=== PATIENT | female | born 1945 | race Caucasian/White ===

== ENCOUNTER → 2018-04-28 12:07 | Outpatient (CLI) | payer MEDICARE, SELFPAY ==
--- NOTE | 2018-04-28 12:17 | BI_ITS ---
MAMMOGRAPHY - BILATERAL SCREENING REASON FOR EXAM: Female, 72 years old. Routine annual screening examination. PERTINENT HISTORY: Non-contributory. TECHNIQUE: Digital bilateral breast herberth (3D mammographic acquisition) in the CC and MLO projections. 2-D mediolateral oblique (MLO) and craniocaudad (CC) views of both breasts were obtained. CAD: Full Field Digital Mammography with Computer Added Detection was performed. COMPARISON: Comparison is made with prior study dated March 26, 2014 and January 08, 2013. FINDINGS: Breast Composition: There are scattered areas of fibroglandular density. There are no dominant masses or suspicious calcifications. Stable appearance of the small bilateral axillary lymph nodes. No other significant abnormalities are identified. There has been no significant change since the prior study. BI/SCREENING MAMM (CAD), BILAT IMPRESSION: Stable bilateral screening mammogram. Yearly follow-up mammogram recommended. (A) ASSESSMENT CATEGORY: BIRADS Category 2: Benign. A letter regarding these results will be sent to the patient by the facility within 30 days. Approximately 10% of breast cancers are not detected by mammography. A normal mammogram should not delay biopsy of a clinically suspicious abnormality. [id number] Electronically Signed: Melchor Forde MD at 14:58 EST Tel [phone], Service support ,
--- OUTSIDE RECORDS SUMMARY | 2018-06-21 18:20 | XMS RPT_ITS | Continuity of Care Document ---
:1945 Author Organization [facility] Address [address] [facility] [place] [address] Phone Care Team Providers Name Role Phone Korin Glass DO Unavailable Dr. Mike Cole Unavailable Dr. Ousmane Morgan Unavailable Jeffrey Trini DASH Unavailable Gravius, Larisa Unavailable Unavailable PANDA Matias Unavailable Unavailable Ciesa SUPERVISOR AUDIT CLERKS, Chiquita Unavailable Unavailable Unavailable Problems Name Dates Details B12 deficiency (E53.8, 266.2) Status: Active BMI 40.0-44.9, adult (Z68.41, V85.41) Status: Active BMI 40.0-44.9, adult (Z68.41, V85.41) Status: Active Carpal tunnel syndrome of left wrist (G56.02, 354.0) Status: Active Colon cancer screening (Z12.11, V76.51) Status: Active Common cold virus (J00, 460) Status: Active Deliveries (Parity) Comments: 3. Status: Active Diabetes mellitus type II, controlled, with no complications (E11.9, 250.00) Comments: diet diet diet and exercise Status: Active Dyshydrosis (L30.1, 705.81) Status: Active Elevated blood-pressure reading without diagnosis of hypertension (R03.0, 796.2) Status: Active Encounter for screening mammogram for breast cancer (Renamed from Encounter for screening mammogram for malignant neoplasm of breast) (Z12.31, V76.12) Status: Active Epidermoid cyst of face (L72.0, 706.2) Status: Active Hair loss (L65.9, 704.00) Comments: for several years Status: Active Hypercholesteremia (Renamed from Hypercholesterolemia) (E78.00, 272.0) Comments: no medicatins requested will do lifestyle chg Status: Active Hyperkalemia (E87.5, 276.7) Comments: resolved off of MORAIMA-I started Status: Active Hyperlipidemia (E78.5, 272.4) Status: Active Hypertension, benign (I10, 401.1) Status: Active Impaired Fasting Glucose (R73.01, 790.21) Status: Active Itch of skin (L29.9, 698.9) Status: Active Need for prophylactic vaccination and inoculation against influenza (Renamed from Need for immunization against influenza) (Z23, V04.81) Status: Active Need for prophylactic vaccination and inoculation against influenza (Renamed from Need for immunization against influenza) (Z23, V04.81) Status: Active Need for vaccination against Streptococcus pneumoniae (Z23, V03.82) Status: Active NO LIVING WILL OR POA OF 12.29.2012 Status: Active Non-smoker (Z78.9, V49.89) Status: Active Non-smoker (Z78.9, V49.89) Status: Active Nutritional counseling (Z71.3, V65.3) Status: Active Obstructive sleep apnea, adult (G47.33, 327.23) Status: Active Other dysphagia (R13.19, 787.29) Status: Active Pain in unspecified joint (M25.50, 719.40) Status: Active Paresthesia (R20.2, 782.0) Comments: think carpal tunnel - cock up splints Status: Active Positive ROSHNI (antinuclear antibody) (R76.8, 795.79) Status: Active Pregnancies () Comments: 3. Status: Active Rash of face (R21, 782.1) Status: Active screening Status: Active screening Status: Active Sinusitis, acute (J01.90, 461.9) Status: Active Skin lesion of face (L98.9, 709.9) Comments: set up shave biopsy Status: Active Skin lesion of face (L98.9, 709.9) Status: Active Snoring (R06.83, 786.09) Comments: with apnea fatigue elevated blood pressure Status: Active Sore throat (J02.9, 462) Status: Active Unspecified Diagnosis Status: Active Upper Respiratory Infection (Renamed from Infection of the upper respiratory tract) (J06.9, 465.9) Comments: cold eazz nasal spray, rest and fluid Status: Active Vitamin D deficiency (E55.9, 268.9) Comments: will resume her oral supplemnet Status: Active Medications Name Dates Details AmLODIPine Besylate 5 MG Oral Tablet 1 (one) Tablet Tablet daily as directed for 0 days Quantity: 90 {Tablet} Refills: 3 Ordered:26-Nov-2017 Selena Randolph Start : 26-Nov-2017 Active Halobetasol Propionate 0.05 % External Cream 1 (one) Cream Cream bid for 0 days Quantity: 1 {Tube} Refills: 1 Ordered:04-Nov-2017 Rocio Matias LPN Start : 04-Nov-2017 Active Mupirocin Calcium 2 % External Cream 1 qd (2 %) Active PredniSONE 10 MG Oral Tablet 3 (three) Tablet daily for 7 days Quantity: 21 {Tablet} Refills: 0 Ordered:02-May-2018 Glenys Luke CNP Start : 02-May-2018 Active Comments:with food Augmentin 875-125 MG Oral Tablet 1 (one) Tablet bid for 14 days Quantity: 28 {Tablet} Refills: 0 Ordered:05-Jun-2017 Glenys Luke CNP Start : 05-Jun-2017 End : 19-Jun-2017 Inactive CEFDINIR, 300MG (Oral Capsule) 1 (one) Capsule bid for 10 days Quantity: 20 {Capsule} Refills: 0 Ordered:18-Aug-2013 Glenys Luke CNP Start : 18-Aug-2013 End : 28-Aug-2013 Inactive Cheratussin AC 100-10 MG/5ML Oral Solution 5 Milliliter qhs prn for 0 days Quantity: 120 {Milliliter} Refills: 0 Ordered:08-Jul-2017 Rocio Matias LPN Start : 05-Jun-2017 End : 08-Jul-2017 Inactive Lisinopril 20 MG Oral Tablet 1 (one) Tablet bid for 0 days Quantity: 60 {Tablet} Refills: 2 Ordered:26-Nov-2017 Geraldine Subramanian LPN Start : 04-Nov-2017 End : 26-Nov-2017 Inactive Mucinex 600 MG Oral Tablet Extended Release 12 Hour 1 (one) Tablet ER 12HR Tablet ER 12HR bid for 0 days Quantity: 60 {Tablet} Refills: 0 Ordered:06-Mar-2016 Rocio Matias LPN Start : 07-Nov-2015 End : 06-Mar-2016 Inactive No Known Historical Medications PredniSONE 10 MG Oral Tablet 3 (three) Tablet PO Daily for 7 days Quantity: 21 {Tablet} Refills: 0 Ordered:24-Mar-2018 Rocio Buck Start : 24-Mar-2018 End : 31-Mar-2018 Inactive Comments:With food ProAir HFA 108 (90 Base) MCG/ACT Inhalation Aerosol Solution 2 (two) Aerosol Soln Aerosol Soln puffs qid prn for 0 days Quantity: 1 {Inhaler} Refills: 0 Ordered:06-Mar-2016 Rocio Matias LPN Start : 03-Jun-2015 End : 06-Mar-2016 Inactive ProAir HFA 108 (90 Base) MCG/ACT Inhalation Aerosol Solution 2 (two) Aerosol Soln Aerosol Soln puffs qid prn for 0 days Quantity: 1 {Inhaler} Refills: 0 Ordered:06-Mar-2016 Rocio Matias LPN Start : 03-Jun-2015 End : 06-Mar-2016 Inactive Ultravate 0.05 % External Cream apply to hands Cream bid sparingly for 0 days Quantity: 15 {Gram} Refills: 1 Ordered:26-Nov-2017 Geraldine Subramanian LPN Start : 19-Feb-2017 End : 26-Nov-2017 Inactive Valtrex 1 GM Oral Tablet 1 (one) Tablet bid for 0 days Quantity: 20 {Tablet} Refills: 0 Ordered:17-Sep-2016 Rocio Matias LPN Start : 28-Mar-2016 End : 17-Sep-2016 Inactive VITAMIN D3, 1000UNIT (Oral Tablet) 2 (two) Tablet daily for 30 days Quantity: 60 {Tablet} Refills: 0 Ordered:17-Feb-2016 Glenys Luke CNP Start : 08-Nov-2015 End : 08-Dec-2015 Inactive ZITHROMAX Z-VICKIE, 250MG (Oral Tablet) 2 (two) Tablet today for 0 days Quantity: 6 {Tablet} Refills: 0 Ordered:24-Mar-2015 Florencio Rocio MOSQUEDA Start : 24-Nov-2014 End : 24-Mar-2015 Inactive LEVAQUIN, 500MG (Oral Tablet) 1 (one) Tablet qd for 0 days Quantity: 14 {Tablet} Refills: 0 Ordered:02-Aug-2014 Roby Radha Start : 12-Jul-2014 End : 02-Aug-2014 Discontinued No current meds at this time End : 28-Jul-2014 Discontinued Allergies and Adverse Reactions Name Dates Details No Known Allergies (Allergy) Onset: 07-Nov-2015 Status: Active No Known Drug Allergies (Allergy) Onset: 29-Dec-2012 Status: Active Past Medical History Name Dates Details Abnormal blood chemistry (R79.9, 790.6) Status: Inactive as of 18-Jun-2016 BMI 40.0-44.9, adult (Z68.41, V85.41) Status: Inactive as of 26-Nov-2017 BMI 45.0-49.9, adult (Z68.42, V85.42) Status: Inactive as of 26-Nov-2017 Bronchitis (J40, 490) Status: Inactive as of 06-Mar-2016 Cellulitis and abscess (L03.90, 682.9) Status: Resolved as of 12-Oct-2013 Cough (R05, 786.2) Status: Inactive as of 06-Mar-2016 Cough (R05, 786.2) Status: Inactive as of 08-Jul-2017 Diarrhea (Renamed from D (diarrhea)) (R19.7, 787.91) Comments: fluids think part of illness Status: Resolved as of 28-Jul-2014 High blood pressure Status: Inactive as of 08-Jul-2017 Myalgia (M79.10, 729.1) Status: Resolved as of 28-Jul-2014 PNEUMONIA DUE TO OTHER SPECIFIED BACTERIA (J15.8, 482.89) Status: Resolved as of 24-Nov-2014 Rash of hands (R21, 782.1) Status: Inactive as of 06-Mar-2016 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, 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) Status: Inactive as of 08-Jul-2017 SHORTNESS OF BREATH (R06.02, 786.05) Status: Resolved as of 12-Oct-2013 Unspecified bacterial pneumonia (J15.9, 482.9) Status: Resolved as of 28-Jul-2014 Vaccine for ksqflafnfh-uwvecbt-ayfqqibxv with poliomyelitis (Z23, V06.3) Status: Inactive as of 17-Mar-2013 Wheeze (R06.2, 786.07) Status: Inactive as of 06-Mar-2016 Procedures Procedure Dates Details Annual Eye Exam Completed Comments: February 2012 Bone Density Study Completed Comments: 5 years ago Colonoscopy, Screening Completed Comments: has not had Mammogram, Screening Completed Comments: 3 years = dexa 5 years ago as of 12.29.2012 Pap Smear Completed Comments: unkown R Knee - orthoscopic Completed Date Value Details 28-Apr-2018 SCREENING MAMM (CAD), BILAT Result: Comments: See Note; NOTES: [facility] Imaging Services [address] [place] [address] SCREENING MAMM (CAD), BILAT MR#: [id number] Acct: [id number] Name: HAYDEE BOSS Rep #: [id number] : 1945 F 72 From: Melchor Forde MD PCP: Korin Glass DO Status: REG CLI Study: SCREENING MAMM (CAD), BILAT Date of Exam: 04/28/18 Exam# [id number] Ordering Dr: Korin Glass DO MAMMOGRAPHY - BILATERAL SCREENING REASON FOR EXAM: Female, 72 years old. Routine annual screening examination. PERTINENT HISTORY: Non-contributory. TECHNIQUE: Digital bilateral breast herberth (3D m ammographic acquisition) in the CC and MLO projections. 2-D mediolateral oblique (MLO) and craniocaudad (CC) views of both breasts were obtained. CAD: Full Field Digital Mammography with Computer Added Detection was performed. COMPARISON: Comparison is made with prior study dated March 26, 2014 and January 08, 2013. FINDINGS: Breast Composition: There are scatter ed areas of fibroglandular density. There are no dominant masses or suspicious calcifications. Stable appearance of the small bilateral axillary lymph nodes. No other significant abnormalities are mariano ntified. There has been no significant change since the prior study. BI/SCREENING MAMM (CAD), BILAT IMPRESSION: Stable bilateral screening mammog mamie. Yearly follow-up mammogram recommended. (A) ASSESSMENT CATEGORY: BIRADS Category 2: Benign. A letter regarding these results will be sent to the patient by the facility within 30 days. Approximately 10% of breast cancers are not detected by mammography. A normal mammogram should not delay biopsy of a clinically suspicious abnormality. [id number] Electronically Signed: Melchor Forde MD at 14:58 EST Tel [phone], Service support , CC: Korin Glass DO Survey Crew Chief: Signed 03-Jun-2015 Spirometry ([id number]) Comments: OBSTRUCTION PRESNET Result: 24-Nov-2014 Spirometry (69382) Comments: good effor tand curve normal Result: 20-Sep-2014 Chest PA and Lateral Result: Comments: See Note; NOTES: [facility] Imaging Services [address] [place] [address] Radiology Report MR#: [id number] Acct: [id number] Name: HAYDEE BOSS Rep #: [id number] : 1945 F 69 From: Jorge Mckeon DO PCP: Trini Murphy DO Status: REG CLI Study: Chest PA and Lateral Date of Exam: 09/20/14 Exam# [id number] Ordering Dr: Trini Murphy DO STUDY: X-RAY CHES T REASON FOR EXAM: Female, 69 years old. Followup pneumonia. TECHNIQUE: PA and lateral views of the chest. COMPARISON: August 09, 2014. FINDINGS: The lungs are well expanded. There is minimal linear atelectasis versus scarring at the lung bases. Stable granuloma along the right diaphragm. There is no demonstrated pleural abnormality. Normal size heart. Normal mediastinum and kole. Normal visualized pulmonary arteries. Normal visualized aortic arch and descending thoracic aorta. There are diffuse degenerative changes of the visualized thoracic spi ne. Normal visualized ribs, clavicles, and shoulders. There is no demonstrated abnormality of the visualized soft tissue structures of the upper abdomen. IMPRE SSION: No acute cardiopulmonary disease. Electronically Signed: Jorge Mckeon DO at 20:56 EDT Tel [phone], Service support [phone], RAD/Ch est PA and Lateral IMPRESSION: No acute cardiopulmonary disease. Electronically Signed: Jorge Mckeon DO at 20:56 EDT Tel [phone], Service support [phone], CC: Trini Murphy DO Survey Crew Chief: Signed 09-Aug-2014 Chest PA and Lateral Result: Comments: See Note; NOTES: [facility] Imaging Services [address] [place] [address] Radiology Report MR#: [id number] Acct: [id number] Name: HAYDEE BOSS Rep #: [id number] : 1945 F 68 From: Zander Cornelius MD PCP: Trini Murphy DO Status: REG CLI Study: Chest PA and Lateral Date of Exam: 08/09/14 Exam# [id number] Ordering Dr: Trini Murphy DO STUDY: X-RAY CHES T REASON FOR EXAM: Female, 68 years old. Fever and cough TECHNIQUE: PA and lateral views of the chest. COMPARISON: 07/12/14 FINDINGS: Lungs are expanded. Sig nificant overall improvement noted since the previous study with near complete resolution of the right middle and right lower lobe infiltrates. Followup recommended to assure resolution. No pleural e ffusion, stable granulomatous calcifications. Normal size heart. Normal mediastinum and kole. Normal visualized pulmonary arteries. Normal visualized aortic arch and descending thoracic aorta. The re are diffuse degenerative changes of the visualized thoracic spine. Normal visualized ribs, clavicles, and shoulders. There is no demonstrated abnormality of the visualized soft tissue structures of the upper abdomen. IMPRESSION: Near complete resolution of previously described right middle and right lower lobe infiltrate. Followup recommended to assure c omplete resolution. Electronically Signed: Juan Cornelius MD at 12:56 EDT Tel , Service support [phone], RAD/Chest PA and Lat eral IMPRESSION: Near complete resolution of previously described right middle and right lower lobe infiltrate. Followup recommended to assure complete resolution. Electronically Signed: Juan Cornelius MD at 12:56 EDT Tel , Service support [phone], CC: Trini Murphy DO Survey Crew Chief: Signed 12-Jul-2014 Chest PA and Lateral Result: Comments: See Note; NOTES: [facility] Imaging Services [address] [place] [address] Radiology Report MR#: [id number] Acct: [id number] Name: HAYDEE BOSS Rep #: [id number] : 1945 F 68 From: Oracio Mccollum MD PCP: Trini Murphy DO Status: REG CLI Study: Chest PA and Lateral Date of Exam: 07/12/14 Exam# [id number] Ordering Dr: Trini Murphy DO STUDY: X-RAY CH EST REASON FOR EXAM: Female, 68 years old. TECHNIQUE: 63 COMPARISON: None. FINDINGS: Ill-defined airspace opacities seen in the right lower lobe and the ri ght middle lobe suggesting pneumonia. There is no demonstrated pleural abnormality. Normal size heart. Normal mediastinum and kole. Normal visualized pulmonary arteries. Normal visualized aortic ar ch and descending thoracic aorta. There is demineralization of the osseous structures.There are diffuse degenerative changes of the visualized thoracic spine. Normal visualized ribs, clavicles, and shoulders. There is no demonstrated abnormality of the visualized soft tissue structures of the upper abdomen. IMPRESSION: Right middle lobe and right lower l obe pneumonia Electronically Signed: Jada Mccollum MD at 15:46 EST Tel , Service support [phone], CC: Trini Murphy DO Survey Crew Chief: Signed 26-Mar-2014 [facility] [employer] Digital & CAD Result: Comments: See Note; NOTES: [facility] Imaging Services [address] [place] [address] Breast Imaging Report MR#: [id number] Acct: [id number] Name: HAYDEE BOSS Rep #: [id number] : 1945 F 68 From: Melchor Forde MD PCP: Trini Murphy DO Status: REG CLI Exam# [id number] Ordering Dr: Trini Murphy DO MAMMOGRAPHY - BILATERAL SCREENING REASON FOR EXAM: Femal e, 68 years old. Routine annual screening examination. PERTINENT HISTORY: Non- contributory. TECHNIQUE: Digital examination. Mediolateral oblique (MLO) and craniocaudad (CC) views of both breasts w ere obtained. CAD: CAD was performed on this study. COMPARISON: Comparison is made with prior study dated January 09, 2013. FINDINGS: Breast Composition: There are scattered areas of fibroglandular density. There are no dominant masses or suspicious calcifications. Stable bilateral small axillary lymph nodes. No other significant abnormalities are identif ied. There has been no significant change since the prior study. IMPRESSION: Stable bilateral screening mammogram. Yearly follow-up recommended. (A) ASSESSMENT CATEGORY: BIRADS Category 2: Benign finding(s). A letter regarding these results will be sent to the patient by the facility within 30 days. Approximately 10% o f breast cancers are not detected by mammography. A normal mammogram should not delay biopsy of a clinically suspicious abnormality. Electronically Signed: Melchor Forde MD at 12: 54 EDT Tel [phone], Service support [phone], CC: Trini Murphy DO Survey Crew Chief: Signed Family History Unknown Family Member Name Dates Details Brother 1 Comments: 56- open heart - 5 vessels blocked and oa with hip replacement Status: Active Father Comments: non malignant brain tumor causing pressure- - 1996- myocardial infarction- age 75 Status: Active Mother Comments: alzheimers, osteoporosis - 2010- lived until 1985- heart rhythm issue Status: Active Social History Name Dates Details Caffeine Use Comments: occassional soda Status: Active Living Situation Comments: since 1965 Status: Active Most Recent Primary Occupation Comments: works at [employer]- at [employer] [place]- with 3 children - has 11 grandchildren Status: Active No Drug Use Status: Active Non Drinker/No Alcohol Use Status: Active Non Smoker/No Tobacco Use Status: Active Vital Signs Date Test Result Details :12 Temperature 97.7 f Comments: Method: Temporal Pulse 71 /min Comments: Pattern: Regular Respiration Rate 16 /min Comments: Pattern: Unlabored O2 SAT 97 % Comments: Room air BP Systolic 118 mm[Hg] Comments: Patient Position: Sitting; Cuff Location: Left Arm; Cuff Size: Standard BP Diastolic 68 mm[Hg] Comments: Patient Position: Sitting; Cuff Location: Left Arm; Cuff Size: Standard Weight 237 lb Height 63.25 in Body Mass Index Calculated 41.65 kg/m2 Body Surface Area Calculated 2.08 m2 :09 Temperature 97.5 f Comments: Method: Temporal Pulse 80 /min Comments: Pattern: Regular Respiration Rate 18 /min Comments: Pattern: Unlabored O2 SAT 95 % Comments: Room air BP Systolic 130 mm[Hg] Comments: Patient Position: Sitting; Cuff Location: Left Arm; Cuff Size: Standard BP Diastolic 78 mm[Hg] Comments: Patient Position: Sitting; Cuff Location: Left Arm; Cuff Size: Standard Weight 240 lb Height 63.25 in Body Mass Index Calculated 42.18 kg/m2 Body Surface Area Calculated 2.1 m2 :02 Temperature 97.9 f Comments: Method: Temporal Pulse 64 /min Comments: Pattern: Regular Respiration Rate 17 /min Comments: Pattern: Unlabored O2 SAT 94 % Comments: Room air BP Systolic 140 mm[Hg] Comments: Patient Position: Sitting; Cuff Location: Left Arm; Cuff Size: Large BP Diastolic 78 mm[Hg] Comments: Patient Position: Sitting; Cuff Location: Left Arm; Cuff Size: Large Weight 240 lb Height 63.25 in Body Mass Index Calculated 42.18 kg/m2 Body Surface Area Calculated 2.1 m2 :31 Temperature 97.2 f Pulse 77 /min Comments: Pattern: Regular Respiration Rate 17 /min Comments: Pattern: Unlabored O2 SAT 95 % Comments: Room air BP Systolic 148 mm[Hg] Comments: Patient Position: Sitting; Cuff Location: Left Arm; Cuff Size: Standard BP Diastolic 84 mm[Hg] Comments: Patient Position: Sitting; Cuff Location: Left Arm; Cuff Size: Standard Weight 242.125 lb Height 63.25 in Body Mass Index Calculated 42.55 kg/m2 Body Surface Area Calculated 2.1 m2 :48 Pulse 61 /min Comments: Pattern: Regular Respiration Rate 18 /min Comments: Pattern: Unlabored O2 SAT 95 % Comments: Room air BP Systolic 124 mm[Hg] Comments: Patient Position: Sitting; Cuff Location: Left Arm; Cuff Size: Large BP Diastolic 70 mm[Hg] Comments: Patient Position: Sitting; Cuff Location: Left Arm; Cuff Size: Large Weight 242.125 lb Height 63.25 in Body Mass Index Calculated 42.55 kg/m2 Body Surface Area Calculated 2.1 m2 :04 Pulse 69 /min Comments: Pattern: Regular Respiration Rate 18 /min Comments: Pattern: Unlabored O2 SAT 97 % Comments: Room air BP Systolic 134 mm[Hg] Comments: Patient Position: Sitting; Cuff Location: Left Arm; Cuff Size: Large BP Diastolic 76 mm[Hg] Comments: Patient Position: Sitting; Cuff Location: Left Arm; Cuff Size: Large Weight 242.125 lb Height 63.25 in Body Mass Index Calculated 42.55 kg/m2 Body Surface Area Calculated 2.1 m2 :06 Pulse 71 /min Comments: Pattern: Regular Respiration Rate 18 /min Comments: Pattern: Unlabored O2 SAT 94 % Comments: Room air BP Systolic 148 mm[Hg] Comments: Patient Position: Sitting; Cuff Location: Left Arm; Cuff Size: Large BP Diastolic 86 mm[Hg] Comments: Patient Position: Sitting; Cuff Location: Left Arm; Cuff Size: Large Weight 241.25 lb Height 63.25 in Body Mass Index Calculated 42.4 kg/m2 Body Surface Area Calculated 2.1 m2 :15 Pulse 86 /min Comments: Pattern: Regular Respiration Rate 18 /min Comments: Pattern: Unlabored O2 SAT 95 % Comments: Room air BP Systolic 186 mm[Hg] Comments: Patient Position: Sitting; Cuff Location: Left Arm; Cuff Size: Standard BP Diastolic 97 mm[Hg] Comments: Patient Position: Sitting; Cuff Location: Left Arm; Cuff Size: Standard Weight 246.375 lb Height 63.25 in Body Mass Index Calculated 43.3 kg/m2 Body Surface Area Calculated 2.12 m2 :46 Weight 246.375 lb Height 63.25 in Body Mass Index Calculated 43.3 kg/m2 Body Surface Area Calculated 2.12 m2 :08 Pulse 68 /min Comments: Pattern: Regular Respiration Rate 18 /min Comments: Pattern: Unlabored O2 SAT 98 % Comments: Room air BP Systolic 148 mm[Hg] Comments: Patient Position: Sitting; Cuff Location: Left Arm; Cuff Size: Large BP Diastolic 78 mm[Hg] Comments: Patient Position: Sitting; Cuff Location: Left Arm; Cuff Size: Large Weight 246.375 lb Height 61 in Body Mass Index Calculated 46.55 kg/m2 Body Surface Area Calculated 2.06 m2 :29 Pulse 62 /min Comments: Pattern: Regular Respiration Rate 18 /min Comments: Pattern: Unlabored O2 SAT 96 % Comments: Room air BP Systolic 138 mm[Hg] Comments: Patient Position: Sitting; Cuff Location: Left Arm; Cuff Size: Large BP Diastolic 82 mm[Hg] Comments: Patient Position: Sitting; Cuff Location: Left Arm; Cuff Size: Large Weight 246.125 lb Height 61 in Body Mass Index Calculated 46.5 kg/m2 Body Surface Area Calculated 2.06 m2 [id number] Pulse 75 /min Comments: Pattern: Regular Respiration Rate 18 /min Comments: Pattern: Unlabored O2 SAT 92 % Comments: Room air BP Systolic 140 mm[Hg] Comments: Patient Position: Sitting; Cuff Location: Left Arm; Cuff Size: Large BP Diastolic 90 mm[Hg] Comments: Patient Position: Sitting; Cuff Location: Left Arm; Cuff Size: Large Weight 248.375 lb Height 61 in Body Mass Index Calculated 46.93 kg/m2 Body Surface Area Calculated 2.07 m2 [id number] Pulse 72 /min Comments: Pattern: Regular Respiration Rate 18 /min Comments: Pattern: Unlabored O2 SAT 92 % Comments: Room air BP Systolic 148 mm[Hg] Comments: Patient Position: Sitting; Cuff Location: Left Arm; Cuff Size: Large BP Diastolic 82 mm[Hg] Comments: Patient Position: Sitting; Cuff Location: Left Arm; Cuff Size: Large Weight 244.5 lb Height 61 in Body Mass Index Calculated 46.2 kg/m2 Body Surface Area Calculated 2.06 m2 [id number] Pulse 72 /min Comments: Pattern: Regular Respiration Rate 18 /min Comments: Pattern: Unlabored O2 SAT 91 % Comments: Room air BP Systolic 148 mm[Hg] Comments: Patient Position: Sitting; Cuff Location: Left Arm; Cuff Size: Large BP Diastolic 90 mm[Hg] Comments: Patient Position: Sitting; Cuff Location: Left Arm; Cuff Size: Large Weight 248.125 lb Height 61 in Body Mass Index Calculated 46.88 kg/m2 Body Surface Area Calculated 2.07 m2 [id number] Pulse 63 /min Comments: Pattern: Regular Respiration Rate 18 /min Comments: Pattern: Unlabored O2 SAT 93 % Comments: Room air BP Systolic 150 mm[Hg] Comments: Patient Position: Sitting; Cuff Location: Left Arm; Cuff Size: Large BP Diastolic 82 mm[Hg] Comments: Patient Position: Sitting; Cuff Location: Left Arm; Cuff Size: Large Weight 245.5 lb Height 61 in Body Mass Index Calculated 46.39 kg/m2 Body Surface Area Calculated 2.06 m2 :15 Temperature 97.4 f Comments: Method: Temporal Pulse 68 /min Comments: Pattern: Regular Respiration Rate 15 /min Comments: Pattern: Unlabored O2 SAT 94 % Comments: Room air BP Systolic 142 mm[Hg] Comments: Patient Position: Sitting; Cuff Location: Left Arm; Cuff Size: Large BP Diastolic 86 mm[Hg] Comments: Patient Position: Sitting; Cuff Location: Left Arm; Cuff Size: Large Weight 247 lb Height 61 in Body Mass Index Calculated 46.67 kg/m2 Body Surface Area Calculated 2.07 m2 :10 Temperature 98.1 f Comments: Method: Temporal Pulse 73 /min Comments: Pattern: Regular Respiration Rate 16 /min Comments: Pattern: Unlabored O2 SAT 97 % Comments: Room air BP Systolic 122 mm[Hg] Comments: Patient Position: Sitting; Cuff Location: Left Arm; Cuff Size: Standard BP Diastolic 62 mm[Hg] Comments: Patient Position: Sitting; Cuff Location: Left Arm; Cuff Size: Standard Weight 247 lb Height 61 in Body Mass Index Calculated 46.67 kg/m2 Body Surface Area Calculated 2.07 m2 :40 Temperature 97.9 f Comments: Method: Temporal Pulse 68 /min Comments: Pattern: Regular Respiration Rate 20 /min Comments: Pattern: Unlabored O2 SAT 95 % Comments: Room air BP Systolic 140 mm[Hg] Comments: Patient Position: Sitting; Cuff Location: Left Arm; Cuff Size: Large BP Diastolic 78 mm[Hg] Comments: Patient Position: Sitting; Cuff Location: Left Arm; Cuff Size: Large Weight 247 lb Height 61 in Body Mass Index Calculated 46.67 kg/m2 Body Surface Area Calculated 2.07 m2 :18 Comments: otc cold meds Temperature 96.7 f Comments: Method: Tympanic Pulse 64 /min Comments: Pattern: Regular Respiration Rate 18 /min Comments: Pattern: Unlabored O2 SAT 98 % Comments: Room air BP Systolic 158 mm[Hg] Comments: Patient Position: Sitting; Cuff Location: Left Arm; Cuff Size: Standard BP Diastolic 82 mm[Hg] Comments: Patient Position: Sitting; Cuff Location: Left Arm; Cuff Size: Standard Weight 247 lb Height 61 in Body Mass Index Calculated 46.67 kg/m2 Body Surface Area Calculated 2.07 m2 :22 Pulse 69 /min Comments: Pattern: Regular Respiration Rate 20 /min Comments: Pattern: Unlabored O2 SAT 96 % Comments: Room air BP Systolic 118 mm[Hg] Comments: Patient Position: Sitting; Cuff Location: Left Arm; Cuff Size: Large BP Diastolic 80 mm[Hg] Comments: Patient Position: Sitting; Cuff Location: Left Arm; Cuff Size: Large Weight 247 lb Height 61 in Body Mass Index Calculated 46.67 kg/m2 Body Surface Area Calculated 2.07 m2 :53 Temperature 97.2 f Comments: Method: Oral Pulse 72 /min Comments: Pattern: Regular Respiration Rate 16 /min Comments: Pattern: Unlabored BP Systolic 118 mm[Hg] Comments: Patient Position: Sitting; Cuff Location: Left Arm; Cuff Size: Large BP Diastolic 76 mm[Hg] Comments: Patient Position: Sitting; Cuff Location: Left Arm; Cuff Size: Large Weight 247 lb Height 61 in Body Mass Index Calculated 46.67 kg/m2 Body Surface Area Calculated 2.07 m2 :19 Temperature 98.2 f Pulse 70 /min Comments: Pattern: Regular Respiration Rate 16 /min Comments: Pattern: Unlabored O2 SAT 96 % Comments: Room air BP Systolic 134 mm[Hg] Comments: Patient Position: Sitting; Cuff Location: Left Arm; Cuff Size: Large BP Diastolic 74 mm[Hg] Comments: Patient Position: Sitting; Cuff Location: Left Arm; Cuff Size: Large Weight 250 lb Height 61 in Body Mass Index Calculated 47.24 kg/m2 Body Surface Area Calculated 2.08 m2 :45 Comments: after aerosol treatment O2 SAT 96 % Comments: Room air :09 Temperature 98.8 f Pulse 74 /min Comments: Pattern: Regular Respiration Rate 18 /min Comments: Pattern: Unlabored O2 SAT 93 % Comments: Room air BP Systolic 110 mm[Hg] Comments: Patient Position: Sitting; Cuff Location: Left Arm; Cuff Size: Large BP Diastolic 72 mm[Hg] Comments: Patient Position: Sitting; Cuff Location: Left Arm; Cuff Size: Large Weight 245 lb Height 61 in Body Mass Index Calculated 46.29 kg/m2 Body Surface Area Calculated 2.06 m2 :35 Temperature 97.5 f Pulse 65 /min Comments: Pattern: Regular Respiration Rate 18 /min Comments: Pattern: Unlabored BP Systolic 132 mm[Hg] Comments: Patient Position: Sitting; Cuff Location: Left Arm; Cuff Size: Large BP Diastolic 64 mm[Hg] Comments: Patient Position: Sitting; Cuff Location: Left Arm; Cuff Size: Large Weight 243 lb Height 61 in Body Mass Index Calculated 45.91 kg/m2 Body Surface Area Calculated 2.05 m2 :22 Temperature 97.9 f Pulse 78 /min Comments: Pattern: Regular Respiration Rate 16 /min Comments: Pattern: Unlabored BP Systolic 148 mm[Hg] Comments: Patient Position: Sitting; Cuff Location: Left Arm; Cuff Size: Large BP Diastolic 70 mm[Hg] Comments: Patient Position: Sitting; Cuff Location: Left Arm; Cuff Size: Large Weight 243 lb Height 61 in Body Mass Index Calculated 45.91 kg/m2 Body Surface Area Calculated 2.05 m2 :13 Temperature 98.3 f Comments: Method: Oral Pulse 90 /min Comments: Pattern: Regular Respiration Rate 20 /min O2 SAT 99 % Comments: Room air Weight 242 lb Height 61 in Body Mass Index Calculated 45.73 kg/m2 Body Surface Area Calculated 2.05 m2 :25 Temperature 98.6 f Pulse 82 /min Comments: Pattern: Regular Respiration Rate 18 /min Comments: Pattern: Unlabored BP Systolic 136 mm[Hg] Comments: Patient Position: Sitting; Cuff Location: Left Arm; Cuff Size: Large BP Diastolic 74 mm[Hg] Comments: Patient Position: Sitting; Cuff Location: Left Arm; Cuff Size: Large Weight 242 lb Height 61 in Body Mass Index Calculated 45.73 kg/m2 Body Surface Area Calculated 2.05 m2 :16 Temperature 98.2 f Pulse 72 /min Comments: Pattern: Regular Respiration Rate 16 /min Comments: Pattern: Unlabored BP Systolic 136 mm[Hg] Comments: Patient Position: Sitting; Cuff Location: Left Arm; Cuff Size: Large BP Diastolic 80 mm[Hg] Comments: Patient Position: Sitting; Cuff Location: Left Arm; Cuff Size: Large Weight 246 lb Height 61 in Body Mass Index Calculated 46.48 kg/m2 Body Surface Area Calculated 2.06 m2 :54 Temperature 97.2 f Pulse 84 /min Comments: Pattern: Regular Respiration Rate 16 /min Comments: Pattern: Unlabored BP Systolic 136 mm[Hg] Comments: Patient Position: Sitting; Cuff Location: Left Arm; Cuff Size: Large BP Diastolic 82 mm[Hg] Comments: Patient Position: Sitting; Cuff Location: Left Arm; Cuff Size: Large Weight 244 lb Height 61 in Body Mass Index Calculated 46.1 kg/m2 Body Surface Area Calculated 2.06 m2 Results Date Description Value Details :40 Systemic Lupus Profile Comments: PATIENT NOT FASTINGPERFORMED BY: [place] [id number] [facility] [id number] ([id number]) Anti-DNA (DS) Ab Qn 1 {IU/mL} (Normal) Range: 0-9 Comments: Negative <5 Equivocal 5 - 9 Positive >9 Sjogren's Anti-SS-B <0.2 {AI} (Normal) Range: 0.0-0.9 Sjogren's Anti-SS-A <0.2 {AI} (Normal) Range: 0.0-0.9 Antichromatin Antibodies <0.2 {AI} (Normal) Range: 0.0-0.9 RA Latex Turbid. <10.0 {IU/mL} (Normal) Range: 0.0-13.9 Almendarez Antibodies <0.2 {AI} (Normal) Range: 0.0-0.9 SEARCH DEVELOPER Antibodies 0.9 {AI} (Normal) Range: 0.0-0.9 :53 ROSHNI (ANTINUCLEAR ANTIBODY) Comments: PATIENT NOT FASTINGPERFORMED BY: [place] [id number] [facility] [id number] ([id number]) ROSHNI Direct Positive (Abnormal) :53 C-Reactive Protein (31345) Comments: PATIENT NOT FASTINGPERFORMED BY: [facility]6370 [facility] [id number] C-Reactive Protein, Quant 27.3 mg/L (Abnormal) Range: 0.0-4.9 :53 SED RATE ERYTHROCYTE (45945) Comments: PATIENT NOT FASTINGPERFORMED BY: [address] [id number] Sedimentation Rate-Westergren 34 mm/h (Normal) Range: 0-40 :48 HgA1C , Office (19053) HgA1C , Office 5.7 % (Normal) Range: 4.6 - 7.1 :48 Blood Glucose , Office (39939) Blood Glucose , Office 78 (Normal) :42 POTASSIUM SERUM (87904) Comments: PATIENT NOT FASTINGPERFORMED BY: NIK [facility] Dwmzmu5538 [facility] [id number] Potassium 4.7 mmol/L (Normal) Range: 3.5-5.2 79-Vao-53682:16 Pathology Report Comments: PERFORMED BY: DONAVONIN [facility] [place] Zdsc9531 [facility] [id number] BY: [facility] Dermatopathology [address]of[address] [place] [id number] Information: [id number] See MATER Comments: Material submitted: .LEFT SIDE OF FACEClinical history: .SKIN LESION FACE Note (Normal) Diagnosis:ATYPICAL SQUAMOPROLIFERATIVE LESION WITH ULCERATION AND MIXEDINFLAMMATORY INFILTRATE; PLEASE SEE COMMENT...COMMENT:BONAFIDE SQUAMOUS DYSPLASIA IS FAVORED TO BE PRESENT AT A LEVELOF ADVANCED ACTINIC KERATOSIS. THIS MAY BE OCCURRING IN ABACKGROUND OF BENIGN KERATOSIS SUCH BUT NOT LIMITED TO ASEBORRHEIC KERATOSIS. ADDITIONALLY, THERE ARE FOCI OF BRISKINFLAMMATION INCLUDI NG NEUTROPHILS AND THE LESION MAY BEIMPETIGINIZED/CRUSTED, THOUGH AN INTERCURRENT COMPONENT OF ARUPTURED FOLLICULAR PATHOLOGY IS PLAUSIBLE. IF THE CLINICALSUSPICION FOR AN INFECTIOUS ETIOLOGY IS HIGH, T HEN TISSUE CULTUREMAY LEND HELPFUL INFORMATION IN THAT REGARD, BECAUSE YOU KNOW,EPITHELIOMATOUS HYPERPLASIA CAN BE SEEN IN THE SETTING OF FUNGALAND OTHER INFECTIOUS ETIOLOGIES. CORRELATION WITH CLINI BAO FINDINGSWILL BE OF IMPORT. (MULTIPLE DEEPER SECTIONS WERE EXAMINED.)11/21/2017Electronically signed: .Ealn Lowry MD, DermatopathologistGross description: .RECEIVED IN FORMALIN LABELED HAYDEE BOSS AND LEFT SIDE OF FACE IS A 0.6 X0.5 X <0.1 CM S HAVE BIOPSY OF LAKE SKIN. BISECTED AND ENTIRELY SUBMITTEDIN ONE CASSETTE.BCO/SMIMicroscopic: .SECTIONS DEMONSTRATE HYPERPARAKERATOSIS WITH A FOCUS OF E PIDERMALULCERATION THAT CONTAINS NEUTROPHILIC INFLAMMATION. BASAL LAYERKERATINOCYTE ATYPIA IS NOTED IN SOME FOCI. A SMALL AMOUNT OFDERMIS IS AVAILABLE FOR EVALUATION AND DEMONSTRATES MIXEDINFLAMMATION O F LYMPHOCYTES, HISTIOCYTES, AND OCCASIONALNEUTROPHILS. PAS STAIN (APPROPRIATE CONTROL) IS NEGATIVE FORUNEQUIVOCAL FUNGAL HYPHAE.Pathologist provided ICD- 10:D48.5, L98.499, L08.9CPT .936858, 600983 70-Mkz-303853:59 POTASSIUM SERUM (12669) Comments: PATIENT NOT FASTINGPERFORMED BY: [facility]ifyAt[facility] [id number] Potassium 5.3 mmol/L (Abnormal) Range: 3.5-5.2 01-Xus-901679:04 POTASSIUM SERUM (94802) Comments: PATIENT NOT FASTINGPERFORMED BY: [employer] EdwardsPromoJamAtrium Health Stanly [id number] Potassium 5.4 mmol/L (Abnormal) Range: 3.5-5.2 89-Cas-627988:01 HgA1C , Office (24209) HgA1C , Office 6.1 % (Normal) Range: 4.6 - 7.1 47-Csu-449914:01 Blood Glucose , Office (30910) Blood Glucose , Office 89 (Normal) 6-Pzi-944496:51 Microscopic Examination Comments: PATIENT WAS FASTINGPERFORMED BY: Summify[address] [id number] BY: Summify unamia Edwards H[facility]imenroppiLev[facility] [id number] Bacteria Few (Normal) Mucus Threads Present (Normal) Epithelial Cells (non renal) 0-10 {/hpf} (Normal) Range: 0 - 10 RBC 0-2 {/hpf} (Normal) Range: 0 - 2 WBC 11-30 {/hpf} (Abnormal) Range: 0 - 5 Comments: Clumps of leukocytes present. 4-Moc-764250:51 CALCIFEDIOL (00807) Comments: PATIENT WAS FASTINGPERFORMED BY: LabMingyianrp Jftkdvgbxv6220 [facility] [id number] BY: [facility] Kcxqxa5429 Edwards RoadDublin [place] [id number] Vitamin D, 25-Hydroxy 31.8 ng/mL (Normal) Range: 30.0-100.0 Comments: Vitamin D deficiency has been defined by the [place] of[place]icine and an Endocrine Society practice guideline as alevel of serum 25-OH vitamin D less than 20 ng/mL (1,2).The Endocrine Society went on to further define vitamin Dinsufficiency as a level between 21 and 29 ng/mL (2).1. IOM ([place] of Medicine). 2010. Dietary reference intakes for calcium and D. [place]: The National Academies Press.2. Gael MF, Tiffany HEART, Sandee MADRID, et al. Evaluation, treatment, and prevention of vitamin D deficiency: an Endocrine Society clinical practice guideline. JCEM. 2010; 96(7):1911-30. 8-Sne-569708:51 VITAMIN B-12 (CYANOCOBALAMIN) Comments: PATIENT WAS FASTINGPERFORMED BY: [facility] [address]rz[address] [id number] BY: [facility] Iqmdbj9623 [address] [facility] HospitalDublin [place] [id number] (32801) Vitamin B12 566 pg/mL (Normal) Range: 232-1245 6-Mdz-792711:51 TSH (99843) Comments: PATIENT WAS FASTINGPERFORMED BY: [facility] [address] [id number] BY: [facility] Njdisd7134 Edwards RoadDublin [place] [id number] TSH 1.520 {uIU/mL} (Normal) Range: 0.450-4.500 6-Znu-107452:51 URINALYSIS, W/ MICRO Comments: PATIENT WAS FASTINGPERFORMED BY: LabMingyian[address] [id number] BY: LabAmanda [place] [id number] [facility] [id number] (27520) Microscopic Examination See below: (Normal) Comments: Microscopic was indicated and was performed. Nitrite, Urine Negative (Normal) Urobilinogen,Semi-Qn 0.2 mg/dL (Normal) Range: 0.2-1.0 Bilirubin Negative (Normal) Occult Blood Negative (Normal) Ketones Negative (Normal) Glucose Negative (Normal) Protein Negative (Normal) WBC Esterase 3+ (Abnormal) Appearance Clear (Normal) Urine-Color Yellow (Normal) pH 7.5 (Normal) Range: 5.0-7.5 Specific [place] 1.015 (Normal) Range: 1.005-1.030 3-Hnl-744820:51 MICROALBUMIN: CREATININE Comments: PATIENT WAS FASTINGPERFORMED BY: Summify[address] [id number] BY: [place] [id number] [facility] [id number] RATIO (56611) AND (47465) Alb/Creat Ratio 7.7 {mg/g_creat} (Normal) Range: 0.0-30.0 Albumin, Urine 6.0 ug/mL (Normal) Creatinine, Urine 77.6 mg/dL (Normal) 1-Loh-361728:51 METABOLIC PANEL, Comments: PATIENT WAS FASTINGPERFORMED BY: Summify[address] [id number] BY: [place] [id number] [facility] [id number] COMPREHENSIVE (46886) ALT (SGPT) 9 [iU]/L (Normal) Range: 0-32 AST (SGOT) 15 [iU]/L (Normal) Range: 0-40 Alkaline Phosphatase 79 [iU]/L (Normal) Range: 39-117 Bilirubin, Total 0.5 mg/dL (Normal) Range: 0.0-1.2 A/G Ratio 1.4 (Normal) Range: 1.2-2.2 Globulin, Total 2.9 g/dL (Normal) Range: 1.5-4.5 Albumin 4.2 g/dL (Normal) Range: 3.5-4.8 Protein, Total 7.1 g/dL (Normal) Range: 6.0-8.5 Calcium 9.8 mg/dL (Normal) Range: 8.7-10.3 Carbon Dioxide, Total 26 mmol/L (Normal) Range: 18-29 Comments: Effective November 04, 2017 Carbon Dioxide, Total reference interval will be changing to: Age Male Female 0 days - 30 days 16 - 29 16 - 29 31 days - 1 year 15 - 25 15 - 25 2 years - 5 years 17 - 26 17 - 26 6 y ears - 12 years 19 - 27 19 - 27 >12 years 20 - 29 20 - 29 Chloride 101 mmol/L (Normal) Range: 96-106 Potassium 5.4 mmol/L (Abnormal) Range: 3.5-5.2 Sodium 142 mmol/L (Normal) Range: 134-144 BUN/Creatinine Ratio 15 (Normal) Range: 12-28 eGFR If Africn Am 78 mL/min/1.73 (Normal) eGFR If NonAfricn Am 68 mL/min/1.73 (Normal) Creatinine 0.86 mg/dL (Normal) Range: 0.57-1.00 BUN 13 mg/dL (Normal) Range: 8-27 Glucose 102 mg/dL (Abnormal) Range: 65-99 8-Sia-897906:51 LIPOPROTEIN, BLD, BY NMR Comments: PATIENT WAS FASTINGPERFORMED BY: BN [facility] [address] [id number] BY: CB [facility] Pikqvk4769 [facility] [id number] (31402) LP-IR Score 79 (Abnormal) Comments: INSULIN RESISTANCE MARKER <--Insulin Sensitive Insulin Resistant--> Percentile in Reference PopulationInsulin Resistance ScoreLP-IR Score Low 25th 50th 75th High <27 27 45 63 >63LP-IR Score is inaccurate if patient is non-fasting. .The LP-IR score is a laboratory developed i [facility] that has beenassociated with insulin resistance and diabetes risk and should beused as one component of a physician's clinical assessment. TheLP-IR score listed above has not been cleared by the [place] Food andDrug Administration. LDL Size 20.1 nm (Normal) Comments: INTERPRETATIVE INFORMATION PARTICLE CONCENTRATION AND SIZE <--Lower CVD Risk Highe r CVD Risk--> LDL AND HDL PARTICLES Percentile in Reference Population HDL-P (total) High 75th 50th 25th Low >34.9 34.9 30.5 26.7 <26.7 . Small LDL-P Low 25th 50th 75th High <117 117 527 839 >839 . LDL Size <-Large (Pattern A)-> <-Small (Pattern B)-> 23.0 20.6 20.5 19.0 Small LDL-P and LDL Size are associated with CVD risk, but not afterLDL-P is taken into account. .These assays were developed and their performance characteristicsdetermined by [employer]. These assays have not been cleared by [place] Food and Drug Administration. The clinical utility of theselaboratory values have not been fully established. Small LDL-P 1092 nmol/L (Abnormal) HDL-P (Total) 28.2 umol/L (Abnormal) Cholesterol, Total 204 mg/dL (Abnormal) Range: 100-199 Triglycerides 184 mg/dL (Abnormal) Range: 0-149 HDL-C 36 mg/dL (Abnormal) LDL-C 131 mg/dL (Abnormal) Range: 0-99 Comments: . Optimal < 100 Above optimal 100 - 129 Borderline 1 30 - 159 High 160 - 189 Very high > 189 .LDL-C is inaccurate if patient is non-fasting. LDL-P 1806 nmol/L (Abnormal) Comments: Low < 1000 Moderate 1000 - 1299 Borderline-High 1300 - 1599 High 1600 - 2000 Very High > 2000 6-Okr-436719:51 CBC W/AUTO DIFF WBC Comments: PATIENT WAS FASTINGPERFORMED BY: BN [facility] Ctovkpugiw2016 [facility] [id number] BY: CB [facility] Ahxoey8619 [facility] [id number] (03711) Immature Grans (Abs) 0.0 {x10E3/uL} (Normal) Range: 0.0-0.1 Immature Granulocytes 0 % (Normal) Baso (Absolute) 0.0 {x10E3/uL} (Normal) Range: 0.0-0.2 Eos (Absolute) 0.3 {x10E3/uL} (Normal) Range: 0.0-0.4 Monocytes(Absolute) 0.5 {x10E3/uL} (Normal) Range: 0.1-0.9 Lymphs (Absolute) 2.5 {x10E3/uL} (Normal) Range: 0.7-3.1 Neutrophils (Absolute) 3.9 {x10E3/uL} (Normal) Range: 1.4-7.0 Basos 0 % (Normal) Eos 5 % (Normal) Monocytes 7 % (Normal) Lymphs 34 % (Normal) Neutrophils 54 % (Normal) Platelets 326 {x10E3/uL} (Normal) Range: 150-379 RDW 14.0 % (Normal) Range: 12.3-15.4 MCHC 33.1 g/dL (Normal) Range: 31.5-35.7 MCH 31.9 pg (Normal) Range: 26.6-33.0 MCV 96 fL (Normal) Range: 79-97 Hematocrit 39.9 % (Normal) Range: 34.0-46.6 Hemoglobin 13.2 g/dL (Normal) Range: 11.1-15.9 RBC 4.14 {x10E6/uL} (Normal) Range: 3.77-5.28 WBC 7.2 {x10E3/uL} (Normal) Range: 3.4-10.8 :02 HgA1C , Office (72920) HgA1C , Office 6.0 % (Normal) Range: 4.6 - 7.1 :02 Blood Glucose , Office (81370) Blood Glucose , Office 141 (Normal) :48 HgA1C , Office (13336) HgA1C , Office 6.0 % (Normal) Range: 4.6 - 7.1 :48 Blood Glucose , Office (81248) Blood Glucose , Office 94 (Normal) :26 TSH (22857) Comments: PATIENT WAS FASTINGPERFORMED BY: [employer] Rtovpa7151 [facility] [id number] TSH 2.090 {uIU/mL} (Normal) Range: 0.450-4.500 63-Ulx-804813:26 METABOLIC PANEL, COMPREHENSIVE Comments: PATIENT WAS FASTINGPERFORMED BY: [employer] Flbzcq4532 [facility] [id number] (85444) ALT (SGPT) 11 [iU]/L (Normal) Range: 0-32 AST (SGOT) 17 [iU]/L (Normal) Range: 0-40 Alkaline Phosphatase, S 83 [iU]/L (Normal) Range: 39-117 Bilirubin, Total 0.6 mg/dL (Normal) Range: 0.0-1.2 A/G Ratio 1.4 (Normal) Range: 1.2-2.2 Globulin, Total 3.0 g/dL (Normal) Range: 1.5-4.5 Albumin, Serum 4.3 g/dL (Normal) Range: 3.5-4.8 Protein, Total, Serum 7.3 g/dL (Normal) Range: 6.0-8.5 Calcium, Serum 9.6 mg/dL (Normal) Range: 8.7-10.3 Carbon Dioxide, Total 25 mmol/L (Normal) Range: 18-29 Chloride, Serum 99 mmol/L (Normal) Range: 96-106 Potassium, Serum 5.0 mmol/L (Normal) Range: 3.5-5.2 Sodium, Serum 144 mmol/L (Normal) Range: 134-144 BUN/Creatinine Ratio 11 (Abnormal) Range: 12-28 eGFR If Africn Am 78 mL/min/1.73 (Normal) eGFR If NonAfricn Am 67 mL/min/1.73 (Normal) Creatinine, Serum 0.87 mg/dL (Normal) Range: 0.57-1.00 BUN 10 mg/dL (Normal) Range: 8-27 Glucose, Serum 100 mg/dL (Abnormal) Range: 65-99 96-Eqd-937579:26 CBC W/AUTO DIFF WBC (67187) Comments: PATIENT WAS FASTINGPERFORMED BY: [employer]70 [facility] [id number] Immature Grans (Abs) 0.0 {x10E3/uL} (Normal) Range: 0.0-0.1 Immature Granulocytes 0 % (Normal) Baso (Absolute) 0.0 {x10E3/uL} (Normal) Range: 0.0-0.2 Eos (Absolute) 0.3 {x10E3/uL} (Normal) Range: 0.0-0.4 Monocytes(Absolute) 0.5 {x10E3/uL} (Normal) Range: 0.1-0.9 Lymphs (Absolute) 2.6 {x10E3/uL} (Normal) Range: 0.7-3.1 Neutrophils (Absolute) 3.8 {x10E3/uL} (Normal) Range: 1.4-7.0 Basos 0 % (Normal) Eos 4 % (Normal) Monocytes 7 % (Normal) Lymphs 36 % (Normal) Neutrophils 53 % (Normal) Platelets 369 {x10E3/uL} (Normal) Range: 150-379 RDW 14.3 % (Normal) Range: 12.3-15.4 MCHC 33.0 g/dL (Normal) Range: 31.5-35.7 MCH 30.9 pg (Normal) Range: 26.6-33.0 MCV 94 fL (Normal) Range: 79-97 Hematocrit 41.8 % (Normal) Range: 34.0-46.6 Hemoglobin 13.8 g/dL (Normal) Range: 11.1-15.9 RBC 4.47 {x10E6/uL} (Normal) Range: 3.77-5.28 WBC 7.3 {x10E3/uL} (Normal) Range: 3.4-10.8 14-Fot-884130:26 VITAMIN B-12 (CYANOCOBALAMIN) Comments: PATIENT WAS FASTINGPERFORMED BY: [employer] Dvtuam9196 [place] [id number] (12568) Vitamin B12 519 pg/mL (Normal) Range: 211-946 39-Ivu-075272:26 CALCIFEDIOL (64224) Comments: PATIENT WAS FASTINGPERFORMED BY: [facility] Iiyaeu5[address] [place] [id number] Vitamin D, 25-Hydroxy 37.1 ng/mL (Normal) Range: 30.0-100.0 Comments: Vitamin D deficiency has been defined by the [place] of[place]icine and an Endocrine Society practice guideline as alevel of serum 25-OH vitamin D less than 20 ng/mL (1,2).The Endocrine Society went on to further define vitamin Dinsufficiency as a level between 21 and 29 ng/mL (2).1. IOM ([place] of Medicine). 2010. Dietary reference intakes for calcium and D. [place]: The National Academies Press.2. Gael MF, Tiffany HEART, Sandee MADRID, et al. Evaluation, treatment, and prevention of vitamin D deficiency: an Endocrine Society clinical practice guideline. JCEM. 2010; 96(7):1911-30. :26 LIPID PANEL (23705) Comments: PATIENT WAS FASTINGPERFORMED BY: [facility] Ubwfqk7481 [facility] [id number] LDL/HDL Ratio 3.0 {ratio_units} (Normal) Range: 0.0-3.2 Comments: LDL/HDL Ratio Men Women 1/2 Avg.Risk 1.0 1.5 Av g.Risk 3.6 3.2 2X Avg.Risk 6.2 5.0 3X Avg.Risk 8.0 6.1 LDL Cholesterol Calc 139 mg/dL (Abnormal) Range: 0-99 VLDL Cholesterol Bao 29 mg/dL (Normal) Range: 5-40 HDL Cholesterol 46 mg/dL (Normal) Triglycerides 145 mg/dL (Normal) Range: 0-149 Cholesterol, Total 214 mg/dL (Abnormal) Range: 100-199 :18 HgA1C , Office (96169) HgA1C , Office 6.0 % (Normal) Range: 4.6 - 7.1 :18 Blood Glucose , Office (90606) Blood Glucose , Office 120 (Normal) :50 HgA1C , Office (54891) HgA1C , Office 6.2 % (Normal) Range: 4.6 - 7.1 :50 Blood Glucose , Office (95984) Blood Glucose , Office 104 (Normal) :10 CBC W/Diff, Automated Comments: [facility] [address] [place], [place], [id number] Absolute Lymph 2.49 {X10_3/ul} (Normal) Range: 0.83-4.51 Absolute Neut 4.0 {X10_3/uL} (Normal) Range: 2.0-7.7 IM GRAN % 0.100 % (Normal) Range: 0.0-0.9 Comments: IG% - Immature Granulocytes (promyelocytes, myelocytes andmetamyelocytes) > 1% indicates that a LEFT SHIFT is Present. BASO% 0.3 % (Normal) Range: 0-1 EO% 4.1 % (Normal) Range: 0-5 MONO% 6.4 % (Normal) Range: 0-10 LY% 34.4 % (Normal) Range: 19-41 NEUT% 54.7 % (Normal) Range: 47-70 MPV 10.0 fL (Normal) Range: 6.2-12.0 PLT 344 K/mm3 (Normal) Range: 150-450 RDW SD 50.0 fL (Abnormal) Range: 35.1-43.9 RDW CV 14.0 % (Normal) Range: 11.6-14.6 MCHC 31.8 {g/gl} (Abnormal) Range: 32-36 MCH 31.0 pg (Normal) Range: 27.0-32.0 MCV 97.5 fL (Normal) Range: 81-99 HCT 42.4 % (Normal) Range: 37-47 HGB 13.5 g/dL (Normal) Range: 12.0-15.0 RBC 4.35 {M/mm3} (Normal) Range: 4.2-5.4 WBC 7.2 K/mm3 (Normal) Range: 4.4-11.0 41-Cwr-114051:10 Comprehensive Metabolic Profil Comments: [facility] [address] [place], [id number] GAP 6 (Normal) Range: 5-15 CO2 29.0 mmol/L (Normal) Range: 21.0-32.0 CL 107 mmol/L (Normal) Range: 98-107 K 4.5 mmol/L (Normal) Range: 3.5-5.1 NA 142 mmol/L (Normal) Range: 136-145 T BILI 0.50 mg/dL (Normal) Range: 0.20-1.00 ALT 17 U/L (Normal) Range: 12-78 ALK P 80 U/L (Normal) Range: 45-117 AST 14 U/L (Abnormal) Range: 15-37 CA 9.0 mg/dL (Normal) Range: 8.5-10.1 A/G 0.8 {RATIO} (Abnormal) Range: 0.9-2.4 GLOB 4.3 g/dL (Abnormal) Range: 2.3-3.5 ALB 3.6 g/dL (Normal) Range: 3.4-5.0 T PROT 7.9 g/dL (Normal) Range: 6.4-8.2 BUN/CRE 12.1 {RATIO} (Normal) Range: 10-20 EST GFR - AA 88 mL/min (Normal) Comments: GFR Calc EST GFR 72 mL/min (Normal) Comments: Non- GFR Calc CREAT,SERUM 0.83 mg/dL (Normal) Range: 0.55-1.02 Comments: The validity of the calculated GFR AND GFRAA in patients over70 years has not been determined. Clinical correlation isessential. BUN 10 mg/dL (Normal) Range: 7-18 GLU 96 mg/dL (Normal) Range: 70-110 20-Wfp-005752:10 Lipid Profile Comments: [facility] [address] [place], [address] VLDL 31 mg/dL (Normal) Range: 5-40 LDL 105 mg/dL (Normal) Range: 0-130 HDL 53 mg/dL (Normal) Comments: The drugs N-Acetylcysteine and Metamizole may falsely deressthis assay. Reference Range HDL <40 mg/dL Low HDL Cholesterol HDL >or= 60 mg/dL High HDL Cholesterol TRIG 155 mg/dL (Normal) Comments: The drugs N-Acetylcysteine and Metamizole may falsely deressthis assay.Serum Triglycerides Reference Interval Normal <150 mg/dL Borderline high 150 - 199 mg/dL High 200 - 499 mg/dL Very High > or = 500 mg/dL CHOL 189 mg/dL (Normal) Comments: <200 mg/dL Desirable 200-240 mg/dL Borderline >240 mg/dL High Risk 41-Nzo-787304:10 Microalb:Creat Ratio,Random UR Comments: [facility] [address] [place], [address] MALB:CREAT 12.5 {mg/g_CRE} (Normal) MICROALBUMIN,UR 15.4 mg/L (Normal) UR CREAT 123.00 mg/dL (Normal) 45-Fet-974598:10 Thyroid Stim Hormone (TSH) Comments: [facility] [address] [place], [address] TSH 2.34 {uIU/mL} (Normal) Range: 0.358-3.74 33-Nzn-828410:10 Urinalysis, Complete Comments: How was Urine Obtained? [facility] [address] [place], [address] MUCUS, URINE 1+ {/hpf} (Normal) BACTERIA 1+ {/hpf} (Normal) SQUAM EPI 5-10 SEEN {/hpf} (Normal) Range: 5-10 RBC-UA 0-5 SEEN {/hpf} (Normal) Range: 0-5 WBC 10-25 SEEN {/hpf} Range: 0-5 (Normal) LEUK ESTERASE 100 /ul (Abnormal) OCCULT BLOOD-UR 10 /ul (Abnormal) NITRITE UR Negative (Normal) UROBILI Normal mg/dL (Normal) PROT DIPSTX Negative mg/dL (Normal) pH UR 6.0 (Normal) Range: 5.0 - 8.0 SP.GR. DIPSTX 1.015 (Normal) Range: 1.002-1.030 KETONE UR Negative mg/dL (Normal) BILIRUBIN URINE Negative mg/dL (Normal) GLUCOSE, UR Normal mg/dL (Normal) CLARITY Sl. Cloudy (Normal) COLOR Yellow (Normal) 69-Sjk-188792:10 Vitamin B12 563 pg/mL (Normal) Comments: [facility] [address] [place], [address] Range: 211-911 59-Gqu-464364:10 Vitamin D,25 Hydroxy Comments: [facility] [address] [place], [address] Vitamin D 25-OH 31.1 ng/mL (Normal) Comments: Vitamin D 25(OH) Status Range Deficiency <20 ng/mL (50nmol/L) Insuffciency 20 - 30 ng/mL (50 - 75 nmol/L) Sufficiency 30 - 100 ng/mL (75 - 250 nmol/L) Toxicity >100 ng/mL (>250 nmol/L) 31-Yah-581218:21 HgA1C , Office (80467) HgA1C , Office 6.1 % (Normal) Range: 4.6 - 7.1 01-Ykq-322017:21 Blood Glucose , Office (00014) Blood Glucose , Office 100 (Normal) 57-Wlm-924659:56 Microscopic Examination Comments: PATIENT WAS FASTINGPERFORMED BY: [employer] [facility] [id number] Bacteria Few (Normal) Mucus Threads Present (Normal) Epithelial Cells (non renal) 0-10 {/hpf} (Normal) Range: 0 - 10 RBC 0-2 {/hpf} (Normal) Range: 0 - 2 WBC 11-30 {/hpf} (Abnormal) Range: 0 - 5 26-Jdv-792938:56 LIPID PANEL (15467) Comments: PATIENT WAS FASTINGPERFORMED BY: [facility] [id number] LDL/HDL Ratio 2.6 {ratio_units} (Normal) Range: 0.0-3.2 Comments: LDL/HDL Ratio Men Women 1/2 Avg.Risk 1.0 1.5 Av g.Risk 3.6 3.2 2X Avg.Risk 6.2 5.0 3X Avg.Risk 8.0 6.1 LDL Cholesterol Calc 126 mg/dL (Abnormal) Range: 0-99 VLDL Cholesterol Bao 26 mg/dL (Normal) Range: 5-40 HDL Cholesterol 49 mg/dL (Normal) Comments: According to ATP-III Guidelines, HDL-C >59 mg/dL is considered anegative risk factor for CHD. Triglycerides 129 mg/dL (Normal) Range: 0-149 Cholesterol, Total 201 mg/dL (Abnormal) Range: 100-199 60-Ila-877827:56 URINALYSIS, W/ MICRO (16612) Comments: PATIENT WAS FASTINGPERFORMED BY: [employer] [facility] [id number] Microscopic Examination See below: (Normal) Comments: Microscopic was indicated and was performed. Nitrite, Urine Positive (Abnormal) Urobilinogen,Semi-Qn 0.2 mg/dL (Normal) Range: 0.2-1.0 Bilirubin Negative (Normal) Occult Blood Negative (Normal) Ketones Negative (Normal) Glucose Negative (Normal) Protein Negative (Normal) WBC Esterase 2+ (Abnormal) Appearance Clear (Normal) Urine-Color Yellow (Normal) pH 6.0 (Normal) Range: 5.0-7.5 Specific [place] 1.020 (Normal) Range: 1.005-1.030 :56 MICROALBUMIN: CREATININE RATIO Comments: PATIENT WAS FASTINGPERFORMED BY: [employer] Jniuyq8348 [facility] [id number] (13134) AND (62006) Microalb/Creat Ratio 5.1 {mg/g_creat} (Normal) Range: 0.0-30.0 Microalbumin, Urine 4.2 ug/mL (Normal) Creatinine, Urine 82.7 mg/dL (Normal) 91-Mxl-650958:56 METABOLIC PANEL, COMPREHENSIVE Comments: PATIENT WAS FASTINGPERFORMED BY: [employer] Byklkg0630 [facility] [id number] (18089) ALT (SGPT) 11 [iU]/L (Normal) Range: 0-32 AST (SGOT) 16 [iU]/L (Normal) Range: 0-40 Alkaline Phosphatase, S 80 [iU]/L (Normal) Range: 39-117 Bilirubin, Total 0.4 mg/dL (Normal) Range: 0.0-1.2 A/G Ratio 1.3 (Normal) Range: 1.1-2.5 Globulin, Total 3.2 g/dL (Normal) Range: 1.5-4.5 Albumin, Serum 4.1 g/dL (Normal) Range: 3.5-4.8 Protein, Total, Serum 7.3 g/dL (Normal) Range: 6.0-8.5 Calcium, Serum 9.7 mg/dL (Normal) Range: 8.7-10.3 Carbon Dioxide, Total 27 mmol/L (Normal) Range: 18-29 Chloride, Serum 100 mmol/L (Normal) Range: 97-108 Comments: Effective March 12, 2016 the reference interval for Chloride, Serum will be changing to: 97 - 106 Potassium, Serum 4.9 mmol/L (Normal) Range: 3.5-5.2 Comments: Effective March 12, 2016 the reference interval for Potassium, Serum will be changing to: 0 - 7 days 3.7 - 5.2 8 - 30 days 3.7 - 6.4 1 - 6 months 3.8 - 6.0 7 months - 1 year 3.8 - 5.3 >1 year 3.5 - 5.2 Sodium, Serum 141 mmol/L (Normal) Range: 134-144 Comments: Effective March 12, 2016 the reference interval for Sodium, Serum will be changing to: 136 - 144 BUN/Creatinine Ratio 18 (Normal) Range: 11-26 eGFR If Africn Am 92 mL/min/1.73 (Normal) eGFR If NonAfricn Am 80 mL/min/1.73 (Normal) Creatinine, Serum 0.76 mg/dL (Normal) Range: 0.57-1.00 BUN 14 mg/dL (Normal) Range: 8-27 Glucose, Serum 111 mg/dL (Abnormal) Range: 65-99 28-Xis-991783:56 CBC W/AUTO DIFF WBC (01583) Comments: PATIENT WAS FASTINGPERFORMED BY: [facility]Nduidj8471 [facility] [id number] Immature Grans (Abs) 0.0 {x10E3/uL} (Normal) Range: 0.0-0.1 Immature Granulocytes 0 % (Normal) Baso (Absolute) 0.0 {x10E3/uL} (Normal) Range: 0.0-0.2 Eos (Absolute) 0.3 {x10E3/uL} (Normal) Range: 0.0-0.4 Monocytes(Absolute) 0.6 {x10E3/uL} (Normal) Range: 0.1-0.9 Lymphs (Absolute) 2.2 {x10E3/uL} (Normal) Range: 0.7-3.1 Neutrophils (Absolute) 3.9 {x10E3/uL} (Normal) Range: 1.4-7.0 Basos 0 % (Normal) Eos 4 % (Normal) Monocytes 8 % (Normal) Lymphs 31 % (Normal) Neutrophils 57 % (Normal) Platelets 355 {x10E3/uL} (Normal) Range: 150-379 RDW 15.0 % (Normal) Range: 12.3-15.4 MCHC 33.3 g/dL (Normal) Range: 31.5-35.7 MCH 31.0 pg (Normal) Range: 26.6-33.0 MCV 93 fL (Normal) Range: 79-97 Hematocrit 40.6 % (Normal) Range: 34.0-46.6 Hemoglobin 13.5 g/dL (Normal) Range: 11.1-15.9 RBC 4.35 {x10E6/uL} (Normal) Range: 3.77-5.28 WBC 7.0 {x10E3/uL} (Normal) Range: 3.4-10.8 90-Ibl-513222:56 VITAMIN B-12 (CYANOCOBALAMIN) Comments: PATIENT WAS FASTINGPERFORMED BY: [facility] [place] [id number] [facility] [id number] (91137) Vitamin B12 533 pg/mL (Normal) Range: 211-946 90-Dyl-754819:33 HgA1C , Office (47786) HgA1C , Office 5.9 % (Normal) Range: 4.6 - 7.1 75-Awn-355275:33 Blood Glucose , Office (20210) Blood Glucose , Office 118 (Normal) 42-Wjh-761875:17 Hemoglobin A1c Comments: [facility] [address] [place], [address] HGB A1C 6.1 % (Normal) Range: 4.2-6.3 14-Tjo-465063:17 Thyroid Stim Hormone (TSH) Comments: [facility] [address] [place], [address] TSH 2.57 {uIU/mL} (Normal) Range: 0.358-3.74 67-Crl-154351:17 Vitamin D,25 Hydroxy Comments: [facility] [address] [place], [address] Vitamin D 25-OH 28.0 ng/mL (Normal) Comments: Vitamin D 25(OH) Status Range Deficiency <20 ng/mL (50nmol/L) Insuffciency 20 - 30 ng/mL (50 - 75 nmol/L) Sufficiency 30 - 100 ng/mL (75 - 250 nmol/L) Toxicity >100 ng/mL (>250 nmol/L) 13-Tnh-809511:16 Comprehensive Metabolic Profil Comments: Test performed at:[facility] [address] [place] [address] GAP 10 (Normal) Range: 5-15 CO2 28.0 mmol/L (Normal) Range: 21.0-32.0 CL 103 mmol/L (Normal) Range: 98-107 K 4.3 mmol/L (Normal) Range: 3.5-5.1 NA 141 mmol/L (Normal) Range: 136-145 T BILI 0.60 mg/dL (Normal) Range: 0.20-1.00 ALT 19 U/L (Normal) Range: 12-78 ALK P 80 U/L (Normal) Range: 50-136 AST 16 U/L (Normal) Range: 15-37 CA 9.2 mg/dL (Normal) Range: 8.5-10.1 A/G 0.8 {RATIO} (Abnormal) Range: 0.9-2.4 GLOB 4.4 g/dL (Abnormal) Range: 2.7-4.2 ALB 3.5 g/dL (Normal) Range: 3.4-5.0 T PROT 7.9 g/dL (Normal) Range: 6.4-8.2 BUN/CRE 12.2 {RATIO} (Normal) Range: 10-20 EST GFR - AA 80 mL/min (Normal) EST GFR 66 mL/min (Normal) CREAT,SERUM 0.9 mg/dL (Normal) Range: 0.6-1.0 BUN 11 mg/dL (Normal) Range: 7-18 GLU 101 mg/dL (Normal) Range: 70-110 19-Duo-605474:16 Hemoglobin A1c Comments: Test performed at:[facility] [address] [place] [address] HGB A1C 6.1 % (Normal) Range: 4.2-6.3 17-Qbs-372901:16 Lipid Profile Comments: Test performed at:[facility] [address] [place] [address] ; non-emergent till apt VLDL 27 mg/dL (Normal) Range: 5-40 LDL 120 mg/dL (Normal) Range: 0-130 HDL 36 mg/dL (Abnormal) Comments: Reference Range HDL <40 mg/dL Low HDL Cholesterol HDL >or= 60 mg/dL High HDL Cholesterol TRIG 136 mg/dL (Normal) Range: 0-199 Comments: Serum Triglycerides Reference Interval Normal <150 mg/dL Borderline high 150 - 199 mg/dL High 200 - 499 mg/dL Very High > or = 500 mg/dL CHOL 183 mg/dL (Normal) Comments: <200 mg/dL Desirable 200-240 mg/dL Borderline >240 mg/dL High Risk 16-Orz-509655:16 Microalb:Creat Ratio,Random UR Comments: Test performed at:[facility] [address] [place] [address] MALB:CREAT 5.2 {mg/g_CRE} (Normal) MICROALBUMIN,UR 10.0 mg/L (Normal) UR CREAT 189.2 mg/dL (Normal) 59-Bkn-561679:16 Vitamin B12 438 pg/mL (Normal) Comments: Test performed at:[facility] [address] [place] [address] Range: 211-911 2-Bdq-209820:11 HgA1C , Office (43144) HgA1C , Office 6.5 % (Normal) Range: 4.6 - 7.1 4-Jtl-368802:07 CBC W/Diff, Automated Comments: Test performed at:[facility] [address] [address] Absolute Lymph 2.36 {X10_3/ul} (Normal) Range: 0.83-4.51 Absolute Neut 4.1 {X10_3/uL} (Normal) Range: 2.0-7.7 IM GRAN % 0.400 % (Normal) Range: 0.0-0.9 Comments: IG% - Immature Granulocytes (promyelocytes, myelocytes andmetamyelocytes) > 1% indicates that a LEFT SHIFT is Present. BASO% 0.5 % (Normal) Range: 0-1 EO% 3.7 % (Normal) Range: 0-5 MONO% 9.2 % (Normal) Range: 0-10 LY% 31.5 % (Normal) Range: 19-41 NEUT% 54.7 % (Normal) Range: 47-70 MPV 10.0 fL (Normal) Range: 6.2-12.0 PLT 374 K/mm3 (Normal) Range: 150-450 RDW SD 47.9 fL (Abnormal) Range: 35.1-43.9 RDW CV 14.4 % (Normal) Range: 11.6-14.6 MCHC 32.2 {g/gl} (Normal) Range: 32-36 MCH 30.6 pg (Normal) Range: 27.0-32.0 MCV 95.0 fL (Normal) Range: 81-99 HCT 41.6 % (Normal) Range: 37-47 HGB 13.4 g/dL (Normal) Range: 12.0-15.0 RBC 4.38 {M/mm3} (Normal) Range: 4.2-5.4 WBC 7.5 K/mm3 (Normal) Range: 4.4-11.0 1-Zqs-550526:07 Comprehensive Metabolic Profil Comments: Test performed at:[facility] [address] [place] [address] GAP 5 (Normal) Range: 5-15 CO2 28.0 mmol/L (Normal) Range: 21.0-32.0 CL 103 mmol/L (Normal) Range: 98-107 K 4.3 mmol/L (Normal) Range: 3.5-5.1 NA 136 mmol/L (Normal) Range: 136-145 T BILI 0.50 mg/dL (Normal) Range: 0.00-4.00 ALT 20 U/L (Normal) Range: 12-78 ALK P 81 U/L (Normal) Range: 50-136 AST 18 U/L (Normal) Range: 15-37 CA 9.1 mg/dL (Normal) Range: 8.5-10.1 A/G 0.8 {RATIO} (Abnormal) Range: 0.9-2.4 GLOB 4.3 g/dL (Abnormal) Range: 2.7-4.2 ALB 3.4 g/dL (Normal) Range: 3.4-5.0 T PROT 7.7 g/dL (Normal) Range: 6.4-8.2 BUN/CRE 8.8 {RATIO} (Abnormal) Range: 10-20 EST GFR - AA 92 mL/min (Normal) EST GFR 76 mL/min (Normal) CREAT,SERUM 0.8 mg/dL (Normal) Range: 0.6-1.0 BUN 7 mg/dL (Normal) Range: 7-18 GLU 100 mg/dL (Normal) Range: 70-110 2-Vam-963597:07 Lipid Profile Comments: Test performed at:[facility] [address] [place], [place] [id number]) 194 VLDL 52 mg/dL (Abnormal) Range: 5-40 LDL 110 mg/dL (Normal) Range: 0-130 HDL 38 mg/dL (Abnormal) Comments: Reference Range HDL <40 mg/dL Low HDL Cholesterol HDL >or= 60 mg/dL High HDL Cholesterol TRIG 259 mg/dL (Abnormal) Range: 0-199 Comments: Serum Triglycerides Reference Interval Normal <150 mg/dL Borderline high 150 - 199 mg/dL High 200 - 499 mg/dL Very High > or = 500 mg/dL CHOL 200 mg/dL (Normal) Comments: <200 mg/dL Desirable 200-240 mg/dL Borderline >240 mg/dL High Risk :07 Vitamin B12 740 pg/mL (Normal) Comments: Test performed at:[facility] [address] [place], [place] [id number] Range: 211-911 87-Scd-065363:26 Rapid Flu (90224 x 2) Influenza A Ag negative (Normal) 73-Boh-942805:31 HgA1C , Office (17202) HgA1C , Office 6.2 % (Normal) Range: 4.6 - 7.1 :48 B12 467 pg/mL (Normal) Range: 211-911 58-Mgh-106075:48 CBCD ALC 2.11 {X10_3/ul} (Normal) Range: 0.83-4.51 ANC 3.4 {X10_3/uL} (Normal) Range: 2.0-7.7 IG% 0.300 % (Normal) Range: 0.0-0.9 Comments: IG% - Immature Granulocytes (promyelocytes, myelocytes andmetamyelocytes) > 1% indicates that a LEFT SHIFT is Present. B% 0.3 % (Normal) Range: 0-1 E% 4.6 % (Normal) Range: 0-5 M% 10.2 % (Abnormal) Range: 0-10 L% 32.7 % (Normal) Range: 19-41 N% 51.9 % (Normal) Range: 47-70 MPV 10.1 fL (Normal) Range: 6.2-12.0 PLT 318 K/mm3 (Normal) Range: 150-450 RDWSD 51.0 fL (Abnormal) Range: 35.1-43.9 RDWCV 14.6 % (Normal) Range: 11.6-14.6 MCHC 32.5 {g/gl} (Normal) Range: 32-36 MCH 31.1 pg (Normal) Range: 27.0-32.0 MCV 95.5 fL (Normal) Range: 81-99 HCT 40.6 % (Normal) Range: 37-47 HGB 13.2 g/dL (Normal) Range: 12.0-15.0 RBC 4.25 {M/mm3} (Normal) Range: 4.2-5.4 WBC 6.5 K/mm3 (Normal) Range: 4.4-11.0 89-Vkk-730040:48 CMP GAP 5 (Normal) Range: 5-15 CO2 28.0 mmol/L (Normal) Range: 21.0-32.0 CL 105 mmol/L (Normal) Range: 98-107 K 4.5 mmol/L (Normal) Range: 3.5-5.1 NA 138 mmol/L (Normal) Range: 136-145 BIT 0.60 mg/dL (Normal) Range: 0.00-1.00 ALT 21 U/L (Normal) Range: 12-78 ALK 81 U/L (Normal) Range: 45-117 AST 15 U/L (Normal) Range: 15-37 CA 9.8 mg/dL (Normal) Range: 8.5-10.1 AG 0.9 {RATIO} (Normal) Range: 0.9-2.4 GLOB 4.0 g/dL (Normal) Range: 2.7-4.2 ALB 3.5 g/dL (Normal) Range: 3.4-5.0 TPROT 7.5 g/dL (Normal) Range: 6.4-8.2 BC 12.0 {RATIO} (Normal) Range: 10-20 GFRAA 72 mL/min (Normal) GFR 59 mL/min (Abnormal) CREAT 1.0 mg/dL (Normal) Range: 0.6-1.0 BUN 12 mg/dL (Normal) Range: 7-18 GLU 103 mg/dL (Normal) Range: 70-110 92-Isg-900249:48 LIPID VLDL 29 mg/dL (Normal) Range: 5-40 LDL 127 mg/dL (Normal) Range: 0-130 HDL 48 mg/dL (Normal) Comments: Reference RangeHDL <40 mg/dL Low HDL CholesterolHDL >or= 60 mg/dL High HDL Cholesterol TRIG 143 mg/dL (Normal) Range: 0-199 Comments: Serum Triglycerides Reference IntervalNormal <150 mg/dLBorderline high 150 - 199 mg/dLHigh 200 - 499 mg/ dLVery High > or = 500 mg/dL CHOL 204 mg/dL (Abnormal) Comments: <200 mg/dL Kpuzyocof063-085 mg/dL Borderline>240 mg/dL High Risk :43 CMP GAP 2 (Abnormal) Range: 5-15 CO2 30.0 mmol/L (Normal) Range: 21.0-32.0 CL 105 mmol/L (Normal) Range: 98-107 K 4.3 mmol/L (Normal) Range: 3.5-5.1 NA 137 mmol/L (Normal) Range: 136-145 BIT 0.60 mg/dL (Normal) Range: 0.00-1.00 ALT 19 U/L (Normal) Range: 12-78 ALK 77 U/L (Normal) Range: 45-117 AST 14 U/L (Abnormal) Range: 15-37 CA 9.4 mg/dL (Normal) Range: 8.5-10.1 AG 0.9 {RATIO} (Normal) Range: 0.9-2.4 ALB 3.7 g/dL (Normal) Range: 3.4-5.0 GLOB 4.0 g/dL (Normal) Range: 2.7-4.2 TPROT 7.7 g/dL (Normal) Range: 6.4-8.2 BC 13.8 {RATIO} (Normal) Range: 10-20 GFRAA 92 mL/min (Normal) GFR 76 mL/min (Normal) CREAT 0.8 mg/dL (Normal) Range: 0.6-1.0 BUN 11 mg/dL (Normal) Range: 7-18 GLU 108 mg/dL (Normal) Range: 70-110 :43 LIPID VLDL 19 mg/dL (Normal) Range: 5-40 CHOL 174 mg/dL (Normal) Comments: <200 mg/dL Uwhwznfip010-215 mg/dL Borderline>240 mg/dL High Risk HDL 50 mg/dL (Normal) Comments: Reference RangeHDL <40 mg/dL Low HDL CholesterolHDL >or= 60 mg/dL High HDL Cholesterol LDL 105 mg/dL (Normal) Range: 0-130 TRIG 96 mg/dL (Normal) Range: 0-199 Comments: Serum Triglycerides Reference IntervalNormal <150 mg/dLBorderline high 150 - 199 mg/dLHigh 200 - 499 mg/ dLVery High > or = 500 mg/dL :54 B12 419 pg/mL (Normal) Range: 211-911 :54 CRP 14.50 mg/L (Abnormal) Range: 0.0-3.0 Comments: C-Reactive Protein (CRP) provides useful information for thediagnosis, therapy and monitoring of inflammatory processesand associated diseases. For the evaluation of Relative Riskfor Cardiovascular Dise ase, a High Sensitivity CRP (HSCRP)should be ordered. :54 PROEL tPROELN Comment (Normal) Comments: The SPE pattern appears essentially unremarkable. Evidenceof monoclonal protein is not apparent. tPROELIN Comment (Normal) Comments: Protein electrophoresis scan will follow via computer,mail, or keyseater operator delivery. tPROELAG 1.2 (Normal) Range: 0.7-2.0 tPROELGL 3.2 g/dL (Normal) Range: 2.0-4.5 tPROELMS (Normal) Comments: Not Observed tPROELGA 0.8 g/dL (Normal) Range: 0.5-1.6 tPROELBE 1.1 g/dL (Normal) Range: 0.6-1.3 tPROELAL2 1.0 g/dL (Normal) Range: 0.4-1.2 tPROELAL1 0.2 g/dL (Normal) Range: 0.1-0.4 tPROELALB 3.8 g/dL (Normal) Range: 3.2-5.6 $tPROELTP 7.0 g/dL (Normal) Range: 6.0-8.5 51-Twk-626152:54 PROELU [id number] Comment (Normal) Comments: Protein electrophoresis scan will follow via computer,mail, or keyseater operator delivery.Performed at: [address] [id number] Director: Marvin Cárdenas MD, Phone: [phone] tPROELUMS (Normal) Comments: Not Observed tPROELUGA 21.8 % (Normal) tPROELUBE 23.8 % (Normal) tPROELUAL2 15.7 % (Normal) tPROELUAL1 3.9 % (Normal) tPROELUALB 34.7 % (Normal) tPROELUTP 13.1 mg/dL (Normal) Range: 0.0-15.0 :54 SED tSEDRATE 36 mm/h (Abnormal) Range: 0-30 30-Nvd-257856:33 Rapid Strep Test, Office (14985) Rapid Strep Test, Office Negative (Normal) 30-Iab-38791:43 DEE DEE CULTURE-OTHER (75562) Comments: PATIENT NOT FASTINGPERFORMED BY: [address] [id number] Information: SRC:THRT [id number] Result 1 RRF (Normal) Comments: Routine respiratory [place] Upper Respiratory Culture Final report (Normal) 53-Kgj-486405:25 HgA1C , Office (71475) HgA1C , Office 6.0 % (Normal) Range: 4.6 - 7.1 :45 B12 442 pg/mL (Normal) Range: 211-911 :45 CBCD ANC 3.1 {X10_3/uL} (Normal) Range: 2.0-7.7 B% 0.3 % (Normal) Range: 0-1 IG% 0.200 % (Normal) Range: 0.0-0.9 Comments: IG% - Immature Granulocytes (promyelocytes, myelocytes andmetamyelocytes) > 1% indicates that a LEFT SHIFT is Present. E% 4.2 % (Normal) Range: 0-5 L% 32.7 % (Normal) Range: 19-41 M% 11.4 % (Abnormal) Range: 0-10 MPV 10.4 fL (Normal) Range: 6.2-12.0 N% 51.2 % (Normal) Range: 47-70 PLT 339 K/mm3 (Normal) Range: 150-450 RDWSD 46.1 fL (Abnormal) Range: 35.1-43.9 RDWCV 13.8 % (Normal) Range: 11.6-14.6 MCH 31.1 pg (Normal) Range: 27.0-32.0 MCHC 33.0 {g/gl} (Normal) Range: 32-36 MCV 94.1 fL (Normal) Range: 81-99 HCT 43.0 % (Normal) Range: 37-47 HGB 14.2 g/dL (Normal) Range: 12.0-15.0 RBC 4.57 {M/mm3} (Normal) Range: 4.2-5.4 WBC 6.0 K/mm3 (Normal) Range: 4.4-11.0 :45 CMP GAP 5 (Normal) Range: 5-15 CL 107 mmol/L (Normal) Range: 98-107 CO2 28.0 mmol/L (Normal) Range: 21.0-32.0 BIT 0.70 mg/dL (Normal) Range: 0.00-1.00 K 4.5 mmol/L (Normal) Range: 3.5-5.1 NA 140 mmol/L (Normal) Range: 136-145 ALT 24 U/L (Normal) Range: 12-78 ALK 101 U/L (Normal) Range: 50-136 AST 17 U/L (Normal) Range: 15-37 CA 9.1 mg/dL (Normal) Range: 8.5-10.1 AG 0.8 {RATIO} (Abnormal) Range: 0.9-2.4 GLOB 4.4 g/dL (Abnormal) Range: 2.7-4.2 ALB 3.7 g/dL (Normal) Range: 3.4-5.0 TPROT 8.1 g/dL (Normal) Range: 6.4-8.2 BC 11.3 {RATIO} (Normal) Range: 10-20 GFRAA 92 mL/min (Normal) GFR 76 mL/min (Normal) BUN 9 mg/dL (Normal) Range: 7-18 CREAT 0.8 mg/dL (Normal) Range: 0.6-1.0 GLU 100 mg/dL (Normal) Range: 70-110 :45 CRP 13.60 mg/L (Abnormal) Range: 0.0-3.0 Comments: C-Reactive Protein (CRP) provides useful information for thediagnosis, therapy and monitoring of inflammatory processesand associated diseases. For the evaluation of Relative Riskfor Cardiovascular Dise ase, a High Sensitivity CRP (HSCRP)should be ordered. :45 LIPID LDL 148 mg/dL (Abnormal) Range: 0-130 VLDL 25 mg/dL (Normal) Range: 5-40 HDL 46 mg/dL (Normal) Comments: Reference RangeHDL <40 mg/dL Low HDL CholesterolHDL >or= 60 mg/dL High HDL Cholesterol TRIG 127 mg/dL (Normal) Range: 0-199 Comments: Serum Triglycerides Reference IntervalNormal <150 mg/dLBorderline high 150 - 199 mg/dLHigh 200 - 499 mg/ dLVery High > or = 500 mg/dL CHOL 219 mg/dL (Abnormal) Comments: <200 mg/dL [id number] mg/dL Borderline>240 mg/dL High Risk :45 MISC (Normal) Comments: Test(s) Ordered: INTRINSIC FACTOR BLOCKING AB [id number] SERUM REFR Comments: TEST RESULT LIMITSIntrinsic Factor Abs, Serum Negative Negative TESTING PERFORMED AT [facility]. ORIGINAL REP ORT ONFILE IN LAB CONTAINS ADDITIONAL TEST SITE INFORMATION. :45 SED tSEDRATE 37 mm/h (Abnormal) Range: 0-30 [id number] Nuclear Stress Test Radiology Report See Note (Normal) Comments: EXERCISE TOLERANCE TEST: The patient underwent pharmacologic (regadenoson) evaluation with a peakheart rate of 88 beats per minute (57% predicted maximum heart rate) cassandra peak blood pressure of 126/60 m mHg. The baseline ECG demonstrated normal sinus rhythm. The peakpharmacologic ECG had no obvious ECG changes. There were no obvious cardiac dysrhythmias pretest, during pharmacologicinfusion or recover y. The patient had no complaint of chest discomfort during pharmacologicinfusion or recovery. The examination was discontinued secondary to completion of protocol. IMPRESSION:1. Pharmacologic (regadeno son) evaluation.2. Peak pharmacologic ECG with no obvious ECG changes.3. Nuclear images pending. MYOCARDIAL PERFUSION IMAGING STUDY: TECHNIQUE:The patient was injected with 14.8 mCi of Tc99m Cardiolit e andsubsequently rest SPECT Cardiolite nuclear imaging was obtained in thehorizontal long, vertical long and short axes views. The patientunderwent pharmacologic (Regadenoson) evaluation with a peak h eart rateof 88 beats per minute (57% predicted maximum heart rate) with a peakblood pressure of 126/60 mmHg. The patient was injected with 44.5 mCi [id number] Cardiolite and subsequently stress SPECT Card iolite nuclear imagingwas obtained in the horizontal long, vertical long and short axes views.A gated Cardiolite study at peak stress was obtained. INTERPRETATION:Rest and stress SPECT Cardiolite nuclea r imaging demonstratesextracardiac/hepatic and gastrointestinal tracer uptake near the inferiorsegments. Otherwise there appears to be relative uniform tracer uptake.There is end systolic thickening an d brightening. The gated Cardiolitestudy demonstrates myocardial thickening and inward wall motion. Thereported LVEF is 71%. There are no myocardial perfusion changesconsidered diagnostic for stress induced myocardial ischemia or previousmyocardial injury/infarction. IMPRESSION:1. Rest and stress SPECT Cardiolite nuclear imaging demonstratemyocardial perfusion changes demonstrating relative unifor m tracer uptakewith no myocardial perfusion changes considered diagnostic for stressinduced myocardial ischemia or previous myocardial injury/infarction.2. The gated Cardiolite study reports an LVEF of 61%. Dictated on 01/08/13 0957 by Kel WOODS,JacquesTranscribed on 01/08/13 1236 by Fiorella MILLARD by Kel WOODS,Jacques on 01/08/13 1327 Sign by: Jacques Begum MD 00-Cas-49301:06 BILAT SCRN DIGITAL & CAD Radiology Report See Note (Normal) Comments: MAMMOGRAPHY - BILATERAL SCREENING REASON FOR EXAM: Female, 67 years old. Routine annual screeningexamination. PERTINENT HISTORY: Non-contributory. TECHNIQUE: Digital examination. Med iolateral ob lique (MLO) andcraniocaudad (CC) views of both breasts were obtained. CAD: CAD wasperformed on this study. COMPARISON: Comparison is made with prior study dated December 18, 2011 andDecember 07, 2010. FINDINGS:The breast composition is composed of scattered fibroglandular tissuesranging from 25% to 50% of the breast. There are no dominant masses or suspicious calcification s. Once again,there is evidence of bilateral saline breast implants. These areunchanged. No other significant abnormalities are identified. There has been nosignificant change since the prior study._ IMPRESSION:Stable bilateral screening mammogram. Yearly follow-up recommended. (A) ASSESSMENT CATEGORY:BIRADS Category 2: Benign finding(s). A letter regarding these resultswill be sent to the patient by the facility within 30 days. Approximately 10% of breast cancers are not detected by mammography. Anormal mammogram should n ot delay biopsy of a clinically suspiciousabnormality. Signed:Melchor Forde M.D.January 13, 2013 at 12:46:14 PM [id number] Signed GP/GP If you are the referring physician and wou ld like to consult with theradiologist who provided this interpretation, please contact Brittanie Khalil at [phone]. If this radiologist is unavailable, youwill be directed to another radiol ogist to assist. If you are a patient with a question regarding this report, pleasecontactyour referring physician directly. Professional Interpretation Provided By: Cubicle, Phone ,Fa x [phone] These documents contain legally protected and confidential healthinformation intended only for the use of the individual or entity namedabove. If you are not the intended recipient, you a re hereby notifiedthatany disclosure, copying, distribution, or other use of these documents isstrictly prohibited. If you have received this information in error,pleasenotify the sender immediately and arrange for the return or destructionofthese documents. Dictated on 01/13/131245 by Chago Forde MDranscribed on 01/13/131247 by ITS IMPORTSign by Melchor Forde MD on 01/13/13 124 Sign by: Mlechor Forde MD 93-Kol-39295:19 ROSHNI taANA COMMENT (Normal) Comments: TESTING INTERPRETATIONSPOSITIVE: > 120EQUIVOCAL: 100 - 120NEGATIVE: < 100 taANA 16 AU/mL (Normal) :1 B12 261 pg/mL (Normal) Range: 211-911 9 :19 CBCMD ANC 2.9 3/uL (Normal) Range: 2.0-7.7 IG% 0.20 % (Normal) Range: 0.0-0.9 Comments: IG% - Immature Granulocytes (promyelocytes, myelocytes,metamyelocytes) >1.0% indicates that a LEFT SHIFT ispresent. B% 0.5 % (Normal) Range: 0-1 E% 8.8 % (Abnormal) Range: 0-5 L% 31.2 % (Normal) Range: 19-41 M% 8.3 % (Normal) Range: 0-10 N% 51.0 % (Normal) Range: 47-70 MPV 10.1 fL (Normal) Range: 6.2-12.0 PLT 309 K/mm3 (Normal) Range: 150-450 RDWSD 48.0 fL (Abnormal) Range: 35.1-43.9 RDWCV 14.2 % (Normal) Range: 11.6-14.6 MCH 30.6 pg (Normal) Range: 27.0-32.0 MCHC 32.6 g/dL (Normal) Range: 32-36 MCV 93.9 fL (Normal) Range: 81-99 HCT 41.4 % (Normal) Range: 37-47 HGB 13.5 g/dL (Normal) Range: 12.0-15.0 RBC 4.41 {M/mm3} (Normal) Range: 4.2-5.4 WBC 5.7 {k/mm3} (Normal) Range: 4.4-11.0 11-Ywg-27880:19 CMP GAP 10 (Normal) Range: 5-15 CO2 26.0 mmol/L (Normal) Range: 21.0-32.0 CL 106 mmol/L (Normal) Range: 98-107 K 4.2 mmol/L (Normal) Range: 3.5-5.1 BIT 0.60 mg/dL (Normal) Range: 0.00-1.00 NA 142 mmol/L (Normal) Range: 136-145 ALT 29 U/L (Normal) Range: 12-78 ALK 102 U/L (Normal) Range: 50-136 AST 21 U/L (Normal) Range: 15-37 CA 9.1 mg/dL (Normal) Range: 8.5-10.1 AG 0.9 {RATIO} (Normal) Range: 0.9-2.4 ALB 3.6 g/dL (Normal) Range: 3.4-5.0 GLOB 3.9 g/dL (Normal) Range: 2.7-4.2 TPROT 7.5 g/dL (Normal) Range: 6.4-8.2 BC 16.3 {RATIO} (Normal) Range: 10-20 GFRAA 92 mL/min (Normal) GFR 76 mL/min (Normal) CREAT 0.8 mg/dL (Normal) Range: 0.6-1.0 BUN 13 mg/dL (Normal) Range: 7-18 GLU 113 mg/dL (Abnormal) Range: 70-110 Comments: Fasting Glucose result from 110 to <126 mg/dLsuggests IMPAIRED HOMEOSTASIS per A.D.A. criteria. :19 CRP 20.00 mg/L (Abnormal) Range: 0.0-3.0 Comments: C-Reactive Protein (CRP) provides useful information for thediagnosis, therapy and monitoring of inflammatory processesand associated diseases. For the evaluation of Relative Riskfor Cardiovascular Dise ase, a High Sensitivity CRP (HSCRP)should be ordered. :19 LIPID LDL 119 mg/dL (Normal) Range: 0-130 VLDL 22 mg/dL (Normal) Range: 5-40 CHOL 181 mg/dL (Normal) Comments: <200 mg/dL Aswacmhde681-676 mg/dL Borderline>240 mg/dL High Risk HDL 40 mg/dL (Normal) Comments: Reference RangeHDL <40 mg/dL Low HDL CholesterolHDL >or= 60 mg/dL High HDL Cholesterol TRIG 112 mg/dL (Normal) Comments: Serum Triglycerides Reference IntervalNormal <150 mg/dLBorderline high 150 - 199 mg/dLHigh 200 - 499 mg/ dLVery High > or = 500 mg/dL :19 RF < 10.0 {IU/mL} (Normal) :19 SED tSEDRATE 43 mm/h (Abnormal) Range: 0-30 :19 TSH 3.71 {uIU/mL} (Normal) Range: 0.358-3.74 Plan of Care Name Dates Details Instructions Non-smoker : Eprescribed prescriptions (G8553) Indication: Non-smoker Itch of skin : Follow up if no improvement or if symptoms worsen Indication: Itch of skin BMI 40.0-44.9, adult : Eprescribed prescriptions (G8553) Indication: BMI 40.0-44.9, adult Hypertension, benign : Continue Current Prescription(s) Indication: Hypertension, benign Hypertension, benign : HTN/CAD Red Flags Indication: Hypertension, benign Hypercholesteremia (Renamed from Hypercholesterolemia) : Cholesterol mgmt Indication: Hypercholesteremia (Renamed from Hypercholesterolemia) Hypercholesteremia (Renamed from Hypercholesterolemia) : *Cholesterol - Nonprescription Treatment Indication: Hypercholesteremia (Renamed from Hypercholesterolemia) Diabetes mellitus type II, controlled, with no complications : Follow up in 3 months Indication: Diabetes mellitus type II, controlled, with no complications BMI 40.0-44.9, adult : Follow up if no improvement or if symptoms worsen Indication: BMI 40.0-44.9, adult Hypertension, benign : Eprescribed prescriptions (G8553) Indication: Hypertension, benign Skin lesion of face : Shave Biopsy with Epi Indication: Skin lesion of face Hypercholesteremia (Renamed from Hypercholesterolemia) : Cholesterol mgmt Indication: Hypercholesteremia (Renamed from Hypercholesterolemia) Diabetes mellitus type II, controlled, with no complications : Follow up in 3 months Indication: Diabetes mellitus type II, controlled, with no complications Diabetes mellitus type II, controlled, with no complications : Reviewed Lab Indication: Diabetes mellitus type II, controlled, with no complications Hypertension, benign : BP MONITORING - SELF Indication: Hypertension, benign Diabetes mellitus type II, controlled, with no complications : Follow up in 3 months Indication: Diabetes mellitus type II, controlled, with no complications Hyperlipidemia : Cholesterol mgmt Indication: Hyperlipidemia Hypertension, benign : Diet, Exercise, and Wt loss Indication: Hypertension, benign Hypertension, benign : HTN/CAD Red Flags Indication: Hypertension, benign BMI 45.0-49.9, adult : Follow up if no improvement or if symptoms worsen Indication: BMI 45.0-49.9, adult Cough : Eprescribed prescriptions (G8553) Indication: Cough Hypertension, benign : Reviewed Lab Indication: Hypertension, benign Hypertension, benign : Follow up in 3 weeks Indication: Hypertension, benign Diabetes mellitus type II, controlled, with no complications : Follow up in 3 months Indication: Diabetes mellitus type II, controlled, with no complications Hyperlipidemia : Cholesterol mgmt Indication: Hyperlipidemia Hypertension, benign : Diet, Exercise, and Wt loss Indication: Hypertension, benign Hypertension, benign : HTN/CAD Red Flags Indication: Hypertension, benign Hypercholesteremia (Renamed from Hypercholesterolemia) : Cholesterol mgmt Indication: Hypercholesteremia (Renamed from Hypercholesterolemia) Hypercholesteremia (Renamed from Hypercholesterolemia) : Cholesterol mgmt Indication: Hypercholesteremia (Renamed from Hypercholesterolemia) Diabetes mellitus type II, controlled, with no complications : Follow up in 3 months Indication: Diabetes mellitus type II, controlled, with no complications Diabetes mellitus type II, controlled, with no complications : Eprescribed prescriptions (G8553) Indication: Diabetes mellitus type II, controlled, with no complications Diabetes mellitus type II, controlled, with no complications : Follow up in 3 months Indication: Diabetes mellitus type II, controlled, with no complications Hypercholesteremia (Renamed from Hypercholesterolemia) : Cholesterol mgmt Indication: Hypercholesteremia (Renamed from Hypercholesterolemia) Diabetes mellitus type II, controlled, with no complications : Diabetes and Exercise: Preventing Low Blood Sugar: blood sugar Indication: Diabetes mellitus type II, controlled, with no complications Hypercholesteremia (Renamed from Hypercholesterolemia) : Cholesterol mgmt Indication: Hypercholesteremia (Renamed from Hypercholesterolemia) Diabetes mellitus type II, controlled, with no complications : *Diabetes Education Indication: Diabetes mellitus type II, controlled, with no complications Diabetes mellitus type II, controlled, with no complications : Eprescribed prescriptions (G8553) Indication: Diabetes mellitus type II, controlled, with no complications Diabetes mellitus type II, controlled, with no complications : Diabetes and Exercise: Preventing Low Blood Sugar: blood sugar Indication: Diabetes mellitus type II, controlled, with no complications Elevated blood-pressure reading without diagnosis of hypertension : Follow up in 2 months- fu lifestyle chg - and wt and bp Indication: Elevated blood-pressure reading without diagnosis of hypertension Elevated blood-pressure reading without diagnosis of hypertension : HTN/CAD Red Flags Indication: Elevated blood-pressure reading without diagnosis of hypertension Elevated blood-pressure reading without diagnosis of hypertension : BP MONITORING - SELF Indication: Elevated blood-pressure reading without diagnosis of hypertension Elevated blood-pressure reading without diagnosis of hypertension : BP MONITORING - SELF Indication: Elevated blood-pressure reading without diagnosis of hypertension Elevated blood-pressure reading without diagnosis of hypertension : Follow up in 3 weeks- delon bp Indication: Elevated blood-pressure reading without diagnosis of hypertension Diabetes mellitus type II, controlled, with no complications : Follow up in 3 months Indication: Diabetes mellitus type II, controlled, with no complications Elevated blood-pressure reading without diagnosis of hypertension : HTN/CAD Red Flags Indication: Elevated blood-pressure reading without diagnosis of hypertension Hyperlipidemia : Cholesterol mgmt Indication: Hyperlipidemia Diabetes mellitus type II, controlled, with no complications : Eprescribed prescriptions (G8553) Indication: Diabetes mellitus type II, controlled, with no complications Diabetes mellitus type II, controlled, with no complications : Diabetes and Exercise: Preventing Low Blood Sugar: blood sugar Indication: Diabetes mellitus type II, controlled, with no complications Need for prophylactic vaccination and inoculation against influenza (Renamed from Need for immunization against influenza) : Eprescribed prescriptions (G8553) Indication: Need for prophylactic vaccination and inoculation against influenza (Renamed from Need for immunization against influenza) Hair loss : Follow up if no improvement or if symptoms worsen Indication: Hair loss Common cold virus : Common Cold *: cold Indication: Common cold virus Common cold virus : Eprescribed prescriptions (G8553) Indication: Common cold virus Cough : Eprescribed prescriptions (G8553) Indication: Cough Hyperlipidemia : Diet, Exercise, and Wt loss Indication: Hyperlipidemia Diabetes mellitus type II, controlled, with no complications : Diet, Exercise, and Wt loss Indication: Diabetes mellitus type II, controlled, with no complications Diabetes mellitus type II, controlled, with no complications : Eprescribed prescriptions (G8553) Indication: Diabetes mellitus type II, controlled, with no complications Wheeze : *Antibiotic Usage Education - Female Indication: Wheeze Wheeze : Eprescribed prescriptions (G8553) Indication: Wheeze Impaired Fasting Glucose : Eprescribed prescriptions (G8553) Indication: Impaired Fasting Glucose Elevated blood-pressure reading without diagnosis of hypertension : Diet, Exercise, and Wt loss Indication: Elevated blood-pressure reading without diagnosis of hypertension Hyperlipidemia : Diet, Exercise, and Wt loss Indication: Hyperlipidemia Impaired Fasting Glucose : Diet, Exercise, and Wt loss Indication: Impaired Fasting Glucose Impaired Fasting Glucose : Diet, Exercise, and Wt loss Indication: Impaired Fasting Glucose Impaired Fasting Glucose : Diabetes and Illness: diabetes Indication: Impaired Fasting Glucose Planned Observations RHEUMATOID FACTOR-QUANT (37664) test code [id number]: Positive ROSHNI (antinuclear antibody) On: Request EXTRCTBL NUCLR ANTGEN EA (21804) test code 905481Jiwqcnfono: Positive ROSHNI (antinuclear antibody) On: : Request ANTI-Sm (ANTI ALMENDAREZ ANTIBODY) (59324) test code 764611Qrpxodqupj: Positive ROSHNI (antinuclear antibody) On: : Request ANTI-SEARCH DEVELOPER (ANTI RIBONUCLEAR PROTEIN ANTIBODY) (47483) test code 288960Kqkqflynsy: Positive ROSHNI (antinuclear antibody) On: : Request DNA ANTIBODY-NATV/DBL ST (40631) test code 096210Uabgoaccfh: Positive ROSHNI (antinuclear antibody) On: 46-Xcx-642078:31 Request CALCIFIDIOL (68503) VIT D 25Indication: Vitamin D deficiency On: :40 Request TSH (18429)Indication: Diabetes mellitus type II, controlled, with no complications On: :40 Request URINALYSIS, W/ MICRO (32523)Indication: Diabetes mellitus type II, controlled, with no complications On: :40 Request MICROALBUMIN: CREATININE RATIO (73342) AND (24299)Indication: Diabetes mellitus type II, controlled, with no complications On: :40 Request METABOLIC PANEL, COMPREHENSIVE (73105)Indication: Diabetes mellitus type II, controlled, with no complications On: :40 Request LIPOPROTEIN, BLD, BY NMR (53304)Indication: Hypercholesteremia (Renamed from Hypercholesterolemia) On: :40 Request CBC W/AUTO DIFF WBC (38877)Indication: Diabetes mellitus type II, controlled, with no complications On: :40 Request LIPID PANEL (85641)Indication: Diabetes mellitus type II, controlled, with no complications On: 30-Qrv-028909:25 Request URINALYSIS, W/ MICRO (51262)Indication: Diabetes mellitus type II, controlled, with no complications On: 03-Cmh-619731:56 Request URINALYSIS, W/ MICRO (19071)Indication: Diabetes mellitus type II, controlled, with no complications On: 64-Wpp-871006:56 Request MICROALBUMIN: CREATININE RATIO (54563) AND (27949)Indication: Diabetes mellitus type II, controlled, with no complications On: 12-Xtm-250410:56 Request VITAMIN B-12 (CYANOCOBALAMIN) (18008)Indication: B12 deficiency On: 33-Iwx-851570:49 Request TSH (57069)Indication: Diabetes mellitus type II, controlled, with no complications On: 11-Coo-724309:47 Request URINALYSIS, W/ MICRO (57861)Indication: Diabetes mellitus type II, controlled, with no complications On: 50-Lug-299942:47 Request MICROALBUMIN: CREATININE RATIO (72511) AND (07307)Indication: Diabetes mellitus type II, controlled, with no complications On: 84-Gbw-796317:47 Request METABOLIC PANEL, COMPREHENSIVE (66067)Indication: Diabetes mellitus type II, controlled, with no complications On: 20-Uxf-632636:47 Request CBC W/AUTO DIFF WBC (96163)Indication: Diabetes mellitus type II, controlled, with no complications On: 19-Brk-597090:47 Request CALCIFIDIOL (48973) VIT D 25Indication: Vitamin D deficiency On: :47 Request LIPID PANEL (94345)Indication: Hypercholesteremia (Renamed from Hypercholesterolemia) On: :47 Request HGB A1C (80264)Indication: Common cold virus On: 70-Hps-143153:46 Request CALCIFEDIOL (14720)Indication: Hair loss On: 43-Vhu-765929:39 Request TSH (THYROID STIMULATING HORMONE) (77767)Indication: Hair loss On: 45-Vkc-584247:35 Request VITAMIN B-12 (CYANOCOBALAMIN) (92246)Indication: B12 deficiency On: 0-Sql-113458:02 Request LIPID PANEL (42325)Indication: Hyperlipidemia On: 0-Hcn-699615:01 Request MICROALBUMIN: CREATININE RATIO (54271) AND (48258)Indication: Diabetes mellitus type II, controlled, with no complications On: 8-Acx-818822:56 Request METABOLIC PANEL, COMPREHENSIVE (14928)Indication: Diabetes mellitus type II, controlled, with no complications On: 4-Cay-233781:56 Request Hemoglobin Glyclated (HGB A1C) (87013)Indication: Diabetes mellitus type II, controlled, with no complications On: 9-Udp-901591:56 Request VITAMIN B-12 (CYANOCOBALAMIN) (82662)Indication: B12 deficiency On: 72-Ezu-000633:07 Request CBC W/AUTO DIFF WBC (69861)Indication: B12 deficiency On: 07-Pta-411303:06 Request METABOLIC PANEL, COMPREHENSIVE (09314)Indication: Elevated blood-pressure reading without diagnosis of hypertension On: 63-Sis-348094:06 Request LIPID PANEL (63006)Indication: Hyperlipidemia On: 41-Pnc-784422:06 Request CBC WITH MANUAL DIFF (62312)Indication: Impaired Fasting Glucose On: 89-Ago-390040:40 Request METABOLIC PANEL, COMPREHENSIVE (31100)Indication: Impaired Fasting Glucose On: 80-Npz-960575:40 Request LIPID PANEL (57524)Indication: Hyperlipidemia On: 32-Orb-094001:40 Request VITAMIN B-12 (CYANOCOBALAMIN) (09008)Indication: B12 deficiency On: 94-Njf-486717:39 Request HgA1C , Office (66838)Indication: Impaired Fasting Glucose On: 11-Oqg-155165:13 Request METABOLIC PANEL, COMPREHENSIVE (92859)Indication: Impaired Fasting Glucose On: 2-Bft-380518:40 Request LIPID PANEL (30118)Indication: Hyperlipidemia On: 9-Khk-084701:40 Request SED RATE ERYTHROCYTE (60666)Indication: Abnormal blood chemistry On: 24-Vge-641045:37 Request C-REACTIVE PROTEIN (13730)Indication: Abnormal blood chemistry On: 25-Axs-678584:37 Request VITAMIN B-12 (CYANOCOBALAMIN) (11157)Indication: B12 deficiency On: 55-Rsw-324940:37 Request UPEP (89080)Indication: Abnormal blood chemistry On: 18-Sxl-275968:37 Request Protein Electrophoresis, Serum (SPEP) (31011)Indication: Abnormal blood chemistry On: 60-Rsc-365765:37 Request LIPID PANEL (10702)Indication: Hyperlipidemia On: 0-Vbz-819591:04 Request CBC WITH MANUAL DIFF (86754)Indication: Impaired Fasting Glucose On: 6-Gfr-933162:04 Request METABOLIC PANEL, COMPREHENSIVE (78583)Indication: Impaired Fasting Glucose On: 8-Zms-362919:04 Request SED RATE ERYTHROCYTE (95973)Indication: Pain in unspecified joint On: 02-Ved-509673:57 Request C-REACTIVE PROTEIN (04119)Indication: Pain in unspecified joint On: 48-Nrv-696899:57 Request INTRINSIC FACTOR ANTBDY (47478)Indication: B12 deficiency On: 08-Otn-090593:36 Request VITAMIN B-12 (CYANOCOBALAMIN) (86878)Indication: B12 deficiency On: 47-Dpf-142747:35 Request HgA1C , Office (87945)Indication: Impaired Fasting Glucose On: 69-Ype-985779:15 Request VITAMIN B-12 (CYANOCOBALAMIN) (83606)Indication: Paresthesia On: 7-Fap-082557:17 Request SED RATE ERYTHROCYTE (67535)Indication: Pain in unspecified joint On: :16 Request C-REACTIVE PROTEIN (79296)Indication: Pain in unspecified joint On: :16 Request TSH (03406)Indication: Pain in unspecified joint On: :16 Request RHEUMATOID FACTOR-QUANT (70624)Indication: Pain in unspecified joint On: :16 Request ROSHNI (ANTINUCLEAR ANTIBODY) (46607)Indication: Pain in unspecified joint On: :16 Request CBC WITH MANUAL DIFF (27477)Indication: Pain in unspecified joint On: :16 Request METABOLIC PANEL, COMPREHENSIVE (94059)Indication: Pain in unspecified joint On: :16 Request LIPID PANEL (70380)Indication: SHORTNESS OF BREATH On: :16 Request CBC WITH MANUAL DIFF (20553)Indication: SHORTNESS OF BREATH On: :16 Request METABOLIC PANEL, COMPREHENSIVE (11136)Indication: SHORTNESS OF BREATH On: :16 Request Planned Encounters Medical; 3 Month FU - On: 16-Jun-2018 13:15 [facility] Korin Glass DO, DO, Kathleen Planned Procedures SCREENING DIGITAL TOMOSYNTHESIS OF On: 10-Mar-2018 Intent BREAST (66274)By: Korin Glass DO, DO, Kathleen Flu Vaccine (Quadrivalent) 53088Wv: On: 10-Mar-2018 Intent Korin Glass DO, DO, Comments: Lot #[id number] Exp-11/23/18Site-L dltd, IMDose prefilled syringegiven by: Lyudmila JCVIS reviewed and ABN signed Korin B 12 Injection, 1000 mcg (J3420)By: On: 10-Mar-2018 Intent Korin Glass DO, DO, Comments: 1 ml given rt dltd [id number] 07/2018 Korin B 12 Injection, 1000 mcg (J3420)By: On: 04-Nov-2017 Intent Korin Glass DO, DO, Korin B 12 Injection, 1000 mcg (J3420)By: On: 08-Jul-2017 Intent Maria Luisa DO, Korin Maria Luisa DO, Comments: lot: [id number]: 8/18site/route: L del/IMamt: 1mLVIS signed when applicableChelsAMBER long Korin ELECTROCARDIOGRAM, COMPLETE (ECG) On: 08-Jul-2017 Intent (14449)By: Maria Luisa DORachanaKorin Comments: nsr no acute chg Maria Luisa DO, Korin Aerosol Treatment (78403)By: Ti On: 05-Jun-2017 Intent Glenys BARBOSA ELECTROCARDIOGRAM, COMPLETE (ECG) On: 06-May-2017 Intent (65822)By: Maria Luisa DOKorin Comments: nsr mary cute chg Maria Luisa DO, Korin B 12 Injection, 1000 mcg (J3420)By: On: 06-May-2017 Intent Maria Luisa DO, Korin Maria Luisa DO, Comments: lot: [id number]: 07/15site/route: L del/IMamt: 1mLVIS signed when applicableChels, [facility] Korin Flu Vaccine (Quadrivalent) 75603Dj: On: 06-May-2017 Intent Maria Luisa DO, Korin Maria Luisa DO, Comments: lot: [id number]: 11/11/18site/route: R linda, IMamt: 0.5mlVIS and ABN signed when 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, FORESTRY ADVISER Korin B 12 Injection, 1000 mcg (J3420)By: On: 24-Dec-2016 Intent Maria Luisa DO, Korin Marial Uisa DO, Comments: lot: [id number]: 8/18site/route: L del/IMamt: 1mLVIS signed when 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, FORESTRY ADVISER Korin B 12 Injection, 1000 mcg (J3420)By: On: 17-Sep-2016 Intent Maria Luisa DO, Korin Maria Luisa DO, Comments: Lot:[id number]:10/11Dose:1mlRoute:IMSite:l armGiven By:JKMVIS signed Korin EsophagramBy: Maria Luisa DO, Korin On: 17-Sep-2016 Intent Maria Luisa DO, Korin Comments: with 13mm tablet B 12 Injection, 1000 mcg (J3420)By: On: 18-Jun-2016 Intent Maria Luisa DO, Korin Maria Luisa DO, Comments: lot: [id number]: 4/18site/route: L del/IMamt: 1mLVIS signed when applicableAMBER Canela EMGBy: Korin Glass DO On: 18-Jun-2016 Intent Korin Nerve ConductionBy: Maria Luisa DASH, On: 18-Jun-2016 Intent Korin Casillas DO ELECTROCARDIOGRAM, COMPLETE (ECG) On: 06-Mar-2016 Intent (10757)By: Korin Glass DO Comments: nsr no acute cgh Korin Glass DO Flu Vaccine (Quadrivalent) 16405Fj: On: 17-Feb-2016 Intent Trini Murphy DO ADMINISTRATION OF INFLUENZA VIRUS On: 17-Feb-2016 Intent VACCINE ([id number])By: Trini Murphy DO Comments: Lot #:[id number] date:7-98-68Ddgzzu given:0.5mlRoute: IMSite given:L DltdGiven by: Greta and ALEXSANDER signed [employer] Aerosol Treatment (51132)By: Maria Luisa On: 03-Jun-2015 Intent , Korin Glass DO Korin Comments: STILL NOISEY BUT MUCH BETTER Inhaler Demo (57282)By: Maria Luisa DASH, On: 03-Jun-2015 Intent Korin Maria Luisa DASHKorin Radiology - Chest- PA and LatBy: On: 03-Jun-2015 Intent Maria Luisa DASH, Korin Glass DO, Korin Flu Vaccine (Quadrivalent) 33685Ey: On: 12-Apr-2015 Intent Glenys Luke CNP Comments: lot: [id number]*2016site:Lt deltoidroute:IMdose:.5mlDEMICK, SMA Radiology - ChestBy: Trini Murphy DO On: 09-Aug-2014 Intent A Comments: PA & LAT- Do in 1 month Spirometry (66677)By: Jeffrey DASH, On: 02-Aug-2014 Intent Trini Benavidez Comments: good effort small but good curve- mod restrciton Radiology - Chest- PA and LatBy: On: 02-Aug-2014 Intent Trini Murphy DO Pulse Oximetry (63512)By: Jeffrey DASH, On: 02-Aug-2014 Intent Trini A Comments: 96% Radiology - ChestBy: Trini Murphy DO On: 12-Jul-2014 Intent A Comments: PA and LAT Radiology - Chest- PA and LatBy: On: 12-Jul-2014 Intent Trini Murphy DO Comments: stat Aerosol Treatment ([id number])By: Jeffrey On: 12-Jul-2014 Intent Trini DASH A Pulse Oximetry (25803)By: Jeffrey DASH, On: 12-Jul-2014 Intent Trini A Comments: 93% Prevnar 13 ([id number])By: Morsi MOSQUEDA, On: 26-Mar-2014 Intent Geraldine Comments: [id number] arm, IMAS Flu Vaccine (Quadrivalent) [id number]: On: 26-Mar-2014 Intent Geraldine Subramanian LPN ADMINISTRATION OF INFLUENZA VIRUS On: 26-Mar-2014 Intent VACCINE (G0008)By: Geraldine Subramanian LPN Comments: [id number] syringeL Dltd, IMAS, LPNABN and VIS signed MAMMOGRAM, SCREENING, BOTH BREAST On: 15-Feb-2014 Intent ([id number])By: Trini Murphy DO A B 12 Injection, 1000 mcg (J3420)By: On: 29-Dec-2013 Intent Trini Murphy DO Comments: lot: [id number]: 02/07site/route: L del/IMamt: 1mLVIS signed when 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, FORESTRY ADVISER B 12 Injection, 1000 mcg (J3420)By: On: 20-Nov-2013 Intent Trini Murphy DO A Comments: Lot:[id number]:Dose:1mlRoute:IMSite:rafita armGiven By:ERICA signed B 12 Injection, 1000 mcg (J3420)By: On: 16-Nov-2013 Intent Trini Murphy DO A Comments: Lot:[id number]:07/2015Dose:1mlRoute:IMSite:rafita armGiven By:ERICA signed B 12 Injection, 1000 mcg (J3420)By: On: 12-Oct-2013 Intent Jeffrey DASH Trini A Comments: Lot:[id number]:07/12Dose:1mlRoute:IMSite:rafita Hart By:ERICA signed Eprescribed prescriptions ([id number])By: On: 12-Oct-2013 Intent Fast DO, Trini A B 12 Injection, 1000 mcg ([id number])By: On: 08-Apr-2013 Intent Antonia Villeda Comments: Lot:[id number]:01/08Dose:1mlRoute:IMSite:l armGiven By:ERICA signed B 12 Injection, 1000 mcg ([id number])By: On: 01-Apr-2013 Intent Fast DO, Trini A Comments: Lot:[id number]:01/08Dose:1mlRoute:IMSite:r farazGiven By:Lawrence signed B 12 Injection, 1000 mcg ([id number])By: On: 25-Mar-2013 Intent Fast DO, Trini A Comments: lot: [id number]: 01/08site/route: L deltoid/IMamt: 1mLVIS signed when 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, FORESTRY ADVISER B 12 Injection, 1000 mcg ([id number])By: On: 17-Mar-2013 Intent Fast DO, Trini A Comments: Lot:[id number]:08/2014Dose:1mlRoute:IMSite:l Carmenzalux By:ERICA signed Nuclear Stress Test/Stress On: 29-Dec-2012 Intent SPECT/TreadmillBy: Jeffrey DO, Trini A EKG ([id number])By: Rahda Ca On: 29-Dec-2012 Intent Comments: ekg showed normal sinus rhythym, normal axis, no acute st/t wave changes Spirometry ([id number])By: Roby, On: 29-Dec-2012 Intent Radha Comments: good effort and curve no obst MAMMOGRAM, SCREENING, BOTH BREASTS On: 29-Dec-2012 Intent ([id number])By: Jeffrey DASH Trini A TDAP VACCINE >7 IM ([id number])By: On: 29-Dec-2012 Intent Radha Ca Planned Medications Vitamin B-12 1000 MCG/ML Injection Solution Ordered: 17-Mar-2013 Pending Fast DO, Trini A Vitamin B-12 1000 MCG/ML Injection Solution Ordered: 25-Mar-2013 Pending Fast DO, Trini A Vitamin B-12 1000 MCG/ML Injection Solution Ordered: 01-Apr-2013 Pending Fast DO, Trini A Vitamin B-12 1000 MCG/ML Injection Solution Ordered: 08-Apr-2013 Pending Antonia Villeda Vitamin B-12 1000 MCG/ML Injection Solution Ordered: 12-Oct-2013 Pending Fast DO, Trini A Vitamin B-12 1000 MCG/ML Injection Solution Ordered: 16-Nov-2013 Pending Fast DO, Trini A Vitamin B-12 1000 MCG/ML Injection Solution Ordered: 20-Nov-2013 Pending Fast DO, Trini A Vitamin B-12 1000 MCG/ML Injection Solution Ordered: 29-Dec-2013 Pending Fast DO, Trini A Vitamin B-12 1000 MCG/ML Injection Solution Ordered: 18-Jun-2016 Pending Maria Luisa DO, Korin Maria Luisa DO, Korin Vitamin B-12 1000 MCG/ML Injection Solution Ordered: 17-Sep-2016 Pending Maria Luisa DO, Korin Maria Luisa DO, Korin Vitamin B-12 1000 MCG/ML Injection Solution Ordered: 24-Dec-2016 Pending Maria Luisa DO, Korin Maria Luisa DO, Korin Vitamin B-12 1000 MCG/ML Injection Solution Ordered: 06-May-2017 Pending Maria Luisa DO, Korin Maria Luisa DO, Korin Vitamin B-12 1000 MCG/ML Injection Solution Ordered: 08-Jul-2017 Pending Maria Luisa DO, Korin Maria Luisa DO, Kroin Vitamin B-12 1000 MCG/ML Injection Solution Ordered: 04-Nov-2017 Pending Maria Luisa DO, Korin Maria Luisa DO, Korin Vitamin B-12 1000 MCG/ML Injection Solution Ordered: 10-Mar-2018 Pending Maria Luisa DO, Korin Maria Luisa DO, Korin Instructions Name Dates Details Non-smoker : How to access health information online Indication: Non-smoker Non-smoker : How to access health information online - Detail Indication: Non-smoker Non-smoker : Patient Instructions Indication: Non-smoker BMI 40.0-44.9, adult : How to access health information online Indication: BMI 40.0-44.9, adult BMI 40.0-44.9, adult : How to access health information online - Detail Indication: BMI 40.0-44.9, adult Itch of skin : Patient Instructions Indication: Itch of skin Diabetes mellitus type II, controlled, with no complications : How to access health information online Indication: Diabetes mellitus type II, controlled, with no complications Diabetes mellitus type II, controlled, with no complications : How to access health information online - Detail Indication: Diabetes mellitus type II, controlled, with no complications Diabetes mellitus type II, controlled, with no complications : Patient Instructions Indication: Diabetes mellitus type II, controlled, with no complications Hypertension, benign : How to access health information online Indication: Hypertension, benign Hypertension, benign : How to access health information online - Detail Indication: Hypertension, benign Hypertension, benign : Patient Instructions Indication: Hypertension, benign Non-smoker : How to access health information online Indication: Non-smoker Non-smoker : How to access health information online - Detail Indication: Non-smoker Non-smoker : Patient Instructions Indication: Non-smoker Diabetes mellitus type II, controlled, with no complications : How to access health information online Indication: Diabetes mellitus type II, controlled, with no complications Diabetes mellitus type II, controlled, with no complications : How to access health information online - Detail Indication: Diabetes mellitus type II, controlled, with no complications Diabetes mellitus type II, controlled, with no complications : Patient Instructions Indication: Diabetes mellitus type II, controlled, with no complications Diabetes mellitus type II, controlled, with no complications : How to access health information online Indication: Diabetes mellitus type II, controlled, with no complications Diabetes mellitus type II, controlled, with no complications : How to access health information online - Detail Indication: Diabetes mellitus type II, controlled, with no complications Diabetes mellitus type II, controlled, with no complications : Patient Instructions Indication: Diabetes mellitus type II, controlled, with no complications Cough : How to access health information online Indication: Cough Cough : How to access health information online - Detail Indication: Cough Cough : Patient Instructions Indication: Cough Diabetes mellitus type II, controlled, with no complications : How to access health information online Indication: Diabetes mellitus type II, controlled, with no complications Diabetes mellitus type II, controlled, with no complications : How to access health information online - Detail Indication: Diabetes mellitus type II, controlled, with no complications Diabetes mellitus type II, controlled, with no complications : Patient Instructions Indication: Diabetes mellitus type II, controlled, with no complications Diabetes mellitus type II, controlled, with no complications : How to access health information online Indication: Diabetes mellitus type II, controlled, with no complications Diabetes mellitus type II, controlled, with no complications : How to access health information online - Detail Indication: Diabetes mellitus type II, controlled, with no complications Diabetes mellitus type II, controlled, with no complications : Patient Instructions Indication: Diabetes mellitus type II, controlled, with no complications Diabetes mellitus type II, controlled, with no complications : How to access health information online Indication: Diabetes mellitus type II, controlled, with no complications Diabetes mellitus type II, controlled, with no complications : How to access health information online - Detail Indication: Diabetes mellitus type II, controlled, with no complications Diabetes mellitus type II, controlled, with no complications : Patient Instructions Indication: Diabetes mellitus type II, controlled, with no complications Diabetes mellitus type II, controlled, with no complications : How to access health information online Indication: Diabetes mellitus type II, controlled, with no complications Diabetes mellitus type II, controlled, with no complications : How to access health information online - Detail Indication: Diabetes mellitus type II, controlled, with no complications Diabetes mellitus type II, controlled, with no complications : Patient Instructions Indication: Diabetes mellitus type II, controlled, with no complications Hypercholesteremia (Renamed from Hypercholesterolemia) : How to access health information online Indication: Hypercholesteremia (Renamed from Hypercholesterolemia) Hypercholesteremia (Renamed from Hypercholesterolemia) : How to access health information online - Detail Indication: Hypercholesteremia (Renamed from Hypercholesterolemia) Hypercholesteremia (Renamed from Hypercholesterolemia) : Patient Instructions Indication: Hypercholesteremia (Renamed from Hypercholesterolemia) Diabetes mellitus type II, controlled, with no complications : How to access health information online Indication: Diabetes mellitus type II, controlled, with no complications Diabetes mellitus type II, controlled, with no complications : How to access health information online - Detail Indication: Diabetes mellitus type II, controlled, with no complications Diabetes mellitus type II, controlled, with no complications : Patient Instructions Indication: Diabetes mellitus type II, controlled, with no complications Need for prophylactic vaccination and inoculation against influenza (Renamed from Need for immunization against influenza) : How to access health information online Indication: Need for prophylactic vaccination and inoculation against influenza (Renamed from Need for immunization against influenza) Need for prophylactic vaccination and inoculation against influenza (Renamed from Need for immunization against influenza) : How to access health information online - Detail Indication: Need for prophylactic vaccination and inoculation against influenza (Renamed from Need for immunization against influenza) Need for prophylactic vaccination and inoculation against influenza (Renamed from Need for immunization against influenza) : Patient Instructions Indication: Need for prophylactic vaccination and inoculation against influenza (Renamed from Need for immunization against influenza) Common cold virus : How to access health information online Indication: Common cold virus Common cold virus : How to access health information online - Detail Indication: Common cold virus Common cold virus : Patient Instructions Indication: Common cold virus Bronchitis : Patient Instructions Indication: Bronchitis Cough : How to access health information online Indication: Cough Cough : How to access health information online - Detail Indication: Cough Cough : Patient Instructions Indication: Cough Diabetes mellitus type II, controlled, with no complications : Patient Instructions Indication: Diabetes mellitus type II, controlled, with no complications Wheeze : Patient Instructions Indication: Wheeze Hyperlipidemia : How to access health information online Indication: Hyperlipidemia Hyperlipidemia : How to access health information online - Detail Indication: Hyperlipidemia Impaired Fasting Glucose : Patient Instructions Indication: Impaired Fasting Glucose Impaired Fasting Glucose : Patient Instructions Indication: Impaired Fasting Glucose Impaired Fasting Glucose : Patient Instructions Indication: Impaired Fasting Glucose Impaired Fasting Glucose : Patient Instructions Indication: Impaired Fasting Glucose SHORTNESS OF BREATH : Patient Instructions Indication: SHORTNESS OF BREATH Encounters Annotation/Addendum On: 02-May-2018 12:48 Encounter Diagnosis: Unspecified Diagnosis End: 02-May-2018 12:50 [facility] Annotation/Addendum On: 11-Apr-2018 14:25 Encounter Diagnosis: Positive ROSHNI (antinuclear antibody) End: 11-Apr-2018 14:34 [facility] Office Visit On: 09-Apr-2018 14:02 Encounter Reason: Rash - The last clinic visit was 2 week(s) ago. Symptoms include skin bumps. The skin rash is located on the left side of the face and right side of the face. Onset was sudden (went away with prednisone End: 09-Apr-2018 14:43 then after being off for a few days it came back) 2 week(s) ago. Note for Rash: Itchy rash across bridge of noseand face,was on prednisone x 7 days since 10-31 off of it x 7 days and now rash returns.Denies joint painEncounter Diagnosis: BMI 40.0-44.9, adult, Non-smoker, Rash of face [facility] Office Visit On: 24-Mar-2018 11:08 Encounter Reason: Rash - Symptoms include skin bumps, pruritus and skin swelling. The skin rash is located on the left side of the face and right side of the face. Onset was 6 day(s) ago. Note for Rash: Symptoms starte End: 24-Mar-2018 13:22 d about 1 week ago with rash on face-rash is on nose and cheeks. Itches, and feels like swollen. No drainage, painful, tingling. ??No changes in face products, soaps, makeup, laundry soap, eye neon glass bender.Encounter Diagnosis: Non-smoker, BMI 40.0-44.9, adult, Itch of skin, Rash of face [facility] Office Visit On: 10-Mar-2018 15:48 Encounter Diagnosis: Colon cancer screening End: 10-Mar-2018 15:50 [facility] Office Visit On: 10-Mar-2018 14:47 Encounter Reason: Follow up for chronic medical issues - The patient feels well with minor complaints, has good energy level and is sleeping well. Patient has been compliant with instructions. Current medication use: no End: 10-Mar-2018 15:43 side effects and compliant with dosing regimen. Patient sleeps 8 hours per night. Nutrition: balanced diet and supplemental vitamins. The medical issues the patient is following up for include All ident ified problems below, blood sugar issues, high blood pressure and high cholesterol. blood pressure range : and weight :.Encounter Diagnosis: Diabetes mellitus type II, controlled, with no complications, B12 deficiency, Need for prophylactic vaccination and inoculation against influenza (Renamed from Need for immunization against influenza), BMI 40.0-44.9, adult, Encounter for screening mammogram for breast cancer (Renamed from Encounter for screening mammogram f or malignant neoplasm of breast), Hypertension, benign, Vitamin D deficiency, Hypercholesteremia (Renamed from Hypercholesterolemia), Nutritional counseling [facility] Office Visit On: 26-Nov-2017 14:16 Encounter Reason: Hypertension - Note for Hypertension: Was on lisniopril 8-9 monthsee with K of 5.4, repeat 5.3,told to hold lisinopril and did so, held x 1 month now K 4.7, asking about eating bananas, End: 26-Nov-2017 15:04 [ADDITIONAL REASON] Follow up tests - Diagnostic tests include other (labs). Encounter Diagnosis: Hypertension, benign, Non-smoker, BMI 40.0-44.9, adult, Hyperkalemia [facility] Phone Encounter On: 18-Nov-2017 13:30 Encounter Diagnosis: Hyperkalemia End: 18-Nov-2017 13:31 [facility] Office Visit On: 15-Nov-2017 10:45 Encounter Reason: Skin Lesion, FacialEncounter Diagnosis: BMI 40.0-44.9, adult, Non-smoker, Skin lesion of face End: 15-Nov-2017 11:28 [facility] Phone Encounter On: 05-Nov-2017 13:17 Encounter Diagnosis: Hyperkalemia End: 05-Nov-2017 13:18 [facility] Office Visit On: 04-Nov-2017 12:58 Encounter Reason: Follow up tests - Date: (10/30/17)., [ADDITIONAL REASON] Follow up for chronic medical issues - The patient feels well with minor complai End: 04-Nov-2017 13:44 nts, has good energy level and is sleeping well. Patient has been compliant with instructions. Current medication use: no side effects and compliant with dosing regimen. Patient sleeps 8 hours per night . Nutrition: balanced diet and supplemental vitamins. The medical issues the patient is following up for include All identified problems below, blood sugar issues, high blood pressure and high cholesterol. weight :. Encounter Diagnosis: Diabetes mellitus type II, controlled, with no complications, BMI 40.0-44.9, adult, B12 deficiency, Vitamin D deficiency, Hypertension, benign, Hypercholesteremia (Renamed from Hypercholesterolemia), Hyperkalemia, Nutritional counseling, Skin lesion of face [facility] Office Visit On: 08-Jul-2017 13:01 Encounter Reason: Follow up for chronic medical issues - The patient feels well with minor complaints, has good energy level and is sleeping well. Patient has been compliant with instructions. Current medication use: no End: 08-Jul-2017 17:09 side effects and compliant with dosing regimen. Patient sleeps 7 hours per night. Nutrition: balanced diet and supplemental vitamins. The medical issues the patient is following up for include All ident ified problems below, blood sugar issues, high blood pressure and high cholesterol. weight :.Encounter Diagnosis: Diabetes mellitus type II, controlled, with no complications, Non-smoker, BMI 40.0-44.9, adult, Obstructive sleep apnea, adult, Hypertension, benign, Hyperlipidemia, B12 deficiency, Vitamin D deficiency [facility] Office Visit On: 05-Jun-2017 15:11 Encounter Reason: Cold Symptoms - Symptoms include nasal congestion, runny nose, postnasal drainage, sore throat, productive cough, facial pressure and headache. Onset was sudden 3 day(s) ago. There is no known event cynthia End: 05-Jun-2017 15:34 t preceded symptom onset. Note for Cold symptoms: Not asthmatic just worsening cough over 2 days, cough hurts ribs and sinus painEncounter Diagnosis: Non- smoker, BMI 45.0-49.9, adult, Cough, Sinusitis, acute [facility] Office Visit On: 06-May-2017 14:48 Encounter Reason: Follow up for chronic medical issues - The patient feels well with minor complaints, has good energy level and is sleeping well. Patient has been compliant with instructions. Current medication use: no End: 07-May-2017 13:22 side effects and compliant with dosing regimen. Patient sleeps 7 hours per night. Nutrition: balanced diet and supplemental vitamins. The medical issues the patient is following up for include All ident ified problems below, blood sugar issues, high blood pressure and high cholesterol.Encounter Diagnosis: Diabetes mellitus type II, controlled, with no complications, Non- smoker, BMI 45.0-49.9, adult, Need for prophylactic vaccination and inoculation against influenza (Renamed from Need for immunization against influenza), B12 deficiency, Hypercholesteremia (Renamed from Hypercholesterolemia), Vitamin D deficiency, Hypertension, benign, Hyperlipidemia [facility] Annotation/Addendum On: 24-Dec-2016 13:14 Encounter Diagnosis: B12 deficiency End: 24-Dec-2016 13:16 [facility] Office Visit On: 24-Dec-2016 10:18 Encounter Reason: Follow up for chronic medical issues - The patient feels well with minor complaints, has good energy level and is sleeping well. Patient has been compliant with instructions. Current medication use: no End: 24-Dec-2016 11:02 side effects and compliant with dosing regimen. Patient sleeps 7 hours per night. Nutrition: balanced diet and supplemental vitamins. The medical issues the patient is following up for include All ident ified problems below, blood sugar issues, high blood pressure and high cholesterol.Encounter Diagnosis: Diabetes mellitus type II, controlled, with no complications, BMI 45.0-49.9, adult, Non-smoker, Hypercholesteremia (Renamed from Hypercholesterolemia), Vitamin D deficiency, B12 deficiency [facility] Office Visit On: 17-Sep-2016 9:49 Encounter Reason: Follow up tests - Date: (09/12/16 labs)., [ADDITIONAL REASON] Follow up for chronic medical issues - The patient feels well with minor complai End: 17-Sep-2016 12:15 nts, has good energy level and is sleeping well. Patient has been compliant with instructions. Current medication use: no side effects and compliant with dosing regimen. Patient sleeps 8 hours per night . Nutrition: balanced diet and supplemental vitamins. The medical issues the patient is following up for include All identified problems below, blood sugar issues, high blood pressure and high cholesterol. Encounter Diagnosis: Diabetes mellitus type II, controlled, with no complications, Non-smoker, BMI 45.0- 49.9, adult, Other dysphagia, Obstructive sleep apnea, adult, B12 deficiency, Vitamin D deficiency, Hypercholesteremia (Renamed from Hypercholesterolemia) [facility] Office Visit On: 18-Jun-2016 10:19 Encounter Reason: Follow up for chronic medical issues - The patient feels well with minor complaints, has good energy level and is sleeping well. Patient has been compliant with instructions. Current medication use: no End: 18-Jun-2016 13:03 side effects and compliant with dosing regimen. Patient sleeps 6 hours per night. Nutrition: balanced diet and supplemental vitamins. The medical issues the patient is following up for include All ident ified problems below and blood sugar issues. weight :.Encounter Diagnosis: Diabetes mellitus type II, controlled, with no complications, BMI 45.0-49.9, adult, Non- smoker, Carpal tunnel syndrome of left wrist, Hypercholesteremia (Renamed from Hypercholesterolemia), Vitamin D deficiency, B12 deficiency, Elevated blood-pressure reading without diagnosis of hypertension, Obstructive sleep apnea, adult, Skin lesion of face, Epidermoid cyst of face [facility] Office Visit On: 28-Mar-2016 10:32 Encounter Reason: Follow up Hypertension - The symptoms have been associated with family history of hypertension and obesity., [ADDITIONAL REASON] Follow up tests - Date: (03/06/16). Encounter Diagnosis: Recurrent cold sores, End: 28-Mar-2016 14:38 Elevated blood-pressure reading without diagnosis of hypertension, Hypercholesteremia (Renamed from Hypercholesterolemia) [facility] Office Visit On: 06-Mar-2016 10:31 Encounter Reason: Follow up for chronic medical issues - The patient feels well with minor complaints, has good energy level and is sleeping well. Patient has been compliant with instructions. Current medication use: no End: 06-Mar-2016 13:56 side effects and compliant with dosing regimen. Patient sleeps 7 hours per night. Nutrition: balanced diet and supplemental vitamins. The medical issues the patient is following up for include All ident ified problems below, blood sugar issues, high blood pressure and high cholesterol.Encounter Diagnosis: Diabetes mellitus type II, controlled, with no complications, Vitamin D deficiency, B12 deficiency, Hyperlipidemia, Elevated blood-pressure reading without diagnosis of hypertension [facility] Office Visit On: 17-Feb-2016 14:10 Encounter Reason: Mouth ulcers - The onset of the mouth ulcers has been gradual and has been occurring in a persistent pattern for weeks. The course has been worsening. The mouth ulcers are observed in the lips. The mout End: 19-Feb-2016 21:31 h ulcers are described as painful. There has been no associated bleeding, fever, headache or sore throat. Note for Mouth ulcers: using lysine creme - was on vacation- - usually go away faster and not going away- still painfulEncounter Diagnosis: Need for prophylactic vaccination and inoculation against influenza (Renamed from Need for immunization against influenza), Recurrent cold sores [facility] Phone Encounter On: 08-Nov-2015 14:17 Encounter Diagnosis: Vitamin D deficiency End: 08-Nov-2015 14:19 [facility] Office Visit On: 07-Nov-2015 15:03 Encounter Reason: Cold Symptoms - Symptoms include nasal congestion, runny nose, postnasal drainage, sore throat, productive cough (white mucus) and facial pressure (tired eyes). Onset was 3 day(s) ago. The symptoms occu End: 07-Nov-2015 15:58 r constantly. Associated symptoms include fatigue, while associated symptoms do not include ear pain or nausea. The patient is not currently being treated for this problem.Encounter Diagnosis: Common cold virus, Cough, Rash of hands, Hair loss [facility] Office Visit On: 03-Jun-2015 15:40 Encounter Reason: Cough - Symptoms include cough, while symptoms do not include fever, runny nose, stuffy nose or sore throat. The cough is described as hacking and productive. Cough onset was sudden 2 week(s) ago. Onset End: 03-Jun-2015 16:26 of cough followed cold symptoms. Symptoms are described as severe.Encounter Diagnosis: Cough, Wheeze, Bronchitis [facility] Office Visit On: 12-Apr-2015 13:09 Encounter Reason: Sinusitis - Symptoms include cheek pressure, forehead pain, ear pressure and headache. Onset was gradual 3 day(s) ago. The patient describes this as unchanged. Symptoms are relieved by oral decongestant.Encounter Diagnosis: End: 12-Apr-2015 15:47 Upper Respiratory Infection (Renamed from Infection of the upper respiratory tract), Need for prophylactic vaccination and inoculation against influenza (Renamed from Need for immunization against influenza) [facility] Office Visit On: 24-Mar-2015 14:20 Encounter Reason: Itching - The last clinic visit was 2 week(s) ago. No changes in management were made at the last visit. Symptoms include dry skin. Symptom locations include the forearms and on the hands. Onset was 2 w End: 24-Mar-2015 14:52 [place](s) ago. There is no known event that preceded symptom onset. The symptoms occur constantly. The patient describes this as severe.Encounter Diagnosis: Dyshydrosis [facility] Office Visit On: 24-Nov-2014 8:49 Encounter Reason: Cough - The onset of the cough has been 1 weeks. The cough is characterized as productive of mucoid sputum. The amount of sputum produced is scanty. The cough occurs all the time. The symptoms are not End: 29-Nov-2014 14:32 aggravated by supine posture. The symptoms have been associated with hoarseness, while the symptoms have not been associated with dyspnea, fever, headache, runny nose, sore throat or wheezing. the color of the sputum is clear (white). Note for Cough : no sob- no fever chills -- had pnaumonia in jun clear == fatigue= no chest pain no leg swelling Encounter Diagnosis: Cough, PNEUMONIA DUE TO OTHER SPECIFIED BACTERIA, Upper Respiratory Infection (Renamed from Infection of the upper respiratory tract) [facility] Phone Encounter On: 09-Aug-2014 16:54 Encounter Diagnosis: PNEUMONIA DUE TO OTHER SPECIFIED BACTERIA End: 09-Aug-2014 16:56 [facility] Office Visit On: 02-Aug-2014 11:08 Encounter Reason: Follow up for chronic medical issues - The patient feels well with minor complaints (feeling a lot better since took atb but an occasional cough so wants dr to listen to her lungs. 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 Patient has been compliant with instructions. Current medication use: no side effects and compliant with dosing r egimen. Patient sleeps 7 hours per night. Nutrition: inappropriate diet, no supplemental vitamins & iron and low salt diet. The medical issues the patient is following up for include All identified problems below, blood sugar issues, high blood pressure, high cholesterol and other (b-12 deficiency,arthralgia, snoring). Note for Follow up for chronic medical issues: diarrhea gone- once in awhile cough / thought was wheezing for some time not now - feeling better, [ADDITIONAL REASON] Follow up tests - Diagnostic tests include other (labwork). Date: (07/30/14). Encounter Diagnosis: PNEUMONIA DUE TO OTHER SPECIFIED BACTERIA, Diabetes type II,controlled no comp (250.00), Hyperlipidemia (272.4), B12 deficiency (266.2), Cough [facility] Phone Encounter On: 28-Jul-2014 17:31 Encounter Diagnosis: Wheeze End: 28-Jul-2014 17:35 [facility] Office Visit On: 12-Jul-2014 14:05 Encounter Reason: Cough - The onset of the cough has been 3 days ago. The cough is characterized as productive of mucoid sputum. The amount of sputum produced is scanty. The cough occurs all the time. The symptoms have End: 12-Jul-2014 21:00 been associated with fever, headache, hoarseness, runny nose and wheezing, while the symptoms have not been associated with dyspnea or sore throat. the color of the sputum is clear (to white). Note for Cough : all came together - cough and gi sx- thinks had fever last 2 days didnt check it -- feels heavy and tight in chest not coughing up color- body aches sore throat madrid off and on , [ADDITIONAL REASON] Bowel problems - The onset of the bowel problems has been sudden and they have been occurring in an intermittent pattern for days. The course has been decreasing. There has been ass ociated abdominal pain (when coughs has to hold an area of her abdomen) and diarrhea, while there has been no associated bloody stools, nausea or rectal pain. Note for Bowel problems: More of black s joey stools instead of tarry- never had pain in belly unless coughs and it is in right upper quadrant- had diarrhea yesterday not today- just dark watery pieces not sticky tarry- some nausea- not great appetitie Encounter Diagnosis: Wheeze, Diarrhea (Renamed from D (diarrhea)), Myalgia, BACTERIAL PNEUMONIA, UNSPECIFIED (482.9) [facility] Visit On: 26-Mar-2014 14:59 Encounter Reason: Injections - The medication the patient is here to receive is other (Flu and Prevnar).Encounter Diagnosis: Need for prophylactic vaccination and inoculation against influenza (Renamed from Need for immunization against influenza), End: 26-Mar-2014 15:07 Need for vaccination against Streptococcus pneumoniae [facility] Office Visit On: 15-Feb-2014 11:27 Encounter Reason: Follow up for chronic medical issues - The patient feels well with no complaints, has good energy level and is sleeping well. Patient has been compliant with instructions. Current medication use: no yoel End: 15-Feb-2014 21:45 e effects and compliant with dosing regimen. Patient sleeps 7 hours per night. Nutrition: inappropriate diet, no supplemental vitamins & iron and low salt diet. The medical issues the patient is fol lowing up for include All identified problems below, blood sugar issues, high blood pressure, high cholesterol and other (b-12 deficiency,arthralgia, snoring). Note for Follow up for chronic medical is sues: Pt needs a mammogram order.- is going to start adding more fiber to diet and do skinny fiber tolose weight - bp is good, [ADDITIONAL REASON] Follow up tests - Diagnostic tests include other (labwork). Date: (02/10/14). Encounter Diagnosis: Impaired Fasting Glucose (790.21), B12 deficiency (266.2), Elevated Blood Pressure without diagnosis of Hypertension (796.2), Hyperlipidemia (272.4), Obstructive Sleep Apnea (327.23), screening [facility] Office Visit On: 29-Dec-2013 14:00 Encounter Reason: Injections - The medication the patient is here to receive is vitamin B12 IM.Encounter Diagnosis: B12 deficiency (266.2) End: 29-Dec-2013 14:26 [facility] Visit On: 20-Nov-2013 10:59 Encounter Reason: Injections - The medication the patient is here to receive is vitamin B12 IM.Encounter Diagnosis: B12 deficiency (266.2) End: 22-Nov-2013 21:51 [facility] Visit On: 16-Nov-2013 11:35 Encounter Reason: Nurse procedure visitEncounter Diagnosis: B12 deficiency (266.2) End: 16-Nov-2013 12:15 [facility] Visit On: 12-Oct-2013 16:10 Encounter Reason: Follow up for chronic medical issues - The patient feels well with no complaints, has good energy level and is sleeping well. Patient has been compliant with instructions. Current medication use: no yoel End: 13-Oct-2013 8:24 e effects and compliant with dosing regimen. Patient sleeps 7 hours per night. Nutrition: inappropriate diet, no supplemental vitamins & iron and low salt diet. The medical issues the patient is fol lowing up for include All identified problems below, blood sugar issues, high blood pressure, high cholesterol and other (b-12 deficiency,arthralgia, snoring). Note for Follow up for chronic medical is sues: going to [place] in 2 weeks- she retired today - she started exercising today -her spider beat in july and - and bp up thinks sitting a while but feels well- she is trying to give up pop , [ADDITIONAL REASON] Follow up tests - Diagnostic tests include other (labwork). Date: (10/05/13). Encounter Diagnosis: Impaired Fasting Glucose (790.21), B12 deficiency (266.2), Hyperlipidemia (272.4), SHORTNESS OF BREATH (786.05), Obstructive Sleep Apnea (327.23), Cellulitis and abscess, Elevated Blood Pressure without diagnosis of Hypertension (796.2) [facility] Visit On: 18-Aug-2013 14:10 Encounter Reason: Skin Problems - The onset of the skin problems has been sudden and they have been occurring in a persistent pattern for days. The course has been increasing. The problem is characterized as infection. T End: 18-Aug-2013 14:32 here has been associated pain, while there has been no itching.Encounter Diagnosis: Cellulitis and abscess [facility] Visit On: 15-Jun-2013 16:16 Encounter Reason: Follow up for chronic medical issues - The patient feels well with minor complaints (sore throat), has good energy level and is sleeping well. Patient has been compliant with instructions. Current medic End: 15-Jun-2013 22:45 ation use: no side effects and compliant with dosing regimen. Patient sleeps 7 hours per night. Nutrition: inappropriate diet, no supplemental vitamins & iron and low salt diet. The medical issues t he patient is following up for include All identified problems below, blood sugar issues, high blood pressure, high cholesterol and other (b-12 deficiency,arthralgia, snoring). Note for Follow up for c hronic medical issues: lost 4 pounds over the holiday- is going to start silver sneakers pretty soon- no real joint pain now- - rarely paresthesia - no infection sx except todays scrastchy throat, [ADDITIONAL REASON] Follow up tests - Diagnostic tests include other (labwork). Date: (06/06/12). , [ADDITIONAL REASON] Sore Throat - Symptoms include sore throat, nasal congestion and swollen glands, while symptoms do not include postnasal drainage, fever or chills. The symptoms are symmetrical. The pain radiates to the left neck. The patient describes the pain as burning (irritating). Onset was lai dden 1 day(s) ago. Associated symptoms include cough (tickle cough), while associated symptoms do not include headache, hoarseness, ear pain, facial pain, nausea or vomiting. Encounter Diagnosis: Impaired Fasting Glucose (790.21), Abnormal blood chemistry (790.6), Obstructive Sleep Apnea (327.23), Hyperlipidemia (272.4), B12 deficiency (266.2), Sore throat [facility] Visit On: 08-Apr-2013 15:25 Encounter Diagnosis: B12 deficiency (266.2) End: 08-Apr-2013 16:49 [facility] Visit On: 01-Apr-2013 15:26 Encounter Reason: Injections - The medication the patient is here to receive is vitamin B12 IM.Encounter Diagnosis: B12 deficiency (266.2) End: 01-Apr-2013 15:34 [facility] Visit On: 25-Mar-2013 15:50 Encounter Reason: Injections - The medication the patient is here to receive is vitamin B12 IM.Encounter Diagnosis: B12 deficiency (266.2) End: 25-Mar-2013 16:09 [facility] Visit On: 17-Mar-2013 15:13 Encounter Reason: Follow up tests - Diagnostic tests include other (labs) and treadmill exercise stress test. Date: (01/08/13). Follow up visit with no current symptoms.Encounter Diagnosis: Impaired Fasting Glucose (790.21), B12 deficiency (266.2), End: 18-Mar-2013 10:43 ARTHRALGIAS 719.40, Parasthesia (782.0), Hyperlipidemia (272.4), SHORTNESS OF BREATH (786.05) [facility] Office Visit On: 29-Dec-2012 16:08 Encounter Reason: Transition into care, [ADDITIONAL REASON] new patient female physical - Last seen between 3-6 months ago. General health: feels well with minor complaints (daughter says she holds her breathe when she sleeps and then will g End: 29-Dec-2012 22:53 asp- Daughter wants or would like her to have a sleep study done. Needs routine orders for things like labs, colonoscopy(has never had one) ??and mammogram.), has good energy level and is sleeping well. The patient's appetite is normal. Nutrition: inappropriate diet. Exercises 0 days per week. Sleeps on average 6 hours per night. Normal bowel and bladder habits. Safety measures include appropriate use of safety belts and home smoke detectors. There are no current emotional problems. screening, colonoscopy (has never had one yet), screening, mammography (2009), screening, Pap smear (2009) and screeni ng, visual acuity (02/2012). Note for Physical exam: Manjeet was previous doctor- j , [ADDITIONAL REASON] Snoring - Symptoms include snoring, nocturnal gasping and witnessed nocturnal ap ina (daughter), while symptoms do not include restless sleep, nocturnal choking, morning headache, excessive daytime sleepiness, cognitive impairment, work impairment or driving impairment. The snoring is described as loud and disruptive to the bed partner. Onset was gradual. The symptoms occur intermittently. This is described as mild. Associated symptoms do not include nasal congestion, nasal obstru ction, nocturnal sweating, nocturnal chest pain or nocturnal palpitations. The patient is not currently being treated for this problem. Note for Snoring: does nap after work- sleeps 6-7 hours of sleep- trouble staying awake while driving Encounter Diagnosis: PREVENTION OF TETANUS (V03.7), SHORTNESS OF BREATH (786.05), screening, Snoring (786.09), ARTHRALGIAS 719.40, Parasthesia (782.0) [facility] Payers [employer]; silvia guarantor
--- OUTSIDE RECORDS SUMMARY | 2018-06-21 18:21 | XMS RPT_ITS | Continuity of Care Document ---
:1945 Author Organization [facility] Address [facility] [address] [place] [address] Phone Care Team Providers Name Role Phone Korin Glass DO Unavailable Dr. Ousmane Morgan Unavailable Jeffrey Trini Unavailable Selena Randolph Unavailable Unavailable Rocio Buck Unavailable Unavailable PANDA Matias Unavailable Unavailable Unavailable Unavailable Problems Name Dates Details [...] tunnel - cock up splints Status: Active Pregnancies () Comments: 3. Status: [...] Active Sore throat (J02.9, 462) Status: Active Upper Respiratory Infection (Renamed from [...] 0 Ordered:24-Mar-2018 Rocio Buck Start : 24-Mar-2018 Active Comments:With food Augmentin 875-125 MG Oral Tablet 1 (one) Tablet bid for 14 days Quantity: 28 {Tablet} Refills: 0 Ordered:05-Jun-2017 Ti BARBOSA Chiquita Start : 05-Jun-2017 End : 19-Jun-2017 Inactive CEFDINIR, 300MG (Oral Capsule) 1 (one) Capsule bid for 10 days Quantity: 20 {Capsule} Refills: 0 Ordered:18-Aug-2013 Ti BARBOSA Chiquita Start : 18-Aug-2013 End : 28-Aug-2013 Inactive [...] : 06-Mar-2016 Inactive No Known Historical Medications ProAir HFA 108 (90 Base) MCG/ACT Inhalation [...] days Quantity: 60 {Tablet} Refills: 0 Ordered:17-Feb-2016 Shanaearpan FAMILIAGlenys Start : 08-Nov-2015 End : 08-Dec-2015 Inactive ZITHROMAX Z-VICKIE, 250MG (Oral Tablet) 2 (two) Tablet today for 0 days Quantity: 6 {Tablet} Refills: 0 Ordered:24-Mar-2015 Rocio Matias LPN Start : 24-Nov-2014 End : 24-Mar-2015 Inactive LEVAQUIN, 500MG (Oral Tablet) 1 (one) Tablet qd for 0 days Quantity: 14 {Tablet} Refills: 0 Ordered:02-Aug-2014 Radha Ca Start : 12-Jul-2014 End : 02-Aug-2014 Discontinued [...] Status: Resolved as of 28-Jul-2014 Vaccine for qfzqfmgtcv-rblgzzf-muykylaty with poliomyelitis (Z23, V06.3) Status: Inactive as [...] Knee - orthoscopic Completed Date Value Details 03-Jun-2015 Spirometry (09030) Comments: OBSTRUCTION PRESNET Result: 24-Nov-2014 Spirometry (10776) Comments: good effor tand curve normal Result: 20-Sep-2014 Chest PA and Lateral Result: Comments: See Note; NOTES: [facility] Imaging Services [address] [place] [address] Radiology Report MR#: [id number] Acct: [id number] Name: HAYDEE BOSS Rep #: [id number] : 1945 F 69 From: Jorge Mckeon DO PCP: Trini Murphy DO Status: REG CLI Study: Chest PA and Lateral Date of Exam: 09/20/14 Exam# [id number] Ordering Dr: Trini Murphy DO STUDY: X-RAY [...] Jorge Mckeon DO at 20:56 EDT Tel [phone], Service support [phone], RAD/Ch est PA and Lateral IMPRESSION: No acute cardiopulmonary disease. Electronically Signed: Jorge Mckeon DO at 20:56 EDT Tel [phone], Service support [phone], CC: Trini Murphy DO Job Press Feeder: Signed 09-Aug-2014 Chest PA and Lateral Result: Comments: See Note; NOTES: [facility] Imaging Services [address] [place] [address] Radiology Report MR#: [id number] Acct: [id number] Name: HAYDEE BOSS Rep #: [id number] : 1945 F 68 From: Zander Cronelius MD PCP: Trini Murphy DO Status: REG CLI Study: Chest PA and Lateral Date of Exam: 08/09/14 Exam# [id number] Ordering Dr: Trini Murphy DO STUDY: X-RAY [...] at 12:56 EDT Tel , Service support [phone], RAD/Chest PA and Lat eral IMPRESSION: Near complete resolution of previously described right middle and right lower lobe infiltrate. Followup recommended to assure complete resolution. Electronically Signed: Juan Cornelius MD at 12:56 EDT Tel , Service support [phone], CC: Trini Murphy DO Job Press Feeder: Signed 12-Jul-2014 Chest PA and Lateral Result: Comments: See Note; NOTES: [facility] Imaging Services [address] [place] [address] Radiology Report MR#: [id number] Acct: [id number] Name: HAYDEE BOSS Rep #: [id number] : 1945 F 68 From: Oracio Mccollum MD PCP: Trini Murphy DO Status: REG CLI Study: Chest PA and Lateral Date of Exam: 07/12/14 Exam# [id number] Ordering Dr: Trini Murphy DO STUDY: X-RAY [...] at 15:46 EST Tel , Service support [phone], CC: Trini Murphy DO Job Press Feeder: Signed 26-Mar-2014 Bilat Scrn Digital & CAD Result: Comments: See Note; NOTES: [facility] Imaging Services [address] [place] [address] Breast Imaging Report MR#: [id number] Acct: [id number] Name: HAYDEE BOSS Rep #: [id number] : 1945 F 68 From: Melchor Forde MD PCP: Trini Murphy DO Status: REG CLI Exam# [id number] Ordering Dr: Trini Murphy DO MAMMOGRAPHY - [...] Forde MD at 12: 54 EDT Tel [phone], Service support [phone], CC: Trini Murphy DO Job Press Feeder: Signed Family History Unknown Family Member Name [...] Most Recent Primary Occupation Comments: works at [employer]- at [employer]- with 3 children - has 11 grandchildren Status: Active No Drug Use Status: Active Non Drinker/No Alcohol Use Status: Active Non Smoker/No Tobacco Use Status: Active Vital Signs Date Test Result Details :09 Temperature 97.5 f Comments: Method: Temporal [...] kg/m2 Body Surface Area Calculated 2.06 m2 48-Jhg-442665:29 Pulse 62 /min Comments: Pattern: Regular Respiration [...] kg/m2 Body Surface Area Calculated 2.06 m2 46-Xph-137799:00 Pulse 75 /min Comments: Pattern: Regular Respiration [...] kg/m2 Body Surface Area Calculated 2.07 m2 85-Hzd-993558:29 Pulse 72 /min Comments: Pattern: Regular Respiration [...] Body Surface Area Calculated 2.06 m2 :35 Pulse 72 /min Comments: Pattern: Regular Respiration [...] kg/m2 Body Surface Area Calculated 2.07 m2 89-Dph-082548:36 Pulse 63 /min Comments: Pattern: Regular Respiration [...] 2.06 m2 Results Date Description Value Details :48 HgA1C , Office (52387) HgA1C , Office 5.7 % (Normal) Range: 4.6 - 7.1 :48 Blood Glucose , Office (25521) Blood Glucose , Office 78 (Normal) :42 POTASSIUM SERUM (76664) Comments: PATIENT NOT FASTINGPERFORMED BY: [facility] Edxpdq7323 [facility] [id number] Potassium 4.7 mmol/L (Normal) Range: 3.5-5.2 :16 Pathology Report Comments: PERFORMED BY: KALEE [facility] Hobg2188 [facility] [id number] BY: [facility] Dermatopathology [address] [place] [address] [id number] 670Clinical Information: [id number] See MATER Comments: Material submitted: .LEFT SIDE [...] IMPORT. (MULTIPLE DEEPER SECTIONS WERE EXAMINED.)11/21/2017Electronically signed: .Elan Lowry MD, DermatopathologistGross description: .RECEIVED IN FORMALIN [...] FUNGAL HYPHAE.Pathologist provided ICD- 10:D48.5, L98.499, L08.9CPT .911120, 053564 27-Cxu-210558:59 POTASSIUM SERUM (00830) Comments: PATIENT NOT FASTINGPERFORMED BY: LabCoVirtua MarltonArbkyu3139 [facility] [id number] Potassium 5.3 mmol/L (Abnormal) Range: 3.5-5.2 23-Wvc-998090:04 POTASSIUM SERUM (22660) Comments: PATIENT NOT FASTINGPERFORMED BY: [facility] Iauymo2376 [facility] [id number] Potassium 5.4 mmol/L (Abnormal) Range: 3.5-5.2 : HgA1C , Office (00161) HgA1C , Office 6.1 % (Normal) Range: 4.6 - 7.1 :01 Blood Glucose , Office (25656) Blood Glucose , Office 89 (Normal) 7-Wlk-611674:51 Microscopic Examination Comments: PATIENT WAS FASTINGPERFORMED BY: [employer] Gsdgsgujaj[address] [id number] BY: [place]Ten[place] 7499770 [facility] [id number] Bacteria Few (Normal) Mucus Threads Present (Normal) Epithelial Cells (non renal) 0-10 {/hpf} (Normal) Range: 0 - 10 RBC 0-2 {/hpf} (Normal) Range: 0 - 2 WBC 11-30 {/hpf} (Abnormal) Range: 0 - 5 Comments: Clumps of leukocytes present. :51 CALCIFEDIOL (50248) Comments: PATIENT WAS FASTINGPERFORMED BY: [address] [id number] BY: DNA DynamicsVirtua MarltonToylgx7542 [facility] [id number] Vitamin D, 25-Hydroxy 31.8 ng/mL (Normal) Range: 30.0-100.0 Comments: Vitamin D deficiency has been defined by the [place] ofMedicine and an Endocrine Society practice guideline as alevel of serum 25-OH vitamin D less than 20 ng/mL (1,2).The Endocrine Society went on to further define vitamin Dinsufficiency as a level between 21 and 29 ng/mL (2).1. IOM ([place] of Medicine). 2010. Dietary reference intakes for calcium and D. [place]: The National Academies Press.2. Gael MF, Tiffany HEART, Sandee MADRID, et al. Evaluation, treatment, and prevention of vitamin D deficiency: an Endocrine Society clinical practice guideline. JCEM. 2010; 96(7):1911-30. :51 VITAMIN B-12 (CYANOCOBALAMIN) Comments: PATIENT WAS FASTINGPERFORMED BY: Lab[address] [id number] BY: TwoTenGallup Indian Medical CenterVrndib9911 [facility] [id number] (49935) Vitamin B12 566 pg/mL (Normal) Range: 232-1245 1-Vxn-649902:51 TSH (51199) Comments: PATIENT WAS FASTINGPERFORMED BY: [address] [id number] BY: TwoTenGallup Indian Medical CenterEnygny4715 [facility] [id number] TSH 1.520 {uIU/mL} (Normal) Range: 0.450-4.500 7-Hmx-255714:51 URINALYSIS, W/ MICRO Comments: PATIENT WAS FASTINGPERFORMED BY: [employer] [id number] BY: [employer] Mqxwjr6747 [facility] [id number] (49842) Microscopic Examination See below: (Normal) Comments: Microscopic was indicated and was performed. Nitrite, Urine Negative (Normal) Urobilinogen,Semi-Qn 0.2 mg/dL (Normal) Range: 0.2-1.0 Bilirubin Negative (Normal) Occult Blood Negative (Normal) Ketones Negative (Normal) Glucose Negative (Normal) Protein Negative (Normal) WBC Esterase 3+ (Abnormal) Appearance Clear (Normal) Urine-Color Yellow (Normal) pH 7.5 (Normal) Range: 5.0-7.5 Specific Harrington 1.015 (Normal) Range: 1.005-1.030 :51 MICROALBUMIN: CREATININE Comments: PATIENT WAS FASTINGPERFORMED BY: [employer] [id number] BY: TwoTenVirtua MarltonCyokcj6460 [facility] [id number] RATIO (95401) AND (40711) Alb/Creat Ratio 7.7 {mg/g_creat} (Normal) Range: 0.0-30.0 Albumin, Urine 6.0 ug/mL (Normal) Creatinine, Urine 77.6 mg/dL (Normal) 5-Dkt-297172:51 METABOLIC PANEL, Comments: PATIENT WAS FASTINGPERFORMED BY: BN [facility] Owcqjmetbi0851 [facility] [id number] BY: [facility] Pjtyso1485 [facility] [id number] [facility] (77839) ALT (SGPT) 9 [iU]/L (Normal) Range: 0-32 [...] 8-27 Glucose 102 mg/dL (Abnormal) Range: 65-99 5-Vbi-822189:51 LIPOPROTEIN, BLD, BY NMR Comments: PATIENT WAS FASTINGPERFORMED BY: QuNanorp Glweldmxej5770 [facility] [id number] BY: CB [facility] Zklwqu2504 [facility] [id number] (03245) LP-IR Score 79 (Abnormal) Comments: INSULIN RESISTANCE MARKER <--Insulin Sensitive Insulin Resistant--> Percentile in Reference PopulationInsulin Resistance ScoreLP-IR Score Low 25th 50th 75th High <27 27 45 63 >63LP-IR Score is inaccurate if patient is non-fasting. .The LP-IR score is a laboratory developed [facility] that has beenassociated with insulin resistance and [...] were developed and their performance characteristicsdetermined by [employer]. These assays have not been cleared by [...] 1600 - 2000 Very High > 2000 7-Uuf-999377:51 CBC W/AUTO DIFF WBC Comments: PATIENT WAS FASTINGPERFORMED BY: BN [facility] [address] [id number] BY: CB [facility] Avyzei1251 [facility] [id number] (45792) Immature Grans (Abs) 0.0 {x10E3/uL} (Normal) Range: [...] (Normal) Range: 3.4-10.8 :02 HgA1C , Office (24899) HgA1C , Office 6.0 % (Normal) Range: 4.6 - 7.1 :02 Blood Glucose , Office (45711) Blood Glucose , Office 141 (Normal) :48 HgA1C , Office (21617) HgA1C , Office 6.0 % (Normal) Range: 4.6 - 7.1 :48 Blood Glucose , Office (03312) Blood Glucose , Office 94 (Normal) :26 TSH (93641) Comments: PATIENT WAS FASTINGPERFORMED BY: LabCoVirtua MarltonVzfsyp4482 [facility] [id number] TSH 2.090 {uIU/mL} (Normal) Range: 0.450-4.500 :26 METABOLIC PANEL, COMPREHENSIVE Comments: PATIENT WAS FASTINGPERFORMED BY: LabCoVirtua MarltonEfofpy2269 [facility] [id number] (75836) ALT (SGPT) 11 [iU]/L (Normal) Range: 0-32 [...] Glucose, Serum 100 mg/dL (Abnormal) Range: 65-99 17-Btn-780941:26 CBC W/AUTO DIFF WBC (81120) Comments: PATIENT WAS FASTINGPERFORMED BY: LabCoVirtua MarltonAfafel7556 [facility] [id number] Immature Grans (Abs) 0.0 {x10E3/uL} (Normal) Range: [...] 3.77-5.28 WBC 7.3 {x10E3/uL} (Normal) Range: 3.4-10.8 :26 VITAMIN B-12 (CYANOCOBALAMIN) Comments: PATIENT WAS FASTINGPERFORMED BY: [employer] Goncdc2767 [facility] [id number] (38789) Vitamin B12 519 pg/mL (Normal) Range: 211-946 :26 CALCIFEDIOL (52204) Comments: PATIENT WAS FASTINGPERFORMED BY: [employer] Rreveb2514 [facility] [id number] Vitamin D, 25-Hydroxy 37.1 ng/mL (Normal) Range: 30.0-100.0 Comments: Vitamin D deficiency has been defined by the [place] ofVan [facility] Hospitalcine and an Endocrine Society practice guideline as alevel of serum 25-OH vitamin D less than 20 ng/mL (1,2).The Endocrine Society went on to further define vitamin Dinsufficiency as a level between 21 and 29 ng/mL (2).1. IOM ([place] of Medicine). 2010. Dietary reference intakes for calcium and D. [place]: The National Academies Press.2. Gael MF, Tiffany [place], Sandee MADRID, et al. Evaluation, treatment, and prevention of vitamin D deficiency: an Endocrine Society clinical practice guideline. JCEM. 2010; 96(7):1911-30. 41-Phd-423219:26 LIPID PANEL (02174) Comments: PATIENT WAS FASTINGPERFORMED BY: X[facility] PharmaceuticalMymichigan Medical Center Sault6370 [facility] [id number] LDL/HDL Ratio 3.0 {ratio_units} (Normal) Range: 0.0-3.2 [...] (Abnormal) Range: 100-199 :18 HgA1C , Office (93860) HgA1C , Office 6.0 % (Normal) Range: 4.6 - 7.1 :18 Blood Glucose , Office (93668) Blood Glucose , Office 120 (Normal) :50 HgA1C , Office (67001) HgA1C , Office 6.2 % (Normal) Range: 4.6 - 7.1 :50 Blood Glucose , Office (11915) Blood Glucose , Office 104 (Normal) :10 CBC W/Diff, Automated Comments: [facility] [address] [place], [place], [id number] Absolute Lymph 2.49 {X10_3/ul} (Normal) Range: 0.83-4.51 [...] 4.2-5.4 WBC 7.2 K/mm3 (Normal) Range: 4.4-11.0 :10 Comprehensive Metabolic Profil Comments: [facility] [address] [place], [address] GAP 6 (Normal) Range: 5-15 CO2 29.0 [...] 7-18 GLU 96 mg/dL (Normal) Range: 70-110 51-Qam-576673:10 Lipid Profile Comments: [facility] [address] [place], [place], [id number] VLDL 31 mg/dL (Normal) Range: 5-40 LDL [...] 200-240 mg/dL Borderline >240 mg/dL High Risk 61-Abb-357146:10 Microalb:Creat Ratio,Random UR Comments: [facility] [address] [place], [place], [address] MALB:CREAT 12.5 {mg/g_CRE} (Normal) MICROALBUMIN,UR 15.4 mg/L (Normal) UR CREAT 123.00 mg/dL (Normal) 84-Boa-001616:10 Thyroid Stim Hormone (TSH) Comments: [facility] [address] [place], [place], [address] TSH 2.34 {uIU/mL} (Normal) Range: 0.358-3.74 16-Cox-465946:10 Urinalysis, Complete Comments: How was Urine Obtained? [facility] [address] [place], [place], [address] MUCUS, URINE 1+ {/hpf} (Normal) BACTERIA 1+ [...] CLARITY Sl. Cloudy (Normal) COLOR Yellow (Normal) 52-Qol-689909:10 Vitamin B12 563 pg/mL (Normal) Comments: [facility] [address] [place], [place], [address] Range: 211-911 33-Umd-986936:10 Vitamin D,25 Hydroxy Comments: [facility] [address] [place], [place], [address] Vitamin D 25-OH 31.1 ng/mL (Normal) Comments: Vitamin D 25(OH) Status Range Deficiency <20 ng/mL (50nmol/L) Insuffciency 20 - 30 ng/mL (50 - 75 nmol/L) Sufficiency 30 - 100 ng/mL (75 - 250 nmol/L) Toxicity >100 ng/mL (>250 nmol/L) 73-Jtg-890301:21 HgA1C , Office (72146) HgA1C , Office 6.1 % (Normal) Range: 4.6 - 7.1 81-Owi-873540:21 Blood Glucose , Office (97059) Blood Glucose , Office 100 (Normal) 54-Mgw-991027:56 Microscopic Examination Comments: PATIENT WAS FASTINGPERFORMED BY: [employer] [place] [id number] Bacteria Few (Normal) Mucus Threads Present (Normal) Epithelial Cells (non renal) 0-10 {/hpf} (Normal) Range: 0 - 10 RBC 0-2 {/hpf} (Normal) Range: 0 - 2 WBC 11-30 {/hpf} (Abnormal) Range: 0 - 5 97-Clr-731066:56 LIPID PANEL (32285) Comments: PATIENT WAS FASTINGPERFORMED BY: [employer] [place] [id number] LDL/HDL Ratio 2.6 {ratio_units} (Normal) Range: 0.0-3.2 [...] Cholesterol, Total 201 mg/dL (Abnormal) Range: 100-199 39-Rgn-167926:56 URINALYSIS, W/ MICRO (41617) Comments: PATIENT WAS FASTINGPERFORMED BY: Walk-in Appointment Scheduler [facility] [id number] Microscopic Examination See below: (Normal) Comments: Microscopic was indicated and was performed. Nitrite, Urine Positive (Abnormal) Urobilinogen,Semi-Qn 0.2 mg/dL (Normal) Range: 0.2-1.0 Bilirubin Negative (Normal) Occult Blood Negative (Normal) Ketones Negative (Normal) Glucose Negative (Normal) Protein Negative (Normal) WBC Esterase 2+ (Abnormal) Appearance Clear (Normal) Urine-Color Yellow (Normal) pH 6.0 (Normal) Range: 5.0-7.5 Specific Harrington 1.020 (Normal) Range: 1.005-1.030 99-Pyi-888371:56 MICROALBUMIN: CREATININE RATIO Comments: PATIENT WAS FASTINGPERFORMED BY: [employer] Oswyjn6610 [facility] [id number] (63574) AND (86428) Microalb/Creat Ratio 5.1 {mg/g_creat} (Normal) Range: 0.0-30.0 Microalbumin, Urine 4.2 ug/mL (Normal) Creatinine, Urine 82.7 mg/dL (Normal) 56-Jpd-643790:56 METABOLIC PANEL, COMPREHENSIVE Comments: PATIENT WAS FASTINGPERFORMED BY: [facility]6370 [facility] [id number] (52335) ALT (SGPT) 11 [iU]/L (Normal) Range: 0-32 [...] Glucose, Serum 111 mg/dL (Abnormal) Range: 65-99 26-Xmt-619112:56 CBC W/AUTO DIFF WBC (92439) Comments: PATIENT WAS FASTINGPERFORMED BY: LabCoVirtua MarltonNknjwi9071 [facility] [id number] Immature Grans (Abs) 0.0 {x10E3/uL} (Normal) Range: [...] 3.77-5.28 WBC 7.0 {x10E3/uL} (Normal) Range: 3.4-10.8 :56 VITAMIN B-12 (CYANOCOBALAMIN) Comments: PATIENT WAS FASTINGPERFORMED BY: LabCoVirtua MarltonIhvija5941 [facility] [id number] (41335) Vitamin B12 533 pg/mL (Normal) Range: 211-946 39-Xod-423660:33 HgA1C , Office (22819) HgA1C , Office 5.9 % (Normal) Range: 4.6 - 7.1 34-Oux-953063:33 Blood Glucose , Office (63218) Blood Glucose , Office 118 (Normal) :17 Hemoglobin A1c Comments: [facility] [address] [place], [address] HGB A1C 6.1 % (Normal) Range: 4.2-6.3 :17 Thyroid Stim Hormone (TSH) Comments: [facility] [address] [place], [address] TSH 2.57 {uIU/mL} (Normal) Range: 0.358-3.74 :17 Vitamin D,25 Hydroxy Comments: [facility] [address] [place], [address] Vitamin D 25-OH 28.0 ng/mL (Normal) Comments: Vitamin D 25(OH) Status Range Deficiency <20 ng/mL (50nmol/L) Insuffciency 20 - 30 ng/mL (50 - 75 nmol/L) Sufficiency 30 - 100 ng/mL (75 - 250 nmol/L) Toxicity >100 ng/mL (>250 nmol/L) 86-Qrr-367536:16 Comprehensive Metabolic Profil Comments: Test performed at:[facility] [address] [place] [address] GAP 10 (Normal) Range: 5-15 CO2 [...] 7-18 GLU 101 mg/dL (Normal) Range: 70-110 40-Bcq-857680:16 Hemoglobin A1c Comments: Test performed at:[facility] [address] [place] [address] HGB A1C 6.1 % (Normal) Range: 4.2-6.3 68-Cfz-889550:16 Lipid Profile Comments: Test performed at:[facility] [address] [place] [address] ; non-emergent till apt VLDL 27 mg/dL [...] 200-240 mg/dL Borderline >240 mg/dL High Risk 97-Voa-786796:16 Microalb:Creat Ratio,Random UR Comments: Test performed at:[facility] [address] [place] [address] MALB:CREAT 5.2 {mg/g_CRE} (Normal) MICROALBUMIN,UR 10.0 mg/L (Normal) UR CREAT 189.2 mg/dL (Normal) 63-Jhr-809759:16 Vitamin B12 438 pg/mL (Normal) Comments: Test performed at:[facility] [address] [place] [address] Range: 211-911 3-Ciw-393679:11 HgA1C , Office (85408) HgA1C , Office 6.5 % (Normal) Range: 4.6 - 7.1 :07 CBC W/Diff, Automated Comments: Test performed at:[facility] [address] [place] [address] Absolute Lymph 2.36 {X10_3/ul} (Normal) Range: 0.83-4.51 [...] 4.2-5.4 WBC 7.5 K/mm3 (Normal) Range: 4.4-11.0 3-Muh-727248:07 Comprehensive Metabolic Profil Comments: Test performed at:[facility] [address] [place] [address] GAP 5 (Normal) Range: 5-15 CO2 28.0 [...] 7-18 GLU 100 mg/dL (Normal) Range: 70-110 :07 Lipid Profile Comments: Test performed at:[facility] [address] [place], [place] [address] VLDL 52 mg/dL (Abnormal) Range: 5-40 LDL [...] 200-240 mg/dL Borderline >240 mg/dL High Risk 7-Anr-008911:07 Vitamin B12 740 pg/mL (Normal) Comments: Test performed at:[facility] [address] [place] [address] Range: 211-911 :26 Rapid Flu (95974 x 2) Influenza A Ag negative (Normal) :31 HgA1C , Office (48252) HgA1C , Office 6.2 % (Normal) Range: 4.6 - 7.1 :48 B12 467 pg/mL (Normal) Range: 211-911 :48 CBCD ALC 2.11 {X10_3/ul} (Normal) Range: 0.83-4.51 [...] 4.2-5.4 WBC 6.5 K/mm3 (Normal) Range: 4.4-11.0 :48 CMP GAP 5 (Normal) Range: 5-15 CO2 [...] 7-18 GLU 103 mg/dL (Normal) Range: 70-110 :48 LIPID VLDL 29 mg/dL (Normal) Range: 5-40 [...] CHOL 204 mg/dL (Abnormal) Comments: <200 mg/dL Wiqjlxgix644-174 mg/dL Borderline>240 mg/dL High Risk :43 CMP [...] CHOL 174 mg/dL (Normal) Comments: <200 mg/dL Bcldbdetj616-462 mg/dL Borderline>240 mg/dL High Risk HDL 50 mg/dL (Normal) Comments: Reference RangeHDL <40 mg/dL Low HDL CholesterolHDL >or= 60 mg/dL High HDL Cholesterol LDL 105 mg/dL (Normal) Range: 0-130 TRIG 96 mg/dL (Normal) Range: 0-199 Comments: Serum Triglycerides Reference IntervalNormal <150 mg/dLBorderline high 150 - 199 mg/dLHigh 200 - 499 mg/ dLVery High > or = 500 mg/dL 96-Cxh-186527:54 B12 419 pg/mL (Normal) Range: 211-911 :54 [...] electrophoresis scan will follow via computer,mail, or hospice volunteer delivery. tPROELAG 1.2 (Normal) Range: 0.7-2.0 tPROELGL 3.2 g/dL (Normal) Range: 2.0-4.5 tPROELMS (Normal) Comments: Not Observed tPROELGA 0.8 g/dL (Normal) Range: 0.5-1.6 tPROELBE 1.1 g/dL (Normal) Range: 0.6-1.3 tPROELAL2 1.0 g/dL (Normal) Range: 0.4-1.2 tPROELAL1 0.2 g/dL (Normal) Range: 0.1-0.4 tPROELALB 3.8 g/dL (Normal) Range: 3.2-5.6 $tPROELTP 7.0 g/dL (Normal) Range: 6.0-8.5 :54 PROELU [id number] Comment (Normal) Comments: Protein electrophoresis scan will follow via computer,mail, or hospice volunteer delivery.Performed at: [address] [id number] Director: Marvin Cárdenas MD, Phone: [phone] tPROELUMS (Normal) Comments: Not Observed tPROELUGA 21.8 % (Normal) tPROELUBE 23.8 % (Normal) tPROELUAL2 15.7 % (Normal) tPROELUAL1 3.9 % (Normal) tPROELUALB 34.7 % (Normal) tPROELUTP 13.1 mg/dL (Normal) Range: 0.0-15.0 02-Tkt-697033:54 SED tSEDRATE 36 mm/h (Abnormal) Range: 0-30 62-Gkp-142128:33 Rapid Strep Test, Office (97345) Rapid Strep Test, Office Negative (Normal) 21-Qgh-44558:43 DEE DEE CULTURE-OTHER (67163) Comments: PATIENT NOT FASTINGPERFORMED BY: NIK [facility] Dgsree[address] [place] [id number] Information: SRC:THRT [id number] Result 1 RRF (Normal) Comments: Routine respiratory [place]ton Upper Respiratory Culture Final report (Normal) 44-Gah-464489:25 HgA1C , Office (28934) HgA1C , Office 6.0 % (Normal) Range: [...] CHOL 219 mg/dL (Abnormal) Comments: <200 mg/dL Vlkzmodyu282-970 mg/dL Borderline>240 mg/dL High Risk :45 MISC (Normal) Comments: Test(s) Ordered: INTRINSIC FACTOR BLOCKING AB [id number] SERUM REFR Comments: TEST RESULT LIMITSIntrinsic Factor Abs, Serum Negative Negative TESTING PERFORMED AT [facility]. ORIGINAL REP ORT ONFILE IN LAB CONTAINS ADDITIONAL TEST SITE INFORMATION. 43-Wjk-04793:45 SED tSEDRATE 37 mm/h (Abnormal) Range: 0-30 43-Kno-526790:36 Nuclear Stress Test Radiology Report See Note [...] The patient was injected with 44.5 mCi awAq51d Cardiolite and subsequently stress SPECT Card iolite [...] 01/08/13 1327 Sign by: Jacques Begum MD 66-Lbm-78639:06 BILAT SCRN DIGITAL & CAD Radiology Report See Note (Normal) Comments: MAMMOGRAPHY - BILATERAL SCREENING REASON FOR EXAM: Female, 67 years old. Routine annual screeningexamination. PERTINENT HISTORY: Non-contributory. TECHNIQUE: Digital examination. Med iolateral ob lique (MLO) andcraniocaudad (CC) views of both breasts were obtained. CAD: CAD wasperformed on this study. COMPARISON: Comparison is made with prior study dated December 18, 2011 andJu2010. FINDINGS:The breast composition is composed of scattered [...] Forde M.D.January 13, 2013 at 12:46:14 PM [id number] Signed GP/GP If you are the referring physician and wou ld like to consult with theradiologist who provided this interpretation, please contact Brittanie Khalil at [phone]. If this radiologist is unavailable, youwill be directed to another radiol ogist to assist. If you are a patient with a question regarding this report, pleasecontactyour referring physician directly. Professional Interpretation Provided By: [employer], Phone ,Fa x [phone] These documents contain legally protected and confidential healthinformation intended only for the use of the individual or entity namedabove. If you are not the intended recipient, you a re hereby notifiedthatany disclosure, copying, distribution, or other use of these documents isstrictly prohibited. If you have received this information in error,pleasenotify the sender immediately and arrange for the return or destructionofthese documents. Dictated on 01/13/13 1246 by Garry Forde MDscribed on 01/13/13 1248 by ITS IMPORTSign by Melchor Forde MD on 01/13/13 1249 Sign by: Melchor Forde MD :19 ROSHNI taANA COMMENT (Normal) Comments: TESTING INTERPRETATIONSPOSITIVE: [...] 4.2-5.4 WBC 5.7 {k/mm3} (Normal) Range: 4.4-11.0 :19 CMP GAP 10 (Normal) Range: 5-15 CO2 [...] CHOL 181 mg/dL (Normal) Comments: <200 mg/dL Fxvttixuh283-254 mg/dL Borderline>240 mg/dL High Risk HDL 40 [...] Plan of Care Name Dates Details Instructions Itch of skin : Follow up if [...] diabetes Indication: Impaired Fasting Glucose Planned Observations CALCIFIDIOL (83490) VIT D 25Indication: Vitamin D deficiency On: :40 Request TSH (97351)Indication: Diabetes mellitus type II, controlled, with no complications On: :40 Request URINALYSIS, W/ MICRO (33679)Indication: Diabetes mellitus type II, controlled, with no complications On: :40 Request MICROALBUMIN: CREATININE RATIO (14630) AND (54162)Indication: Diabetes mellitus type II, controlled, with no complications On: :40 Request METABOLIC PANEL, COMPREHENSIVE (19910)Indication: Diabetes mellitus type II, controlled, with no complications On: :40 Request LIPOPROTEIN, BLD, BY NMR (39263)Indication: Hypercholesteremia (Renamed from Hypercholesterolemia) On: :40 Request CBC W/AUTO DIFF WBC (53097)Indication: Diabetes mellitus type II, controlled, with no complications On: :40 Request LIPID PANEL (42037)Indication: Diabetes mellitus type II, controlled, with no complications On: 51-Xql-793780:25 Request URINALYSIS, W/ MICRO (88771)Indication: Diabetes mellitus type II, controlled, with no complications On: 91-Bvd-526080:56 Request URINALYSIS, W/ MICRO (55731)Indication: Diabetes mellitus type II, controlled, with no complications On: 72-Xum-094091:56 Request MICROALBUMIN: CREATININE RATIO (04022) AND (62117)Indication: Diabetes mellitus type II, controlled, with no complications On: 85-Qpl-253914:56 Request VITAMIN B-12 (CYANOCOBALAMIN) (74544)Indication: B12 deficiency On: 87-Myk-645523:49 Request TSH (90162)Indication: Diabetes mellitus type II, controlled, with no complications On: 89-Caz-403534:47 Request URINALYSIS, W/ MICRO (45472)Indication: Diabetes mellitus type II, controlled, with no complications On: 15-Mod-785779:47 Request MICROALBUMIN: CREATININE RATIO (32370) AND (89238)Indication: Diabetes mellitus type II, controlled, with no complications On: 03-Rnn-240352:47 Request METABOLIC PANEL, COMPREHENSIVE (81659)Indication: Diabetes mellitus type II, controlled, with no complications On: :47 Request CBC W/AUTO DIFF WBC (38192)Indication: Diabetes mellitus type II, controlled, with no complications On: :47 Request CALCIFIDIOL (22471) VIT D 25Indication: Vitamin D deficiency On: :47 Request LIPID PANEL (73343)Indication: Hypercholesteremia (Renamed from Hypercholesterolemia) On: :47 Request HGB A1C (39253)Indication: Common cold virus On: 82-Lxn-042862:46 Request CALCIFEDIOL (31120)Indication: Hair loss On: 64-Bfs-787877:39 Request TSH (THYROID STIMULATING HORMONE) (02323)Indication: Hair loss On: 03-Hkq-227019:35 Request VITAMIN B-12 (CYANOCOBALAMIN) (93277)Indication: B12 deficiency On: 7-Djf-451266:02 Request LIPID PANEL (57266)Indication: Hyperlipidemia On: 1-Fsy-584998:01 Request MICROALBUMIN: CREATININE RATIO (92518) AND (72267)Indication: Diabetes mellitus type II, controlled, with no complications On: 3-Nma-286618:56 Request METABOLIC PANEL, COMPREHENSIVE (34026)Indication: Diabetes mellitus type II, controlled, with no complications On: 6-Aar-915782:56 Request Hemoglobin Glyclated (HGB A1C) (45811)Indication: Diabetes mellitus type II, controlled, with no complications On: 6-Itx-550304:56 Request VITAMIN B-12 (CYANOCOBALAMIN) (64547)Indication: B12 deficiency On: 89-Ptj-427094:07 Request CBC W/AUTO DIFF WBC (20144)Indication: B12 deficiency On: 82-Djm-613921:06 Request METABOLIC PANEL, COMPREHENSIVE (87705)Indication: Elevated blood-pressure reading without diagnosis of hypertension On: 92-Kon-806713:06 Request LIPID PANEL (98821)Indication: Hyperlipidemia On: 71-Mes-250752:06 Request CBC WITH MANUAL DIFF (88027)Indication: Impaired Fasting Glucose On: 01-Icd-695890:40 Request METABOLIC PANEL, COMPREHENSIVE (57805)Indication: Impaired Fasting Glucose On: 49-Cyf-042117:40 Request LIPID PANEL (99744)Indication: Hyperlipidemia On: 54-Djx-973140:40 Request VITAMIN B-12 (CYANOCOBALAMIN) (38989)Indication: B12 deficiency On: 14-Iue-230755:39 Request HgA1C , Office (49242)Indication: Impaired Fasting Glucose On: 51-Cvs-033922:13 Request METABOLIC PANEL, COMPREHENSIVE (10825)Indication: Impaired Fasting Glucose On: 8-Eks-281839:40 Request LIPID PANEL (23237)Indication: Hyperlipidemia On: 6-Mcu-139255:40 Request SED RATE ERYTHROCYTE (83589)Indication: Abnormal blood chemistry On: 81-Isa-285182:37 Request C-REACTIVE PROTEIN (24724)Indication: Abnormal blood chemistry On: 70-Zqa-910961:37 Request VITAMIN B-12 (CYANOCOBALAMIN) (25047)Indication: B12 deficiency On: 22-Gpg-905738:37 Request UPEP (77928)Indication: Abnormal blood chemistry On: 34-Cnd-365615:37 Request Protein Electrophoresis, Serum (SPEP) (79963)Indication: Abnormal blood chemistry On: 81-Kda-233004:37 Request LIPID PANEL (10593)Indication: Hyperlipidemia On: 4-Arj-751550:04 Request CBC WITH MANUAL DIFF (62410)Indication: Impaired Fasting Glucose On: 4-Zgj-837145:04 Request METABOLIC PANEL, COMPREHENSIVE (00799)Indication: Impaired Fasting Glucose On: 6-Jqd-983997:04 Request SED RATE ERYTHROCYTE (64986)Indication: Pain in unspecified joint On: 17-Zld-524451:57 Request C-REACTIVE PROTEIN (65884)Indication: Pain in unspecified joint On: 79-Ssi-393342:57 Request INTRINSIC FACTOR ANTBDY (37007)Indication: B12 deficiency On: 47-Syo-094878:36 Request VITAMIN B-12 (CYANOCOBALAMIN) (63542)Indication: B12 deficiency On: 72-Yvn-339469:35 Request HgA1C , Office (44091)Indication: Impaired Fasting Glucose On: 38-Xcz-365544:15 Request VITAMIN B-12 (CYANOCOBALAMIN) (55224)Indication: Paresthesia On: 7-Hxq-316070:17 Request SED RATE ERYTHROCYTE (67756)Indication: Pain in unspecified joint On: :16 Request C-REACTIVE PROTEIN (38582)Indication: Pain in unspecified joint On: :16 Request TSH (95956)Indication: Pain in unspecified joint On: :16 Request RHEUMATOID FACTOR-QUANT (19025)Indication: Pain in unspecified joint On: :16 Request ROSHNI (ANTINUCLEAR ANTIBODY) (03835)Indication: Pain in unspecified joint On: :16 Request CBC WITH MANUAL DIFF (08389)Indication: Pain in unspecified joint On: :16 Request METABOLIC PANEL, COMPREHENSIVE (31760)Indication: Pain in unspecified joint On: :16 Request LIPID PANEL (57669)Indication: SHORTNESS OF BREATH On: :16 Request CBC WITH MANUAL DIFF (61279)Indication: SHORTNESS OF BREATH On: :16 Request METABOLIC PANEL, COMPREHENSIVE (17701)Indication: SHORTNESS OF BREATH On: :16 Request Planned Encounters Medical; 3 Month FU - On: 16-Jun-2018 13:15 [facility] Korin Glass DO, DO, Kathleen Planned Procedures SCREENING DIGITAL TOMOSYNTHESIS OF On: 10-Mar-2018 Intent BREAST (81593)By: Korin Glass DO, DO, Kathleen Flu Vaccine (Quadrivalent) 83749Mc: On: 10-Mar-2018 Intent Korin Glass DO, DO, Comments: Lot #[id number] Exp-11/23/18Site-L dltd, IMDose prefilled syringegiven by: Lyudmila JCVIS reviewed and ABN signed Korin B 12 Injection, 1000 mcg (J3420)By: On: 10-Mar-2018 Intent Korin Glass DO, DO, Comments: 1 ml given rt dltd [id number] 07/2018 Korin B 12 Injection, 1000 mcg (J3420)By: On: 04-Nov-2017 Intent Korin Glass DO, DO Korin B 12 Injection, 1000 mcg (J3420)By: On: 08-Jul-2017 Intent Maria Luisa DO, Korin Maria Luisa DO, Comments: lot: [id number]: 8/18site/route: L del/IMamt: 1mLVIS signed when 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, CASINO SUPERVISOR Korin ELECTROCARDIOGRAM, COMPLETE (ECG) On: 08-Jul-2017 Intent (77636)By: Korin Glass DO Comments: nsr no acute chg Maria Luisa DO, Korin Aerosol Treatment (42288)By: Ti On: 05-Jun-2017 Intent Glenys BARBOSA ELECTROCARDIOGRAM, COMPLETE (ECG) On: 06-May-2017 Intent (12963)By: Maria LuisaKorin sarabia DO Comments: nsr mary cute chg Maria Luisa DO, Korin B 12 Injection, 1000 mcg (J3420)By: On: 06-May-2017 Intent Maria Luisa DO, Korin Maria Luisa DO, Comments: lot: [id number]: 07/15site/route: L del/IMamt: 1mLVIS signed when 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, [facility] Korin Flu Vaccine (Quadrivalent) 49783Bb: On: 06-May-2017 Intent Maria Luisa DO, Korin Maria Luisa DO, Comments: lot: [id number]: 11/11/18site/route: R linda, IMamt: 0.5mlVIS and ABN signed when 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, CASINO SUPERVISOR Korin B 12 Injection, 1000 mcg (J3420)By: On: 24-Dec-2016 Intent Maria Luisa DO, Korin Maria Luisa DO, Comments: lot: [id number]: 818site/route: L del/IMamt: 1mLVIS signed when 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, CASINO SUPERVISOR Korin B 12 Injection, 1000 mcg (J3420)By: On: 17-Sep-2016 Intent Maria Luisa DO, Korin Maria Luisa DO, Comments: Lot:[id number]:10/11Dose:1mlRoute:IMSite:l armGiven By:JKMVIS signed Korin EsophagramBy: Maria Luisa DO, Korin On: 17-Sep-2016 Intent Maria Luisa DO, Korin Comments: with 13mm tablet B 12 Injection, 1000 mcg (J3420)By: On: 18-Jun-2016 Intent Maria Luisa DASH, Korin Glass DO, Comments: lot: [id number]: 4/18site/route: L del/IMamt: 1mLVIS signed when applicableAMBER Canela EMGBy: Korin Glass DO On: 18-Jun-2016 Intent DO Korin Nerve ConductionBy: Maria Luisa DASH, On: 18-Jun-2016 Intent Korin Glass DOKorin ELECTROCARDIOGRAM, COMPLETE (ECG) On: 06-Mar-2016 Intent (43082)By: Korin Glass DO Comments: nsr no acute cgh Korin Glass DO Flu Vaccine (Quadrivalent) 91681Wq: On: 17-Feb-2016 Intent Trini Murphy DO ADMINISTRATION OF INFLUENZA VIRUS On: 17-Feb-2016 Intent VACCINE (G0008)By: Trini Murphy DO Comments: Lot #:[id number] date:4-89-04Rloumm given:0.5mlRoute: IMSite given:L DltdGiven by: Greta and ALEXSANDER signed [employer] Aerosol Treatment (53005)By: Maria Luisa On: 03-Jun-2015 Intent , Korin Glass DO Korin Comments: STILL NOISEY BUT MUCH BETTER Inhaler Demo (02437)By: Maria Luisa DASH, On: 03-Jun-2015 Intent Korin Maria Luisa DASHKorin Radiology - Chest- PA and LatBy: On: 03-Jun-2015 Intent Maria Luisa DASH, Korin Glass DOKorin Flu Vaccine (Quadrivalent) 60288Qt: On: 12-Apr-2015 Intent Glenys Luke CNP Comments: lot: [id number]:5*2015site:Lt deltoidroute:IMdose:.5mlDEMICK, SMA Radiology - ChestBy: Trini Murphy DO On: 09-Aug-2014 Intent A Comments: PA & LAT- Do in 1 month Spirometry (22650)By: Jeffrey DASH, On: 02-Aug-2014 Intent Trini Benavidez Comments: good effort small but good curve- mod restrciton Radiology - Chest- PA and LatBy: On: 02-Aug-2014 Intent Trini Murphy DO Pulse Oximetry (54855)By: Jeffrey DASH On: 02-Aug-2014 Intent Trini Benavidez Comments: 96% Radiology - ChestBy: Trini Murphy DO On: 12-Jul-2014 Intent A Comments: PA and LAT Radiology - Chest- PA and LatBy: On: 12-Jul-2014 Intent Trini Murphy DO Comments: stat Aerosol Treatment (19671)By: Jeffrey On: 12-Jul-2014 Intent Trini DASH Pulse Oximetry (05806)By: Jeffrey DASH, On: 12-Jul-2014 Intent Trini Benavidez Comments: 93% Prevnar 13 (71715)By: Moris MOSQUEDA, On: 26-Mar-2014 Intent Geraldine Comments: [id number] arm, IMAS Flu Vaccine (Quadrivalent) 37844Kf: On: 26-Mar-2014 Intent Geraldine Subramanian LPN ADMINISTRATION OF INFLUENZA VIRUS On: 26-Mar-2014 Intent VACCINE (G0008)By: Geraldine Subramanian LPN Comments: [id number] syringeL Dltd, IMAS, LPNABN and VIS signed MAMMOGRAM, SCREENING, BOTH BREAST On: 15-Feb-2014 Intent (71713)By: Trini Murphy DO B 12 Injection, 1000 mcg (J3420)By: On: 29-Dec-2013 Intent Trini Murphy DO Comments: lot: [id number]: 02/07site/route: L del/IMamt: 1mLVIS signed when 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, [facility] B 12 Injection, 1000 mcg (J3420)By: On: 20-Nov-2013 Intent Trini Murphy DO Comments: Lot:[id number]:Dose:1mlRoute:IMSite:rafita Herrven By:ERICA signed B 12 Injection, 1000 mcg (J3420)By: On: 16-Nov-2013 Intent Trini Murphy DO Comments: Lot:[id number]:07/2015Dose:1mlRoute:IMSite:rafita Herrven By:ERICA signed B 12 Injection, 1000 mcg (J3420)By: On: 12-Oct-2013 Intent Trini Murphy DO Comments: Lot:[id number]:07/12Dose:1mlRoute:IMSite:rafita Hart By:ERICA signed Eprescribed prescriptions (G8553)By: On: 12-Oct-2013 Intent Fast DO, Trini A B 12 Injection, 1000 mcg (J3420)By: On: 08-Apr-2013 Intent Antonia Villeda Comments: Lot:[id number]:01/08Dose:1mlRoute:IMSite:l Carmenzaven By:ERICA signed B 12 Injection, 1000 mcg (J3420)By: On: 01-Apr-2013 Intent Fast DO, Trini A Comments: Lot:[id number]:01/08Dose:1mlRoute:IMSite:r farazGiven By:Lawrence signed B 12 Injection, 1000 mcg (J3420)By: On: 25-Mar-2013 Intent Fast DO, Trini A Comments: lot: [id number]: 01/08site/route: L deltoid/IMamt: 1mLVIS signed when 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, CASINO SUPERVISOR B 12 Injection, 1000 mcg (J3420)By: On: 17-Mar-2013 Intent Fast DO, Trini A Comments: Lot:[id number]:08/2014Dose:1mlRoute:IMSite:rafita Hart By:ERICA signed Nuclear Stress Test/Stress On: 29-Dec-2012 Intent SPECT/TreadmillBy: Jeffrey DO, Trini A EKG (32686)By: Radha Ca On: 29-Dec-2012 Intent Comments: ekg showed normal sinus rhythym, normal axis, no acute st/t wave changes Spirometry (56552)By: Roby, On: 29-Dec-2012 Intent Radha Comments: good effort and curve no obst MAMMOGRAM, SCREENING, BOTH BREASTS On: 29-Dec-2012 Intent (91782)By: Trini Murphy DO A TDAP VACCINE >7 IM (96301)By: On: 29-Dec-2012 Intent Radha Ca Planned Medications [...] Luisa DO, Korin Instructions Name Dates Details BMI 40.0-44.9, adult : How to access [...] Patient Instructions Indication: SHORTNESS OF BREATH Encounters Office Visit On: 24-Mar-2018 11:08 Encounter Reason: [...] face products, 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 There is no known event that [...] to listen to her lungs. 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
--- OUTSIDE RECORDS SUMMARY | 2018-06-21 18:22 | XMS RPT_ITS | Continuity of Care Document ---
:1945 Author Organization [facility] Address [facility] [place] [address] Phone Care Team Providers Name Role Phone Korin Glass DO Unavailable Dr. Ousmane Morgan Unavailable Jeffrey DO Trini Benavidez Unavailable PANDA Matias Unavailable Unavailable Long Diamante MOSQUEDA Unavailable Unavailable Unavailable Unavailable Problems Name Dates [...] Impaired Fasting Glucose (R73.01, 790.21) Status: Active Need for prophylactic vaccination and [...] Active Pregnancies () Comments: 3. Status: Active screening Status: Active screening Status: [...] 5 MG Oral Tablet 1 (one) Tablet daily as directed for 0 days Quantity: 90 {Tablet} Refills: 3 Ordered:26-Nov-2017 Glenys Luke CNP Start : 26-Nov-2017 Active Halobetasol Propionate 0.05 % External Cream 1 (one) Cream Cream bid for 0 days Quantity: 1 {Tube} Refills: 1 Ordered:04-Nov-2017 Rocio Matias LPN Start : 04-Nov-2017 Active Mupirocin Calcium 2 % External Cream 1 qd (2 %) Active Augmentin 875-125 MG Oral Tablet 1 (one) [...] : 06-Mar-2016 Inactive No Known Historical Medications PREDNISONE, 10MG (Oral Tablet) 1 (one) Tablet t for 9 days Quantity: 12 {Tablet} Refills: 0 Ordered:03-Jun-2015 Dean Glass DO, DO, Kathleen Start : 03-Jun-2015 End : 12-Jun-2015 Inactive Comments:3 tabs for 2 days 2 tabs for 2 days 1 tab for 2 days ProAir HFA 108 (90 Base) MCG/ACT Inhalation [...] days Quantity: 60 {Tablet} Refills: 0 Ordered:17-Feb-2016 Ti BARBOSAGlenys Start : 08-Nov-2015 End : 08-Dec-2015 Inactive [...] Status: Resolved as of 28-Jul-2014 Vaccine for fkzomjgliq-lzzfqzz-pqnpyileq with poliomyelitis (Z23, V06.3) Status: Inactive as [...] orthoscopic Completed Date Value Details 03-Jun-2015 Spirometry (73031) Comments: OBSTRUCTION PRESNET Result: 24-Nov-2014 Spirometry (26560) Comments: good effor tand curve normal Result: 20-Sep-2014 Chest PA and Lateral Result: Comments: See Note; NOTES: [facility] Imaging Services [address] [place] [address] Radiology Report MR#: [id number] Acct: [id number] Name: HAYDEE BOSS Rep #: [id number] : 1945 F 69 From: Jorge Mckeon DO PCP: Trini Murphy DO Status: REG CLI Study: Chest PA and Lateral Date of Exam: 09/20/14 Exam# [id number] Ordering Dr: Trini Murphy DO STUDY: X-RAY [...] Jorge Mckeon DO at 20:56 EDT Tel [phone], Service support [phone], RAD/Ch est PA and Lateral IMPRESSION: No acute cardiopulmonary disease. Electronically Signed: Jorge Mckeon DO at 20:56 EDT Tel [phone], Service support [phone], CC: Trini Murphy DO Artificial Breeding Technician: Signed 09-Aug-2014 Chest PA and Lateral Result: Comments: See Note; NOTES: [facility] Imaging Services [address] [place] [address] Radiology Report MR#: [id number] Acct: [id number] Name: HAYDEE BOSS Rep #: [id number] : 1945 F 68 From: Zander Cornelius MD PCP: Trini Murphy DO Status: REG CLI Study: Chest PA and Lateral Date of Exam: 08/09/14 Exam# [id number] Ordering Dr: Trini Murphy DO STUDY: X-RAY [...] at 12:56 EDT Tel , Service support [phone], RAD/Chest PA and Lat eral IMPRESSION: Near complete resolution of previously described right middle and right lower lobe infiltrate. Followup recommended to assure complete resolution. Electronically Signed: Juan Cornelius MD at 12:56 EDT Tel , Service support [phone], CC: Trini Murphy DO Artificial Breeding Technician: Signed 12-Jul-2014 Chest PA and Lateral Result: Comments: See Note; NOTES: [facility] Imaging Services [address] [place] [address] Radiology Report MR#: [id number] Acct: [id number] Name: HAYDEE BOSS Rep #: [id number] : 1945 F 68 From: Oracio Mccollum MD PCP: Trini Murphy DO Status: REG CLI Study: Chest PA and Lateral Date of Exam: 07/12/14 Exam# [id number] Ordering Dr: Trini Murphy DO STUDY: X-RAY [...] at 15:46 EST Tel , Service support [phone], CC: Trini Murphy DO Artificial Breeding Technician: Signed 26-Mar-2014 Bilat Scrn Digital & CAD Result: Comments: See Note; NOTES: [facility] Imaging Services [address] [place] [address] Breast Imaging Report MR#: [id number] Acct: [id number] Name: HAYDEE BOSS Rep #: [id number] : 1945 F 68 From: Melchor Forde MD PCP: Trini Murphy DO Status: REG CLI Exam# [id number] Ordering Dr: Trini Murphy DO MAMMOGRAPHY - [...] Forde MD at 12: 54 EDT Tel [phone], Service support [phone], CC: Trini Murphy DO Artificial Breeding Technician: Signed Family History Unknown Family Member Name [...] Most Recent Primary Occupation Comments: works at [employer]- at [employer] on- with 3 children - has 11 grandchildren Status: Active No Drug Use Status: Active Non Drinker/No Alcohol Use Status: Active Non Smoker/No Tobacco Use Status: Active Vital Signs Date Test Result Details :02 Temperature 97.9 f Comments: Method: Temporal [...] kg/m2 Body Surface Area Calculated 2.06 m2 24-Ccc-907123:00 Pulse 75 /min Comments: Pattern: Regular Respiration [...] kg/m2 Body Surface Area Calculated 2.07 m2 :29 Pulse 72 /min Comments: Pattern: Regular Respiration [...] kg/m2 Body Surface Area Calculated 2.07 m2 01-Lcf-626659:36 Pulse 63 /min Comments: Pattern: Regular Respiration [...] Description Value Details :48 HgA1C , Office (33076) HgA1C , Office 5.7 % (Normal) Range: 4.6 - 7.1 :48 Blood Glucose , Office (92282) Blood Glucose , Office 78 (Normal) 57-Uwt-626068:42 POTASSIUM SERUM (14889) Comments: PATIENT NOT FASTINGPERFORMED BY: [facility] Mjebef6382 [facility] [id number] Potassium 4.7 mmol/L (Normal) Range: 3.5-5.2 :16 Pathology Report Comments: PERFORMED BY: KALEE [facility] Jscy7349 [facility] [place] [id number] BY: [facility] Dermatopathology [address] [place] [id number] Information: [id number] See MATER Comments: Material submitted: .LEFT SIDE [...] FUNGAL HYPHAE.Pathologist provided ICD- 10:D48.5, L98.499, L08.9CPT .223501, 774087 76-Sww-739848:59 POTASSIUM SERUM (50060) Comments: PATIENT NOT FASTINGPERFORMED BY: LigoCy[employer] PharmaceuticalsRobert Wood Johnson University Hospital at RahwayIdxugp0843 [facility] [id number] Potassium 5.3 mmol/L (Abnormal) Range: 3.5-5.2 58-Yfs-571324:04 POTASSIUM SERUM (51974) Comments: PATIENT NOT FASTINGPERFORMED BY: LigoCyte PharmaceuticalsRobert Wood Johnson University Hospital at RahwaySfgwfc0366 [facility] [id number] Potassium 5.4 mmol/L (Abnormal) Range: 3.5-5.2 80-Pkw-726155:01 HgA1C , Office (06932) HgA1C , Office 6.1 % (Normal) Range: 4.6 - 7.1 22-Fcm-192699:01 Blood Glucose , Office (94226) Blood Glucose , Office 89 (Normal) 5-Uop-528983:51 Microscopic Examination Comments: PATIENT WAS FASTINGPERFORMED BY: [address] [id number] BY: [employer] Hxhejw0406 [facility]in [place] [id number] Bacteria Few (Normal) Mucus Threads Present (Normal) Epithelial Cells (non renal) 0-10 {/hpf} (Normal) Range: 0 - 10 RBC 0-2 {/hpf} (Normal) Range: 0 - 2 WBC 11-30 {/hpf} (Abnormal) Range: 0 - 5 Comments: Clumps of leukocytes present. 5-Hbp-470786:51 CALCIFEDIOL (21342) Comments: PATIENT WAS FASTINGPERFORMED BY: [employer] [address] [id number] BY: [employer] Wbpzkx9795 [facility] [id number] Vitamin D, 25-Hydroxy 31.8 ng/mL (Normal) Range: 30.0-100.0 Comments: Vitamin D deficiency has been defined by the Powell ofC[facility] and an Endocrine Society practice guideline as alevel of serum 25-OH vitamin D less than 20 ng/mL (1,2).The Endocrine Society went on to further define vitamin Dinsufficiency as a level between 21 and 29 ng/mL (2).1. IOM (Powell of Medicine). 2010. Dietary reference intakes for calcium and D. [place]: The National Academies Press.2. Gael MF, Tiffany HEART, Sandee MADRID, et al. Evaluation, treatment, and prevention of vitamin D deficiency: an Endocrine Society clinical practice guideline. JCEM. 2010; 96(7):1911-30. 1-Per-440590:51 VITAMIN B-12 (CYANOCOBALAMIN) Comments: PATIENT WAS FASTINGPERFORMED BY: [employer] [id number] BY: [employer] Jwgnne4279 [facility] [id number] (64320) Vitamin B12 566 pg/mL (Normal) Range: 232-1245 8-Ypw-837742:51 TSH (90181) Comments: PATIENT WAS FASTINGPERFORMED BY: [employer] [id number] BY: [facility]6370 [facility] [id number] TSH 1.520 {uIU/mL} (Normal) Range: 0.450-4.500 1-Ynm-429603:51 URINALYSIS, W/ MICRO Comments: PATIENT WAS FASTINGPERFORMED BY: [address] [id number] BY: [facility]6370 [facility] [id number] (53154) Microscopic Examination See below: (Normal) Comments: Microscopic was indicated and was performed. Nitrite, Urine Negative (Normal) Urobilinogen,Semi-Qn 0.2 mg/dL (Normal) Range: 0.2-1.0 Bilirubin Negative (Normal) Occult Blood Negative (Normal) Ketones Negative (Normal) Glucose Negative (Normal) Protein Negative (Normal) WBC Esterase 3+ (Abnormal) Appearance Clear (Normal) Urine-Color Yellow (Normal) pH 7.5 (Normal) Range: 5.0-7.5 Specific Crescent 1.015 (Normal) Range: 1.005-1.030 7-Lnh-966640:51 MICROALBUMIN: CREATININE Comments: PATIENT WAS FASTINGPERFORMED BY: [address] [id number] BY: [facility]6370 [facility] [id number] RATIO (83410) AND (69946) Alb/Creat Ratio 7.7 {mg/g_creat} (Normal) Range: 0.0-30.0 Albumin, Urine 6.0 ug/mL (Normal) Creatinine, Urine 77.6 mg/dL (Normal) 9-Cwm-306115:51 METABOLIC PANEL, Comments: PATIENT WAS FASTINGPERFORMED BY: [address] [id number] BY: [place] [address] [facility] [id number] COMPREHENSIVE (74081) ALT (SGPT) 9 [iU]/L (Normal) Range: 0-32 [...] 8-27 Glucose 102 mg/dL (Abnormal) Range: 65-99 2-Sxa-173590:51 LIPOPROTEIN, BLD, BY NMR Comments: PATIENT WAS FASTINGPERFORMED BY: BN [facility] [address] [id number] BY: CB [facility] Widpwu8868 [facility] [id number] (59754) LP-IR Score 79 (Abnormal) Comments: INSULIN RESISTANCE MARKER <--Insulin Sensitive Insulin Resistant--> Percentile in Reference PopulationInsulin Resistance ScoreLP-IR Score Low 25th 50th 75th High <27 27 45 63 >63LP-IR Score is inaccurate if patient is non-fasting. .The LP-IR score is a laboratory developed i [facility] that has beenassociated with insulin resistance and [...] 1600 - 2000 Very High > 2000 8-Prt-905923:51 CBC W/AUTO DIFF WBC Comments: PATIENT WAS FASTINGPERFORMED BY: BN [facility] Pyddoaofmv2216 [facility] [id number] BY: CB [facility] Xsnziv1056 [facility] [id number] (91756) Immature Grans (Abs) 0.0 {x10E3/uL} (Normal) Range: [...] 3.77-5.28 WBC 7.2 {x10E3/uL} (Normal) Range: 3.4-10.8 58-Nrb-468356:02 HgA1C , Office (13402) HgA1C , Office 6.0 % (Normal) Range: 4.6 - 7.1 16-Iup-955612:02 Blood Glucose , Office (29391) Blood Glucose , Office 141 (Normal) :48 HgA1C , Office (80677) HgA1C , Office 6.0 % (Normal) Range: 4.6 - 7.1 :48 Blood Glucose , Office (43602) Blood Glucose , Office 94 (Normal) :26 TSH (19409) Comments: PATIENT WAS FASTINGPERFORMED BY: LigoCyte PharmaceuticalsRobert Wood Johnson University Hospital at RahwayBxgzhf3272 [facility] [id number] TSH 2.090 {uIU/mL} (Normal) Range: 0.450-4.500 :26 METABOLIC PANEL, COMPREHENSIVE Comments: PATIENT WAS FASTINGPERFORMED BY: LigoCyte PharmaceuticalsRobert Wood Johnson University Hospital at RahwayRwkupk5218 [facility] [id number] (68110) ALT (SGPT) 11 [iU]/L (Normal) Range: 0-32 [...] Glucose, Serum 100 mg/dL (Abnormal) Range: 65-99 77-Ozm-048073:26 CBC W/AUTO DIFF WBC (48978) Comments: PATIENT WAS FASTINGPERFORMED BY: Donay6370 [facility] [id number] Immature Grans (Abs) 0.0 {x10E3/uL} (Normal) Range: [...] B-12 (CYANOCOBALAMIN) Comments: PATIENT WAS FASTINGPERFORMED BY: VISEO70 [facility] [id number] (69726) Vitamin B12 519 pg/mL (Normal) Range: 211-946 :26 CALCIFEDIOL (60543) Comments: PATIENT WAS FASTINGPERFORMED BY: [facility]6370 [facility] [id number] Vitamin D, 25-Hydroxy 37.1 ng/mL (Normal) Range: 30.0-100.0 Comments: Vitamin D deficiency has been defined by the Powell ofMedicine and an Endocrine Society practice guideline as alevel of serum 25-OH vitamin D less than 20 ng/mL (1,2).The Endocrine Society went on to further define vitamin Dinsufficiency as a level between 21 and 29 ng/mL (2).1. IOM (Powell of Medicine). 2010. Dietary reference intakes for calcium and D. [place]: The National Academies Press.2. Gael MF, Tiffany [place], Sandee MADRID, et al. Evaluation, treatment, and prevention of vitamin D deficiency: an Endocrine Society clinical practice guideline. JCEM. 2010; 96(7):1911-30. 74-Hzp-189944:26 LIPID PANEL (14323) Comments: PATIENT WAS FASTINGPERFORMED BY: [facility]6370 [facility] [id number] LDL/HDL Ratio 3.0 {ratio_units} (Normal) Range: 0.0-3.2 Comments: LDL/HDL Ratio Men Women 1/2 Avg.Risk 1.0 1.5 Av g.Risk 3.6 3.2 2X Avg.Risk 6.2 5.0 3X Avg.Risk 8.0 6.1 LDL Cholesterol Calc 139 mg/dL (Abnormal) Range: 0-99 VLDL Cholesterol Bao 29 mg/dL (Normal) Range: 5-40 HDL Cholesterol 46 mg/dL (Normal) Triglycerides 145 mg/dL (Normal) Range: 0-149 Cholesterol, Total 214 mg/dL (Abnormal) Range: 100-199 77-Rsc-285812:18 HgA1C , Office (44436) HgA1C , Office 6.0 % (Normal) Range: 4.6 - 7.1 :18 Blood Glucose , Office (51544) Blood Glucose , Office 120 (Normal) :50 HgA1C , Office (28877) HgA1C , Office 6.2 % (Normal) Range: 4.6 - 7.1 :50 Blood Glucose , Office (57702) Blood Glucose , Office 104 (Normal) :10 CBC W/Diff, Automated Comments: [facility] [address] [place], [place], [address] Absolute Lymph 2.49 {X10_3/ul} (Normal) Range: 0.83-4.51 [...] Range: 4.4-11.0 :10 Comprehensive Metabolic Profil Comments: [facility] [address] [place], [place], [address] GAP 6 (Normal) Range: 5-15 CO2 29.0 [...] 7-18 GLU 96 mg/dL (Normal) Range: 70-110 51-Vdg-096362:10 Lipid Profile Comments: [facility] [address] [place], [place], [address] VLDL 31 mg/dL (Normal) Range: 5-40 LDL [...] 200-240 mg/dL Borderline >240 mg/dL High Risk 74-Ccx-080656:10 Microalb:Creat Ratio,Random UR Comments: [facility] [address] [place], [place], [address] MALB:CREAT 12.5 {mg/g_CRE} (Normal) MICROALBUMIN,UR 15.4 mg/L (Normal) UR CREAT 123.00 mg/dL (Normal) 14-Gtk-563393:10 Thyroid Stim Hormone (TSH) Comments: [facility] M[address]jdubwq1768 [facility]. [place], [place], [address] TSH 2.34 {uIU/mL} (Normal) Range: 0.358-3.74 20-Guz-188772:10 Urinalysis, Complete Comments: How was Urine Obtained? CLEAN [facility] [address]aiq[address] [place], [place], [address] MUCUS, URINE 1+ {/hpf} (Normal) BACTERIA 1+ [...] CLARITY Sl. Cloudy (Normal) COLOR Yellow (Normal) 00-Mzm-382776:10 Vitamin B12 563 pg/mL (Normal) Comments: [facility] [address] [place], [address] Range: 211-911 57-Jkz-811334:10 Vitamin D,25 Hydroxy Comments: [facility] [address] [place], [address] Vitamin D 25-OH 31.1 ng/mL (Normal) Comments: Vitamin D 25(OH) Status Range Deficiency <20 ng/mL (50nmol/L) Insuffciency 20 - 30 ng/mL (50 - 75 nmol/L) Sufficiency 30 - 100 ng/mL (75 - 250 nmol/L) Toxicity >100 ng/mL (>250 nmol/L) 11-Ltx-154115:21 HgA1C , Office (18349) HgA1C , Office 6.1 % (Normal) Range: 4.6 - 7.1 45-Jmd-551760:21 Blood Glucose , Office (57471) Blood Glucose , Office 100 (Normal) 26-Pvw-854233:56 Microscopic Examination Comments: PATIENT WAS FASTINGPERFORMED BY: YouTernFormerly [facility] [id number] Bacteria Few (Normal) Mucus Threads Present (Normal) Epithelial Cells (non renal) 0-10 {/hpf} (Normal) Range: 0 - 10 RBC 0-2 {/hpf} (Normal) Range: 0 - 2 WBC 11-30 {/hpf} (Abnormal) Range: 0 - 5 :56 LIPID PANEL (34686) Comments: PATIENT WAS FASTINGPERFORMED BY: Donay6370 CrossMediaFormer[facility] [id number] LDL/HDL Ratio 2.6 {ratio_units} (Normal) Range: 0.0-3.2 [...] Cholesterol, Total 201 mg/dL (Abnormal) Range: 100-199 12-Ric-262247:56 URINALYSIS, W/ MICRO (36447) Comments: PATIENT WAS FASTINGPERFORMED BY: [employer] [facility] [id number] Microscopic Examination See below: (Normal) Comments: Microscopic was indicated and was performed. Nitrite, Urine Positive (Abnormal) Urobilinogen,Semi-Qn 0.2 mg/dL (Normal) Range: 0.2-1.0 Bilirubin Negative (Normal) Occult Blood Negative (Normal) Ketones Negative (Normal) Glucose Negative (Normal) Protein Negative (Normal) WBC Esterase 2+ (Abnormal) Appearance Clear (Normal) Urine-Color Yellow (Normal) pH 6.0 (Normal) Range: 5.0-7.5 Specific Crescent 1.020 (Normal) Range: 1.005-1.030 41-Srr-732528:56 MICROALBUMIN: CREATININE RATIO Comments: PATIENT WAS FASTINGPERFORMED BY: [employer] [facility] [id number] (23927) AND (56943) Microalb/Creat Ratio 5.1 {mg/g_creat} (Normal) Range: 0.0-30.0 Microalbumin, Urine 4.2 ug/mL (Normal) Creatinine, Urine 82.7 mg/dL (Normal) 56-Kbs-332702:56 METABOLIC PANEL, COMPREHENSIVE Comments: PATIENT WAS FASTINGPERFORMED BY: [employer] [facility] [id number] (80614) ALT (SGPT) 11 [iU]/L (Normal) Range: 0-32 [...] Glucose, Serum 111 mg/dL (Abnormal) Range: 65-99 83-Wbs-629097:56 CBC W/AUTO DIFF WBC (90792) Comments: PATIENT WAS FASTINGPERFORMED BY: [facility] Vdbygm0916 [facility] [id number] Immature Grans (Abs) 0.0 {x10E3/uL} (Normal) Range: [...] 3.77-5.28 WBC 7.0 {x10E3/uL} (Normal) Range: 3.4-10.8 44-Bxa-336974:56 VITAMIN B-12 (CYANOCOBALAMIN) Comments: PATIENT WAS FASTINGPERFORMED BY: LabCoRobert [facility] RahwayXdafjm7986 [facility] [id number] (04815) Vitamin B12 533 pg/mL (Normal) Range: 211-946 03-Cps-561270:33 HgA1C , Office (76528) HgA1C , Office 5.9 % (Normal) Range: 4.6 - 7.1 :33 Blood Glucose , Office (49601) Blood Glucose , Office 118 (Normal) 45-Cij-174233:17 Hemoglobin A1c Comments: [facility] [address] [place], [place], [address] HGB A1C 6.1 % (Normal) Range: 4.2-6.3 74-Pzt-031939:17 Thyroid Stim Hormone (TSH) Comments: [facility] [address] [place], [address] TSH 2.57 {uIU/mL} (Normal) Range: 0.358-3.74 24-Hpc-459766:17 Vitamin D,25 Hydroxy Comments: [facility] [address] [place], [address] Vitamin D 25-OH 28.0 ng/mL (Normal) Comments: Vitamin D 25(OH) Status Range Deficiency <20 ng/mL (50nmol/L) Insuffciency 20 - 30 ng/mL (50 - 75 nmol/L) Sufficiency 30 - 100 ng/mL (75 - 250 nmol/L) Toxicity >100 ng/mL (>250 nmol/L) 25-Yrd-092544:16 Comprehensive Metabolic Profil Comments: Test performed at:[facility] [address] [place] [address] GAP 10 (Normal) Range: 5-15 CO2 28.0 [...] 7-18 GLU 101 mg/dL (Normal) Range: 70-110 45-Bbg-596078:16 Hemoglobin A1c Comments: Test performed at:[facility] [address] [place] [address] HGB A1C 6.1 % (Normal) Range: 4.2-6.3 33-Qnl-477764:16 Lipid Profile Comments: Test performed at:[facility] [address] [place] [address] ; non-emergent till apt VLDL 27 mg/dL [...] 200-240 mg/dL Borderline >240 mg/dL High Risk 11-Rbq-821252:16 Microalb:Creat Ratio,Random UR Comments: Test performed at:[facility] [address] [place] [address] MALB:CREAT 5.2 {mg/g_CRE} (Normal) MICROALBUMIN,UR 10.0 mg/L (Normal) UR CREAT 189.2 mg/dL (Normal) 34-Hae-062547:16 Vitamin B12 438 pg/mL (Normal) Comments: Test performed at:[facility] [address] [place] [address] Range: 211-911 3-Pmh-501408:11 HgA1C , Office (06022) HgA1C , Office 6.5 % (Normal) Range: 4.6 - 7.1 2-Rcg-565260:07 CBC W/Diff, Automated Comments: Test performed at:[facility] [address] [place] [address], [place] [address] Absolute Lymph 2.36 {X10_3/ul} (Normal) [...] 4.2-5.4 WBC 7.5 K/mm3 (Normal) Range: 4.4-11.0 2-Ujq-770132:07 Comprehensive Metabolic Profil Comments: Test performed at:[facility] [address] [place] [address] GAP 5 (Normal) Range: 5-15 [...] 7-18 GLU 100 mg/dL (Normal) Range: 70-110 4-Jvf-867532:07 Lipid Profile Comments: Test performed at:[facility] [address] [place], [place] [address] VLDL 52 mg/dL (Abnormal) Range: 5-40 LDL [...] 200-240 mg/dL Borderline >240 mg/dL High Risk 6-Gxp-377568:07 Vitamin B12 740 pg/mL (Normal) Comments: Test performed at:[facility] [address] [place], [place] [address] Range: 211-911 89-Knn-731609:26 Rapid Flu (60773 x 2) Influenza A Ag negative (Normal) :31 HgA1C , Office (50523) HgA1C , Office 6.2 % (Normal) Range: [...] CHOL 204 mg/dL (Abnormal) Comments: <200 mg/dL Dxihgfomm723-950 mg/dL Borderline>240 mg/dL High Risk :43 CMP [...] CHOL 174 mg/dL (Normal) Comments: <200 mg/dL Svujmnjhd009-499 mg/dL Borderline>240 mg/dL High Risk HDL 50 [...] electrophoresis scan will follow via computer,mail, or automobile repair service estimator delivery. tPROELAG 1.2 (Normal) Range: 0.7-2.0 tPROELGL 3.2 g/dL (Normal) Range: 2.0-4.5 tPROELMS (Normal) Comments: Not Observed tPROELGA 0.8 g/dL (Normal) Range: 0.5-1.6 tPROELBE 1.1 g/dL (Normal) Range: 0.6-1.3 tPROELAL2 1.0 g/dL (Normal) Range: 0.4-1.2 tPROELAL1 0.2 g/dL (Normal) Range: 0.1-0.4 tPROELALB 3.8 g/dL (Normal) Range: 3.2-5.6 $tPROELTP 7.0 g/dL (Normal) Range: 6.0-8.5 85-Hqp-695315:54 PROELU [id number] Comment (Normal) Comments: Protein electrophoresis scan will follow via computer,mail, or automobile repair service estimator delivery.Performed at: [facility] [address] [id number] Director: Marvin Cárdenas MD, Phone: [phone] tPROELUMS (Normal) Comments: Not Observed tPROELUGA 21.8 % (Normal) tPROELUBE 23.8 % (Normal) tPROELUAL2 15.7 % (Normal) tPROELUAL1 3.9 % (Normal) tPROELUALB 34.7 % (Normal) tPROELUTP 13.1 mg/dL (Normal) Range: 0.0-15.0 18-Kcy-626873:54 SED tSEDRATE 36 mm/h (Abnormal) Range: 0-30 40-Wua-433924:33 Rapid Strep Test, Office (25124) Rapid Strep Test, Office Negative (Normal) 20-Wbb-55730:43 DEE DEE CULTURE-OTHER (55367) Comments: PATIENT NOT FASTINGPERFORMED BY: [facility] [id number] Information: SRC:THRT [id number] Result 1 RRF (Normal) Comments: Routine respiratory clayton Upper Respiratory Culture Final report (Normal) :25 HgA1C , Office (67067) HgA1C , Office 6.0 % (Normal) Range: [...] CHOL 219 mg/dL (Abnormal) Comments: <200 mg/dL Visqlsvza160-914 mg/dL Borderline>240 mg/dL High Risk :45 MISC (Normal) Comments: Test(s) Ordered: INTRINSIC FACTOR BLOCKING AB [id number] SERUM REFR Comments: TEST RESULT LIMITSIntrinsic Factor Abs, Serum Negative Negative TESTING PERFORMED AT [facility]. ORIGINAL REP ORT ONFILE IN LAB CONTAINS ADDITIONAL TEST SITE INFORMATION. :45 SED tSEDRATE 37 mm/h (Abnormal) Range: 0-30 :36 Nuclear Stress Test Radiology Report See Note [...] The patient was injected with 44.5 mCi haFz74y Cardiolite and subsequently stress SPECT Card iolite [...] 01/08/13 1327 Sign by: Jacques Begum MD 10-Evt-36753:06 BILAT SCRN DIGITAL & CAD Radiology Report [...] Forde M.D.January 13, 2013 at 12:46:14 PM [id number] Signed GP/GP If you are the referring physician and wou ld like to consult with theradiologist who provided this interpretation, please contact Brittanie Khalil at [phone]. If this radiologist is unavailable, youwill be directed to another radiol ogist to assist. If you are a patient with a question regarding this report, pleasecontactyour referring physician directly. Professional Interpretation Provided By: Celsion, Phone ,Fa x [phone] These documents contain legally protected and confidential [...] CHOL 181 mg/dL (Normal) Comments: <200 mg/dL [id number] mg/dL Borderline>240 mg/dL High Risk HDL 40 [...] SED tSEDRATE 43 mm/h (Abnormal) Range: 0-30 : TSH 3.71 {uIU/mL} (Normal) Range: 0.358-3.74 Plan of Care Name Dates Details Instructions Hypertension, benign : Continue Current Prescription(s) Indication: [...] Indication: Impaired Fasting Glucose Planned Observations CALCIFIDIOL (29383) VIT D 25Indication: Vitamin D deficiency On: 40 Request TSH ([id number])Indication: Diabetes mellitus type II, controlled, with no complications On: :40 Request URINALYSIS, W/ MICRO ([id number])Indication: Diabetes mellitus type II, controlled, with no complications On: :40 Request MICROALBUMIN: CREATININE RATIO ([id number]) AND ([id number])Indication: Diabetes mellitus type II, controlled, with no complications On: :40 Request METABOLIC PANEL, COMPREHENSIVE ([id number])Indication: Diabetes mellitus type II, controlled, with no complications On: :40 Request LIPOPROTEIN, BLD, BY NMR ([id number])Indication: Hypercholesteremia (Renamed from Hypercholesterolemia) On: :40 Request CBC W/AUTO DIFF WBC ([id number])Indication: Diabetes mellitus type II, controlled, with no complications On: :40 Request LIPID PANEL ([id number])Indication: Diabetes mellitus type II, controlled, with no complications On: :25 Request URINALYSIS, W/ MICRO ([id number])Indication: Diabetes mellitus type II, controlled, with no complications On: :56 Request URINALYSIS, W/ MICRO ([id number])Indication: Diabetes mellitus type II, controlled, with no complications On: :56 Request MICROALBUMIN: CREATININE RATIO ([id number]) AND ([id number])Indication: Diabetes mellitus type II, controlled, with no complications On: :56 Request VITAMIN B-12 (CYANOCOBALAMIN) (23988)Indication: B12 deficiency On: :49 Request TSH ([id number])Indication: Diabetes mellitus type II, controlled, with no complications On: :47 Request URINALYSIS, W/ MICRO (56453)Indication: Diabetes mellitus type II, controlled, with no complications On: 63-Hpu-752916:47 Request MICROALBUMIN: CREATININE RATIO (81743) AND (36097)Indication: Diabetes mellitus type II, controlled, with no complications On: :47 Request METABOLIC PANEL, COMPREHENSIVE (86041)Indication: Diabetes mellitus type II, controlled, with no complications On: :47 Request CBC W/AUTO DIFF WBC ([id number])Indication: Diabetes mellitus type II, controlled, with no complications On: :47 Request CALCIFIDIOL (58742) VIT D 25Indication: Vitamin D deficiency On: :47 Request LIPID PANEL ([id number])Indication: Hypercholesteremia (Renamed from Hypercholesterolemia) On: :47 Request HGB A1C (39466)Indication: Common cold virus On: 18-Wjv-333698:46 Request CALCIFEDIOL (83295)Indication: Hair loss On: 62-Htn-081123:39 Request TSH (THYROID STIMULATING HORMONE) (42078)Indication: Hair loss On: 24-Bjz-015334:35 Request VITAMIN B-12 (CYANOCOBALAMIN) (80230)Indication: B12 deficiency On: :02 Request LIPID PANEL (92459)Indication: Hyperlipidemia On: :01 Request MICROALBUMIN: CREATININE RATIO (22429) AND ([id number])Indication: Diabetes mellitus type II, controlled, with no complications On: 4-Gks-492243:56 Request METABOLIC PANEL, COMPREHENSIVE (73676)Indication: Diabetes mellitus type II, controlled, with no complications On: 4-Ssu-558215:56 Request Hemoglobin Glyclated (HGB A1C) (71971)Indication: Diabetes mellitus type II, controlled, with no complications On: 6-Ikd-881124:56 Request VITAMIN B-12 (CYANOCOBALAMIN) ([id number])Indication: B12 deficiency On: 32-Fzm-504135:07 Request CBC W/AUTO DIFF WBC ([id number])Indication: B12 deficiency On: 04-Uag-136265:06 Request METABOLIC PANEL, COMPREHENSIVE ([id number])Indication: Elevated blood-pressure reading without diagnosis of hypertension On: 16-Lme-643603:06 Request LIPID PANEL ([id number])Indication: Hyperlipidemia On: 57-Yvw-872826:06 Request CBC WITH MANUAL DIFF ([id number])Indication: Impaired Fasting Glucose On: 27-Reh-205987:40 Request METABOLIC PANEL, COMPREHENSIVE ([id number])Indication: Impaired Fasting Glucose On: 13-Jsc-199167:40 Request LIPID PANEL ([id number])Indication: Hyperlipidemia On: 71-Unp-121051:40 Request VITAMIN B-12 (CYANOCOBALAMIN) ([id number])Indication: B12 deficiency On: 75-Kpm-620726:39 Request HgA1C , Office ([id number])Indication: Impaired Fasting Glucose On: 48-Bey-302051:13 Request METABOLIC PANEL, COMPREHENSIVE (15492)Indication: Impaired Fasting Glucose On: 1-Pzk-636027:40 Request LIPID PANEL ([id number])Indication: Hyperlipidemia On: 0-Orr-073770:40 Request SED RATE ERYTHROCYTE ([id number])Indication: Abnormal blood chemistry On: 80-Nqz-458746:37 Request C-REACTIVE PROTEIN ([id number])Indication: Abnormal blood chemistry On: :37 Request VITAMIN B-12 (CYANOCOBALAMIN) ([id number])Indication: B12 deficiency On: :37 Request UPEP (04302)Indication: Abnormal blood chemistry On: :37 Request Protein Electrophoresis, Serum (SPEP) ([id number])Indication: Abnormal blood chemistry On: :37 Request LIPID PANEL (51896)Indication: Hyperlipidemia On: 7-Byv-401045:04 Request CBC WITH MANUAL DIFF ([id number])Indication: Impaired Fasting Glucose On: 2-Vvu-575503:04 Request METABOLIC PANEL, COMPREHENSIVE (42905)Indication: Impaired Fasting Glucose On: 1-Rmy-105999:04 Request SED RATE ERYTHROCYTE ([id number])Indication: Pain in unspecified joint On: 65-Osh-863312:57 Request C-REACTIVE PROTEIN ([id number])Indication: Pain in unspecified joint On: 83-Giy-692895:57 Request INTRINSIC FACTOR ANTBDY (71335)Indication: B12 deficiency On: 66-Yzs-121029:36 Request VITAMIN B-12 (CYANOCOBALAMIN) ([id number])Indication: B12 deficiency On: 60-Blu-705207:35 Request HgA1C , Office (50717)Indication: Impaired Fasting Glucose On: 70-Wmm-154026:15 Request VITAMIN B-12 (CYANOCOBALAMIN) (67961)Indication: Paresthesia On: 7-Bpc-089844:17 Request SED RATE ERYTHROCYTE ([id number])Indication: Pain in unspecified joint On: 8-Tbl-360433:16 Request C-REACTIVE PROTEIN ([id number])Indication: Pain in unspecified joint On: 8-Eov-281334:16 Request TSH ([id number])Indication: Pain in unspecified joint On: 5-Are-250082:16 Request RHEUMATOID FACTOR-QUANT ([id number])Indication: Pain in unspecified joint On: 8-Xke-831098:16 Request ROSHNI (ANTINUCLEAR ANTIBODY) ([id number])Indication: Pain in unspecified joint On: 7-Ryr-339022:16 Request CBC WITH MANUAL DIFF ([id number])Indication: Pain in unspecified joint On: 6-Ghw-705044:16 Request METABOLIC PANEL, COMPREHENSIVE (63414)Indication: Pain in unspecified joint On: 0-Ocq-498367:16 Request LIPID PANEL ([id number])Indication: SHORTNESS OF BREATH On: 1-Rmv-272715:16 Request CBC WITH MANUAL DIFF ([id number])Indication: SHORTNESS OF BREATH On: 0-Jdb-394214:16 Request METABOLIC PANEL, COMPREHENSIVE ([id number])Indication: SHORTNESS OF BREATH On: 5-Lwq-331009:16 Request Planned Encounters Medical; 3 Month FU - On: 16-Jun-2018 13:15 [facility] Korin Glass DO, DO, Kathleen Planned Procedures SCREENING DIGITAL TOMOSYNTHESIS OF On: 10-Mar-2018 Intent BREAST (72862)By: Korin Glass DO, DO, Kathleen Flu Vaccine (Quadrivalent) 46792Lu: On: 10-Mar-2018 Intent Kroin Glass DO, DO, Comments: Lot #[id number] Exp-11/23/18Site-L dltd, IMDose prefilled syringegiven by: Lyudmila JCVIS reviewed and ABN signed Korin B 12 Injection, 1000 mcg (J3420)By: On: 10-Mar-2018 Intent Korin Glass DO, DO, Comments: 1 ml given rt dltd [id number] 07/2018 Korin B 12 Injection, 1000 mcg (J3420)By: On: 04-Nov-2017 Intent Korin Glass DOon DO Korin B 12 Injection, 1000 mcg (J3420)By: On: 08-Jul-2017 Intent Korin Glass DO, DO, Comments: lot: [id number]: 8ite/route: L del/IMamt: 1mLVIS signed when applicableChelsAMBER long ELECTROCARDIOGRAM, COMPLETE (ECG) On: 08-Jul-2017 Intent ([id number])By: Korin Glass DO Comments: nsr no acute chg Korin Glass DO Aerosol Treatment (51840)By: Ti On: 05-Jun-2017 Intent Glenys BARBOSA ELECTROCARDIOGRAM, COMPLETE (ECG) On: 06-May-2017 Intent (04071)By: Korin Glass DO Comments: nsr mary cute chg Maria Luisa DO, Korin B 12 Injection, 1000 mcg (J3420)By: On: 06-May-2017 Intent Maria Luisa DO, Korin Maria Luisa DO, Comments: lot: [id number]: 07/15site/route: L del/IMamt: 1mLVIS signed when 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, HUMAN RESOURCES SAFETY MANAGER Korin Flu Vaccine (Quadrivalent) 59203Hw: On: 06-May-2017 Intent Maria Luisa DO, Korin Maria Luisa DO, Comments: lot: [id number]: 11/11/18site/route: R linda, IMamt: 0.5mlVIS and ABN signed when 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, HUMAN RESOURCES SAFETY MANAGER Korin B 12 Injection, 1000 mcg (J3420)By: On: 24-Dec-2016 Intent Maria Luisa DO, Korin Maria Luisa DO, Comments: lot: [id number]: 818site/route: L del/IMamt: 1mLVIS signed when 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, HUMAN RESOURCES SAFETY MANAGER Korin B 12 Injection, 1000 mcg (J3420)By: On: 17-Sep-2016 Intent Maria Luisa DO, Korin Maria Luisa DO, Comments: Lot:[id number]:10/11Dose:1mlRoute:IMSite:l armGiven By:JKMVIS signed Korin EsophagramBy: Maria Luisa DO, Korin On: 17-Sep-2016 Intent Maria Luisa DO, Kroin Comments: with 13mm tablet B 12 Injection, 1000 mcg (J3420)By: On: 18-Jun-2016 Intent Maria Luisa DO, Korin Maria Luisa DO, Comments: lot: [id number]: 18site/route: L del/IMamt: 1mLVIS signed when 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, HUMAN RESOURCES SAFETY MANAGER Korin EMGBy: Maria Luisa DO, Korin Maria Luisa On: 18-Jun-2016 Intent DO Korin Nerve ConductionBy: Maria Luisa DO, On: 18-Jun-2016 Intent Korin Maria Luisa DO, Korin ELECTROCARDIOGRAM, COMPLETE (ECG) On: 06-Mar-2016 Intent ([id number])By: Maria Luisa DOKorin Comments: nsr no acute cgh Maria Luisa DO, Korin Flu Vaccine (Quadrivalent) 57318Yn: On: 17-Feb-2016 Intent Fast DO, Trini A ADMINISTRATION OF INFLUENZA VIRUS On: 17-Feb-2016 Intent VACCINE (G0008)By: Trini Murphy DO Comments: Lot #:[id number] date:4-22-30Gyehsk given:0.5mlRoute: IMSite given:L DltdGiven by: Ruthie foote Fluarix Aerosol Treatment (62122)By: Maria Luisa On: 03-Jun-2015 Korin Carrington DO, DO, Kathleen Comments: STILL NOISEY BUT MUCH BETTER Inhaler Demo (47415)By: Maria Luisa DASH, On: 03-Jun-2015 Intent Korin Casillas DO Radiology - Chest- PA and LatBy: On: 03-Jun-2015 Intent Korin Glass DO, DO, Kathleen Flu Vaccine (Quadrivalent) 80078Yk: On: 12-Apr-2015 Intent Glenys Luke CNP Comments: lot: [id number]*2016site:Lt deltoidroute:IMdose:.5mlDEMICK, SMA Radiology - ChestBy: Trini Murphy DO On: 09-Aug-2014 Intent A Comments: PA & LAT- Do in 1 month Spirometry (28139)By: Jeffrey DASH, On: 02-Aug-2014 Intent Trini Benavidez Comments: good effort small but good curve- mod restrciton Radiology - Chest- PA and LatBy: On: 02-Aug-2014 Intent Trini Murphy DO Pulse Oximetry (79678)By: Jeffrey DASH, On: 02-Aug-2014 Intent Trini Benavidez Comments: 96% Radiology - ChestBy: Trini Murphy DO On: 12-Jul-2014 Intent A Comments: PA and LAT Radiology - Chest- PA and LatBy: On: 12-Jul-2014 Intent Trini Murphy DO Comments: stat Aerosol Treatment (16293)By: Jeffrey On: 12-Jul-2014 Trini Carrington DO Pulse Oximetry (67890)By: Jeffrey DASH, On: 12-Jul-2014 Intent Trini Benavidez Comments: 93% Prevnar 13 (09750)By: Moris MOSQUEDA, On: 26-Mar-2014 Intent Geraldine Comments: [id number] arm, IMAS Flu Vaccine (Quadrivalent) 76560Qn: On: 26-Mar-2014 Intent Geraldine Subramanian LPN ADMINISTRATION OF INFLUENZA VIRUS On: 26-Mar-2014 Intent VACCINE (G0008)By: Geraldine Subramanian LPN Comments: [id number] syringeL Dltd, IMAS, LPNABN and VIS signed MAMMOGRAM, SCREENING, BOTH BREAST On: 15-Feb-2014 Intent (13800)By: Jeffrey DASH Trini A B 12 Injection, 1000 mcg (J3420)By: On: 29-Dec-2013 Intent Fast DO Trini A Comments: lot: [id number]: 02/07site/route: L del/IMamt: 1mLVIS signed when applicableCheAMBER atkinson B 12 Injection, 1000 mcg (J3420)By: On: 20-Nov-2013 Intent Fast DO Trini A Comments: Lot:[id number]:Dose:1mlRoute:IMSite:rafita ruthGiven By:ERICA signed B 12 Injection, 1000 mcg (J3420)By: On: 16-Nov-2013 Intent Jeffrey DO Trini A Comments: Lot:[id number]:07/2015Dose:1mlRoute:IMSite:rafita ruthGiven By:ERICA signed B 12 Injection, 1000 mcg (J3420)By: On: 12-Oct-2013 Intent Jeffrey DO Trini A Comments: Lot:[id number]:07/12Dose:1mlRoute:IMSite:rafita ruthGiven By:ERICA signed Eprescribed prescriptions (G8553)By: On: 12-Oct-2013 Intent Jeffrey DASH Trini A B 12 Injection, 1000 mcg (J3420)By: On: 08-Apr-2013 Intent Antonia Villeda Comments: Lot:[id number]:01/08Dose:1mlRoute:IMSite:rafita ruthGiven By:ERICA signed B 12 Injection, 1000 mcg (J3420)By: On: 01-Apr-2013 Intent Jeffrey DO Trini A Comments: Lot:[id number]:01/08Dose:1mlRoute:IMSite:r farazGiven By:Lawrence signed B 12 Injection, 1000 mcg (J3420)By: On: 25-Mar-2013 Intent Fast DO, Trini A Comments: lot: [id number]: 01/08site/route: L deltoid/IMamt: 1mLVIS signed when 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, HUMAN RESOURCES SAFETY MANAGER B 12 Injection, 1000 mcg (J3420)By: On: 17-Mar-2013 Intent Fast DO, Trini A Comments: Lot:[id number]:08/2014Dose:1mlRoute:IMSite:l armGiven By:ERICA signed Nuclear Stress Test/Stress On: 29-Dec-2012 Intent SPECT/TreadmillBy: Fast DO, Trini A EKG (72088)By: Radha Ca On: 29-Dec-2012 Intent Comments: ekg showed normal sinus rhythym, normal axis, no acute st/t wave changes Spirometry (24419)By: Roby, On: 29-Dec-2012 Intent Radha Comments: good effort and curve no obst MAMMOGRAM, SCREENING, BOTH BREASTS On: 29-Dec-2012 Intent (89405)By: Trini Murphy DO A TDAP VACCINE >7 IM (11249)By: On: 29-Dec-2012 Intent Radha Ca Planned Medications [...] 1000 MCG/ML Injection Solution Ordered: 06-May-2017 Pending Marial Uisa DO, Korin Maria Luisa DO, Korin Vitamin B-12 1000 MCG/ML Injection Solution Ordered: 08-Jul-2017 Pending Maria Luisa DO, Korin Maria Luisa DO, Korin Vitamin B-12 1000 MCG/ML Injection Solution Ordered: 04-Nov-2017 Pending Maria Luisa DO, Korin Maria Luisa DO, Korin Vitamin B-12 1000 MCG/ML Injection Solution Ordered: 10-Mar-2018 Pending Maria Luisa DO, Korin Maria Luisa DO, Korin Instructions Name Dates Details Diabetes mellitus type II, controlled, with no [...] SHORTNESS OF BREATH Encounters Office Visit On: 10-Mar-2018 15:48 Encounter Diagnosis: [...] Onset was 2 w End: 24-Mar-2015 14:52 kenaitze(s) ago. There is no known event that [...] to listen to her lungs. 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
--- OUTSIDE RECORDS SUMMARY | 2018-06-21 18:23 | XMS RPT_ITS | Continuity of Care Document ---
:1945 Author Organization [facility] Address [facility] [address] [place] [address] Phone Care Team Providers Name Role Phone Korin Glass DO Unavailable Dr. Mike Cole Unavailable Dr. Ousmane Morgan Unavailable Jeffrey Trini DASH Unavailable Gravius, Larisa Unavailable Unavailable PANDA Matias Unavailable Unavailable Ciesa COMMUNITY HEALTH SPECIALIST, Chiquita Unavailable Unavailable Unavailable Problems Name Dates [...] %) Active PredniSONE 10 MG Oral Tablet 1 (one) Tablet bid x 3 days, then 1 daily x 3 days then 1/2 daily x 3 days for 0 days Quantity: 12 {Tablet} Refills: 0 Ordered:09-Apr-2018 Glenys Luke CNP Start : 09-Apr-2018 Active Comments:with food Augmentin 875-125 MG Oral [...] Status: Resolved as of 28-Jul-2014 Vaccine for arovsflvxh-cbswlfe-aohqwoemy with poliomyelitis (Z23, V06.3) Status: Inactive as [...] orthoscopic Completed Date Value Details 03-Jun-2015 Spirometry (71310) Comments: OBSTRUCTION PRESNET Result: 24-Nov-2014 Spirometry (96679) Comments: good effor tand curve normal Result: 20-Sep-2014 Chest PA and Lateral Result: Comments: See Note; NOTES: [facility] Imaging Services [address] [place] [address] Radiology Report MR#: [id number] Acct: [id number] Name: HAYDEE BOSS Rep #: [id number] : 1945 F 69 From: Jorge Mckeon DO PCP: Trini Murphy DO Status: REG CLI Study: Chest PA and Lateral Date of Exam: 09/20/14 Exam# [id number] Ordering Dr: Trini Murphy DO STUDY: X-RAY [...] acute cardiopulmonary disease. Electronically Signed: Jorge Mckeon at 20:56 EDT Tel [phone], Service support [phone], RAD/Ch est PA and Lateral IMPRESSION: No acute cardiopulmonary disease. Electronically Signed: Jorge Mckeon at 20:56 EDT Tel [phone], Service support [phone], CC: Trini Murphy DO Supervisor [employer]: Signed 09-Aug-2014 Chest PA and Lateral Result: Comments: See Note; NOTES: [facility] Imaging Services [address] [place] [address] Radiology Report MR#: [id number] Acct: [id number] Name: HAYDEE BOSS Rep #: [id number] : 1945 F 68 From: Zander Cornelius MD PCP: Trini Murphy DO Status: REG CLI Study: Chest PA and Lateral Date of Exam: 08/09/14 Exam# [id number] Ordering Dr: Trini Murphy DO STUDY: X-RAY [...] at 12:56 EDT Tel , Service support [phone], RAD/Chest PA and Lat eral IMPRESSION: Near complete resolution of previously described right middle and right lower lobe infiltrate. Followup recommended to assure complete resolution. Electronically Signed: Juan Cornelius MD at 12:56 EDT Tel , Service support [phone], CC: Trini Murphy DO Supervisor [employer]: Signed 12-Jul-2014 Chest PA and Lateral Result: Comments: See Note; NOTES: [facility] Imaging Services [address] [place] [address] Radiology Report MR#: [id number] Acct: [id number] Name: HAYDEE BOSS Rep #: [id number] : 1945 F 68 From: Oracio Mccollum MD PCP: Trini Murphy DO Status: REG CLI Study: Chest PA and Lateral Date of Exam: 07/12/14 Exam# [id number] Ordering Dr: Trini Murphy DO STUDY: X-RAY [...] right lower l obe pneumonia Electronically Signed: Jdaa Mccollum MD at 15:46 EST Tel , Service support [phone], CC: Trini Murphy DO Supervisor [employer]: Signed 26-Mar-2014 Bilat Scrn Digital & CAD Result: Comments: See Note; NOTES: [facility] Imaging Services [address] [place] [address] Breast Imaging Report MR#: [id number] Acct: [id number] Name: HAYDEE BOSS Rep #: [id number] : 1945 F 68 From: Melchor Forde MD PCP: Trini Murphy DO Status: REG CLI Exam# [id number] Ordering Dr: Trini Murphy DO MAMMOGRAPHY - [...] Forde MD at 12: 54 EDT Tel [phone], Service support [phone], CC: Trini Murphy DO Supervisor [employer]: Signed Family History Unknown Family Member Name [...] Most Recent Primary Occupation Comments: works at [employer]- at [employer]- with 3 children - has 11 [...] kg/m2 Body Surface Area Calculated 2.06 m2 :00 Pulse 75 /min Comments: Pattern: Regular Respiration [...] kg/m2 Body Surface Area Calculated 2.07 m2 :36 Pulse 63 /min Comments: Pattern: Regular Respiration [...] 2.06 m2 Results Date Description Value Details :53 ROSHNI (ANTINUCLEAR ANTIBODY) Comments: PATIENT NOT FASTINGPERFORMED BY: [facility] Tfdiwy2699 [facility] [id number] (73322) ROSHNI Direct Positive (Abnormal) :53 C-Reactive Protein (87928) Comments: PATIENT NOT FASTINGPERFORMED BY: [facility]6370 [facility] [id number] C-Reactive Protein, Quant 27.3 mg/L (Abnormal) Range: 0.0-4.9 :53 SED RATE ERYTHROCYTE (90786) Comments: PATIENT NOT FASTINGPERFORMED BY: [facility] [id number] Sedimentation Rate-Westergren 34 mm/h (Normal) Range: 0-40 :48 HgA1C , Office (79182) HgA1C , Office 5.7 % (Normal) Range: 4.6 - 7.1 :48 Blood Glucose , Office (82152) Blood Glucose , Office 78 (Normal) :42 POTASSIUM SERUM (14046) Comments: PATIENT NOT FASTINGPERFORMED BY: [facility] [id number] Potassium 4.7 mmol/L (Normal) Range: 3.5-5.2 :16 Pathology Report Comments: PERFORMED BY: [facility] Elce5774 [facility] [id number] BY: [facility] Dermatopathology Retpryl[address] [place] [address] [id number] 670Clinical Information: [id number] See MATER Comments: Material submitted: .LEFT SIDE [...] FUNGAL HYPHAE.Pathologist provided ICD- 10:D48.5, L98.499, L08.9CPT .585498, 763167 33-Xyb-956178:59 POTASSIUM SERUM (56491) Comments: PATIENT NOT FASTINGPERFORMED BY: [facility]CoSelect at [place]villeBmtnws7519 [facility] [id number] Potassium 5.3 mmol/L (Abnormal) Range: 3.5-5.2 14-Jxt-688605:04 POTASSIUM SERUM (54754) Comments: PATIENT NOT FASTINGPERFORMED BY: [facility] Ocxqok1507 [facility] [id number] Potassium 5.4 mmol/L (Abnormal) Range: 3.5-5.2 :01 HgA1C , Office (47369) HgA1C , Office 6.1 % (Normal) Range: 4.6 - 7.1 :01 Blood Glucose , Office (13066) Blood Glucose , Office 89 (Normal) 6-Stv-219081:51 Microscopic Examination Comments: PATIENT WAS FASTINGPERFORMED BY: [facility] Wrjpxpiiam[address] [id number] BY: LabTungle.meSelect at [place]villePnxcwj7678 [facility] [id number] Bacteria Few (Normal) Mucus Threads Present (Normal) Epithelial Cells (non renal) 0-10 {/hpf} (Normal) Range: 0 - 10 RBC 0-2 {/hpf} (Normal) Range: 0 - 2 WBC 11-30 {/hpf} (Abnormal) Range: 0 - 5 Comments: Clumps of leukocytes present. :51 CALCIFEDIOL (51452) Comments: PATIENT WAS FASTINGPERFORMED BY: [facility] Bbypknxabd[address] [id number] BY: [facility] Mbkfij9234 [facility] [id number] Vitamin D, 25-Hydroxy 31.8 ng/mL (Normal) Range: 30.0-100.0 Comments: Vitamin D deficiency has been defined by the Walters ofMedicine and an Endocrine Society practice guideline as alevel of serum 25-OH vitamin D less than 20 ng/mL (1,2).The Endocrine Society went on to further define vitamin Dinsufficiency as a level between 21 and 29 ng/mL (2).1. IOM (Walters of Medicine). 2010. Dietary reference intakes for calcium and D. [place]: The National Academies Press.2. Gael MF, Tiffany NC, Sonia-Francisco MADRID, et al. Evaluation, treatment, and prevention of vitamin D deficiency: an Endocrine Society clinical practice guideline. JCEM. 2010; 96(7):1911-30. :51 VITAMIN B-12 (CYANOCOBALAMIN) Comments: PATIENT WAS FASTINGPERFORMED BY: [facility] Ueyfythsqr[address] [id number] BY: GocietySelect at [place]villeYkizua1403 [facility] [id number] (03914) Vitamin B12 566 pg/mL (Normal) Range: 232-1245 2-Llp-468969:51 TSH (70686) Comments: PATIENT WAS FASTINGPERFORMED BY: Gociety[address] [id number] BY: GocietyAmanda [place] 3253870 [facility] [id number] TSH 1.520 {uIU/mL} (Normal) Range: 0.450-4.500 5-Wyx-322364:51 URINALYSIS, W/ MICRO Comments: PATIENT WAS FASTINGPERFORMED BY: Gociety[address] [id number] BY: [facility] Sdewdz5486 [facility] [id number] (18126) Microscopic Examination See below: (Normal) Comments: Microscopic was indicated and was performed. Nitrite, Urine Negative (Normal) Urobilinogen,Semi-Qn 0.2 mg/dL (Normal) Range: 0.2-1.0 Bilirubin Negative (Normal) Occult Blood Negative (Normal) Ketones Negative (Normal) Glucose Negative (Normal) Protein Negative (Normal) WBC Esterase 3+ (Abnormal) Appearance Clear (Normal) Urine-Color Yellow (Normal) pH 7.5 (Normal) Range: 5.0-7.5 Specific Whiteclay 1.015 (Normal) Range: 1.005-1.030 9-Asp-411210:51 MICROALBUMIN: CREATININE Comments: PATIENT WAS FASTINGPERFORMED BY: Gociety[address] [id number] BY: GocietyAmanda [place] 3253870 [facility] [id number] RATIO (25655) AND (93457) Alb/Creat Ratio 7.7 {mg/g_creat} (Normal) Range: 0.0-30.0 Albumin, Urine 6.0 ug/mL (Normal) Creatinine, Urine 77.6 mg/dL (Normal) 8-Ymc-034975:51 METABOLIC PANEL, Comments: PATIENT WAS FASTINGPERFORMED BY: [employer] Akgaoywibg8583 [facility] [id number] BY: [facility] Icahtk7225 [facility] [id number] [facility] (73573) ALT (SGPT) 9 [iU]/L (Normal) Range: 0-32 [...] 8-27 Glucose 102 mg/dL (Abnormal) Range: 65-99 1-Eqd-019306:51 LIPOPROTEIN, BLD, BY NMR Comments: PATIENT WAS FASTINGPERFORMED BY: GocietyLouis [place] 412787 [facility] [id number] BY: NIK LabCoSelect at [place]villeCnqpes5789 [facility] [id number] (33747) LP-IR Score 79 (Abnormal) Comments: INSULIN RESISTANCE MARKER <--Insulin Sensitive Insulin Resistant--> Percentile in Reference PopulationInsulin Resistance ScoreLP-IR Score Low 25th 50th 75th High <27 27 45 63 >63LP-IR Score is inaccurate if patient is non-fasting. .The LP-IR score is a laboratory developed i [facility] that has beenassociated with insulin resistance [...] were developed and their performance characteristicsdetermined by [employer]. These assays have not been cleared by [...] 1600 - 2000 Very High > 2000 3-Zdz-698189:51 CBC W/AUTO DIFF WBC Comments: PATIENT WAS FASTINGPERFORMED BY: BN [facility] [address] [id number] BY: CB [facility] Vfpqft3150 [facility] [id number] (40063) Immature Grans (Abs) 0.0 {x10E3/uL} (Normal) Range: [...] (Normal) Range: 3.4-10.8 :02 HgA1C , Office (64563) HgA1C , Office 6.0 % (Normal) Range: 4.6 - 7.1 :02 Blood Glucose , Office (24741) Blood Glucose , Office 141 (Normal) :48 HgA1C , Office (82004) HgA1C , Office 6.0 % (Normal) Range: 4.6 - 7.1 :48 Blood Glucose , Office (94658) Blood Glucose , Office 94 (Normal) :26 TSH (76310) Comments: PATIENT WAS FASTINGPERFORMED BY: GocietySelect at [place]Jwrubr1050 [facility] [id number] TSH 2.090 {uIU/mL} (Normal) Range: 0.450-4.500 :26 METABOLIC PANEL, COMPREHENSIVE Comments: PATIENT WAS FASTINGPERFORMED BY: K[facility] CaptureSelect at [place]villeKyxbrk2564 [facility] [id number] (77544) ALT (SGPT) 11 [iU]/L (Normal) Range: 0-32 [...] Glucose, Serum 100 mg/dL (Abnormal) Range: 65-99 18-Zjc-503572:26 CBC W/AUTO DIFF WBC (50013) Comments: PATIENT WAS FASTINGPERFORMED BY: LabCoSelect at [place]villeJxwdrg2472 [facility] [id number] Immature Grans (Abs) 0.0 {x10E3/uL} (Normal) Range: [...] B-12 (CYANOCOBALAMIN) Comments: PATIENT WAS FASTINGPERFORMED BY: [facility] Yntitb3125 [facility] [id number] (58068) Vitamin B12 519 pg/mL (Normal) Range: 211-946 :26 CALCIFEDIOL (60960) Comments: PATIENT WAS FASTINGPERFORMED BY: [facility] Inzpnx9908 [facility] [place] [id number] Vitamin D, 25-Hydroxy 37.1 ng/mL (Normal) Range: 30.0-100.0 Comments: Vitamin D deficiency has been defined by the Walters ofAult[facility] Hospitalcine and an Endocrine Society practice guideline as alevel of serum 25-OH vitamin D less than 20 ng/mL (1,2).The Endocrine Society went on to further define vitamin Dinsufficiency as a level between 21 and 29 ng/mL (2).1. IOM (Walters of Medicine). 2010. Dietary reference intakes for calcium and D. [place]: The National Academies Press.2. Gael MF, Tiffany HEART, Sandee MADRID, et al. Evaluation, treatment, and prevention of vitamin D deficiency: an Endocrine Society clinical practice guideline. JCEM. 2010; 96(7):1911-30. :26 LIPID PANEL (82429) Comments: PATIENT WAS FASTINGPERFORMED BY: [facility] Iajcxz3721 [facility] [place] [id number] LDL/HDL Ratio 3.0 {ratio_units} (Normal) Range: 0.0-3.2 [...] (Abnormal) Range: 100-199 :18 HgA1C , Office (65157) HgA1C , Office 6.0 % (Normal) Range: 4.6 - 7.1 :18 Blood Glucose , Office (44967) Blood Glucose , Office 120 (Normal) :50 HgA1C , Office (55944) HgA1C , Office 6.2 % (Normal) Range: 4.6 - 7.1 :50 Blood Glucose , Office (55307) Blood Glucose , Office 104 (Normal) :10 CBC W/Diff, Automated Comments: [facility] [address] [place], [place], [address] Absolute Lymph 2.49 {X10_3/ul} (Normal) Range: 0.83-4.51 [...] 4.2-5.4 WBC 7.2 K/mm3 (Normal) Range: 4.4-11.0 97-Noq-441392:10 Comprehensive Metabolic Profil Comments: [facility] [address] [place], [place], [address] GAP 6 (Normal) Range: 5-15 CO2 29.0 [...] 7-18 GLU 96 mg/dL (Normal) Range: 70-110 77-Aea-189514:10 Lipid Profile Comments: [facility] F[address]myvxdd[address] [place], [place], [address] VLDL 31 mg/dL (Normal) Range: 5-40 LDL [...] 200-240 mg/dL Borderline >240 mg/dL High Risk 28-Gjj-434990:10 Microalb:Creat Ratio,Random UR Comments: [facility] [address] [place], [place], [address] MALB:CREAT 12.5 {mg/g_CRE} (Normal) MICROALBUMIN,UR 15.4 mg/L (Normal) UR CREAT 123.00 mg/dL (Normal) 70-Sgg-213116:10 Thyroid Stim Hormone (TSH) Comments: [facility] Bgnthoodbi[address] [place], [place], [address] TSH 2.34 {uIU/mL} (Normal) Range: 0.358-3.74 91-Qzs-232796:10 Urinalysis, Complete Comments: How was Urine Obtained? CLEAN [facility] [address] [place], [place], [address] MUCUS, URINE 1+ {/hpf} (Normal) BACTERIA 1+ [...] CLARITY Sl. Cloudy (Normal) COLOR Yellow (Normal) 31-Cwx-020088:10 Vitamin B12 563 pg/mL (Normal) Comments: [facility] [address]ax[address] [facility] [address] [place], [address] Range: 211-911 10-Dpn-012202:10 Vitamin D,25 Hydroxy Comments: [facility] Linxnjkcyn[address] [facility] [place], [place], [address] Vitamin D 25-OH 31.1 ng/mL (Normal) Comments: Vitamin D 25(OH) Status Range Deficiency <20 ng/mL (50nmol/L) Insuffciency 20 - 30 ng/mL (50 - 75 nmol/L) Sufficiency 30 - 100 ng/mL (75 - 250 nmol/L) Toxicity >100 ng/mL (>250 nmol/L) 55-Jaf-217290:21 HgA1C , Office (02357) HgA1C , Office 6.1 % (Normal) Range: 4.6 - 7.1 22-Szo-862644:21 Blood Glucose , Office (97961) Blood Glucose , Office 100 (Normal) 98-Kzu-139088:56 Microscopic Examination Comments: PATIENT WAS FASTINGPERFORMED BY: [facility] [id number] Bacteria Few (Normal) Mucus Threads Present (Normal) Epithelial Cells (non renal) 0-10 {/hpf} (Normal) Range: 0 - 10 RBC 0-2 {/hpf} (Normal) Range: 0 - 2 WBC 11-30 {/hpf} (Abnormal) Range: 0 - 5 99-Fon-348543:56 LIPID PANEL (57877) Comments: PATIENT WAS FASTINGPERFORMED BY: [employer] [place] [id number] LDL/HDL Ratio 2.6 {ratio_units} (Normal) Range: 0.0-3.2 [...] Cholesterol, Total 201 mg/dL (Abnormal) Range: 100-199 79-Bdd-620573:56 URINALYSIS, W/ MICRO (74037) Comments: PATIENT WAS FASTINGPERFORMED BY: Exercise.[facility]Critical access hospital [id number] Microscopic Examination See below: (Normal) Comments: Microscopic was indicated and was performed. Nitrite, Urine Positive (Abnormal) Urobilinogen,Semi-Qn 0.2 mg/dL (Normal) Range: 0.2-1.0 Bilirubin Negative (Normal) Occult Blood Negative (Normal) Ketones Negative (Normal) Glucose Negative (Normal) Protein Negative (Normal) WBC Esterase 2+ (Abnormal) Appearance Clear (Normal) Urine-Color Yellow (Normal) pH 6.0 (Normal) Range: 5.0-7.5 Specific Whiteclay 1.020 (Normal) Range: 1.005-1.030 77-Qlq-831405:56 MICROALBUMIN: CREATININE RATIO Comments: PATIENT WAS FASTINGPERFORMED BY: Exercise.[facility]Critical access hospital [id number] (04710) AND (07856) Microalb/Creat Ratio 5.1 {mg/g_creat} (Normal) Range: 0.0-30.0 Microalbumin, Urine 4.2 ug/mL (Normal) Creatinine, Urine 82.7 mg/dL (Normal) 53-Iys-456378:56 METABOLIC PANEL, COMPREHENSIVE Comments: PATIENT WAS FASTINGPERFORMED BY: Exercise.[facility]Critical access hospital [id number] (83068) ALT (SGPT) 11 [iU]/L (Normal) Range: 0-32 [...] Glucose, Serum 111 mg/dL (Abnormal) Range: 65-99 12-Hkb-955038:56 CBC W/AUTO DIFF WBC (80791) Comments: PATIENT WAS FASTINGPERFORMED BY: [facility] Lmddjc2252 [facility] [id number] Immature Grans (Abs) 0.0 {x10E3/uL} (Normal) Range: [...] 3.77-5.28 WBC 7.0 {x10E3/uL} (Normal) Range: 3.4-10.8 62-Uwo-572293:56 VITAMIN B-12 (CYANOCOBALAMIN) Comments: PATIENT WAS FASTINGPERFORMED BY: LabCoSelect at [place]villeUomfvg4856 [facility] [id number] (16625) Vitamin B12 533 pg/mL (Normal) Range: 211-946 85-Ihe-589517:33 HgA1C , Office (95474) HgA1C , Office 5.9 % (Normal) Range: 4.6 - 7.1 45-Cla-754399:33 Blood Glucose , Office (73477) Blood Glucose , Office 118 (Normal) 42-Eal-487607:17 Hemoglobin A1c Comments: [facility] [address] [place], [address] HGB A1C 6.1 % (Normal) Range: 4.2-6.3 31-Cpk-026869:17 Thyroid Stim Hormone (TSH) Comments: [facility] [address]fk[address]whkw[address] [place], [address] TSH 2.57 {uIU/mL} (Normal) Range: 0.358-3.74 :17 Vitamin D,25 Hydroxy Comments: [facility] Irgeihizrq[address] [place] [place], [address] Vitamin D 25-OH 28.0 ng/mL (Normal) Comments: Vitamin D 25(OH) Status Range Deficiency <20 ng/mL (50nmol/L) Insuffciency 20 - 30 ng/mL (50 - 75 nmol/L) Sufficiency 30 - 100 ng/mL (75 - 250 nmol/L) Toxicity >100 ng/mL (>250 nmol/L) 48-Lyv-422923:16 Comprehensive Metabolic Profil Comments: Test performed at:[facility] [address] [place] [address] GAP 10 (Normal) Range: 5-15 CO2 [...] 7-18 GLU 101 mg/dL (Normal) Range: 70-110 72-Hrc-543785:16 Hemoglobin A1c Comments: Test performed at:[facility] [address] [place] [address] HGB A1C 6.1 % (Normal) Range: 4.2-6.3 :16 Lipid Profile Comments: Test performed at:[facility] [address] [place] [address] ; non-emergent till apt VLDL 27 [...] 200-240 mg/dL Borderline >240 mg/dL High Risk 30-Yix-978519:16 Microalb:Creat Ratio,Random UR Comments: Test performed at:[facility] Opqosbrbxz[address] [place] [address] MALB:CREAT 5.2 {mg/g_CRE} (Normal) MICROALBUMIN,UR 10.0 mg/L (Normal) UR CREAT 189.2 mg/dL (Normal) 33-Fzn-685504:16 Vitamin B12 438 pg/mL (Normal) Comments: Test performed at:[facility] [address]colar[address] [place] [address] Range: 211-911 4-Ghy-090922:11 HgA1C , Office (77027) HgA1C , Office 6.5 % (Normal) Range: 4.6 - 7.1 :07 CBC W/Diff, Automated Comments: Test performed at:[facility] [address]vsnyrk6235 [facility] [place] [address] Absolute Lymph 2.36 {X10_3/ul} (Normal) Range: 0.83-4.51 [...] 4.2-5.4 WBC 7.5 K/mm3 (Normal) Range: 4.4-11.0 5-Mvx-027029:07 Comprehensive Metabolic Profil Comments: Test performed at:[facility] Ifosefdtqo7[address] [place] [address] GAP 5 (Normal) Range: 5-15 [...] 7-18 GLU 100 mg/dL (Normal) Range: 70-110 1-Rjj-917883:07 Lipid Profile Comments: Test performed at:[facility] Qzxkmcvcur4889 [facility] [place], [place] [address] VLDL 52 mg/dL (Abnormal) Range: 5-40 LDL [...] B12 740 pg/mL (Normal) Comments: Test performed at:[facility] Egb[address]rv[address]jv[address] [place], [place] [address] Range: 211-911 83-Oan-082883:26 Rapid Flu (21729 x 2) Influenza A Ag negative (Normal) :31 HgA1C , Office (39269) HgA1C , Office 6.2 % (Normal) Range: [...] 7-18 GLU 103 mg/dL (Normal) Range: 70-110 41-Crh-647167:48 LIPID VLDL 29 mg/dL (Normal) Range: 5-40 [...] CHOL 204 mg/dL (Abnormal) Comments: <200 mg/dL Aglmujewy151-757 mg/dL Borderline>240 mg/dL High Risk :43 CMP [...] CHOL 174 mg/dL (Normal) Comments: <200 mg/dL Quttxfumi485-991 mg/dL Borderline>240 mg/dL High Risk HDL 50 [...] electrophoresis scan will follow via computer,mail, or senior consultant delivery. tPROELAG 1.2 (Normal) Range: 0.7-2.0 tPROELGL 3.2 g/dL (Normal) Range: 2.0-4.5 tPROELMS (Normal) Comments: Not Observed tPROELGA 0.8 g/dL (Normal) Range: 0.5-1.6 tPROELBE 1.1 g/dL (Normal) Range: 0.6-1.3 tPROELAL2 1.0 g/dL (Normal) Range: 0.4-1.2 tPROELAL1 0.2 g/dL (Normal) Range: 0.1-0.4 tPROELALB 3.8 g/dL (Normal) Range: 3.2-5.6 $tPROELTP 7.0 g/dL (Normal) Range: 6.0-8.5 :54 PROELU [id number] Comment (Normal) Comments: Protein electrophoresis scan will follow via computer,mail, or senior consultant delivery.Performed at: [address] [id number] Director: Marvin Cárdenas MD, Phone: [phone] tPROELUMS (Normal) Comments: Not Observed tPROELUGA 21.8 % (Normal) tPROELUBE 23.8 % (Normal) tPROELUAL2 15.7 % (Normal) tPROELUAL1 3.9 % (Normal) tPROELUALB 34.7 % (Normal) tPROELUTP 13.1 mg/dL (Normal) Range: 0.0-15.0 :54 SED tSEDRATE 36 mm/h (Abnormal) Range: 0-30 47-Ycr-384862:33 Rapid Strep Test, Office (78536) Rapid Strep Test, Office Negative (Normal) 79-Ckl-30525:43 DEE DEE CULTURE-OTHER (23990) Comments: PATIENT NOT FASTINGPERFORMED BY: NIK [facility] Uxywzl[address] [place] [id number] Information: SRC:THRT [id number] Result 1 RRF (Normal) Comments: Routine respiratory clayton Upper Respiratory Culture Final report (Normal) 12-Jrv-561748:25 HgA1C , Office (37864) HgA1C , Office 6.0 % (Normal) Range: [...] CHOL 219 mg/dL (Abnormal) Comments: <200 mg/dL Gwcikmhzw478-217 mg/dL Borderline>240 mg/dL High Risk :45 MISC (Normal) Comments: Test(s) Ordered: INTRINSIC FACTOR BLOCKING AB [id number] SERUM REFR Comments: TEST RESULT LIMITSIntrinsic Factor Abs, Serum Negative Negative TESTING PERFORMED AT [facility]. ORIGINAL REP ORT ONFILE IN LAB CONTAINS ADDITIONAL TEST SITE INFORMATION. 08-Vvu-06890:45 SED tSEDRATE 37 mm/h (Abnormal) Range: 0-30 99-Ngl-814918:36 Nuclear Stress Test Radiology Report See Note [...] The patient was injected with 44.5 mCi ppOm49a Cardiolite and subsequently stress SPECT Card iolite [...] of 61%. Dictated on 01/08/13 0957 by Jacques Begum MDTranscribed on 01/08/13 1236 by Fiorella MILLARD by Kel WOODS,Jacques on 01/08/13 1327 Sign by: Jacques Begum MD 64-Qqx-63126:06 BILAT SCRN DIGITAL & CAD Radiology Report [...] Forde M.D.January 13, 2013 at 12:46:14 PM [id number] Signed GP/GP If you are the referring physician and wou ld like to consult with theradiologist who provided this interpretation, please contact Brittanie Khalil at [phone]. If this radiologist is unavailable, youwill be directed to another radiol ogist to assist. If you are a patient with a question regarding this report, pleasecontactyour referring physician directly. Professional Interpretation Provided By: [employer], Phone ,Fa x [phone] These documents contain legally protected and confidential healthinformation intended only for the use of the individual or entity namedabove. If you are not the intended recipient, you a re hereby notifiedthatany disclosure, copying, distribution, or other use of these documents isstrictly prohibited. If you have received this information in error,pleasenotify the sender immediately and arrange for the return or destructionofthese documents. Dictated on 01/13/136 by Lo Forde MDribed on 01/13/13 1248 by ITS IMPORTSign by Melchor Forde MD on 01/13/13 1249 Sign by: Maurisio WOODS,Melchor :19 ROSHNI taANA COMMENT (Normal) Comments: TESTING [...] CHOL 181 mg/dL (Normal) Comments: <200 mg/dL Wejetgdke225-874 mg/dL Borderline>240 mg/dL High Risk HDL 40 [...] diabetes Indication: Impaired Fasting Glucose Planned Observations Systemic Lupus Profile (21928)Indication: Positive ROSHNI (antinuclear antibody) On: Request RHEUMATOID FACTOR-QUANT (70625) test code 914849Nedlvkddya: Positive ROSHNI (antinuclear antibody) On: Request EXTRCTBL NUCLR ANTGEN EA (68851) test code 798907Hfhttdupcz: Positive ROSHNI (antinuclear antibody) On: Request ANTI-Sm (ANTI CHU ANTIBODY) (78985) test code 382462Oomwasqoyn: Positive ROSHNI (antinuclear antibody) On: Request ANTI-DRY CLEANING ATTENDANT (ANTI RIBONUCLEAR PROTEIN ANTIBODY) (08532) test code 640014Figdocqxas: Positive ROSHNI (antinuclear antibody) On: Request DNA ANTIBODY-NATV/DBL ST (70324) test code 097895Nvvtnkpkif: Positive ROSHNI (antinuclear antibody) On: Request CALCIFIDIOL (90255) VIT D 25Indication: Vitamin D deficiency On: Request TSH (56467)Indication: Diabetes mellitus type II, controlled, with no complications On: Request URINALYSIS, W/ MICRO (30608)Indication: Diabetes mellitus type II, controlled, with no complications On: Request MICROALBUMIN: CREATININE RATIO (49427) AND (46177)Indication: Diabetes mellitus type II, controlled, with no complications On: Request METABOLIC PANEL, COMPREHENSIVE (32947)Indication: Diabetes mellitus type II, controlled, with no complications On: Request LIPOPROTEIN, BLD, BY NMR (60062)Indication: Hypercholesteremia (Renamed from Hypercholesterolemia) On: Request CBC W/AUTO DIFF WBC (33467)Indication: Diabetes mellitus type II, controlled, with no complications On: :40 Request LIPID PANEL (24407)Indication: Diabetes mellitus type II, controlled, with no complications On: : Request URINALYSIS, W/ MICRO (67895)Indication: Diabetes mellitus type II, controlled, with no complications On: 25-Lfe-202378:56 Request URINALYSIS, W/ MICRO (20525)Indication: Diabetes mellitus type II, controlled, with no complications On: 65-Sku-199648:56 Request MICROALBUMIN: CREATININE RATIO (66805) AND (25193)Indication: Diabetes mellitus type II, controlled, with no complications On: 36-Eno-414621:56 Request VITAMIN B-12 (CYANOCOBALAMIN) (76908)Indication: B12 deficiency On: 40-Fkl-602120:49 Request TSH (08360)Indication: Diabetes mellitus type II, controlled, with no complications On: :47 Request URINALYSIS, W/ MICRO (37904)Indication: Diabetes mellitus type II, controlled, with no complications On: 62-Lfg-764947:47 Request MICROALBUMIN: CREATININE RATIO (04197) AND (66791)Indication: Diabetes mellitus type II, controlled, with no complications On: 19-Gsd-896692:47 Request METABOLIC PANEL, COMPREHENSIVE (47028)Indication: Diabetes mellitus type II, controlled, with no complications On: :47 Request CBC W/AUTO DIFF WBC (21162)Indication: Diabetes mellitus type II, controlled, with no complications On: 25-Ier-441725:47 Request CALCIFIDIOL (86188) VIT D 25Indication: Vitamin D deficiency On: 89-Ppk-634868:47 Request LIPID PANEL (41708)Indication: Hypercholesteremia (Renamed from Hypercholesterolemia) On: 33-Hex-438019:47 Request HGB A1C (31234)Indication: Common cold virus On: 81-Ifm-747236:46 Request CALCIFEDIOL (67272)Indication: Hair loss On: 62-Zky-554427:39 Request TSH (THYROID STIMULATING HORMONE) (42893)Indication: Hair loss On: 17-Smm-392612:35 Request VITAMIN B-12 (CYANOCOBALAMIN) (95691)Indication: B12 deficiency On: 2-Qzo-120240:02 Request LIPID PANEL (02366)Indication: Hyperlipidemia On: 5-Hus-310898:01 Request MICROALBUMIN: CREATININE RATIO (33118) AND (04770)Indication: Diabetes mellitus type II, controlled, with no complications On: 3-Fcu-624119:56 Request METABOLIC PANEL, COMPREHENSIVE (16960)Indication: Diabetes mellitus type II, controlled, with no complications On: 8-Bjc-558316:56 Request Hemoglobin Glyclated (HGB A1C) (86137)Indication: Diabetes mellitus type II, controlled, with no complications On: 0-Zfo-515323:56 Request VITAMIN B-12 (CYANOCOBALAMIN) (17174)Indication: B12 deficiency On: 19-Lkf-734997:07 Request CBC W/AUTO DIFF WBC (43639)Indication: B12 deficiency On: 64-Ucj-550151:06 Request METABOLIC PANEL, COMPREHENSIVE (22864)Indication: Elevated blood-pressure reading without diagnosis of hypertension On: :06 Request LIPID PANEL (11564)Indication: Hyperlipidemia On: :06 Request CBC WITH MANUAL DIFF ([id number])Indication: Impaired Fasting Glucose On: 75-Kuh-564022:40 Request METABOLIC PANEL, COMPREHENSIVE (36995)Indication: Impaired Fasting Glucose On: 71-Kjx-503239:40 Request LIPID PANEL (59348)Indication: Hyperlipidemia On: 34-Xik-959403:40 Request VITAMIN B-12 (CYANOCOBALAMIN) (11476)Indication: B12 deficiency On: 97-Tjh-962573:39 Request HgA1C , Office (71110)Indication: Impaired Fasting Glucose On: 35-Tkd-138004:13 Request METABOLIC PANEL, COMPREHENSIVE (70048)Indication: Impaired Fasting Glucose On: 9-Baq-638767:40 Request LIPID PANEL (57005)Indication: Hyperlipidemia On: 4-Aee-503437:40 Request SED RATE ERYTHROCYTE (89942)Indication: Abnormal blood chemistry On: 87-Lvh-575076:37 Request C-REACTIVE PROTEIN (28403)Indication: Abnormal blood chemistry On: 42-Nll-711073:37 Request VITAMIN B-12 (CYANOCOBALAMIN) (62731)Indication: B12 deficiency On: 87-Dqt-958086:37 Request UPEP (66657)Indication: Abnormal blood chemistry On: 86-Urf-828339:37 Request Protein Electrophoresis, Serum (SPEP) (44952)Indication: Abnormal blood chemistry On: 06-Irm-727297:37 Request LIPID PANEL (49900)Indication: Hyperlipidemia On: 3-Awp-302328:04 Request CBC WITH MANUAL DIFF (91392)Indication: Impaired Fasting Glucose On: 2-Wjj-801810:04 Request METABOLIC PANEL, COMPREHENSIVE (50930)Indication: Impaired Fasting Glucose On: 0-Jip-091124:04 Request SED RATE ERYTHROCYTE (99345)Indication: Pain in unspecified joint On: 78-Uty-879533:57 Request C-REACTIVE PROTEIN (46920)Indication: Pain in unspecified joint On: 37-Pte-970201:57 Request INTRINSIC FACTOR ANTBDY (89389)Indication: B12 deficiency On: 34-Fjw-187069:36 Request VITAMIN B-12 (CYANOCOBALAMIN) (45702)Indication: B12 deficiency On: 14-Ffn-574606:35 Request HgA1C , Office (78151)Indication: Impaired Fasting Glucose On: 65-Klg-218799:15 Request VITAMIN B-12 (CYANOCOBALAMIN) (88122)Indication: Paresthesia On: :17 Request SED RATE ERYTHROCYTE (77001)Indication: Pain in unspecified joint On: 8-Yxe-165994:16 Request C-REACTIVE PROTEIN (52326)Indication: Pain in unspecified joint On: 8-Uxj-853910:16 Request TSH (22395)Indication: Pain in unspecified joint On: 4-Tgc-300190:16 Request RHEUMATOID FACTOR-QUANT (29327)Indication: Pain in unspecified joint On: 9-Pql-313841:16 Request ROSHNI (ANTINUCLEAR ANTIBODY) (70415)Indication: Pain in unspecified joint On: 6-Ssp-033972:16 Request CBC WITH MANUAL DIFF (14794)Indication: Pain in unspecified joint On: 8-Njt-609358:16 Request METABOLIC PANEL, COMPREHENSIVE (73078)Indication: Pain in unspecified joint On: 2-Sly-127650:16 Request LIPID PANEL (65505)Indication: SHORTNESS OF BREATH On: 9-Olz-182435:16 Request CBC WITH MANUAL DIFF (07781)Indication: SHORTNESS OF BREATH On: 4-Yyu-905531:16 Request METABOLIC PANEL, COMPREHENSIVE (47283)Indication: SHORTNESS OF BREATH On: 8-Yej-323784:16 Request Planned Encounters Medical; 3 Month FU - On: 16-Jun-2018 13:15 [facility] Korin Glass DO, DO, Kathleen Planned Procedures SCREENING DIGITAL TOMOSYNTHESIS OF On: 10-Mar-2018 Intent BREAST (49336)By: Korin Glass DO Maria Luisa DOKorin Flu Vaccine (Quadrivalent) 36146Vb: On: 10-Mar-2018 Intent Maria Luisa DO, Korin Maria Luisa DO, Comments: Lot #[id number] Exp-11/23/18Site-L dltd, IMDose prefilled syringegiven by: Lyudmila JCVIS reviewed and ABN signed Korin B 12 Injection, 1000 mcg (J3420)By: On: 10-Mar-2018 Intent Maria Luisa DO, Korin Maria Luisa DO, Comments: 1 ml given rt dltd [id number] 07/2018 Korin B 12 Injection, 1000 mcg (J3420)By: On: 04-Nov-2017 Intent Maria Luisa DO, Korin Maria Luisa DO, Korin B 12 Injection, 1000 mcg (J3420)By: On: 08-Jul-2017 Intent Maria Luisa DO, Korin Maria Luisa DO, Comments: lot: [id number]: ite/route: L del/IMamt: 1mLVIS signed when applicableCheAMBER atkinson ELECTROCARDIOGRAM, COMPLETE (ECG) On: 08-Jul-2017 Intent (33883)By: Korin Glass DO Comments: nsr no acute chg Maria Luisa DOKorin Aerosol Treatment (32510)By: Ti On: 05-Jun-2017 Intent [facility] SPECIALISTGlenys ELECTROCARDIOGRAM, COMPLETE (ECG) On: 06-May-2017 Intent (22797)By: Korin Glass DO Comments: nsr mary cute chg Maria Luisa DO, Korin B 12 Injection, 1000 mcg (J3420)By: On: 06-May-2017 Intent Maria Luisa DORachanaKorin Maria Luisa DO, Comments: lot: [id number]: 07/15site/route: L del/IMamt: 1mLVIS signed when applicableAMBER Canela Flu Vaccine (Quadrivalent) 41753Gk: On: 06-May-2017 Intent Maria Luisa DOKorin Maria Luisa DO, Comments: lot: [id number]: 11/11/18site/route: R linda, IMamt: 0.5mlVIS and ABN signed when 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, AEMT Korin B 12 Injection, 1000 mcg (J3420)By: On: 24-Dec-2016 Intent Maria Luisa DO, Korin Maria Luisa DO, Comments: lot: [id number]: 8/18site/route: L del/IMamt: 1mLVIS signed when 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, AEMT Okrin B 12 Injection, 1000 mcg (J3420)By: On: 17-Sep-2016 Intent Maria Luisa DO, Korin Maria Luisa DO, Comments: Lot:[id number]:10/11Dose:1mlRoute:IMSite:l armGiven By:ERICA signed Korin EsophagramBy: Maria Luisa DO Korin On: 17-Sep-2016 Intent Maria Luisa DOCyndyKorin Comments: with 13mm tablet B 12 Injection, 1000 mcg (J3420)By: On: 18-Jun-2016 Intent Maria Luisa DO, Korin Maria Luisa DO, Comments: lot: [id number]: ite/route: L del/IMamt: 1mLVIS signed when 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, AEMT Korin EMGBy: Maria Luisa DO, Korin Maria Luisa On: 18-Jun-2016 Intent Korin DASH Nerve ConductionBy: Maria Luisa DO, On: 18-Jun-2016 Intent Korin Maria Luisa DO Korin ELECTROCARDIOGRAM, COMPLETE (ECG) On: 06-Mar-2016 Intent ([id number])By: Korin Glass DO Comments: nsr no acute cgh Korin Glass DO Flu Vaccine (Quadrivalent) 24953Em: On: 17-Feb-2016 Intent Trini Murphy DO ADMINISTRATION OF INFLUENZA VIRUS On: 17-Feb-2016 Intent VACCINE (G0008)By: Trini Murphy DO A Comments: Lot #:[id number] date:3-08-85Sgivko given:0.5mlRoute: IMSite given:L DltdGiven by: Greta and ABN signed [facility]ix Aerosol Treatment (21951)By: Maria Luisa On: 03-Jun-2015 Intent DOKorin Maria Luisa Korin DASH Comments: STILL NOISEY BUT MUCH BETTER Inhaler Demo (84427)By: Maria Luisa DO, On: 03-Jun-2015 Intent Korin Maria Luisa DO Korin Radiology - Chest- PA and LatBy: On: 03-Jun-2015 Intent Maria Luisa DO, Korin Glass DO, Korin Flu Vaccine (Quadrivalent) 47020Wg: On: 12-Apr-2015 Intent Ti BARBOSA Glenys Granado Comments: lot: [id number]:[id number]*2016site:Lt deltoidroute:IMdose:.5mlDEMICK, SMA Radiology - ChestBy: Trini Murphy DO On: 09-Aug-2014 Intent A Comments: PA & LAT- Do in 1 month Spirometry (48077)By: Jeffrey DASH, On: 02-Aug-2014 Intent Trini Benavidez Comments: good effort small but good curve- mod restrciton Radiology - Chest- PA and LatBy: On: 02-Aug-2014 Intent Trini Murphy DO Pulse Oximetry (87616)By: Jeffrey DASH, On: 02-Aug-2014 Intent Trini Benavidez Comments: 96% Radiology - ChestBy: Trini Murphy DO On: 12-Jul-2014 Intent A Comments: PA and LAT Radiology - Chest- PA and LatBy: On: 12-Jul-2014 Intent Trini Murphy DO Comments: stat Aerosol Treatment (68099)By: Jeffrey On: 12-Jul-2014 Trini Carrington DO Pulse Oximetry (34811)By: Jeffrey DASH, On: 12-Jul-2014 Intent Trini Benavidez Comments: 93% Prevnar 13 (11602)By: Moris MOSQUEDA, On: 26-Mar-2014 Intent Geraldine Comments: [id number] arm, IMAS Flu Vaccine (Quadrivalent) 89934Zv: On: 26-Mar-2014 Intent Geraldine Subramanian LPN ADMINISTRATION OF INFLUENZA VIRUS On: 26-Mar-2014 Intent VACCINE (G0008)By: Geraldine Subramanian LPN Comments: [id number] syringeL Dltd, IMAS, LPNABN and VIS signed MAMMOGRAM, SCREENING, BOTH BREAST On: 15-Feb-2014 Intent (08000)By: Trini Murphy DO B 12 Injection, 1000 mcg (J3420)By: On: 29-Dec-2013 Intent Fast DO, Trini A Comments: lot: [id number]: 02/07site/route: L del/IMamt: 1mLVIS signed when 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, AEMT B 12 Injection, 1000 mcg (J3420)By: On: 20-Nov-2013 Intent Fast DO, Trini A Comments: Lot:[id number]:Dose:1mlRoute:IMSite:rafita ruthGiven By:ERIAC signed B 12 Injection, 1000 mcg (J3420)By: On: 16-Nov-2013 Intent Fast DO, Trini A Comments: Lot:[id number]:07/2015Dose:1mlRoute:IMSite:rafita Hart By:ERICA signed B 12 Injection, 1000 mcg (J3420)By: On: 12-Oct-2013 Intent Fast DO, Trini A Comments: Lot:[id number]:07/12Dose:1mlRoute:IMSite:rafita Hart By:ERICA signed Eprescribed prescriptions (G8553)By: On: 12-Oct-2013 Intent Fast DO, Trini A B 12 Injection, 1000 mcg (J3420)By: On: 08-Apr-2013 Intent Antonia Villeda Comments: Lot:[id number]:01/08Dose:1mlRoute:IMSite:rafita Hart By:ERICA signed B 12 Injection, 1000 mcg (J3420)By: On: 01-Apr-2013 Intent Fast DO, Trini A Comments: Lot:[id number]:01/08Dose:1mlRoute:IMSite:r armGiven By:Lawrence signed B 12 Injection, 1000 mcg (J3420)By: On: 25-Mar-2013 Intent Fast DO, Trini A Comments: lot: [id number]: 01/08site/route: L deltoid/IMamt: 1mLVIS signed when 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, AEMT B 12 Injection, 1000 mcg (J3420)By: On: 17-Mar-2013 Intent Fast DO, Trini A Comments: Lot:[id number]:08/2014Dose:1mlRoute:IMSite:rafita Herrven By:ERICA signed Nuclear Stress Test/Stress On: 29-Dec-2012 Intent SPECT/TreadmillBy: Fast DO, Trini A EKG (36338)By: Radha Ca On: 29-Dec-2012 Intent Comments: ekg showed normal sinus rhythym, normal axis, no acute st/t wave changes Spirometry (40987)By: Roby, On: 29-Dec-2012 Intent Radha Comments: good effort and curve no obst MAMMOGRAM, SCREENING, BOTH BREASTS On: 29-Dec-2012 Intent (89206)By: Fast DO, Trini A TDAP VACCINE >7 IM (45204)By: On: 29-Dec-2012 Intent Radha Ca Planned Medications [...] Maria Luisa DO, Korin Maria Luisa DO, Korni Vitamin B-12 1000 MCG/ML Injection Solution Ordered: 24-Dec-2016 Pending Maria Luisa DO, Korin Maria Luisa DO, Korin Vitamin B-12 1000 MCG/ML Injection Solution Ordered: 06-May-2017 Pending Maria Luisa DO, Korin Maria Luisa DO, Korin Vitamin B-12 1000 MCG/ML Injection Solution Ordered: 08-Jul-2017 Pending Korin Glass DO, DO, Kathleen Vitamin B-12 1000 MCG/ML Injection Solution Ordered: 04-Nov-2017 Pending Korin Glass DO, DO, Kathleen Vitamin B-12 1000 MCG/ML Injection Solution Ordered: 10-Mar-2018 Pending Korin Glass DO, DO, Kathleen Instructions Name Dates Details Non-smoker : How [...] Indication: SHORTNESS OF BREATH Encounters Annotation/Addendum On: 11-Apr-2018 14:25 Encounter Diagnosis: Positive [...] products, soaps, makeup, laundry soap, eye glass edger.Encounter Diagnosis: Non-smoker, BMI 40.0-44.9, adult, Itch of [...] Onset was 2 w End: 24-Mar-2015 14:52 [place](s) ago. There is no known event that [...] to listen to her lungs. 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
--- OUTSIDE RECORDS SUMMARY | 2018-06-21 18:24 | XMS RPT_ITS | Continuity of Care Document ---
:1945 Author Organization [facility] Address [facility] [facility] [address] [place] [address] Phone Care Team Providers Name Role Phone Korin Glass DO Unavailable Dr. Mike Cole Unavailable Dr. Ousmane Morgan Unavailable Jeffrey Trini DASH Unavailable Gravius, Larisa Unavailable Unavailable PANDA Matias Unavailable Unavailable Ciesa IRISH MOSS GATHERER, Chiquita Unavailable Unavailable Unavailable Problems Name Dates [...] 6 {Tablet} Refills: 0 Ordered:24-Mar-2015 Rocio Matias PANDA Start : 24-Nov-2014 End : 24-Mar-2015 Inactive LEVAQUIN, 500MG (Oral Tablet) 1 (one) Tablet qd for 0 days Quantity: 14 {Tablet} Refills: 0 Ordered:02-Aug-2014 RobyRadha Start : 12-Jul-2014 End : 02-Aug-2014 Discontinued [...] Status: Resolved as of 28-Jul-2014 Vaccine for evyealzkkz-cprmnvd-dlidwbiqj with poliomyelitis (Z23, V06.3) Status: Inactive as [...] orthoscopic Completed Date Value Details 03-Jun-2015 Spirometry (65726) Comments: OBSTRUCTION PRESNET Result: 24-Nov-2014 Spirometry (27687) Comments: good effor tand curve normal Result: 20-Sep-2014 Chest PA and Lateral Result: Comments: See Note; NOTES: [facility] Imaging Services [address] [place] [address] Radiology Report MR#: [id number] Acct: [id number] Name: HAYDEE BOSS Rep #: [id number] : 1945 F 69 From: Jorge Mckeon DO PCP: Trini Murphy DO Status: REG CLI Study: Chest PA and Lateral Date of Exam: 09/20/14 Exam# [id number] Ordering Dr: Trini Murphy DO STUDY: X-RAY [...] Jorge Mckeon DO at 20:56 EDT Tel [phone], Service support [phone], RAD/Ch est PA and Lateral IMPRESSION: No acute cardiopulmonary disease. Electronically Signed: Jorge Mckeon DO at 20:56 EDT Tel [phone], Service support [phone], CC: Trini Murphy DO Returner: Signed 09-Aug-2014 Chest PA and Lateral Result: Comments: See Note; NOTES: [facility] Imaging Services [address] [id number] Radiology Report MR#: [id number] Acct: [id number] Name: HAYDEE BOSS Rep #: [id number] : 1945 F 68 From: Zander Cornelius MD PCP: Trini Murphy DO Status: REG CLI Study: Chest PA and Lateral Date of Exam: 08/09/14 Exam# [id number] Ordering Dr: Trini Murphy DO STUDY: X-RAY [...] at 12:56 EDT Tel , Service support [phone], RAD/Chest PA and Lat eral IMPRESSION: Near complete resolution of previously described right middle and right lower lobe infiltrate. Followup recommended to assure complete resolution. Electronically Signed: Juan Cornelius MD at 12:56 EDT Tel , Service support [phone], CC: Trini Murphy DO Returner: Signed 12-Jul-2014 Chest PA and Lateral Result: Comments: See Note; NOTES: [facility] Imaging Services [address] [place] [address] Radiology Report MR#: [id number] Acct: [id number] Name: HAYDEE BOSS Rep #: [id number] : 1945 F 68 From: Oracio Mccollum MD PCP: Trini Murphy DO Status: REG CLI Study: Chest PA and Lateral Date of Exam: 07/12/14 Exam# [id number] Ordering Dr: Trini Murphy DO STUDY: X-RAY [...] at 15:46 EST Tel , Service support [phone], CC: Trini Murphy DO Returner: Signed 26-Mar-2014 Bilat Scrn Digital & CAD Result: Comments: See Note; NOTES: [facility] Imaging Services [address] [place] [address] Breast Imaging Report MR#: [id number] Acct: [id number] Name: HAYDEE BOSS Rep #: [id number] : 1945 F 68 From: Melchor Forde MD PCP: Trini Murphy DO Status: REG CLI Exam# [id number] Ordering Dr: Trini Murphy DO MAMMOGRAPHY - [...] Forde MD at 12: 54 EDT Tel [phone], Service support [phone], CC: Trini Murphy DO Returner: Signed Family History Unknown Family Member Name [...] Most Recent Primary Occupation Comments: works at [employer] at [employer] on- with 3 children - has 11 [...] kg/m2 Body Surface Area Calculated 2.1 m2 23-Zog-134221:15 Pulse 86 /min Comments: Pattern: Regular Respiration [...] Description Value Details :48 HgA1C , Office (60608) HgA1C , Office 5.7 % (Normal) Range: 4.6 - 7.1 :48 Blood Glucose , Office (39322) Blood Glucose , Office 78 (Normal) :42 POTASSIUM SERUM (09608) Comments: PATIENT NOT FASTINGPERFORMED BY: [facility] Darirx7237 [facility] [id number] Potassium 4.7 mmol/L (Normal) Range: 3.5-5.2 55-Mtk-85021:16 Pathology Report Comments: PERFORMED BY: KALEE Bartholomew Zfua6801 [facility] [id number] BY: [facility] Dermatopathology Lfwexoq082 [facility] [address] 4020 [id number] 670Clinical Information: [id number] See MATER Comments: Material submitted: .LEFT SIDE [...] FUNGAL HYPHAE.Pathologist provided ICD- 10:D48.5, L98.499, L08.9CPT .135411, 668135 16-Arj-481675:59 POTASSIUM SERUM (32716) Comments: PATIENT NOT FASTINGPERFORMED BY: [facility]6370 [facility] [id number] Potassium 5.3 mmol/L (Abnormal) Range: 3.5-5.2 68-Ows-994906:04 POTASSIUM SERUM (37278) Comments: PATIENT NOT FASTINGPERFORMED BY: [place] 2270670 [facility] [id number] Potassium 5.4 mmol/L (Abnormal) Range: 3.5-5.2 17-Ooi-203269:01 HgA1C , Office (56723) HgA1C , Office 6.1 % (Normal) Range: 4.6 - 7.1 91-Shq-621501:01 Blood Glucose , Office (73042) Blood Glucose , Office 89 (Normal) 2-Zpe-767391:51 Microscopic Examination Comments: PATIENT WAS FASTINGPERFORMED BY: [place] [address] [facility] [id number] BY: [place] 2270670 [facility] [id number] Bacteria Few (Normal) Mucus Threads Present (Normal) Epithelial Cells (non renal) 0-10 {/hpf} (Normal) Range: 0 - 10 RBC 0-2 {/hpf} (Normal) Range: 0 - 2 WBC 11-30 {/hpf} (Abnormal) Range: 0 - 5 Comments: Clumps of leukocytes present. 7-Gni-399851:51 CALCIFEDIOL (93432) Comments: PATIENT WAS FASTINGPERFORMED BY: [facility] Wtguambnqc4264 [facility] [id number] BY: [facility] Bdrkog0415 Edwards RoadDublin [place] [id number] Vitamin D, 25-Hydroxy 31.8 ng/mL (Normal) Range: 30.0-100.0 Comments: Vitamin D deficiency has been defined by the [place] of[facility] and an Endocrine Society practice guideline as alevel of serum 25-OH vitamin D less than 20 ng/mL (1,2).The Endocrine Society went on to further define vitamin Dinsufficiency as a level between 21 and 29 ng/mL (2).1. IOM ([place] of Medicine). 2010. Dietary reference intakes for calcium and D. [place]: The National Academies Press.2. Gael MF, Tiffany HEART, Sandee MADRID, et al. Evaluation, treatment, and prevention of vitamin D deficiency: an Endocrine Society clinical practice guideline. JCEM. 2010; 96(7):1911-30. 5-Mqu-638400:51 VITAMIN B-12 (CYANOCOBALAMIN) Comments: PATIENT WAS FASTINGPERFORMED BY: [facility] Srkdnptpmx[address] [id number] BY: [facility] Yxvhhp2247 Edwards RoadDublin [place] [id number] (75113) Vitamin B12 566 pg/mL (Normal) Range: 232-1245 5-Ftz-030383:51 TSH (29845) Comments: PATIENT WAS FASTINGPERFORMED BY: [facility] F[address]joh[address]vtjt7[address] [id number] BY: [facility] Auwtfm8112 Edwards RoadDublin [place] [id number] TSH 1.520 {uIU/mL} (Normal) Range: 0.450-4.500 5-Hhc-861506:51 URINALYSIS, W/ MICRO Comments: PATIENT WAS FASTINGPERFORMED BY: [facility] [address] [id number] BY: CB [facility] Faosfu1518 Edwards RoadDublin [place] [id number] (84316) Microscopic Examination See below: (Normal) Comments: Microscopic was indicated and was performed. Nitrite, Urine Negative (Normal) Urobilinogen,Semi-Qn 0.2 mg/dL (Normal) Range: 0.2-1.0 Bilirubin Negative (Normal) Occult Blood Negative (Normal) Ketones Negative (Normal) Glucose Negative (Normal) Protein Negative (Normal) WBC Esterase 3+ (Abnormal) Appearance Clear (Normal) Urine-Color Yellow (Normal) pH 7.5 (Normal) Range: 5.0-7.5 Specific [place] 1.015 (Normal) Range: 1.005-1.030 1-Qzd-198710:51 MICROALBUMIN: CREATININE Comments: PATIENT WAS FASTINGPERFORMED BY: [employer] [id number] BY: AppratsPinon Health CenterEvmpls1707 [facility] [id number] RATIO (94147) AND (49441) Alb/Creat Ratio 7.7 {mg/g_creat} (Normal) Range: 0.0-30.0 Albumin, Urine 6.0 ug/mL (Normal) Creatinine, Urine 77.6 mg/dL (Normal) 2-Acu-829036:51 METABOLIC PANEL, Comments: PATIENT WAS FASTINGPERFORMED BY: [employer] [id number] BY: yepptMonmouth Medical CenterSpdtwv1765 [facility] [id number] COMPREHENSIVE (82365) ALT (SGPT) 9 [iU]/L (Normal) Range: 0-32 [...] 19 - 27 >12 years 20 - 20 - 29 Chloride 101 mmol/L (Normal) Range: 96-106 Potassium 5.4 mmol/L (Abnormal) Range: 3.5-5.2 Sodium 142 mmol/L (Normal) Range: 134-144 BUN/Creatinine Ratio 15 (Normal) Range: 12-28 eGFR If Africn Am 78 mL/min/1.73 (Normal) eGFR If NonAfricn Am 68 mL/min/1.73 (Normal) Creatinine 0.86 mg/dL (Normal) Range: 0.57-1.00 BUN 13 mg/dL (Normal) Range: 8-27 Glucose 102 mg/dL (Abnormal) Range: 65-99 2-Iov-487297:51 LIPOPROTEIN, BLD, BY NMR Comments: PATIENT WAS FASTINGPERFORMED BY: BN [facility] [address] [id number] BY: CB [facility] [address] [id number] (25714) LP-IR Score 79 (Abnormal) Comments: INSULIN RESISTANCE [...] were developed and their performance characteristicsdetermined by [employer]. These assays have not been cleared by [...] 1600 - 2000 Very High > 2000 4-Pyz-958173:51 CBC W/AUTO DIFF WBC Comments: PATIENT WAS FASTINGPERFORMED BY: BN [facility] [address] [id number] BY: CB [facility] Ixzfku6305 [facility] [id number] (38626) Immature Grans (Abs) 0.0 {x10E3/uL} (Normal) Range: [...] (Normal) Range: 3.4-10.8 :02 HgA1C , Office (03663) HgA1C , Office 6.0 % (Normal) Range: 4.6 - 7.1 :02 Blood Glucose , Office (63422) Blood Glucose , Office 141 (Normal) :48 HgA1C , Office (32713) HgA1C , Office 6.0 % (Normal) Range: 4.6 - 7.1 :48 Blood Glucose , Office (69113) Blood Glucose , Office 94 (Normal) :26 TSH (39717) Comments: PATIENT WAS FASTINGPERFORMED BY: LabCoMonmouth Medical CenterExdaes6753 [facility] [id number] TSH 2.090 {uIU/mL} (Normal) Range: 0.450-4.500 80-Vtc-440556:26 METABOLIC PANEL, COMPREHENSIVE Comments: PATIENT WAS FASTINGPERFORMED BY: [facility]6370 [facility] [id number] (85608) ALT (SGPT) 11 [iU]/L (Normal) Range: 0-32 [...] Glucose, Serum 100 mg/dL (Abnormal) Range: 65-99 66-Elm-539496:26 CBC W/AUTO DIFF WBC (11558) Comments: PATIENT WAS FASTINGPERFORMED BY: [facility]6370 [facility] [id number] Immature Grans (Abs) 0.0 {x10E3/uL} (Normal) Range: [...] 3.77-5.28 WBC 7.3 {x10E3/uL} (Normal) Range: 3.4-10.8 84-Ttr-690824:26 VITAMIN B-12 (CYANOCOBALAMIN) Comments: PATIENT WAS FASTINGPERFORMED BY: [facility] Bumxeg0958 [facility] [id number] (49617) Vitamin B12 519 pg/mL (Normal) Range: 211-946 05-Hes-730553:26 CALCIFEDIOL (85552) Comments: PATIENT WAS FASTINGPERFORMED BY: [facility] Uobrbw0361 [facility] [id number] Vitamin D, 25-Hydroxy 37.1 ng/mL (Normal) Range: 30.0-100.0 Comments: Vitamin D deficiency has been defined by the [place] of[place]icine and an Endocrine Society practice guideline as alevel of serum 25-OH vitamin D less than 20 ng/mL (1,2).The Endocrine Society went on to further define vitamin Dinsufficiency as a level between 21 and 29 ng/mL (2).1. IOM ([place] Medicine). 2010. Dietary reference intakes for calcium and D. [place]: The National Academies Press.2. Gael MF, Tiffany HEART, Sandee MADRID, et al. Evaluation, treatment, and prevention of vitamin D deficiency: an Endocrine Society clinical practice guideline. JCEM. 2010; 96(7):1911-30. :26 LIPID PANEL (95267) Comments: PATIENT WAS FASTINGPERFORMED BY: LabCoMonmouth Medical CenterPptrqa2689 [facility] [id number] LDL/HDL Ratio 3.0 {ratio_units} (Normal) Range: 0.0-3.2 [...] (Abnormal) Range: 100-199 :18 HgA1C , Office (87225) HgA1C , Office 6.0 % (Normal) Range: 4.6 - 7.1 :18 Blood Glucose , Office (30398) Blood Glucose , Office 120 (Normal) :50 HgA1C , Office (20171) HgA1C , Office 6.2 % (Normal) Range: 4.6 - 7.1 :50 Blood Glucose , Office (87794) Blood Glucose , Office 104 (Normal) 25-Pys-498740:10 CBC W/Diff, Automated Comments: [facility] [address] [place], [address] Absolute Lymph 2.49 {X10_3/ul} (Normal) Range: 0.83-4.51 [...] 4.2-5.4 WBC 7.2 K/mm3 (Normal) Range: 4.4-11.0 45-Vak-903338:10 Comprehensive Metabolic Profil Comments: [facility] [address]ur[address] [place], [address] GAP 6 (Normal) Range: 5-15 CO2 29.0 [...] 7-18 GLU 96 mg/dL (Normal) Range: 70-110 44-Oni-320460:10 Lipid Profile Comments: [facility] [address]whaufuv[address] [place], [place], [address] VLDL 31 mg/dL (Normal) Range: 5-40 LDL [...] 200-240 mg/dL Borderline >240 mg/dL High Risk 47-Zja-871705:10 Microalb:Creat Ratio,Random UR Comments: [facility] [address]mpjf[address] [place], [address] MALB:CREAT 12.5 {mg/g_CRE} (Normal) MICROALBUMIN,UR 15.4 mg/L (Normal) UR CREAT 123.00 mg/dL (Normal) 52-Dxb-727673:10 Thyroid Stim Hormone (TSH) Comments: [facility] [address] [place], [address] TSH 2.34 {uIU/mL} (Normal) Range: 0.358-3.74 58-Ong-607931:10 Urinalysis, Complete Comments: How was Urine Obtained? CLEAN [facility] [address]wt[address]ukvpe[address] [place], [address] MUCUS, URINE [...] CLARITY Sl. Cloudy (Normal) COLOR Yellow (Normal) 72-Obo-850020:10 Vitamin B12 563 pg/mL (Normal) Comments: [facility] [address]op[address] [place], [address] Range: 211-911 59-Hdg-134135:10 Vitamin D,25 Hydroxy Comments: [facility] [address]zkxls[address] [place], [address] Vitamin D 25-OH 31.1 ng/mL (Normal) Comments: Vitamin D 25(OH) Status Range Deficiency <20 ng/mL (50nmol/L) Insuffciency 20 - 30 ng/mL (50 - 75 nmol/L) Sufficiency 30 - 100 ng/mL (75 - 250 nmol/L) Toxicity >100 ng/mL (>250 nmol/L) 78-Dfp-319163:21 HgA1C , Office (82230) HgA1C , Office 6.1 % (Normal) Range: 4.6 - 7.1 45-Klh-728281:21 Blood Glucose , Office (25011) Blood Glucose , Office 100 (Normal) 92-Hkk-933319:56 Microscopic Examination Comments: PATIENT WAS FASTINGPERFORMED BY: [facility] [id number] Bacteria Few (Normal) Mucus Threads Present (Normal) Epithelial Cells (non renal) 0-10 {/hpf} (Normal) Range: 0 - 10 RBC 0-2 {/hpf} (Normal) Range: 0 - 2 WBC 11-30 {/hpf} (Abnormal) Range: 0 - 5 44-Vfn-105249:56 LIPID PANEL (05474) Comments: PATIENT WAS FASTINGPERFORMED BY: [employer]6370 Acumen PharmaceuticalsAtrium Health Union [id number] LDL/HDL Ratio 2.6 {ratio_units} (Normal) Range: 0.0-3.2 [...] Cholesterol, Total 201 mg/dL (Abnormal) Range: 100-199 15-Coz-376580:56 URINALYSIS, W/ MICRO (94438) Comments: PATIENT WAS FASTINGPERFORMED BY: [employer] [facility] Qvzvig[address] [facility] [id number] Microscopic Examination See below: (Normal) Comments: Microscopic was indicated and was performed. Nitrite, Urine Positive (Abnormal) Urobilinogen,Semi-Qn 0.2 mg/dL (Normal) Range: 0.2-1.0 Bilirubin Negative (Normal) Occult Blood Negative (Normal) Ketones Negative (Normal) Glucose Negative (Normal) Protein Negative (Normal) WBC Esterase 2+ (Abnormal) Appearance Clear (Normal) Urine-Color Yellow (Normal) pH 6.0 (Normal) Range: 5.0-7.5 Specific [place]on 1.020 (Normal) Range: 1.005-1.030 :56 MICROALBUMIN: CREATININE RATIO Comments: PATIENT WAS FASTINGPERFORMED BY: AppratsMonmouth Medical CenterEvgmgl5704 [facility] [id number] (02954) AND (50630) Microalb/Creat Ratio 5.1 {mg/g_creat} (Normal) Range: 0.0-30.0 Microalbumin, Urine 4.2 ug/mL (Normal) Creatinine, Urine 82.7 mg/dL (Normal) :56 METABOLIC PANEL, COMPREHENSIVE Comments: PATIENT WAS FASTINGPERFORMED BY: AppratsMonmouth Medical CenterSjzbbz3219 [facility] [id number] (70010) ALT (SGPT) 11 [iU]/L (Normal) Range: 0-32 [...] Glucose, Serum 111 mg/dL (Abnormal) Range: 65-99 39-Hvv-235811:56 CBC W/AUTO DIFF WBC (17129) Comments: PATIENT WAS FASTINGPERFORMED BY: LabCoMonmouth Medical CenterMdcwuu9603 [facility] [id number] Immature Grans (Abs) 0.0 {x10E3/uL} (Normal) Range: [...] 3.77-5.28 WBC 7.0 {x10E3/uL} (Normal) Range: 3.4-10.8 57-Txr-314719:56 VITAMIN B-12 (CYANOCOBALAMIN) Comments: PATIENT WAS FASTINGPERFORMED BY: LabCoMonmouth Medical CenterMttbpu5406 [facility] [id number] (12059) Vitamin B12 533 pg/mL (Normal) Range: 211-946 38-Twv-753719:33 HgA1C , Office (97860) HgA1C , Office 5.9 % (Normal) Range: 4.6 - 7.1 89-Xnv-218852:33 Blood Glucose , Office (53779) Blood Glucose , Office 118 (Normal) 53-Jrb-063281:17 Hemoglobin A1c Comments: [facility] [address] [place], [address] HGB A1C 6.1 % (Normal) Range: 4.2-6.3 86-Krg-980811:17 Thyroid Stim Hormone (TSH) Comments: [facility] [address] [place], [address] TSH 2.57 {uIU/mL} (Normal) Range: 0.358-3.74 67-Ykz-492060:17 Vitamin D,25 Hydroxy Comments: [facility] [address] [place], [address] Vitamin D 25-OH 28.0 ng/mL (Normal) Comments: Vitamin D 25(OH) Status Range Deficiency <20 ng/mL (50nmol/L) Insuffciency 20 - 30 ng/mL (50 - 75 nmol/L) Sufficiency 30 - 100 ng/mL (75 - 250 nmol/L) Toxicity >100 ng/mL (>250 nmol/L) 95-Jkw-339581:16 Comprehensive Metabolic Profil Comments: Test performed at:[facility] [address] [place] [address] GAP 10 (Normal) Range: 5-15 [...] 7-18 GLU 101 mg/dL (Normal) Range: 70-110 91-Wga-820594:16 Hemoglobin A1c Comments: Test performed at:[facility] [address] [place] [address] HGB A1C 6.1 % (Normal) Range: 4.2-6.3 79-Kot-928574:16 Lipid Profile Comments: Test performed at:[facility] [address]ia[address] [place] [address] ; non-emergent till apt VLDL 27 mg/dL [...] 200-240 mg/dL Borderline >240 mg/dL High Risk 87-Qln-915746:16 Microalb:Creat Ratio,Random UR Comments: Test performed at:[facility] [address]df[address] [place] [address] MALB:CREAT 5.2 {mg/g_CRE} (Normal) MICROALBUMIN,UR 10.0 mg/L (Normal) UR CREAT 189.2 mg/dL (Normal) 30-Jkl-898268:16 Vitamin B12 438 pg/mL (Normal) Comments: Test performed at:[facility] [address] [address] Range: 211-911 2-Ide-927274:11 HgA1C , Office (17724) HgA1C , Office 6.5 % (Normal) Range: 4.6 - 7.1 4-Xtn-808789:07 CBC W/Diff, Automated Comments: Test performed at:[facility] [address] [place] [address] Absolute Lymph 2.36 {X10_3/ul} (Normal) [...] 4.2-5.4 WBC 7.5 K/mm3 (Normal) Range: 4.4-11.0 2-Xeu-759196:07 Comprehensive Metabolic Profil Comments: Test performed at:[facility] [address] [place], [place] [address] GAP 5 (Normal) Range: 5-15 CO2 28.0 [...] 7-18 GLU 100 mg/dL (Normal) Range: 70-110 9-Kbe-598598:07 Lipid Profile Comments: Test performed at:[facility] Gyqgjjpryn8266 [facility] [place] [address] VLDL 52 mg/dL (Abnormal) Range: 5-40 LDL [...] B12 740 pg/mL (Normal) Comments: Test performed at:[facility] Spwvsnhszv7488 [facility] [address] [place], [place] [address] Range: 211-911 56-Dsv-599330:26 Rapid Flu (99631 x 2) Influenza A Ag negative (Normal) 21-Uuy-943053:31 HgA1C , Office (39077) HgA1C , Office 6.2 % (Normal) Range: [...] 4.2-5.4 WBC 6.5 K/mm3 (Normal) Range: 4.4-11.0 23-Odt-894478:48 CMP GAP 5 (Normal) Range: 5-15 CO2 [...] 7-18 GLU 103 mg/dL (Normal) Range: 70-110 03-Zdg-396789:48 LIPID VLDL 29 mg/dL (Normal) Range: 5-40 [...] CHOL 204 mg/dL (Abnormal) Comments: <200 mg/dL Abwmtulul295-597 mg/dL Borderline>240 mg/dL High Risk :43 CMP [...] CHOL 174 mg/dL (Normal) Comments: <200 mg/dL Luazduzbu723-721 mg/dL Borderline>240 mg/dL High Risk HDL 50 [...] electrophoresis scan will follow via computer,mail, or shirt turner delivery. tPROELAG 1.2 (Normal) Range: 0.7-2.0 tPROELGL 3.2 g/dL (Normal) Range: 2.0-4.5 tPROELMS (Normal) Comments: Not Observed tPROELGA 0.8 g/dL (Normal) Range: 0.5-1.6 tPROELBE 1.1 g/dL (Normal) Range: 0.6-1.3 tPROELAL2 1.0 g/dL (Normal) Range: 0.4-1.2 tPROELAL1 0.2 g/dL (Normal) Range: 0.1-0.4 tPROELALB 3.8 g/dL (Normal) Range: 3.2-5.6 $tPROELTP 7.0 g/dL (Normal) Range: 6.0-8.5 :54 PROELU [id number] Comment (Normal) Comments: Protein electrophoresis scan will follow via computer,mail, or shirt turner delivery.Performed at: [address] [id number] Director: Marvin Cárdenas MD, Phone: [phone] tPROELUMS (Normal) Comments: Not Observed tPROELUGA 21.8 % (Normal) tPROELUBE 23.8 % (Normal) tPROELUAL2 15.7 % (Normal) tPROELUAL1 3.9 % (Normal) tPROELUALB 34.7 % (Normal) tPROELUTP 13.1 mg/dL (Normal) Range: 0.0-15.0 33-Uvq-521379:54 SED tSEDRATE 36 mm/h (Abnormal) Range: 0-30 30-Ctb-141336:33 Rapid Strep Test, Office (87252) Rapid Strep Test, Office Negative (Normal) 07-Oua-07861:43 DEE DEE CULTURE-OTHER (45928) Comments: PATIENT NOT FASTINGPERFORMED BY: [address] [id number] Information: SRC:THRT [id number] Result 1 RRF (Normal) Comments: Routine respiratory clayton Upper Respiratory Culture Final report (Normal) 97-Ixh-171974:25 HgA1C , Office (53871) HgA1C , Office 6.0 % (Normal) Range: [...] CHOL 219 mg/dL (Abnormal) Comments: <200 mg/dL Pbnsrqabb779-333 mg/dL Borderline>240 mg/dL High Risk :45 MISC (Normal) Comments: Test(s) Ordered: INTRINSIC FACTOR BLOCKING AB [id number] SERUM REFR Comments: TEST RESULT LIMITSIntrinsic Factor Abs, Serum Negative Negative TESTING PERFORMED AT [facility]. ORIGINAL REP ORT ONFILE IN LAB CONTAINS ADDITIONAL TEST SITE INFORMATION. 87-Wtf-90250:45 SED tSEDRATE 37 mm/h (Abnormal) Range: 0-30 10-Tyq-596839:36 Nuclear Stress Test Radiology Report See Note [...] The patient was injected with 44.5 mCi ttWh43h Cardiolite and subsequently stress SPECT Card iolite [...] Kel WOODS,JacquesTranscribed on 01/08/13 1236 by Fiorella MILLRAD by Kel WOODS,Jacques on 01/08/13 1327 Sign by: Jacques Begum MD 83-Kkl-00519:06 BILAT SCRN DIGITAL & CAD Radiology Report [...] Forde M.D.January 13, 2013 at 12:46:14 PM [id number] Signed GP/GP If you are the referring physician and wou ld like to consult with theradiologist who provided this interpretation, please contact Brittanie Khalil at [phone]. If this radiologist is unavailable, youwill be directed to another radiol ogist to assist. If you are a patient with a question regarding this report, pleasecontactyour referring physician directly. Professional Interpretation Provided By: [employer], Phone ,Fa x [phone] These documents contain legally protected and confidential [...] on 01/13/131247 by ITS IMPORTSign by Melchor Fored MD on 01/13/13 1249 Sign by: Melchor [...] CHOL 181 mg/dL (Normal) Comments: <200 mg/dL Hdxzwuvjd630-324 mg/dL Borderline>240 mg/dL High Risk HDL 40 [...] diabetes Indication: Impaired Fasting Glucose Planned Observations ROSHNI (ANTINUCLEAR ANTIBODY) (58140)Indication: Rash of face On: 70-Zqj-682850:39 Request C-Reactive Protein ([id number])Indication: Rash of face On: 37-Ijs-467837:38 Request SED RATE ERYTHROCYTE ([id number])Indication: Rash of face On: 66-Ava-312144:38 Request CALCIFIDIOL (50981) VIT D 25Indication: Vitamin D deficiency On: :40 Request TSH ([id number])Indication: Diabetes mellitus type II, controlled, with no complications On: :40 Request URINALYSIS, W/ MICRO ([id number])Indication: Diabetes mellitus type II, controlled, with no complications On: 26-Rlc-682702:40 Request MICROALBUMIN: CREATININE RATIO ([id number]) AND ([id number])Indication: Diabetes mellitus type II, controlled, with no complications On: :40 Request METABOLIC PANEL, COMPREHENSIVE ([id number])Indication: Diabetes mellitus type II, controlled, with no complications On: :40 Request LIPOPROTEIN, BLD, BY NMR ([id number])Indication: Hypercholesteremia (Renamed from Hypercholesterolemia) On: :40 Request CBC W/AUTO DIFF WBC ([id number])Indication: Diabetes mellitus type II, controlled, with no complications On: :40 Request LIPID PANEL ([id number])Indication: Diabetes mellitus type II, controlled, with no complications On: 82-Bxj-165219:25 Request URINALYSIS, W/ MICRO ([id number])Indication: Diabetes mellitus type II, controlled, with no complications On: :56 Request URINALYSIS, W/ MICRO ([id number])Indication: Diabetes mellitus type II, controlled, with no complications On: 97-Mgz-303862:56 Request MICROALBUMIN: CREATININE RATIO (59395) AND ([id number])Indication: Diabetes mellitus type II, controlled, with no complications On: 58-Uon-912904:56 Request VITAMIN B-12 (CYANOCOBALAMIN) (97121)Indication: B12 deficiency On: :49 Request TSH ([id number])Indication: Diabetes mellitus type II, controlled, with no complications On: :47 Request URINALYSIS, W/ MICRO ([id number])Indication: Diabetes mellitus type II, controlled, with no complications On: :47 Request MICROALBUMIN: CREATININE RATIO (01230) AND (31031)Indication: Diabetes mellitus type II, controlled, with no complications On: :47 Request METABOLIC PANEL, COMPREHENSIVE (51858)Indication: Diabetes mellitus type II, controlled, with no complications On: :47 Request CBC W/AUTO DIFF WBC (07049)Indication: Diabetes mellitus type II, controlled, with no complications On: :47 Request CALCIFIDIOL (84323) VIT D 25Indication: Vitamin D deficiency On: :47 Request LIPID PANEL (54361)Indication: Hypercholesteremia (Renamed from Hypercholesterolemia) On: :47 Request HGB A1C (66417)Indication: Common cold virus On: 15-Lof-241763:46 Request CALCIFEDIOL (69308)Indication: Hair loss On: 83-Nes-213264:39 Request TSH (THYROID STIMULATING HORMONE) (86043)Indication: Hair loss On: 44-Ruh-963746:35 Request VITAMIN B-12 (CYANOCOBALAMIN) (52339)Indication: B12 deficiency On: 6-Ncw-475673:02 Request LIPID PANEL (05870)Indication: Hyperlipidemia On: 1-Wrz-549300:01 Request MICROALBUMIN: CREATININE RATIO (11422) AND (02970)Indication: Diabetes mellitus type II, controlled, with no complications On: 2-Zam-592935:56 Request METABOLIC PANEL, COMPREHENSIVE ([id number])Indication: Diabetes mellitus type II, controlled, with no complications On: 1-Ayc-747747:56 Request Hemoglobin Glyclated (HGB A1C) (31525)Indication: Diabetes mellitus type II, controlled, with no complications On: 5-Lwt-610089:56 Request VITAMIN B-12 (CYANOCOBALAMIN) ([id number])Indication: B12 deficiency On: 40-Psf-809708:07 Request CBC W/AUTO DIFF WBC ([id number])Indication: B12 deficiency On: 39-Pjf-242447:06 Request METABOLIC PANEL, COMPREHENSIVE (22458)Indication: Elevated blood-pressure reading without diagnosis of hypertension On: 59-Oqe-087604:06 Request LIPID PANEL ([id number])Indication: Hyperlipidemia On: 91-Mvj-521766:06 Request CBC WITH MANUAL DIFF ([id number])Indication: Impaired Fasting Glucose On: 60-Vak-293497:40 Request METABOLIC PANEL, COMPREHENSIVE (66811)Indication: Impaired Fasting Glucose On: 58-Wns-545691:40 Request LIPID PANEL ([id number])Indication: Hyperlipidemia On: 25-Ggp-801825:40 Request VITAMIN B-12 (CYANOCOBALAMIN) ([id number])Indication: B12 deficiency On: 53-Hnc-257297:39 Request HgA1C , Office (56647)Indication: Impaired Fasting Glucose On: 40-Foc-881945:13 Request METABOLIC PANEL, COMPREHENSIVE (56957)Indication: Impaired Fasting Glucose On: 8-Qxl-810539:40 Request LIPID PANEL ([id number])Indication: Hyperlipidemia On: 8-Xzv-169841:40 Request SED RATE ERYTHROCYTE ([id number])Indication: Abnormal blood chemistry On: 30-Hlr-028170:37 Request C-REACTIVE PROTEIN (48402)Indication: Abnormal blood chemistry On: 65-Pxp-880474:37 Request VITAMIN B-12 (CYANOCOBALAMIN) ([id number])Indication: B12 deficiency On: 19-Bny-583846:37 Request UPEP ([id number])Indication: Abnormal blood chemistry On: :37 Request Protein Electrophoresis, Serum (SPEP) ([id number])Indication: Abnormal blood chemistry On: :37 Request LIPID PANEL (47744)Indication: Hyperlipidemia On: :04 Request CBC WITH MANUAL DIFF ([id number])Indication: Impaired Fasting Glucose On: :04 Request METABOLIC PANEL, COMPREHENSIVE ([id number])Indication: Impaired Fasting Glucose On: 9-Nac-562005:04 Request SED RATE ERYTHROCYTE ([id number])Indication: Pain in unspecified joint On: 48-Xhf-532544:57 Request C-REACTIVE PROTEIN ([id number])Indication: Pain in unspecified joint On: 35-Vgg-381529:57 Request INTRINSIC FACTOR ANTBDY ([id number])Indication: B12 deficiency On: 26-Uhd-372160:36 Request VITAMIN B-12 (CYANOCOBALAMIN) (50382)Indication: B12 deficiency On: 96-Nmh-926044:35 Request HgA1C , Office (05867)Indication: Impaired Fasting Glucose On: 47-Qap-749904:15 Request VITAMIN B-12 (CYANOCOBALAMIN) ([id number])Indication: Paresthesia On: 3-Npi-773541:17 Request SED RATE ERYTHROCYTE ([id number])Indication: Pain in unspecified joint On: 3-Unz-117968:16 Request C-REACTIVE PROTEIN ([id number])Indication: Pain in unspecified joint On: 4-Zlq-110749:16 Request TSH ([id number])Indication: Pain in unspecified joint On: 9-Tcq-524031:16 Request RHEUMATOID FACTOR-QUANT ([id number])Indication: Pain in unspecified joint On: 1-Ned-497500:16 Request ROSHNI (ANTINUCLEAR ANTIBODY) ([id number])Indication: Pain in unspecified joint On: 5-Mvr-637979:16 Request CBC WITH MANUAL DIFF ([id number])Indication: Pain in unspecified joint On: :16 Request METABOLIC PANEL, COMPREHENSIVE ([id number])Indication: Pain in unspecified joint On: 8-Zdz-223469:16 Request LIPID PANEL ([id number])Indication: SHORTNESS OF BREATH On: :16 Request CBC WITH MANUAL DIFF ([id number])Indication: SHORTNESS OF BREATH On: :16 Request METABOLIC PANEL, COMPREHENSIVE ([id number])Indication: SHORTNESS OF BREATH On: :16 Request Planned Encounters Medical; 3 Month FU - On: 16-Jun-2018 13:15 [facility] Korin Glass DO, DO, Kathleen Planned Procedures SCREENING DIGITAL TOMOSYNTHESIS OF On: 10-Mar-2018 Intent BREAST ([id number])By: Korin Glass DO, DO, Kathleen Flu Vaccine (Quadrivalent) 06663Bb: On: 10-Mar-2018 Intent Korin Glass DO, DO, Comments: Lot #[id number] Exp-11/23/18Site-L dltd, IMDose prefilled syringegiven by: Lyudmila JCVIS reviewed and ABN signed Korin B 12 Injection, 1000 mcg ([id number])By: On: 10-Mar-2018 Intent Korin Glass DO, DO, Comments: 1 ml given rt dltd [id number] 07/2018 Korin B 12 Injection, 1000 mcg (J3420)By: On: 04-Nov-2017 Intent Korin Glass DO, DO, Korin B 12 Injection, 1000 mcg ([id number])By: On: 08-Jul-2017 Intent Korin Glass DO, DO, Comments: lot: [id number]: ite/route: L del/IMamt: 1mLVIS signed when applicableAMBER Canela ELECTROCARDIOGRAM, COMPLETE (ECG) On: 08-Jul-2017 Intent ([id number])By: Korin Glass DO Comments: nsr no acute chg Korin Glass DO Aerosol Treatment ([id number])By: Ti On: 05-Jun-2017 Intent Glenys BARBOSA ELECTROCARDIOGRAM, COMPLETE (ECG) On: 06-May-2017 Intent ([id number])By: Maria Luisa DORachanaKorin Comments: nsr mary cute chg Maria Luisa DO, Korin B 12 Injection, 1000 mcg (J3420)By: On: 06-May-2017 Intent Maria Luisa DO, Korin Maria Luisa DO, Comments: lot: [id number]: 07/15site/route: L del/IMamt: 1mLVIS signed when applicableChebronson south haven [facility], [facility] Korin Flu Vaccine (Quadrivalent) 48821Ps: On: 06-May-2017 Intent Maria Luisa DO, Korin Maria Luisa DO, Comments: lot: [id number]: 11/11/18site/route: R linda, IMamt: 0.5mlVIS and ABN signed when 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, INFORMATION SYSTEMS CONSULTANT Korin B 12 Injection, 1000 mcg ([id number])By: On: 24-Dec-2016 Intent Maria Luisa DO, Korin Maria Luisa DO, Comments: lot: [id number]: 8/18site/route: L del/IMamt: 1mLVIS signed when applicableChels, [facility] Korin B 12 Injection, 1000 mcg (J3420)By: [...] 6144exp: 4/18site/route: L del/IMamt: 1mLVIS signed when 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, INFORMATION SYSTEMS CONSULTANT Korin EMGBy: Maria Luisa DO, Korin Maria Luisa On: 18-Jun-2016 Intent DO, Korin Nerve ConductionBy: Maria Luisa DO, On: 18-Jun-2016 Intent Korin Maria Luisa DO, Korin ELECTROCARDIOGRAM, COMPLETE (ECG) On: 06-Mar-2016 Intent ([id number])By: Maria Luisa DO Korin Comments: nsr no acute cgh Maria Luisa DO, Korin Flu Vaccine (Quadrivalent) 26241Nw: On: 17-Feb-2016 Intent Trini Murphy DO ADMINISTRATION OF INFLUENZA VIRUS On: 17-Feb-2016 Intent VACCINE ([id number])By: Trini Murphy DO Comments: Lot #:[id number] date:8-55-58Ibopao given:0.5mlRoute: IMSite given:L DltdGiven by: Greta and ABN signed [employer] Aerosol Treatment (08053)By: Maria Luisa On: 03-Jun-2015 Korin Carrington DO, DO, Kathleen Comments: STILL NOISEY BUT MUCH BETTER Inhaler Demo (98196)By: Maria Luisa DASH, On: 03-Jun-2015 Intent Korin Casillas DO Radiology - Chest- PA and LatBy: On: 03-Jun-2015 Intent Korin Glass DO, DO, Kathleen Flu Vaccine (Quadrivalent) 93255Zz: On: 12-Apr-2015 Intent Glenys Luke CNP Comments: lot: [id number]:5*2016site:Lt deltoidroute:IMdose:.5mlDEMICK, SMA Radiology - ChestBy: Trini Murphy DO On: 09-Aug-2014 Intent A Comments: PA & LAT- Do in 1 month Spirometry (05949)By: Jeffrey DASH, On: 02-Aug-2014 Intent Trini Benavidez Comments: good effort small but good curve- mod restrciton Radiology - Chest- PA and LatBy: On: 02-Aug-2014 Intent Trini Murphy DO Pulse Oximetry (18477)By: Jeffrey DASH, On: 02-Aug-2014 Intent Trini Benavidez Comments: 96% Radiology - ChestBy: Trini Murphy DO On: 12-Jul-2014 Intent A Comments: PA and LAT Radiology - Chest- PA and LatBy: On: 12-Jul-2014 Intent Trini Murphy DO Comments: stat Aerosol Treatment (29685)By: Jeffrey On: 12-Jul-2014 Trini Carrington DO Pulse Oximetry (01566)By: Jeffrey DASH, On: 12-Jul-2014 Intent Trini A Comments: 93% Prevnar 13 (59325)By: Moris MOSQUEDA, On: 26-Mar-2014 Intent Geraldine Comments: [id number] arm, IMAS Flu Vaccine (Quadrivalent) 07808Oh: On: 26-Mar-2014 Intent Geraldine Subramanian LPN ADMINISTRATION OF INFLUENZA VIRUS On: 26-Mar-2014 Intent VACCINE (G0008)By: Geraldine Subramanian LPN Comments: [id number] syringeL Dltd, IMAS, LPNABN and VIS signed MAMMOGRAM, SCREENING, BOTH BREAST On: 15-Feb-2014 Intent ([id number])By: Fast DO, Trini A B 12 Injection, 1000 mcg (J3420)By: On: 29-Dec-2013 Intent Fast DO, Trini A Comments: lot: [id number]: 02/07site/route: L del/IMamt: 1mLVIS signed when 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, INFORMATION SYSTEMS CONSULTANT B 12 Injection, 1000 mcg (J3420)By: On: 20-Nov-2013 Intent Fast DO, Trini A Comments: Lot:[id number]:Dose:1mlRoute:IMSite:rafita armGiven By:ERICA signed B 12 Injection, 1000 mcg (J3420)By: On: 16-Nov-2013 Intent Fast DO, Trini A Comments: Lot:[id number]:07/2015Dose:1mlRoute:IMSite:rafita ruthGiven By:ERICA signed B 12 Injection, 1000 mcg (J3420)By: On: 12-Oct-2013 Intent Fast DO, Trini A Comments: Lot:[id number]:07/12Dose:1mlRoute:IMSite:rafita ruthGiven By:ERICA signed Eprescribed prescriptions (G8553)By: On: 12-Oct-2013 Intent Fast DO, Trini A B 12 Injection, 1000 mcg (J3420)By: On: 08-Apr-2013 Intent Antonia Villeda Comments: Lot:[id number]:01/08Dose:1mlRoute:IMSite:rafita ruthGiven By:ERICA signed B 12 Injection, 1000 mcg (J3420)By: On: 01-Apr-2013 Intent Fast DO, Trini A Comments: Lot:[id number]:01/08Dose:1mlRoute:IMSite:r armGiven By:Lawrence signed B 12 Injection, 1000 mcg (J3420)By: On: 25-Mar-2013 Intent Fast DO Trini A Comments: lot: [id number]: 01/08site/route: L deltoid/IMamt: 1mLVIS signed when 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, INFORMATION SYSTEMS CONSULTANT B 12 Injection, 1000 mcg (J3420)By: On: 17-Mar-2013 Intent Fast DO Trini A Comments: Lot:[id number]:08/2014Dose:1mlRoute:IMSite:l armGiven By:ERICA signed Nuclear Stress Test/Stress On: 29-Dec-2012 Intent SPECT/TreadmillBy: Jeffrey DO Trini A EKG (87970)By: Radha Ca On: 29-Dec-2012 Intent Comments: ekg showed normal sinus rhythym, normal axis, no acute st/t wave changes Spirometry (63913)By: Roby, On: 29-Dec-2012 Intent Radha Comments: good effort and curve no obst MAMMOGRAM, SCREENING, BOTH BREASTS On: 29-Dec-2012 Intent (72946)By: Trini Murphy DO TDAP VACCINE >7 IM (42785)By: On: 29-Dec-2012 Intent Radha Ca Planned Medications [...] SHORTNESS OF BREATH Encounters Office Visit On: 09-Apr-2018 14:02 Encounter Reason: [...] face,was on prednisone x 7 days since - off of it x 7 days and [...] products, soaps, makeup, laundry soap, eye glass washer.Encounter Diagnosis: Non-smoker, BMI 40.0-44.9, adult, Itch of [...] Onset was 2 w End: 24-Mar-2015 14:52 [place](s) ago. There is no known event that [...] for chronic medical is sues: going to [employer] in 2 weeks- she retired today - [...]
--- OUTSIDE RECORDS SUMMARY | 2018-06-21 18:25 | XMS RPT_ITS | Continuity of Care Document ---
:1945 Author Organization [facility] Address [facility] [address] [place] [address] Phone Care Team Providers Name Role Phone [...] Status: Resolved as of 28-Jul-2014 Vaccine for zvssivjjay-uuxraht-flvoxncvd with poliomyelitis (Z23, V06.3) Status: Inactive as [...] orthoscopic Completed Date Value Details 03-Jun-2015 Spirometry (32604) Comments: OBSTRUCTION PRESNET Result: 24-Nov-2014 Spirometry (78612) Comments: good effor tand curve normal Result: 20-Sep-2014 Chest PA and Lateral Result: Comments: See Note; NOTES: [facility] Imaging Services [address] [place] [address] Radiology Report MR#: [id number] Acct: [id number] Name: HAYDEE BOSS Rep #: [id number] : 1945 F 69 From: Jorge Mckeon DO PCP: Trini Murphy DO Status: REG CLI Study: Chest PA and Lateral Date of Exam: 09/20/14 Exam# [id number] Ordering Dr: Trini Murphy DO STUDY: X-RAY [...] Jorge Mckeon DO at 20:56 EDT Tel [phone], Service support [phone], RAD/Ch est PA and Lateral IMPRESSION: No acute cardiopulmonary disease. Electronically Signed: Jorge Mckeon DO at 20:56 EDT Tel [phone], Service support [phone], CC: Trini Murphy DO [facility] Specialist: Signed 09-Aug-2014 Chest PA and Lateral Result: Comments: See Note; NOTES: [facility] Imaging Services [address] [place] [address] Radiology Report MR#: [id number] Acct: [id number] Name: HAYDEE BOSS Rep #: [id number] : 1945 F 68 From: Zander Cornelius MD PCP: Trini Murphy DO Status: REG CLI Study: Chest PA and Lateral Date of Exam: 08/09/14 Exam# [id number] Ordering Dr: Trini Murphy DO STUDY: X-RAY [...] at 12:56 EDT Tel , Service support [phone], RAD/Chest PA and Lat eral IMPRESSION: Near complete resolution of previously described right middle and right lower lobe infiltrate. Followup recommended to assure complete resolution. Electronically Signed: Juan Cornelius MD at 12:56 EDT Tel , Service support [phone], CC: Trini Murphy DO [facility] Specialist: Signed 12-Jul-2014 Chest PA and Lateral Result: Comments: See Note; NOTES: [facility] Imaging Services [address] [place] [address] Radiology Report MR#: [id number] Acct: [id number] Name: HAYDEE BOSS Rep #: [id number] : 1945 F 68 From: Oracio Mccollum MD PCP: Trini Murphy DO Status: REG CLI Study: Chest PA and Lateral Date of Exam: 07/12/14 Exam# [id number] Ordering Dr: Trini Murphy DO STUDY: X-RAY [...] at 15:46 EST Tel , Service support [phone], CC: Trini Murphy DO [facility] Specialist: Signed 26-Mar-2014 Bilat Scrn Digital & CAD Result: Comments: See Note; NOTES: [facility] Imaging Services [address] [place] [address] Breast Imaging Report MR#: [id number] Acct: [id number] Name: HAYDEE BOSS Rep #: [id number] : 1945 F 68 From: Melchor Forde MD PCP: Trini Murphy DO Status: REG CLI Exam# [id number] Ordering Dr: Trini Murphy DO MAMMOGRAPHY - [...] Forde MD at 12: 54 EDT Tel [phone], Service support [phone], CC: Trini Murphy DO [facility] Specialist: Signed Family History Unknown Family Member Name [...] Most Recent Primary Occupation Comments: works at [employer]- at [employer]- with 3 children - has 11 [...] kg/m2 Body Surface Area Calculated 2.06 m2 50-Zcb-808144:29 Pulse 62 /min Comments: Pattern: Regular Respiration [...] kg/m2 Body Surface Area Calculated 2.06 m2 46-Hab-055443:00 Pulse 75 /min Comments: Pattern: Regular Respiration [...] kg/m2 Body Surface Area Calculated 2.07 m2 05-Khq-211477:29 Pulse 72 /min Comments: Pattern: Regular Respiration [...] kg/m2 Body Surface Area Calculated 2.07 m2 46-Tfh-839064:36 Pulse 63 /min Comments: Pattern: Regular Respiration [...] Description Value Details :48 HgA1C , Office (29906) HgA1C , Office 5.7 % (Normal) Range: 4.6 - 7.1 :48 Blood Glucose , Office (35675) Blood Glucose , Office 78 (Normal) :42 POTASSIUM SERUM (23605) Comments: PATIENT NOT FASTINGPERFORMED BY: [facility] Ewaqiz2780 [facility] [id number] Potassium 4.7 mmol/L (Normal) Range: 3.5-5.2 :16 Pathology Report Comments: PERFORMED BY: KALEE [facility] Lhtl2126 [facility] [id number] BY: [facility] Dermatopathology [address] [place] [address] [id number] 670Clinical Information: [id number] See MATER Comments: Material submitted: .LEFT SIDE [...] FUNGAL HYPHAE.Pathologist provided ICD- 10:D48.5, L98.499, L08.9CPT .568289, 562407 96-Qwx-711958:59 POTASSIUM SERUM (73220) Comments: PATIENT NOT FASTINGPERFORMED BY: LabCoAtlantiCare [facility] Main[facility] CampusPmsoqy8038 [facility] [id number] Potassium 5.3 mmol/L (Abnormal) Range: 3.5-5.2 76-Gyo-637704:04 POTASSIUM SERUM (70791) Comments: PATIENT NOT FASTINGPERFORMED BY: [facility] Whiytn6180 [facility] [id number] Potassium 5.4 mmol/L (Abnormal) Range: 3.5-5.2 : HgA1C , Office (06910) HgA1C , Office 6.1 % (Normal) Range: 4.6 - 7.1 :01 Blood Glucose , Office (29772) Blood Glucose , Office 89 (Normal) 2-Yly-213669:51 Microscopic Examination Comments: PATIENT WAS FASTINGPERFORMED BY: [employer] [address]fz[address]xn[address] [id number] BY: [place]David [place] [address] [facility] [id number] Bacteria Few (Normal) Mucus Threads Present (Normal) Epithelial Cells (non renal) 0-10 {/hpf} (Normal) Range: 0 - 10 RBC 0-2 {/hpf} (Normal) Range: 0 - 2 WBC 11-30 {/hpf} (Abnormal) Range: 0 - 5 Comments: Clumps of leukocytes present. :51 CALCIFEDIOL (27447) Comments: PATIENT WAS FASTINGPERFORMED BY: [employer] [id number] BY: [employer]armaCan CapitalAtlantiCare Regional Medical Center, Main[facility] CampusDkyrnk2042 [facility] [id number] Vitamin D, 25-Hydroxy 31.8 ng/mL (Normal) Range: 30.0-100.0 Comments: Vitamin D deficiency has been defined by the [place] ofMedicine and an Endocrine Society practice guideline as alevel of serum 25-OH vitamin D less than 20 ng/mL (1,2).The Endocrine Society went on to further define vitamin Dinsufficiency as a level between 21 and 29 ng/mL (2).1. IOM ([place] of Medicine). 2010. Dietary reference intakes for calcium and D. [place]: The National Academies Press.2. Gael MF, Tiffany HEART, Sandee MADRID, et al. Evaluation, treatment, and prevention of vitamin D deficiency: an Endocrine Society clinical practice guideline. JCEM. 2010; 96(7):1911-30. :51 VITAMIN B-12 (CYANOCOBALAMIN) Comments: PATIENT WAS FASTINGPERFORMED BY: Lab[address] [id number] BY: MazreeUniversity of New Mexico HospitalsQbngxb4504 [facility] [id number] (93239) Vitamin B12 566 pg/mL (Normal) Range: 232-1245 5-Mro-742523:51 TSH (08651) Comments: PATIENT WAS FASTINGPERFORMED BY: [address] [id number] BY: MazreeUniversity of New Mexico HospitalsWwiwrj0395 [facility] [id number] TSH 1.520 {uIU/mL} (Normal) Range: 0.450-4.500 5-Jpi-453913:51 URINALYSIS, W/ MICRO Comments: PATIENT WAS FASTINGPERFORMED BY: [employer] [id number] BY: Mazree Muquvy5462 [facility] [id number] (17142) Microscopic Examination See below: (Normal) Comments: Microscopic was indicated and was performed. Nitrite, Urine Negative (Normal) Urobilinogen,Semi-Qn 0.2 mg/dL (Normal) Range: 0.2-1.0 Bilirubin Negative (Normal) Occult Blood Negative (Normal) Ketones Negative (Normal) Glucose Negative (Normal) Protein Negative (Normal) WBC Esterase 3+ (Abnormal) Appearance Clear (Normal) Urine-Color Yellow (Normal) pH 7.5 (Normal) Range: 5.0-7.5 Specific Channing 1.015 (Normal) Range: 1.005-1.030 :51 MICROALBUMIN: CREATININE Comments: PATIENT WAS FASTINGPERFORMED BY: [employer] [id number] BY: MazreeAtlantiCare Regional Medical Center[facility] Main[facility] CampusCrbsli8565 [facility] [id number] RATIO (80601) AND (24720) Alb/Creat Ratio 7.7 {mg/g_creat} (Normal) Range: 0.0-30.0 Albumin, Urine 6.0 ug/mL (Normal) Creatinine, Urine 77.6 mg/dL (Normal) 7-Ezd-220174:51 METABOLIC PANEL, Comments: PATIENT WAS FASTINGPERFORMED BY: BN [facility] Kynnwslcuy8910 [facility] [id number] BY: [facility] Lxeoih9384 [facility] [id number] [facility] (12643) ALT (SGPT) 9 [iU]/L (Normal) Range: 0-32 [...] 8-27 Glucose 102 mg/dL (Abnormal) Range: 65-99 7-Qvc-473462:51 LIPOPROTEIN, BLD, BY NMR Comments: PATIENT WAS FASTINGPERFORMED BY: [employer] Dynamicsrp Alwhzpffoi0929 [facility] [id number] BY: CB [facility] Oapmnj2351 [facility] [id number] (10674) LP-IR Score 79 (Abnormal) Comments: INSULIN RESISTANCE MARKER <--Insulin Sensitive Insulin Resistant--> Percentile in Reference PopulationInsulin Resistance ScoreLP-IR Score Low 25th 50th 75th High <27 27 45 63 >63LP-IR Score is inaccurate if patient is non-fasting. .The LP-IR score is a laboratory developed i [facility] that has beenassociated with insulin resistance [...] 1600 - 2000 Very High > 2000 1-Mmc-697384:51 CBC W/AUTO DIFF WBC Comments: PATIENT WAS FASTINGPERFORMED BY: BN [facility] [address] [id number] BY: CB [facility] Trvirv4700 [facility] [id number] (47223) Immature Grans (Abs) 0.0 {x10E3/uL} (Normal) Range: [...] (Normal) Range: 3.4-10.8 :02 HgA1C , Office (93409) HgA1C , Office 6.0 % (Normal) Range: 4.6 - 7.1 :02 Blood Glucose , Office (09177) Blood Glucose , Office 141 (Normal) :48 HgA1C , Office (06084) HgA1C , Office 6.0 % (Normal) Range: 4.6 - 7.1 :48 Blood Glucose , Office (27398) Blood Glucose , Office 94 (Normal) :26 TSH (89860) Comments: PATIENT WAS FASTINGPERFORMED BY: LabCoAtlantiCare Regional Medical Center, Main[facility] CampusHroozj6332 [facility] [id number] TSH 2.090 {uIU/mL} (Normal) Range: 0.450-4.500 :26 METABOLIC PANEL, COMPREHENSIVE Comments: PATIENT WAS FASTINGPERFORMED BY: LabCoAtlantiCare Regional Medical [facility], Main[facility] CampusGppcoe0095 [facility] [id number] (27315) ALT (SGPT) 11 [iU]/L (Normal) Range: 0-32 [...] Glucose, Serum 100 mg/dL (Abnormal) Range: 65-99 73-Jhu-213085:26 CBC W/AUTO DIFF WBC (67369) Comments: PATIENT WAS FASTINGPERFORMED BY: LabCoAtlantiCare [facility], Main[facility] CampusUuackg6767 [facility] [id number] Immature Grans (Abs) 0.0 {x10E3/uL} (Normal) Range: [...] B-12 (CYANOCOBALAMIN) Comments: PATIENT WAS FASTINGPERFORMED BY: Mazree Etpnoc3487 [facility] [id number] (85123) Vitamin B12 519 pg/mL (Normal) Range: 211-946 :26 CALCIFEDIOL (30994) Comments: PATIENT WAS FASTINGPERFORMED BY: Mazree Cvehss6171 [facility] [id number] Vitamin D, 25-Hydroxy 37.1 ng/mL (Normal) Range: 30.0-100.0 Comments: Vitamin D deficiency has been defined by the [place] ofSt. Charles Hospitalcine and an Endocrine Society practice guideline as alevel of serum 25-OH vitamin D less than 20 ng/mL (1,2).The Endocrine Society went on to further define vitamin Dinsufficiency as a level between 21 and 29 ng/mL (2).1. IOM ([place] of Medicine). 2010. Dietary reference intakes for calcium and D. [place]: The National Academies Press.2. Gael MF, Tiffany [place], Sandee MADRID, et al. Evaluation, treatment, and prevention of vitamin D deficiency: an Endocrine Society clinical practice guideline. JCEM. 2010; 96(7):1911-30. 32-Tej-047957:26 LIPID PANEL (50544) Comments: PATIENT WAS FASTINGPERFORMED BY: FeastieAspirus [facility]wood Hospital6370 [facility] [id number] LDL/HDL Ratio 3.0 {ratio_units} (Normal) Range: 0.0-3.2 [...] (Abnormal) Range: 100-199 :18 HgA1C , Office (38788) HgA1C , Office 6.0 % (Normal) Range: 4.6 - 7.1 :18 Blood Glucose , Office (39969) Blood Glucose , Office 120 (Normal) :50 HgA1C , Office (52869) HgA1C , Office 6.2 % (Normal) Range: 4.6 - 7.1 :50 Blood Glucose , Office (97128) Blood Glucose , Office 104 (Normal) :10 CBC W/Diff, Automated Comments: [facility] [address] [place], [place], [address] Absolute Lymph 2.49 {X10_3/ul} (Normal) Range: 0.83-4.51 [...] Range: 4.4-11.0 :10 Comprehensive Metabolic Profil Comments: [facility] [address] [place], [address] GAP 6 (Normal) Range: 5-15 CO2 29.0 [...] 7-18 GLU 96 mg/dL (Normal) Range: 70-110 33-Oml-875541:10 Lipid Profile Comments: [facility] [address] [place], [place], [address] VLDL 31 mg/dL (Normal) Range: 5-40 LDL [...] 200-240 mg/dL Borderline >240 mg/dL High Risk 45-Jts-670025:10 Microalb:Creat Ratio,Random UR Comments: [facility] [address] [place], [place], [address] MALB:CREAT 12.5 {mg/g_CRE} (Normal) MICROALBUMIN,UR 15.4 mg/L (Normal) UR CREAT 123.00 mg/dL (Normal) 26-Und-650886:10 Thyroid Stim Hormone (TSH) Comments: [facility] [address]kh[address] [place], [place], [address] TSH 2.34 {uIU/mL} (Normal) Range: 0.358-3.74 12-Lot-965333:10 Urinalysis, Complete Comments: How was Urine Obtained? [facility] [address]qzdxh[address] [place], [place], [address] MUCUS, URINE 1+ {/hpf} (Normal) BACTERIA 1+ [...] CLARITY Sl. Cloudy (Normal) COLOR Yellow (Normal) 86-Ibx-645475:10 Vitamin B12 563 pg/mL (Normal) Comments: [facility] [address] [facility] [address] [place], [place], [address] Range: 211-911 96-Oxq-939343:10 Vitamin D,25 Hydroxy Comments: [facility] Jamwnzwfhv[address] [facility] [address] [place], [place], [address] Vitamin D 25-OH 31.1 ng/mL (Normal) Comments: Vitamin D 25(OH) Status Range Deficiency <20 ng/mL (50nmol/L) Insuffciency 20 - 30 ng/mL (50 - 75 nmol/L) Sufficiency 30 - 100 ng/mL (75 - 250 nmol/L) Toxicity >100 ng/mL (>250 nmol/L) 90-Qvn-578343:21 HgA1C , Office (86582) HgA1C , Office 6.1 % (Normal) Range: 4.6 - 7.1 10-Azb-414887:21 Blood Glucose , Office (80817) Blood Glucose , Office 100 (Normal) 78-Hki-523327:56 Microscopic Examination Comments: PATIENT WAS FASTINGPERFORMED BY: [employer] [place] [id number] Bacteria Few (Normal) Mucus Threads Present (Normal) Epithelial Cells (non renal) 0-10 {/hpf} (Normal) Range: 0 - 10 RBC 0-2 {/hpf} (Normal) Range: 0 - 2 WBC 11-30 {/hpf} (Abnormal) Range: 0 - 5 48-Idy-073441:56 LIPID PANEL (29879) Comments: PATIENT WAS FASTINGPERFORMED BY: [employer] [place] [id number] LDL/HDL Ratio 2.6 {ratio_units} (Normal) Range: 0.0-3.2 [...] Cholesterol, Total 201 mg/dL (Abnormal) Range: 100-199 93-Jlp-499699:56 URINALYSIS, W/ MICRO (37653) Comments: PATIENT WAS FASTINGPERFORMED BY: simfy [facility] [id number] Microscopic Examination See below: (Normal) Comments: Microscopic was indicated and was performed. Nitrite, Urine Positive (Abnormal) Urobilinogen,Semi-Qn 0.2 mg/dL (Normal) Range: 0.2-1.0 Bilirubin Negative (Normal) Occult Blood Negative (Normal) Ketones Negative (Normal) Glucose Negative (Normal) Protein Negative (Normal) WBC Esterase 2+ (Abnormal) Appearance Clear (Normal) Urine-Color Yellow (Normal) pH 6.0 (Normal) Range: 5.0-7.5 Specific Channing 1.020 (Normal) Range: 1.005-1.030 45-Mtz-226539:56 MICROALBUMIN: CREATININE RATIO Comments: PATIENT WAS FASTINGPERFORMED BY: Mazree Pfsexa9537 [facility] [id number] (93224) AND (35950) Microalb/Creat Ratio 5.1 {mg/g_creat} (Normal) Range: 0.0-30.0 Microalbumin, Urine 4.2 ug/mL (Normal) Creatinine, Urine 82.7 mg/dL (Normal) 73-Anj-432653:56 METABOLIC PANEL, COMPREHENSIVE Comments: PATIENT WAS FASTINGPERFORMED BY: [facility]6370 [facility] [id number] (36045) ALT (SGPT) 11 [iU]/L (Normal) Range: 0-32 [...] Glucose, Serum 111 mg/dL (Abnormal) Range: 65-99 02-Lqv-267212:56 CBC W/AUTO DIFF WBC (07092) Comments: PATIENT WAS FASTINGPERFORMED BY: [facility]CoAtl[facility]Care [facility] CampusEoypba1446 [facility] [id number] Immature Grans (Abs) 0.0 {x10E3/uL} (Normal) Range: [...] B-12 (CYANOCOBALAMIN) Comments: PATIENT WAS FASTINGPERFORMED BY: [facility]CoAtlantiCare [facility] CampusQstgbu0976 [facility] [id number] (77973) Vitamin B12 533 pg/mL (Normal) Range: 211-946 54-Xhg-798586:33 HgA1C , Office (56652) HgA1C , Office 5.9 % (Normal) Range: 4.6 - 7.1 43-Qhi-849316:33 Blood Glucose , Office (26906) Blood Glucose , Office 118 (Normal) :17 Hemoglobin A1c Comments: [facility] [address] [place], [address] HGB A1C 6.1 % (Normal) Range: 4.2-6.3 :17 Thyroid Stim Hormone (TSH) Comments: [facility] [address] [place], [address] TSH 2.57 {uIU/mL} (Normal) Range: 0.358-3.74 :17 Vitamin D,25 Hydroxy Comments: [facility] [address] [place], [address] Vitamin D 25-OH 28.0 ng/mL (Normal) Comments: Vitamin D 25(OH) Status Range Deficiency <20 ng/mL (50nmol/L) Insuffciency 20 - 30 ng/mL (50 - 75 nmol/L) Sufficiency 30 - 100 ng/mL (75 - 250 nmol/L) Toxicity >100 ng/mL (>250 nmol/L) 72-Czx-918000:16 Comprehensive Metabolic Profil Comments: Test performed at:[facility] Fcwvcoehey[address] [place] [address] GAP 10 (Normal) Range: 5-15 CO2 [...] 7-18 GLU 101 mg/dL (Normal) Range: 70-110 72-Kth-273436:16 Hemoglobin A1c Comments: Test performed at:[facility] [address] [place] [address] HGB A1C 6.1 % (Normal) Range: 4.2-6.3 36-Pqz-299937:16 Lipid Profile Comments: Test performed at:[facility] [address] [place] [address] ; non-emergent till apt VLDL 27 [...] 200-240 mg/dL Borderline >240 mg/dL High Risk 50-Vqb-959243:16 Microalb:Creat Ratio,Random UR Comments: Test performed at:[facility] I[address] [place] [address] MALB:CREAT 5.2 {mg/g_CRE} (Normal) MICROALBUMIN,UR 10.0 mg/L (Normal) UR CREAT 189.2 mg/dL (Normal) 63-Fhc-593991:16 Vitamin B12 438 pg/mL (Normal) Comments: Test performed at:[facility] [address]ms[address] [place] [address] Range: 211-911 9-Fyp-268294:11 HgA1C , Office (22114) HgA1C , Office 6.5 % (Normal) Range: 4.6 - 7.1 :07 CBC W/Diff, Automated Comments: Test performed at:[facility] [address]kzod[address] [place] [address] Absolute Lymph 2.36 {X10_3/ul} (Normal) Range: 0.83-4.51 [...] 4.2-5.4 WBC 7.5 K/mm3 (Normal) Range: 4.4-11.0 9-Wdl-759607:07 Comprehensive Metabolic Profil Comments: Test performed at:[facility] [address] [place] [address] GAP 5 (Normal) Range: 5-15 [...] 70-110 :07 Lipid Profile Comments: Test performed at:[facility] [address] [place], [place] [address] VLDL 52 mg/dL (Abnormal) Range: 5-40 LDL [...] 200-240 mg/dL Borderline >240 mg/dL High Risk 3-Qve-058059:07 Vitamin B12 740 pg/mL (Normal) Comments: Test performed at:[facility] [address]xsseo[address] [place] [address] Range: 211-911 :26 Rapid Flu (49192 x 2) Influenza A Ag negative (Normal) :31 HgA1C , Office (41423) HgA1C , Office 6.2 % (Normal) Range: [...] CHOL 204 mg/dL (Abnormal) Comments: <200 mg/dL Jfdwnatut361-053 mg/dL Borderline>240 mg/dL High Risk :43 CMP [...] CHOL 174 mg/dL (Normal) Comments: <200 mg/dL Smyxyqjdm832-501 mg/dL Borderline>240 mg/dL High Risk HDL 50 mg/dL (Normal) Comments: Reference RangeHDL <40 mg/dL Low HDL CholesterolHDL >or= 60 mg/dL High HDL Cholesterol LDL 105 mg/dL (Normal) Range: 0-130 TRIG 96 mg/dL (Normal) Range: 0-199 Comments: Serum Triglycerides Reference IntervalNormal <150 mg/dLBorderline high 150 - 199 mg/dLHigh 200 - 499 mg/ dLVery High > or = 500 mg/dL 91-Byd-832781:54 B12 419 pg/mL (Normal) Range: 211-911 :54 [...] electrophoresis scan will follow via computer,mail, or inspector [employer] delivery. tPROELAG 1.2 (Normal) Range: 0.7-2.0 tPROELGL 3.2 g/dL (Normal) Range: 2.0-4.5 tPROELMS (Normal) Comments: Not Observed tPROELGA 0.8 g/dL (Normal) Range: 0.5-1.6 tPROELBE 1.1 g/dL (Normal) Range: 0.6-1.3 tPROELAL2 1.0 g/dL (Normal) Range: 0.4-1.2 tPROELAL1 0.2 g/dL (Normal) Range: 0.1-0.4 tPROELALB 3.8 g/dL (Normal) Range: 3.2-5.6 $tPROELTP 7.0 g/dL (Normal) Range: 6.0-8.5 :54 PROELU [id number] Comment (Normal) Comments: Protein electrophoresis scan will follow via computer,mail, or inspector [employer] delivery.Performed at: [address] [id number] Director: Marvin Cárdenas MD, Phone: [phone] tPROELUMS (Normal) Comments: Not Observed tPROELUGA 21.8 % (Normal) tPROELUBE 23.8 % (Normal) tPROELUAL2 15.7 % (Normal) tPROELUAL1 3.9 % (Normal) tPROELUALB 34.7 % (Normal) tPROELUTP 13.1 mg/dL (Normal) Range: 0.0-15.0 81-Ufu-182994:54 SED tSEDRATE 36 mm/h (Abnormal) Range: 0-30 66-Cgq-045683:33 Rapid Strep Test, Office (31278) Rapid Strep Test, Office Negative (Normal) 50-Buz-26905:43 DEE DEE CULTURE-OTHER (00598) Comments: PATIENT NOT FASTINGPERFORMED BY: NIK [facility] Kjas[address] [place] [id number] Information: SRC:THRT [id number] Result 1 RRF (Normal) Comments: Routine respiratory clayton Upper Respiratory Culture Final report (Normal) 15-Ugt-122947:25 HgA1C , Office (06874) HgA1C , Office 6.0 % (Normal) Range: [...] CHOL 219 mg/dL (Abnormal) Comments: <200 mg/dL Bsbccczyq466-193 mg/dL Borderline>240 mg/dL High Risk :45 MISC (Normal) Comments: Test(s) Ordered: INTRINSIC FACTOR BLOCKING AB [id number] SERUM REFR Comments: TEST RESULT LIMITSIntrinsic Factor Abs, Serum Negative Negative TESTING PERFORMED AT [facility]. ORIGINAL REP ORT ONFILE IN LAB CONTAINS ADDITIONAL TEST SITE INFORMATION. 41-Rjq-49688:45 SED tSEDRATE 37 mm/h (Abnormal) Range: 0-30 07-Zyu-545578:36 Nuclear Stress Test Radiology Report See Note [...] The patient was injected with 44.5 mCi ihVh91g Cardiolite and subsequently stress SPECT Card iolite [...] 01/08/13 1327 Sign by: Jacques Begum MD 56-Xfw-32949:06 BILAT SCRN DIGITAL & CAD Radiology Report [...] Forde M.D.January 13, 2013 at 12:46:14 PM [id number] Signed GP/GP If you are the referring physician and wou ld like to consult with theradiologist who provided this interpretation, please contact Brittanie Khalil at [phone]. If this radiologist is unavailable, youwill be directed to another radiol ogist to assist. If you are a patient with a question regarding this report, pleasecontactyour referring physician directly. Professional Interpretation Provided By: [employer], Phone ,Fa x [phone] These documents contain legally protected and confidential [...] CHOL 181 mg/dL (Normal) Comments: <200 mg/dL Usaiejrfj032-658 mg/dL Borderline>240 mg/dL High Risk HDL 40 [...] Indication: Impaired Fasting Glucose Planned Observations CALCIFIDIOL (72010) VIT D 25Indication: Vitamin D deficiency On: :40 Request TSH (10120)Indication: Diabetes mellitus type II, controlled, with no complications On: :40 Request URINALYSIS, W/ MICRO (19206)Indication: Diabetes mellitus type II, controlled, with no complications On: :40 Request MICROALBUMIN: CREATININE RATIO (95393) AND (25143)Indication: Diabetes mellitus type II, controlled, with no complications On: :40 Request METABOLIC PANEL, COMPREHENSIVE (78366)Indication: Diabetes mellitus type II, controlled, with no complications On: :40 Request LIPOPROTEIN, BLD, BY NMR (04983)Indication: Hypercholesteremia (Renamed from Hypercholesterolemia) On: :40 Request CBC W/AUTO DIFF WBC (71694)Indication: Diabetes mellitus type II, controlled, with no complications On: :40 Request LIPID PANEL ([id number])Indication: Diabetes mellitus type II, controlled, with no complications On: 91-Ati-011426:25 Request URINALYSIS, W/ MICRO ([id number])Indication: Diabetes mellitus type II, controlled, with no complications On: 90-Fwn-852601:56 Request URINALYSIS, W/ MICRO (55063)Indication: Diabetes mellitus type II, controlled, with no complications On: 90-Onh-502191:56 Request MICROALBUMIN: CREATININE RATIO (72214) AND (49142)Indication: Diabetes mellitus type II, controlled, with no complications On: 57-Dzg-036939:56 Request VITAMIN B-12 (CYANOCOBALAMIN) (72956)Indication: B12 deficiency On: 82-Oil-724978:49 Request TSH ([id number])Indication: Diabetes mellitus type II, controlled, with no complications On: 97-Idn-598408:47 Request URINALYSIS, W/ MICRO (13939)Indication: Diabetes mellitus type II, controlled, with no complications On: 55-Xtr-141665:47 Request MICROALBUMIN: CREATININE RATIO (91484) AND (56184)Indication: Diabetes mellitus type II, controlled, with no complications On: 88-Lwy-697810:47 Request METABOLIC PANEL, COMPREHENSIVE (89642)Indication: Diabetes mellitus type II, controlled, with no complications On: :47 Request CBC W/AUTO DIFF WBC (49935)Indication: Diabetes mellitus type II, controlled, with no complications On: :47 Request CALCIFIDIOL (25488) VIT D 25Indication: Vitamin D deficiency On: :47 Request LIPID PANEL (24503)Indication: Hypercholesteremia (Renamed from Hypercholesterolemia) On: :47 Request HGB A1C (26924)Indication: Common cold virus On: 85-Iii-924804:46 Request CALCIFEDIOL (60359)Indication: Hair loss On: 81-Sdr-889242:39 Request TSH (THYROID STIMULATING HORMONE) (70605)Indication: Hair loss On: 63-Vft-041489:35 Request VITAMIN B-12 (CYANOCOBALAMIN) (58366)Indication: B12 deficiency On: 1-Sih-358301:02 Request LIPID PANEL (04525)Indication: Hyperlipidemia On: 6-Ccx-303662:01 Request MICROALBUMIN: CREATININE RATIO (98877) AND (12082)Indication: Diabetes mellitus type II, controlled, with no complications On: 0-Zto-166375:56 Request METABOLIC PANEL, COMPREHENSIVE (69467)Indication: Diabetes mellitus type II, controlled, with no complications On: 5-Mub-411246:56 Request Hemoglobin Glyclated (HGB A1C) (91720)Indication: Diabetes mellitus type II, controlled, with no complications On: 2-Qfg-356276:56 Request VITAMIN B-12 (CYANOCOBALAMIN) (99429)Indication: B12 deficiency On: 25-Iaj-848787:07 Request CBC W/AUTO DIFF WBC ([id number])Indication: B12 deficiency On: 59-Hio-796001:06 Request METABOLIC PANEL, COMPREHENSIVE ([id number])Indication: Elevated blood-pressure reading without diagnosis of hypertension On: 00-Qjf-959062:06 Request LIPID PANEL (66921)Indication: Hyperlipidemia On: 47-Xhg-305151:06 Request CBC WITH MANUAL DIFF (84601)Indication: Impaired Fasting Glucose On: 91-Zyl-354282:40 Request METABOLIC PANEL, COMPREHENSIVE (92052)Indication: Impaired Fasting Glucose On: 02-Okv-755183:40 Request LIPID PANEL (03682)Indication: Hyperlipidemia On: 37-Gyn-734724:40 Request VITAMIN B-12 (CYANOCOBALAMIN) (49674)Indication: B12 deficiency On: 21-Tki-207639:39 Request HgA1C , Office (89335)Indication: Impaired Fasting Glucose On: 37-Cqz-858025:13 Request METABOLIC PANEL, COMPREHENSIVE (34974)Indication: Impaired Fasting Glucose On: 7-Ktw-066320:40 Request LIPID PANEL (00627)Indication: Hyperlipidemia On: 3-Tan-942590:40 Request SED RATE ERYTHROCYTE (55805)Indication: Abnormal blood chemistry On: 58-Ksc-010714:37 Request C-REACTIVE PROTEIN (84855)Indication: Abnormal blood chemistry On: 70-Msw-707960:37 Request VITAMIN B-12 (CYANOCOBALAMIN) (17893)Indication: B12 deficiency On: 75-Nes-368539:37 Request UPEP ([id number])Indication: Abnormal blood chemistry On: 21-Lzp-183582:37 Request Protein Electrophoresis, Serum (SPEP) ([id number])Indication: Abnormal blood chemistry On: 26-Fnc-935092:37 Request LIPID PANEL (20100)Indication: Hyperlipidemia On: 9-Drd-340479:04 Request CBC WITH MANUAL DIFF ([id number])Indication: Impaired Fasting Glucose On: 2-Cht-267690:04 Request METABOLIC PANEL, COMPREHENSIVE ([id number])Indication: Impaired Fasting Glucose On: 5-Luv-931313:04 Request SED RATE ERYTHROCYTE ([id number])Indication: Pain in unspecified joint On: 44-Ttp-271519:57 Request C-REACTIVE PROTEIN (13350)Indication: Pain in unspecified joint On: 09-Vmq-526948:57 Request INTRINSIC FACTOR ANTBDY (09566)Indication: B12 deficiency On: 19-Mps-484895:36 Request VITAMIN B-12 (CYANOCOBALAMIN) ([id number])Indication: B12 deficiency On: 21-Htl-419787:35 Request HgA1C , Office (65142)Indication: Impaired Fasting Glucose On: 51-Azn-118993:15 Request VITAMIN B-12 (CYANOCOBALAMIN) (78215)Indication: Paresthesia On: 4-Uix-517236:17 Request SED RATE ERYTHROCYTE (71506)Indication: Pain in unspecified joint On: :16 Request C-REACTIVE PROTEIN ([id number])Indication: Pain in unspecified joint On: :16 Request TSH ([id number])Indication: Pain in unspecified joint On: :16 Request RHEUMATOID FACTOR-QUANT (20629)Indication: Pain in unspecified joint On: :16 Request ROSHNI (ANTINUCLEAR ANTIBODY) (51374)Indication: Pain in unspecified joint On: :16 Request CBC WITH MANUAL DIFF ([id number])Indication: Pain in unspecified joint On: :16 Request METABOLIC PANEL, COMPREHENSIVE (96786)Indication: Pain in unspecified joint On: :16 Request LIPID PANEL ([id number])Indication: SHORTNESS OF BREATH On: :16 Request CBC WITH MANUAL DIFF ([id number])Indication: SHORTNESS OF BREATH On: :16 Request METABOLIC PANEL, COMPREHENSIVE ([id number])Indication: SHORTNESS OF BREATH On: :16 Request Planned Encounters Medical; 3 Month FU - On: 16-Jun-2018 13:15 [facility] Korin Glass DO, DO, Kathleen Planned Procedures SCREENING DIGITAL TOMOSYNTHESIS OF On: 10-Mar-2018 Intent BREAST ([id number])By: Korin Glass DO, DO, Kathleen Flu Vaccine (Quadrivalent) 30039Hn: On: 10-Mar-2018 Intent Korin Glass DO, DO, Comments: Lot #[id number] Exp-11/23/18Site-L dltd, IMDose prefilled syringegiven by: Lyudmila JCVIS reviewed and ABN signed Korin B 12 Injection, 1000 mcg ([id number])By: On: 10-Mar-2018 Intent Korin Glass DO, DO, Comments: 1 ml given rt dltd [id number] 07/2018 Korin B 12 Injection, 1000 mcg (J3420)By: On: 04-Nov-2017 Intent Korin Glass DO, DO Korin B 12 Injection, 1000 mcg (J3420)By: On: 08-Jul-2017 Intent Maria Luisa DO, Korin Maria Luisa DO, Comments: lot: [id number]: 8/18site/route: L del/IMamt: 1mLVIS signed when 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, 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 Korin ELECTROCARDIOGRAM, COMPLETE (ECG) On: 08-Jul-2017 Intent ([id number])By: Korin Glass DO Comments: nsr no acute chg Maria Luisa DO, Korin Aerosol Treatment (45423)By: Ti On: 05-Jun-2017 Intent Glenys BARBOSA ELECTROCARDIOGRAM, COMPLETE (ECG) On: 06-May-2017 Intent ([id number])By: Maria LuisaKorin sarabia DO Comments: nsr mary cute chg Maria Luisa DO, Korin B 12 Injection, 1000 mcg (J3420)By: On: 06-May-2017 Intent Maria Luisa DO, Korin Maria Luisa DO, Comments: lot: [id number]: 07/15site/route: L del/IMamt: 1mLVIS signed when 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, [facility] Korin Flu Vaccine (Quadrivalent) 81151Xa: On: 06-May-2017 Intent Maria Luisa DO, Korin Maria Luisa DO, Comments: lot: [id number]: 11/11/18site/route: R linda, IMamt: 0.5mlVIS and ABN signed when 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, 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 Korin B 12 Injection, 1000 mcg (J3420)By: On: 24-Dec-2016 Intent Maria Luisa DO, Korin Maria Luisa DO, Comments: lot: [id number]: 818site/route: L del/IMamt: 1mLVIS signed when 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, 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 Korin B 12 Injection, 1000 mcg (J3420)By: [...] DOKorin ELECTROCARDIOGRAM, COMPLETE (ECG) On: 06-Mar-2016 Intent ([id number])By: Korin Glass DO Comments: nsr no acute cgh Korin Glass DO Flu Vaccine (Quadrivalent) 78953Fs: On: 17-Feb-2016 Intent Trini Murphy DO ADMINISTRATION OF INFLUENZA VIRUS On: 17-Feb-2016 Intent VACCINE ([id number])By: Trini Murphy DO Comments: Lot #:[id number] date:4-26-65Mpvnxb given:0.5mlRoute: IMSite given:L DltdGiven by: Greta and ALEXSANDER signed [employer] Aerosol Treatment (75509)By: Maria Luisa On: 03-Jun-2015 Intent , Korin Glass DO Korin Comments: STILL NOISEY BUT MUCH BETTER Inhaler Demo (60537)By: Maria Luisa DASH, On: 03-Jun-2015 Intent Korin Maria Luisa DASHKorin Radiology - Chest- PA and LatBy: On: 03-Jun-2015 Intent Maria Luisa DASH, Korin Glass DOKorin Flu Vaccine (Quadrivalent) 19085Dw: On: 12-Apr-2015 Intent Glenys Luke CNP Comments: lot: [id number]:5*2015site:Lt deltoidroute:IMdose:.5mlDEMICK, SMA Radiology - ChestBy: Trini Murphy DO On: 09-Aug-2014 Intent A Comments: PA & LAT- Do in 1 month Spirometry ([id number])By: Jeffrey DASH, On: 02-Aug-2014 Intent Trini Benavidez Comments: good effort small but good curve- mod restrciton Radiology - Chest- PA and LatBy: On: 02-Aug-2014 Intent Trini Murphy DO Pulse Oximetry (07515)By: Jeffrey DASH On: 02-Aug-2014 Intent Trini Benavidez Comments: 96% Radiology - ChestBy: Trini Murphy DO On: 12-Jul-2014 Intent A Comments: PA and LAT Radiology - Chest- PA and LatBy: On: 12-Jul-2014 Intent Trini Murphy DO Comments: stat Aerosol Treatment ([id number])By: Jeffrey On: 12-Jul-2014 Intent Trini DASH Pulse Oximetry (90828)By: Jeffrey DASH, On: 12-Jul-2014 Intent Trini Benavidez Comments: 93% Prevnar 13 (26779)By: Moris MOSQUEDA, On: 26-Mar-2014 Intent Geraldine Comments: [id number] arm, IMAS Flu Vaccine (Quadrivalent) 28286Vk: On: 26-Mar-2014 Intent Geraldine Subramanian LPN ADMINISTRATION OF INFLUENZA VIRUS On: 26-Mar-2014 Intent VACCINE (G0008)By: Geraldine Subramanian LPN Comments: [id number] syringeL Dltd, IMAS, LPNABN and VIS signed MAMMOGRAM, SCREENING, BOTH BREAST On: 15-Feb-2014 Intent ([id number])By: Trini Murphy DO B 12 Injection, 1000 mcg (J3420)By: On: 29-Dec-2013 Intent Trini Murphy DO Comments: lot: [id number]: 02/07site/route: L del/IMamt: 1mLVIS signed when 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, [facility] B 12 Injection, 1000 mcg (J3420)By: On: 20-Nov-2013 Intent Trini Murphy DO Comments: Lot:[id number]:Dose:1mlRoute:IMSite:rafita Herrven By:ERICA signed B 12 Injection, 1000 mcg (J3420)By: On: 16-Nov-2013 Intent Trini Murphy DO Comments: Lot:[id number]:07/2015Dose:1mlRoute:IMSite:rafita Herrven By:ERICA signed B 12 Injection, 1000 mcg (J3420)By: On: 12-Oct-2013 Intent Trini Murphy DO Comments: Lot:[id number]:07/12Dose:1mlRoute:IMSite:rafita Hart By:ERICA signed Eprescribed prescriptions (G8553)By: On: 12-Oct-2013 Intent Fast DO, Trini A B 12 Injection, 1000 mcg (J3420)By: On: 08-Apr-2013 Intent Antonia Villeda Comments: Lot:[id number]:01/08Dose:1mlRoute:IMSite:l Carmenzaven By:ERICA signed B 12 Injection, 1000 mcg (J3420)By: On: 01-Apr-2013 Intent Fast DO, Trini A Comments: Lot:[id number]:01/08Dose:1mlRoute:IMSite:r farazGiven By:Lawrence signed B 12 Injection, 1000 mcg (J3420)By: On: 25-Mar-2013 Intent Fast DO, Trini A Comments: lot: [id number]: 01/08site/route: L deltoid/IMamt: 1mLVIS signed when 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, 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 B 12 Injection, 1000 mcg (J3420)By: On: 17-Mar-2013 Intent Fast DO, Trini A Comments: Lot:[id number]:08/2014Dose:1mlRoute:IMSite:rafita Hart By:ERICA signed Nuclear Stress Test/Stress On: 29-Dec-2012 Intent SPECT/TreadmillBy: Jeffrey DO, Trini A EKG (36253)By: Radha Ca On: 29-Dec-2012 Intent Comments: ekg showed normal sinus rhythym, normal axis, no acute st/t wave changes Spirometry ([id number])By: Roby, On: 29-Dec-2012 Intent Radha Comments: good effort and curve no obst MAMMOGRAM, SCREENING, BOTH BREASTS On: 29-Dec-2012 Intent (81378)By: Trini Murphy DO A TDAP VACCINE >7 IM (29260)By: On: 29-Dec-2012 Intent Radha Ca Planned Medications [...] products, soaps, makeup, laundry soap, eye glass grinder.Encounter Diagnosis: Non-smoker, BMI 40.0-44.9, adult, Itch of [...] Onset was 2 w End: 24-Mar-2015 14:52 [place](s) ago. There is no known event that [...] to listen to her lungs. 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
--- OUTSIDE RECORDS SUMMARY | 2018-06-21 18:25 | XMS RPT_ITS | Continuity of Care Document ---
:1945 Author Organization [facility] Address [facility] [facility] [address] [place] [address] Phone Care Team Providers Name Role Phone Korin Glass DO Unavailable Dr. Mike Cole Unavailable Dr. Ousmane Morgan Unavailable Jeffrey Trini DASH Unavailable Gravius, Larisa Unavailable Unavailable PANDA Matias Unavailable Unavailable Ciesa ROTARY SWAGING MACHINE OPERATOR, Chiquita Unavailable Unavailable Unavailable Problems Name Dates [...] Status: Resolved as of 28-Jul-2014 Vaccine for mjilvqxzyf-fubprvl-kunjbxjhn with poliomyelitis (Z23, V06.3) Status: Inactive as [...] orthoscopic Completed Date Value Details 03-Jun-2015 Spirometry (49992) Comments: OBSTRUCTION PRESNET Result: 24-Nov-2014 Spirometry (06453) Comments: good effor tand curve normal Result: 20-Sep-2014 Chest PA and Lateral Result: Comments: See Note; NOTES: [facility] Imaging Services [address] [place] [address] Radiology Report MR#: [id number] Acct: [id number] Name: HAYDEE BOSS Rep #: [id number] : 1945 F 69 From: Jorge Mckeon DO PCP: Trini Murphy DO Status: REG CLI Study: Chest PA and Lateral Date of Exam: 09/20/14 Exam# [id number] Ordering Dr: Trini Mruphy DO STUDY: X-RAY CHES T REASON FOR [...] Jorge Mckeon DO at 20:56 EDT Tel [phone], Service support [phone], RAD/Ch est PA and Lateral IMPRESSION: No acute cardiopulmonary disease. Electronically Signed: Jorge Mckeon DO at 20:56 EDT Tel [phone], Service support [phone], CC: Trini Murphy DO Incident Response Analyst: Signed 09-Aug-2014 Chest PA and Lateral Result: Comments: See Note; NOTES: [facility] Imaging Services [address] [id number] Radiology Report MR#: [id number] Acct: [id number] Name: HAYDEE BOSS Rep #: [id number] : 1945 F 68 From: Zander Cornelius MD PCP: Trini Murphy DO Status: REG CLI Study: Chest PA and Lateral Date of Exam: 08/09/14 Exam# [id number] Ordering Dr: Trini Murphy DO STUDY: X-RAY [...] at 12:56 EDT Tel , Service support [phone], RAD/Chest PA and Lat eral IMPRESSION: Near complete resolution of previously described right middle and right lower lobe infiltrate. Followup recommended to assure complete resolution. Electronically Signed: Juan Cornelius MD at 12:56 EDT Tel , Service support [phone], CC: Trini Murphy DO Incident Response Analyst: Signed 12-Jul-2014 Chest PA and Lateral Result: Comments: See Note; NOTES: [facility] Imaging Services [address] [place] [address] Radiology Report MR#: [id number] Acct: [id number] Name: HAYDEE BOSS Rep #: [id number] : 1945 F 68 From: Oracio Mccollum MD PCP: Trini Murphy DO Status: REG CLI Study: Chest PA and Lateral Date of Exam: 07/12/14 Exam# [id number] Ordering Dr: Trini Murphy DO STUDY: X-RAY [...] at 15:46 EST Tel , Service support [phone], CC: Trini Murphy DO Incident Response Analyst: Signed 26-Mar-2014 Bilat Scrn Digital & CAD Result: Comments: See Note; NOTES: [facility] Imaging Services [address] [place] [address] Breast Imaging Report MR#: [id number] Acct: [id number] Name: HAYDEE BOSS Rep #: [id number] : 1945 F 68 From: Melchor Forde MD PCP: Trini Murphy DO Status: REG CLI Exam# [id number] Ordering Dr: Trini Murphy DO MAMMOGRAPHY - [...] Forde MD at 12: 54 EDT Tel [phone], Service support [phone], CC: Trini Murphy DO Incident Response Analyst: Signed Family History Unknown Family Member Name [...] Most Recent Primary Occupation Comments: works at [employer]- at [employer]- with 3 children - has 11 [...] kg/m2 Body Surface Area Calculated 2.1 m2 81-Qiz-008077:15 Pulse 86 /min Comments: Pattern: Regular Respiration [...] Description Value Details :48 HgA1C , Office (34814) HgA1C , Office 5.7 % (Normal) Range: 4.6 - 7.1 :48 Blood Glucose , Office (40504) Blood Glucose , Office 78 (Normal) :42 POTASSIUM SERUM (69621) Comments: PATIENT NOT FASTINGPERFORMED BY: [facility] Jlfvwl9983 [facility] [id number] Potassium 4.7 mmol/L (Normal) Range: 3.5-5.2 86-Ckv-59770:16 Pathology Report Comments: PERFORMED BY: KALEE Bartholomew Xljj3833 [facility] [id number] BY: [facility] Dermatopathology Hczrrdr615 [facility] [address] 4020 [id number] 670Clinical Information: [id number] See MATER Comments: Material submitted: .LEFT SIDE [...] FUNGAL HYPHAE.Pathologist provided ICD- 10:D48.5, L98.499, L08.9CPT .909165, 477368 79-Ogp-231195:59 POTASSIUM SERUM (68067) Comments: PATIENT NOT FASTINGPERFORMED BY: [facility]6370 [facility] [id number] Potassium 5.3 mmol/L (Abnormal) Range: 3.5-5.2 26-Ikt-342772:04 POTASSIUM SERUM (87034) Comments: PATIENT NOT FASTINGPERFORMED BY: [place] 2364870 [facility] [id number] Potassium 5.4 mmol/L (Abnormal) Range: 3.5-5.2 83-Wbh-127065:01 HgA1C , Office (60921) HgA1C , Office 6.1 % (Normal) Range: 4.6 - 7.1 73-Mze-448768:01 Blood Glucose , Office (41077) Blood Glucose , Office 89 (Normal) 5-Dlm-655441:51 Microscopic Examination Comments: PATIENT WAS FASTINGPERFORMED BY: [place] 728427 [facility] [id number] BY: [place] 2364870 [facility] [id number] Bacteria Few (Normal) Mucus Threads Present (Normal) Epithelial Cells (non renal) 0-10 {/hpf} (Normal) Range: 0 - 10 RBC 0-2 {/hpf} (Normal) Range: 0 - 2 WBC 11-30 {/hpf} (Abnormal) Range: 0 - 5 Comments: Clumps of leukocytes present. 4-Out-800370:51 CALCIFEDIOL (45040) Comments: PATIENT WAS FASTINGPERFORMED BY: [facility] Vpkkqidfle5614 [facility] [id number] BY: [facility] Ydwfdh6896 Edwards RoadDublin [place] [id number] Vitamin D, 25-Hydroxy 31.8 ng/mL (Normal) Range: 30.0-100.0 Comments: Vitamin D deficiency has been defined by the [place] ofAsht[facility] General Hospitalcine and an Endocrine Society practice guideline as alevel of serum 25-OH vitamin D less than 20 ng/mL (1,2).The Endocrine Society went on to further define vitamin Dinsufficiency as a level between 21 and 29 ng/mL (2).1. IOM ([place] of Medicine). 2010. Dietary reference intakes for calcium and D. [place]: The National Academies Press.2. Gael MF, Tiffany HEART, Sandee MADRID, et al. Evaluation, treatment, and prevention of vitamin D deficiency: an Endocrine Society clinical practice guideline. JCEM. 2010; 96(7):1911-30. 2-Myo-919787:51 VITAMIN B-12 (CYANOCOBALAMIN) Comments: PATIENT WAS FASTINGPERFORMED BY: [facility] Dtmewucykc[address] [id number] BY: [facility] Ybuwmx4529 Edwards RoadDublin [place] [id number] (62701) Vitamin B12 566 pg/mL (Normal) Range: 232-1245 3-Oky-214014:51 TSH (48202) Comments: PATIENT WAS FASTINGPERFORMED BY: [facility] Amagfoojun996[address] [id number] BY: [facility] Tzsuib3391 Edwards RoadDublin [place] [id number] TSH 1.520 {uIU/mL} (Normal) Range: 0.450-4.500 9-Ouj-948662:51 URINALYSIS, W/ MICRO Comments: PATIENT WAS FASTINGPERFORMED BY: [facility] [address] [id number] BY: CB [facility] Pflcjz5315 Edwards RoadDublin [place] [id number] (26569) Microscopic Examination See below: (Normal) Comments: Microscopic was indicated and was performed. Nitrite, Urine Negative (Normal) Urobilinogen,Semi-Qn 0.2 mg/dL (Normal) Range: 0.2-1.0 Bilirubin Negative (Normal) Occult Blood Negative (Normal) Ketones Negative (Normal) Glucose Negative (Normal) Protein Negative (Normal) WBC Esterase 3+ (Abnormal) Appearance Clear (Normal) Urine-Color Yellow (Normal) pH 7.5 (Normal) Range: 5.0-7.5 Specific Ackley 1.015 (Normal) Range: 1.005-1.030 1-Lve-563169:51 MICROALBUMIN: CREATININE Comments: PATIENT WAS FASTINGPERFORMED BY: [employer] [id number] BY: LiquidPistonMesilla Valley HospitalFqpmxj5439 [facility] [id number] RATIO (66714) AND (12071) Alb/Creat Ratio 7.7 {mg/g_creat} (Normal) Range: 0.0-30.0 Albumin, Urine 6.0 ug/mL (Normal) Creatinine, Urine 77.6 mg/dL (Normal) 6-Xkh-493929:51 METABOLIC PANEL, Comments: PATIENT WAS FASTINGPERFORMED BY: [employer] [id number] BY: NeuroChaos SolutionsNewton Medical CenterHfyrvu7894 [facility] [id number] COMPREHENSIVE (50343) ALT (SGPT) 9 [iU]/L (Normal) Range: 0-32 [...] 8-27 Glucose 102 mg/dL (Abnormal) Range: 65-99 6-Fny-694037:51 LIPOPROTEIN, BLD, BY NMR Comments: PATIENT WAS FASTINGPERFORMED BY: BN [facility] [address] [id number] BY: CB [facility] [address] [id number] (98806) LP-IR Score 79 (Abnormal) Comments: INSULIN RESISTANCE MARKER <--Insulin Sensitive Insulin Resistant--> Percentile in Reference PopulationInsulin Resistance ScoreLP-IR Score Low 25th 50th 75th High <27 27 45 63 >63LP-IR Score is inaccurate if patient is non-fasting. .The LP-IR score is a laboratory developed i [facility] that has beenassociated with insulin resistance and [...] were developed and their performance characteristicsdetermined by [employer]. These assays have not been cleared by [...] 1600 - 2000 Very High > 2000 8-Hnd-695684:51 CBC W/AUTO DIFF WBC Comments: PATIENT WAS FASTINGPERFORMED BY: BN [facility] [address] [id number] BY: CB [facility] Wjooir7769 [facility] [id number] (55974) Immature Grans (Abs) 0.0 {x10E3/uL} (Normal) Range: [...] (Normal) Range: 3.4-10.8 :02 HgA1C , Office (67686) HgA1C , Office 6.0 % (Normal) Range: 4.6 - 7.1 :02 Blood Glucose , Office (96418) Blood Glucose , Office 141 (Normal) :48 HgA1C , Office (00224) HgA1C , Office 6.0 % (Normal) Range: 4.6 - 7.1 :48 Blood Glucose , Office (63913) Blood Glucose , Office 94 (Normal) :26 TSH (04343) Comments: PATIENT WAS FASTINGPERFORMED BY: LabCoNewton Medical CenterLqkeaj9764 [facility] [id number] TSH 2.090 {uIU/mL} (Normal) Range: 0.450-4.500 31-Lis-798048:26 METABOLIC PANEL, COMPREHENSIVE Comments: PATIENT WAS FASTINGPERFORMED BY: [facility]6370 [facility] [id number] (55552) ALT (SGPT) 11 [iU]/L (Normal) Range: 0-32 [...] Glucose, Serum 100 mg/dL (Abnormal) Range: 65-99 18-Ayf-896540:26 CBC W/AUTO DIFF WBC (32870) Comments: PATIENT WAS FASTINGPERFORMED BY: [facility]6370 [facility] [id number] Immature Grans (Abs) 0.0 {x10E3/uL} (Normal) Range: [...] 3.77-5.28 WBC 7.3 {x10E3/uL} (Normal) Range: 3.4-10.8 97-Ktq-106222:26 VITAMIN B-12 (CYANOCOBALAMIN) Comments: PATIENT WAS FASTINGPERFORMED BY: [facility] Sfhioj7725 [facility] [id number] (81198) Vitamin B12 519 pg/mL (Normal) Range: 211-946 32-Asp-455146:26 CALCIFEDIOL (68500) Comments: PATIENT WAS FASTINGPERFORMED BY: [facility] Tgcmbz3116 [facility] [id number] Vitamin D, 25-Hydroxy 37.1 ng/mL (Normal) Range: 30.0-100.0 Comments: Vitamin D deficiency has been defined by the [place] ofMedicine and an Endocrine Society practice guideline as alevel of serum 25-OH vitamin D less than 20 ng/mL (1,2).The Endocrine Society went on to further define vitamin Dinsufficiency as a level between 21 and 29 ng/mL (2).1. IOM (Talpa of Medicine). 2010. Dietary reference intakes for calcium and D. [place]: The National Academies Press.2. Gael MF, Tiffany HEART, Sandee MADRID, et al. Evaluation, treatment, and prevention of vitamin D deficiency: an Endocrine Society clinical practice guideline. JCEM. 2010; 96(7):1911-30. :26 LIPID PANEL (57070) Comments: PATIENT WAS FASTINGPERFORMED BY: LabCoNewton Medical CenterVldtko0077 [facility] [id number] LDL/HDL Ratio 3.0 {ratio_units} (Normal) Range: 0.0-3.2 [...] (Abnormal) Range: 100-199 :18 HgA1C , Office (49826) HgA1C , Office 6.0 % (Normal) Range: 4.6 - 7.1 :18 Blood Glucose , Office (23375) Blood Glucose , Office 120 (Normal) :50 HgA1C , Office (52871) HgA1C , Office 6.2 % (Normal) Range: 4.6 - 7.1 :50 Blood Glucose , Office (05648) Blood Glucose , Office 104 (Normal) 92-Ddi-011022:10 CBC W/Diff, Automated Comments: [facility] [address] [place], [address] Absolute Lymph 2.49 {X10_3/ul} (Normal) [...] 4.2-5.4 WBC 7.2 K/mm3 (Normal) Range: 4.4-11.0 01-Ius-103424:10 Comprehensive Metabolic Profil Comments: [facility] [address] [place], [address] GAP 6 (Normal) Range: 5-15 [...] 7-18 GLU 96 mg/dL (Normal) Range: 70-110 89-Fzz-144266:10 Lipid Profile Comments: [facility] [address]cpzpi[address] [place], [place], [address] VLDL 31 mg/dL (Normal) Range: 5-40 LDL [...] 200-240 mg/dL Borderline >240 mg/dL High Risk 14-Kvk-158607:10 Microalb:Creat Ratio,Random UR Comments: [facility] [address]qvgsuzq[address] [place], [address] MALB:CREAT 12.5 {mg/g_CRE} (Normal) MICROALBUMIN,UR 15.4 mg/L (Normal) UR CREAT 123.00 mg/dL (Normal) 65-Xty-360977:10 Thyroid Stim Hormone (TSH) Comments: [facility] [address]khjjhntmx[address] [place], [address] TSH 2.34 {uIU/mL} (Normal) Range: 0.358-3.74 58-Ppf-361006:10 Urinalysis, Complete Comments: How was Urine Obtained? CLEAN [facility] Nnkezqnvki[address] [place], [address] MUCUS, URINE [...] CLARITY Sl. Cloudy (Normal) COLOR Yellow (Normal) 09-Mwv-065545:10 Vitamin B12 563 pg/mL (Normal) Comments: [facility] Bbbypymtcx[address] [place], [address] Range: 211-911 98-Qja-572379:10 Vitamin D,25 Hydroxy Comments: [facility] Pzyterjnrl[address] [place], [address] Vitamin D 25-OH 31.1 ng/mL (Normal) Comments: Vitamin D 25(OH) Status Range Deficiency <20 ng/mL (50nmol/L) Insuffciency 20 - 30 ng/mL (50 - 75 nmol/L) Sufficiency 30 - 100 ng/mL (75 - 250 nmol/L) Toxicity >100 ng/mL (>250 nmol/L) 09-Xjw-806583:21 HgA1C , Office (86566) HgA1C , Office 6.1 % (Normal) Range: 4.6 - 7.1 90-Ubr-088952:21 Blood Glucose , Office (85276) Blood Glucose , Office 100 (Normal) 87-Gcm-849383:56 Microscopic Examination Comments: PATIENT WAS FASTINGPERFORMED BY: AviirFormerly [facility] [id number] Bacteria Few (Normal) Mucus Threads Present (Normal) Epithelial Cells (non renal) 0-10 {/hpf} (Normal) Range: 0 - 10 RBC 0-2 {/hpf} (Normal) Range: 0 - 2 WBC 11-30 {/hpf} (Abnormal) Range: 0 - 5 14-Uwu-701424:56 LIPID PANEL (79725) Comments: PATIENT WAS FASTINGPERFORMED BY: [employer]6370 DivXFormerly [facility] [id number] LDL/HDL Ratio 2.6 {ratio_units} (Normal) Range: 0.0-3.2 [...] Cholesterol, Total 201 mg/dL (Abnormal) Range: 100-199 20-Wyy-686385:56 URINALYSIS, W/ MICRO (85904) Comments: PATIENT WAS FASTINGPERFORMED BY: [facility]Land [facility] Rptraa0330 [address] [facility] [id number] Microscopic Examination See below: (Normal) Comments: Microscopic was indicated and was performed. Nitrite, Urine Positive (Abnormal) Urobilinogen,Semi-Qn 0.2 mg/dL (Normal) Range: 0.2-1.0 Bilirubin Negative (Normal) Occult Blood Negative (Normal) Ketones Negative (Normal) Glucose Negative (Normal) Protein Negative (Normal) WBC Esterase 2+ (Abnormal) Appearance Clear (Normal) Urine-Color Yellow (Normal) pH 6.0 (Normal) Range: 5.0-7.5 Specific Ackley 1.020 (Normal) Range: 1.005-1.030 :56 MICROALBUMIN: CREATININE RATIO Comments: PATIENT WAS FASTINGPERFORMED BY: LiquidPistonNewton Medical CenterCvkryi7878 [facility] [id number] (05574) AND (33175) Microalb/Creat Ratio 5.1 {mg/g_creat} (Normal) Range: 0.0-30.0 Microalbumin, Urine 4.2 ug/mL (Normal) Creatinine, Urine 82.7 mg/dL (Normal) :56 METABOLIC PANEL, COMPREHENSIVE Comments: PATIENT WAS FASTINGPERFORMED BY: LiquidPistonNewton Medical CenterLwnpma4531 [facility] [id number] (39162) ALT (SGPT) 11 [iU]/L (Normal) Range: 0-32 [...] Glucose, Serum 111 mg/dL (Abnormal) Range: 65-99 41-Juo-157156:56 CBC W/AUTO DIFF WBC (17881) Comments: PATIENT WAS FASTINGPERFORMED BY: LabCoNewton Medical CenterXleupo0913 [facility] [id number] Immature Grans (Abs) 0.0 {x10E3/uL} (Normal) Range: [...] 3.77-5.28 WBC 7.0 {x10E3/uL} (Normal) Range: 3.4-10.8 21-Wmz-714652:56 VITAMIN B-12 (CYANOCOBALAMIN) Comments: PATIENT WAS FASTINGPERFORMED BY: [facility]CoNewton [facility] CenterAzvrfz5127 [facility] [id number] (50671) Vitamin B12 533 pg/mL (Normal) Range: 211-946 79-Hjr-532377:33 HgA1C , Office (32233) HgA1C , Office 5.9 % (Normal) Range: 4.6 - 7.1 42-Xcd-283010:33 Blood Glucose , Office (78075) Blood Glucose , Office 118 (Normal) 44-Inv-998222:17 Hemoglobin A1c Comments: [facility] [address] [place], [address] HGB A1C 6.1 % (Normal) Range: 4.2-6.3 06-Gfz-885725:17 Thyroid Stim Hormone (TSH) Comments: [facility] [address] [place], [address] TSH 2.57 {uIU/mL} (Normal) Range: 0.358-3.74 13-Cgy-300823:17 Vitamin D,25 Hydroxy Comments: [facility] [address] [place], [address] Vitamin D 25-OH 28.0 ng/mL (Normal) Comments: Vitamin D 25(OH) Status Range Deficiency <20 ng/mL (50nmol/L) Insuffciency 20 - 30 ng/mL (50 - 75 nmol/L) Sufficiency 30 - 100 ng/mL (75 - 250 nmol/L) Toxicity >100 ng/mL (>250 nmol/L) 52-Xvu-916103:16 Comprehensive Metabolic Profil Comments: Test performed at:[facility] [address]aa[address] [place] [address] GAP 10 (Normal) Range: 5-15 [...] 7-18 GLU 101 mg/dL (Normal) Range: 70-110 29-Yfw-112289:16 Hemoglobin A1c Comments: Test performed at:[facility] [address] [place] [address] HGB A1C 6.1 % (Normal) Range: 4.2-6.3 56-Pxb-865725:16 Lipid Profile Comments: Test performed at:[facility] [address]gzi[address] [place] [address] ; non-emergent till apt VLDL 27 mg/dL [...] 200-240 mg/dL Borderline >240 mg/dL High Risk 41-Qnb-593443:16 Microalb:Creat Ratio,Random UR Comments: Test performed at:[facility] [address]ts[address] [place] [address] MALB:CREAT 5.2 {mg/g_CRE} (Normal) MICROALBUMIN,UR 10.0 mg/L (Normal) UR CREAT 189.2 mg/dL (Normal) 49-Asx-676267:16 Vitamin B12 438 pg/mL (Normal) Comments: Test performed at:[facility] [address]vgkolbcv[address] [place] [address] Range: 211-911 5-Kpr-628073:11 HgA1C , Office (80042) HgA1C , Office 6.5 % (Normal) Range: 4.6 - 7.1 7-Ivs-625949:07 CBC W/Diff, Automated Comments: Test performed at:[facility] [address]wvoxymvt[address] [place] [address] Absolute Lymph 2.36 {X10_3/ul} (Normal) [...] 4.2-5.4 WBC 7.5 K/mm3 (Normal) Range: 4.4-11.0 7-Yyw-468730:07 Comprehensive Metabolic Profil Comments: Test performed at:[facility] [address]jkg[address] [place], [place] [address] GAP 5 (Normal) Range: 5-15 CO2 28.0 [...] 7-18 GLU 100 mg/dL (Normal) Range: 70-110 1-Fmi-417354:07 Lipid Profile Comments: Test performed at:[facility] Qhqzphzsgp8118 [facility] [place] [address] VLDL 52 mg/dL (Abnormal) Range: [...] B12 740 pg/mL (Normal) Comments: Test performed at:[facility] Mjtoydjcjm5673 [facility] [address] [place], [place] [address] Range: 211-911 20-Lij-428653:26 Rapid Flu (79814 x 2) Influenza A Ag negative (Normal) 20-Xhs-054852:31 HgA1C , Office (63005) HgA1C , Office 6.2 % (Normal) Range: [...] 4.2-5.4 WBC 6.5 K/mm3 (Normal) Range: 4.4-11.0 84-Bfe-576823:48 CMP GAP 5 (Normal) Range: 5-15 CO2 [...] 7-18 GLU 103 mg/dL (Normal) Range: 70-110 71-Ebe-779359:48 LIPID VLDL 29 mg/dL (Normal) Range: 5-40 [...] CHOL 204 mg/dL (Abnormal) Comments: <200 mg/dL Vmxkakbrw202-646 mg/dL Borderline>240 mg/dL High Risk :43 CMP [...] CHOL 174 mg/dL (Normal) Comments: <200 mg/dL Fyhcdznrm033-599 mg/dL Borderline>240 mg/dL High Risk HDL 50 [...] electrophoresis scan will follow via computer,mail, or house mover supervisor delivery. tPROELAG 1.2 (Normal) Range: 0.7-2.0 tPROELGL 3.2 g/dL (Normal) Range: 2.0-4.5 tPROELMS (Normal) Comments: Not Observed tPROELGA 0.8 g/dL (Normal) Range: 0.5-1.6 tPROELBE 1.1 g/dL (Normal) Range: 0.6-1.3 tPROELAL2 1.0 g/dL (Normal) Range: 0.4-1.2 tPROELAL1 0.2 g/dL (Normal) Range: 0.1-0.4 tPROELALB 3.8 g/dL (Normal) Range: 3.2-5.6 $tPROELTP 7.0 g/dL (Normal) Range: 6.0-8.5 :54 PROELU o34VNWHUM7 Comment (Normal) Comments: Protein electrophoresis scan will follow via computer,mail, or house mover supervisor delivery.Performed at: [address] [id number] Director: Marvin Cárdenas MD, Phone: [phone] tPROELUMS (Normal) Comments: Not Observed tPROELUGA 21.8 % (Normal) tPROELUBE 23.8 % (Normal) tPROELUAL2 15.7 % (Normal) tPROELUAL1 3.9 % (Normal) tPROELUALB 34.7 % (Normal) tPROELUTP 13.1 mg/dL (Normal) Range: 0.0-15.0 43-Scz-492251:54 SED tSEDRATE 36 mm/h (Abnormal) Range: 0-30 59-Yng-143671:33 Rapid Strep Test, Office (66992) Rapid Strep Test, Office Negative (Normal) 45-Cgc-03877:43 DEE DEE CULTURE-OTHER (16927) Comments: PATIENT NOT FASTINGPERFORMED BY: [address] [id number] Information: SRC:THRT P32383 Result 1 RRF (Normal) Comments: Routine respiratory clayton Upper Respiratory Culture Final report (Normal) 11-Bys-382530:25 HgA1C , Office (09461) HgA1C , Office 6.0 % (Normal) Range: [...] CHOL 219 mg/dL (Abnormal) Comments: <200 mg/dL Iiearlddi329-961 mg/dL Borderline>240 mg/dL High Risk :45 MISC (Normal) Comments: Test(s) Ordered: INTRINSIC FACTOR BLOCKING AB [id number] SERUM REFR Comments: TEST RESULT LIMITSIntrinsic Factor Abs, Serum Negative Negative TESTING PERFORMED AT [facility]. ORIGINAL REP ORT ONFILE IN LAB CONTAINS ADDITIONAL TEST SITE INFORMATION. 02-Dil-21523:45 SED tSEDRATE 37 mm/h (Abnormal) Range: 0-30 05-Wut-208192:36 Nuclear Stress Test Radiology Report See Note [...] The patient was injected with 44.5 mCi cmIc50i Cardiolite and subsequently stress SPECT Card iolite [...] 01/08/13 1327 Sign by: Jacques Begum MD 57-Jtc-02200:06 BILAT SCRN DIGITAL & CAD Radiology Report [...] Forde M.D.January 13, 2013 at 12:46:14 PM [id number] Signed GP/GP If you are the referring physician and wou ld like to consult with theradiologist who provided this interpretation, please contact Brittanie Khalil at [phone]. If this radiologist is unavailable, youwill be directed to another radiol ogist to assist. If you are a patient with a question regarding this report, pleasecontactyour referring physician directly. Professional Interpretation Provided By: [email or web address], Phone ,Fa x [phone] These documents contain legally protected and confidential [...] CHOL 181 mg/dL (Normal) Comments: <200 mg/dL Ugpdjjsky156-463 mg/dL Borderline>240 mg/dL High Risk HDL 40 [...] Fasting Glucose Planned Observations ROSHNI (ANTINUCLEAR ANTIBODY) (62951)Indication: Rash of face On: 33-Mrf-725365:39 Request C-Reactive Protein (85549)Indication: Rash of face On: 29-Wov-477478:38 Request SED RATE ERYTHROCYTE (20938)Indication: Rash of face On: 25-Drs-805093:38 Request CALCIFIDIOL (91438) VIT D 25Indication: Vitamin D deficiency On: :40 Request TSH (36086)Indication: Diabetes mellitus type II, controlled, with no complications On: :40 Request URINALYSIS, W/ MICRO (49147)Indication: Diabetes mellitus type II, controlled, with no complications On: 25-Ebm-436186:40 Request MICROALBUMIN: CREATININE RATIO (90640) AND (25089)Indication: Diabetes mellitus type II, controlled, with no complications On: :40 Request METABOLIC PANEL, COMPREHENSIVE ([id number])Indication: Diabetes mellitus type II, controlled, with no complications On: :40 Request LIPOPROTEIN, BLD, BY NMR ([id number])Indication: Hypercholesteremia (Renamed from Hypercholesterolemia) On: :40 Request CBC W/AUTO DIFF WBC (58160)Indication: Diabetes mellitus type II, controlled, with no complications On: :40 Request LIPID PANEL (74041)Indication: Diabetes mellitus type II, controlled, with no complications On: 27-Aet-113828:25 Request URINALYSIS, W/ MICRO ([id number])Indication: Diabetes mellitus type II, controlled, with no complications On: :56 Request URINALYSIS, W/ MICRO ([id number])Indication: Diabetes mellitus type II, controlled, with no complications On: 53-Sag-842318:56 Request MICROALBUMIN: CREATININE RATIO (94429) AND (33075)Indication: Diabetes mellitus type II, controlled, with no complications On: 73-Cdf-538667:56 Request VITAMIN B-12 (CYANOCOBALAMIN) ([id number])Indication: B12 deficiency On: :49 Request TSH (07960)Indication: Diabetes mellitus type II, controlled, with no complications On: :47 Request URINALYSIS, W/ MICRO ([id number])Indication: Diabetes mellitus type II, controlled, with no complications On: :47 Request MICROALBUMIN: CREATININE RATIO (39795) AND (87863)Indication: Diabetes mellitus type II, controlled, with no complications On: :47 Request METABOLIC PANEL, COMPREHENSIVE (74920)Indication: Diabetes mellitus type II, controlled, with no complications On: :47 Request CBC W/AUTO DIFF WBC (41524)Indication: Diabetes mellitus type II, controlled, with no complications On: :47 Request CALCIFIDIOL (70647) VIT D 25Indication: Vitamin D deficiency On: :47 Request LIPID PANEL (30171)Indication: Hypercholesteremia (Renamed from Hypercholesterolemia) On: :47 Request HGB A1C (47214)Indication: Common cold virus On: 49-Ege-774127:46 Request CALCIFEDIOL (51963)Indication: Hair loss On: 88-Qzr-167304:39 Request TSH (THYROID STIMULATING HORMONE) (64384)Indication: Hair loss On: 29-Ibc-931184:35 Request VITAMIN B-12 (CYANOCOBALAMIN) (85343)Indication: B12 deficiency On: 8-Dxv-490731:02 Request LIPID PANEL (92266)Indication: Hyperlipidemia On: 4-Uio-786011:01 Request MICROALBUMIN: CREATININE RATIO (47600) AND (51959)Indication: Diabetes mellitus type II, controlled, with no complications On: 0-Nul-402009:56 Request METABOLIC PANEL, COMPREHENSIVE (91109)Indication: Diabetes mellitus type II, controlled, with no complications On: 7-Buj-632050:56 Request Hemoglobin Glyclated (HGB A1C) (76459)Indication: Diabetes mellitus type II, controlled, with no complications On: 1-Doo-898677:56 Request VITAMIN B-12 (CYANOCOBALAMIN) (28765)Indication: B12 deficiency On: 41-Rsd-870147:07 Request CBC W/AUTO DIFF WBC (49106)Indication: B12 deficiency On: 25-Wqa-060433:06 Request METABOLIC PANEL, COMPREHENSIVE ([id number])Indication: Elevated blood-pressure reading without diagnosis of hypertension On: 78-Wuj-943182:06 Request LIPID PANEL (02418)Indication: Hyperlipidemia On: 82-Yrx-124238:06 Request CBC WITH MANUAL DIFF ([id number])Indication: Impaired Fasting Glucose On: 46-Igb-409835:40 Request METABOLIC PANEL, COMPREHENSIVE (40018)Indication: Impaired Fasting Glucose On: 20-Kog-331321:40 Request LIPID PANEL (95415)Indication: Hyperlipidemia On: 25-Vxa-557341:40 Request VITAMIN B-12 (CYANOCOBALAMIN) (71071)Indication: B12 deficiency On: 19-Tmg-269016:39 Request HgA1C , Office (55446)Indication: Impaired Fasting Glucose On: 34-Lae-370815:13 Request METABOLIC PANEL, COMPREHENSIVE (74042)Indication: Impaired Fasting Glucose On: 1-Ned-004679:40 Request LIPID PANEL (53226)Indication: Hyperlipidemia On: 8-Uzc-335940:40 Request SED RATE ERYTHROCYTE ([id number])Indication: Abnormal blood chemistry On: 17-Nqf-255807:37 Request C-REACTIVE PROTEIN ([id number])Indication: Abnormal blood chemistry On: 30-Ciz-554130:37 Request VITAMIN B-12 (CYANOCOBALAMIN) (85472)Indication: B12 deficiency On: 33-Hpz-662730:37 Request UPEP (58385)Indication: Abnormal blood chemistry On: :37 Request Protein Electrophoresis, Serum (SPEP) (68604)Indication: Abnormal blood chemistry On: :37 Request LIPID PANEL ([id number])Indication: Hyperlipidemia On: :04 Request CBC WITH MANUAL DIFF ([id number])Indication: Impaired Fasting Glucose On: :04 Request METABOLIC PANEL, COMPREHENSIVE ([id number])Indication: Impaired Fasting Glucose On: 9-Uoh-874456:04 Request SED RATE ERYTHROCYTE (02458)Indication: Pain in unspecified joint On: 38-Uqi-484382:57 Request C-REACTIVE PROTEIN ([id number])Indication: Pain in unspecified joint On: 32-Byr-010970:57 Request INTRINSIC FACTOR ANTBDY (09649)Indication: B12 deficiency On: 89-Idt-486111:36 Request VITAMIN B-12 (CYANOCOBALAMIN) ([id number])Indication: B12 deficiency On: 87-Vbn-653935:35 Request HgA1C , Office (54869)Indication: Impaired Fasting Glucose On: 91-Kex-715913:15 Request VITAMIN B-12 (CYANOCOBALAMIN) (92783)Indication: Paresthesia On: 2-Syf-989924:17 Request SED RATE ERYTHROCYTE ([id number])Indication: Pain in unspecified joint On: 8-Cog-926164:16 Request C-REACTIVE PROTEIN ([id number])Indication: Pain in unspecified joint On: 5-Jtx-491627:16 Request TSH ([id number])Indication: Pain in unspecified joint On: 6-Edf-077783:16 Request RHEUMATOID FACTOR-QUANT (57674)Indication: Pain in unspecified joint On: 2-Wkm-417205:16 Request ROSHNI (ANTINUCLEAR ANTIBODY) ([id number])Indication: Pain in unspecified joint On: 0-Fvo-177138:16 Request CBC WITH MANUAL DIFF ([id number])Indication: Pain in unspecified joint On: :16 Request METABOLIC PANEL, COMPREHENSIVE (07538)Indication: Pain in unspecified joint On: 7-Pez-060474:16 Request LIPID PANEL ([id number])Indication: SHORTNESS OF BREATH On: :16 Request CBC WITH MANUAL DIFF ([id number])Indication: SHORTNESS OF BREATH On: :16 Request METABOLIC PANEL, COMPREHENSIVE ([id number])Indication: SHORTNESS OF BREATH On: :16 Request Planned Encounters Medical; 3 Month FU - On: 16-Jun-2018 13:15 [facility] Korin Glass DO, DO, Kathleen Planned Procedures SCREENING DIGITAL TOMOSYNTHESIS OF On: 10-Mar-2018 Intent BREAST ([id number])By: Korin Glass DO, DO, Kathleen Flu Vaccine (Quadrivalent) 40069Ny: On: 10-Mar-2018 Intent Korin Glass DO, DO, Comments: Lot #[id number] Exp-11/23/18Site-L dltd, IMDose prefilled syringegiven by: Lyudmila JCVIS reviewed and ABN signed Korin B 12 Injection, 1000 mcg ([id number])By: On: 10-Mar-2018 Intent Korin Glass DO, DO, Comments: 1 ml given rt dltd [id number] 07/2018 Korin B 12 Injection, 1000 mcg (J3420)By: On: 04-Nov-2017 Intent Korin Glass DO, DO, Korin B 12 Injection, 1000 mcg (J3420)By: On: 08-Jul-2017 Intent Korin Glass DO, DO, Comments: lot: [id number]: ite/route: L del/IMamt: 1mLVIS signed when applicableAMBER Canela ELECTROCARDIOGRAM, COMPLETE (ECG) On: 08-Jul-2017 Intent ([id number])By: Korin Glass DO Comments: nsr no acute chg Korin Glass DO Aerosol Treatment (50915)By: Ti On: 05-Jun-2017 Intent Glenys BARBOSA ELECTROCARDIOGRAM, COMPLETE (ECG) On: 06-May-2017 Intent (78759)By: Maria Luisa DORachanaKorin Comments: nsr mary cute chg Maria Luisa DO, Korin B 12 Injection, 1000 mcg (J3420)By: On: 06-May-2017 Intent Maria Luisa DO, Korin Maria Luisa DO, Comments: lot: [id number]: 07/15site/route: L del/IMamt: 1mLVIS signed when applicableChemckenzie memorial hospital, [facility] Korin Flu Vaccine (Quadrivalent) 74364Er: On: 06-May-2017 Intent Maria Luisa DO, Korin Maria Luisa DO, Comments: lot: [id number]: 11/11/18site/route: R linda, IMamt: 0.5mlVIS and ABN signed when 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, [employer]CH[employer] APPRENTICE Korin B 12 Injection, 1000 mcg (J3420)By: On: 24-Dec-2016 Intent Maria Luisa DO, Korin Maria Luisa DO, Comments: lot: [id number]: 8/18site/route: L del/IMamt: 1mLVIS signed when applicableChels, [facility] Korin B 12 Injection, 1000 mcg ([id number])By: [...] 4/18site/route: L del/IMamt: 1mLVIS signed when 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, [employer] APPRENTICE Korin EMGBy: Maria Luisa DO, Korin Maria Luisa On: 18-Jun-2016 Intent DO, Korin Nerve ConductionBy: Maria Luisa DO, On: 18-Jun-2016 Intent Korin Maria Luisa DO, Korin ELECTROCARDIOGRAM, COMPLETE (ECG) On: 06-Mar-2016 Intent ([id number])By: Maria Luisa DO Korin Comments: nsr no acute cgh Maria Luisa DO, Korin Flu Vaccine (Quadrivalent) 73191Ym: On: 17-Feb-2016 Intent Trini Murphy DO ADMINISTRATION OF INFLUENZA VIRUS On: 17-Feb-2016 Intent VACCINE (G0008)By: Trini Murphy DO Comments: Lot #:[id number] date:0-14-68Abrwtq given:0.5mlRoute: IMSite given:L DltdGiven by: Greta and ABN signed [employer] Aerosol Treatment (13782)By: Maria Luisa On: 03-Jun-2015 Korin Carrington DO, DO, Kathleen Comments: STILL NOISEY BUT MUCH BETTER Inhaler Demo (04581)By: Maria Luisa DASH, On: 03-Jun-2015 Intent Korin Casillas DO Radiology - Chest- PA and LatBy: On: 03-Jun-2015 Intent Korin Glass DO, DO, Kathleen Flu Vaccine (Quadrivalent) 65162Ie: On: 12-Apr-2015 Intent Glenys Luke CNP Comments: lot: [id number]*2016site:Lt deltoidroute:IMdose:.5mlDEMICK, SMA Radiology - ChestBy: Trini Murphy DO On: 09-Aug-2014 Intent A Comments: PA & LAT- Do in 1 month Spirometry (00825)By: Jeffrey DASH, On: 02-Aug-2014 Intent Trini Benavidez Comments: good effort small but good curve- mod restrciton Radiology - Chest- PA and LatBy: On: 02-Aug-2014 Intent Trini Murphy DO Pulse Oximetry (71745)By: Jeffrey DASH, On: 02-Aug-2014 Intent Trini Benavidez Comments: 96% Radiology - ChestBy: Trini Murphy DO On: 12-Jul-2014 Intent A Comments: PA and LAT Radiology - Chest- PA and LatBy: On: 12-Jul-2014 Intent Trini Murphy DO Comments: stat Aerosol Treatment (32811)By: Jeffrey On: 12-Jul-2014 Trini Carrington DO Pulse Oximetry (05238)By: Jeffrey DASH, On: 12-Jul-2014 Intent Trini A Comments: 93% Prevnar 13 (26419)By: Moris MOSQUEDA, On: 26-Mar-2014 Intent Geraldine Comments: [id number] arm, IMAS Flu Vaccine (Quadrivalent) 32575Gf: On: 26-Mar-2014 Intent Geraldine Subramanian LPN ADMINISTRATION OF INFLUENZA VIRUS On: 26-Mar-2014 Intent VACCINE (G0008)By: Geraldine Subramanian LPN Comments: [id number] syringeL Dltd, IMAS, LPNABN and VIS signed MAMMOGRAM, SCREENING, BOTH BREAST On: 15-Feb-2014 Intent (01063)By: Fast DO, Trini A B 12 Injection, 1000 mcg (J3420)By: On: 29-Dec-2013 Intent Fast DO, Trini A Comments: lot: [id number]: 02/07site/route: L del/IMamt: 1mLVIS signed when 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, [employer] APPRENTICE B 12 Injection, 1000 mcg (J3420)By: On: 20-Nov-2013 Intent Fast DO, Trini A Comments: Lot:[id number]:Dose:1mlRoute:IMSite:rafita armGiven By:ERICA signed B 12 Injection, 1000 mcg (J3420)By: On: 16-Nov-2013 Intent Fast DO, Trini A Comments: Lot:[id number]:07/2015Dose:1mlRoute:IMSite:rafita ruthGiven By:ERICA signed B 12 Injection, 1000 mcg (J3420)By: On: 12-Oct-2013 Intent Fast DO, Trini A Comments: Lot:[id number]:07/12Dose:1mlRoute:IMSite:rafita ruthGiven By:ERICA signed Eprescribed prescriptions (G8553)By: On: 12-Oct-2013 Intent Fast DO, Trini A B 12 Injection, 1000 mcg (J3420)By: On: 08-Apr-2013 Intent Antonia Villeda Comments: Lot:[id number]:01/08Dose:1mlRoute:IMSite:rafita ruthGiven By:ERICA signed B 12 Injection, 1000 mcg (J3420)By: On: 01-Apr-2013 Intent Fast DO, Trini A Comments: Lot:[id number]:01/08Dose:1mlRoute:IMSite:r armGiven By:Lawrence signed B 12 Injection, 1000 mcg (J3420)By: On: 25-Mar-2013 Intent Fast DO Trini A Comments: lot: [id number]: 01/08site/route: L deltoid/IMamt: 1mLVIS signed when 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, [employer]CH[employer] APPRENTICE B 12 Injection, 1000 mcg (J3420)By: On: 17-Mar-2013 Intent Fast DO Trini A Comments: Lot:[id number]:08/2014Dose:1mlRoute:IMSite:l armGiven By:ERICA signed Nuclear Stress Test/Stress On: 29-Dec-2012 Intent SPECT/TreadmillBy: Jeffrey DO Trini A EKG (01162)By: Radha Ca On: 29-Dec-2012 Intent Comments: ekg showed normal sinus rhythym, normal axis, no acute st/t wave changes Spirometry (52248)By: Roby, On: 29-Dec-2012 Intent Radha Comments: good effort and curve no obst MAMMOGRAM, SCREENING, BOTH BREASTS On: 29-Dec-2012 Intent (90266)By: Trini Murphy DO TDAP VACCINE >7 IM (26690)By: On: 29-Dec-2012 Intent Radha Ca Planned Medications [...] products, soaps, makeup, laundry soap, 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 There is no known event that [...] listen to her lungs. Pt didnt pick out hand the End: 02-Aug-2014 12:25 prednisone, wanted to [...] for chronic medical is sues: going to [email or web address] in 2 weeks- she retired today - [...]
--- OUTSIDE RECORDS SUMMARY | 2018-06-21 18:26 | XMS RPT_ITS | Continuity of Care Document ---
:1945 Author Organization [facility] Address [facility] [facility] [address] [place] [address] Phone Care Team Providers Name Role Phone [...] Quantity: 21 {Tablet} Refills: 0 Ordered:24-Mar-2018 Rocio Bukc Start : 24-Mar-2018 Active Comments:With food Augmentin [...] Status: Resolved as of 28-Jul-2014 Vaccine for mkuomfapev-tflkzpt-kjzrvcjqd with poliomyelitis (Z23, V06.3) Status: Inactive as [...] orthoscopic Completed Date Value Details 03-Jun-2015 Spirometry (47400) Comments: OBSTRUCTION PRESNET Result: 24-Nov-2014 Spirometry (44608) Comments: good effor tand curve normal Result: 20-Sep-2014 Chest PA and Lateral Result: Comments: See Note; NOTES: [facility] Imaging Services [address] [place] [address] Radiology Report MR#: [id number] Acct: [id number] Name: HAYDEE BOSS Rep #: [id number] : 1945 F 69 From: Jorge Mckeon DO PCP: Trini Murphy DO Status: REG CLI Study: Chest PA and Lateral Date of Exam: 09/20/14 Exam# [id number] Ordering Dr: Trini Murphy DO STUDY: X-RAY [...] Jorge Mckeon DO at 20:56 EDT Tel [phone], Service support [phone], RAD/Ch est PA and Lateral IMPRESSION: No acute cardiopulmonary disease. Electronically Signed: Jorge Mckeon DO at 20:56 EDT Tel [phone], Service support [phone], CC: Trini Murphy DO Billiard Table Repairer: Signed 09-Aug-2014 Chest PA and Lateral Result: Comments: See Note; NOTES: [facility] Imaging Services [address] [place] [address] Radiology Report MR#: [id number] Acct: [id number] Name: HAYDEE BOSS Rep #: [id number] : 1945 F 68 From: Zander Cornelius MD PCP: Trini Murphy DO Status: REG CLI Study: Chest PA and Lateral Date of Exam: 08/09/14 Exam# [id number] Ordering Dr: Trini Murphy DO STUDY: X-RAY [...] at 12:56 EDT Tel , Service support [phone], RAD/Chest PA and Lat eral IMPRESSION: Near complete resolution of previously described right middle and right lower lobe infiltrate. Followup recommended to assure complete resolution. Electronically Signed: Juan Cornelius MD at 12:56 EDT Tel , Service support [phone], CC: Trini Murphy DO Billiard Table Repairer: Signed 12-Jul-2014 Chest PA and Lateral Result: Comments: See Note; NOTES: [facility] Imaging Services [address] [place] [address] Radiology Report MR#: [id number] Acct: [id number] Name: HAYDEE BOSS Rep #: [id number] : 1945 F 68 From: Oracio Mccollum MD PCP: Trini Murphy DO Status: REG CLI Study: Chest PA and Lateral Date of Exam: 07/12/14 Exam# [id number] Ordering Dr: Trini Murphy DO STUDY: X-RAY [...] at 15:46 EST Tel , Service support [phone], CC: Trini Murphy DO Billiard Table Repairer: Signed 26-Mar-2014 Bilat Scrn Digital & CAD Result: Comments: See Note; NOTES: [facility] Imaging Services [address] [place] [address] Breast Imaging Report MR#: [id number] Acct: [id number] Name: HAYDEE BOSS Rep #: [id number] : 1945 F 68 From: Melchor Forde MD PCP: Trini Murphy DO Status: REG CLI Exam# [id number] Ordering Dr: Trini Murphy DO MAMMOGRAPHY - [...] Forde MD at 12: 54 EDT Tel [phone], Service support [phone], CC: Trini Murphy DO Billiard Table Repairer: Signed Family History Unknown Family Member Name [...] Most Recent Primary Occupation Comments: works at [employer] at [employer] on- with 3 children - has 11 [...] kg/m2 Body Surface Area Calculated 2.06 m2 52-Nfh-752977:29 Pulse 62 /min Comments: Pattern: Regular Respiration [...] kg/m2 Body Surface Area Calculated 2.06 m2 29-Aas-210690:00 Pulse 75 /min Comments: Pattern: Regular Respiration [...] kg/m2 Body Surface Area Calculated 2.07 m2 60-Vdp-189353:29 Pulse 72 /min Comments: Pattern: Regular Respiration [...] kg/m2 Body Surface Area Calculated 2.07 m2 43-Oax-737329:36 Pulse 63 /min Comments: Pattern: Regular Respiration [...] Description Value Details :48 HgA1C , Office (42794) HgA1C , Office 5.7 % (Normal) Range: 4.6 - 7.1 :48 Blood Glucose , Office (99495) Blood Glucose , Office 78 (Normal) :42 POTASSIUM SERUM (16912) Comments: PATIENT NOT FASTINGPERFORMED BY: [facility] Nwycgj3849 [facility] [id number] Potassium 4.7 mmol/L (Normal) Range: 3.5-5.2 :16 Pathology Report Comments: PERFORMED BY: KALEE [facility] Jwfj6682 [facility] [id number] BY: [facility] Dermatopathology [address] [place] [address] [id number] Information: [id number] See MATER Comments: Material submitted: .LEFT SIDE [...] FUNGAL HYPHAE.Pathologist provided ICD- 10:D48.5, L98.499, L08.9CPT .816073, 852835 52-Wqh-764397:59 POTASSIUM SERUM (58962) Comments: PATIENT NOT FASTINGPERFORMED BY: LabCoKessler Institute for RehabilitationVwgxxy5346 [facility] [id number] Potassium 5.3 mmol/L (Abnormal) Range: 3.5-5.2 73-Obx-521640:04 POTASSIUM SERUM (20468) Comments: PATIENT NOT FASTINGPERFORMED BY: [facility] Miyyrg1101 [facility] [id number] Potassium 5.4 mmol/L (Abnormal) Range: 3.5-5.2 : HgA1C , Office (31829) HgA1C , Office 6.1 % (Normal) Range: 4.6 - 7.1 :01 Blood Glucose , Office (12606) Blood Glucose , Office 89 (Normal) 4-Lsn-084233:51 Microscopic Examination Comments: PATIENT WAS FASTINGPERFORMED BY: Bookeen [address]wk[address] [id number] BY: SmartProcureScott [place] [address] [facility] [id number] Bacteria Few (Normal) Mucus Threads Present (Normal) Epithelial Cells (non renal) 0-10 {/hpf} (Normal) Range: 0 - 10 RBC 0-2 {/hpf} (Normal) Range: 0 - 2 WBC 11-30 {/hpf} (Abnormal) Range: 0 - 5 Comments: Clumps of leukocytes present. :51 CALCIFEDIOL (11031) Comments: PATIENT WAS FASTINGPERFORMED BY: CarbonFlow[address] [id number] BY: R&LKessler Institute for RehabilitationVplsca5865 [facility] [id number] Vitamin D, 25-Hydroxy 31.8 ng/mL (Normal) Range: 30.0-100.0 Comments: Vitamin D deficiency has been defined by the [place] of[place]icine and an Endocrine Society practice guideline as alevel of serum 25-OH vitamin D less than 20 ng/mL (1,2).The Endocrine Society went on to further define vitamin Dinsufficiency as a level between 21 and 29 ng/mL (2).1. IOM ([place] of [employer]). 2010. Dietary reference intakes for calcium and D. [place]: The National Academies Press.2. Gael MF, Tiffany HEART, Sandee MADRID, et al. Evaluation, treatment, and prevention of vitamin D deficiency: an Endocrine Society clinical practice guideline. JCEM. 2010; 96(7):1911-30. :51 VITAMIN B-12 (CYANOCOBALAMIN) Comments: PATIENT WAS FASTINGPERFORMED BY: Lab[address] [id number] BY: SmartProcureUnion County General HospitalXcoorn0215 [facility] [id number] (80169) Vitamin B12 566 pg/mL (Normal) Range: 232-1245 5-Xqq-161007:51 TSH (49725) Comments: PATIENT WAS FASTINGPERFORMED BY: [address] [id number] BY: SmartProcureUnion County General HospitalJvcqwk6056 [facility] [id number] TSH 1.520 {uIU/mL} (Normal) Range: 0.450-4.500 1-Lur-493510:51 URINALYSIS, W/ MICRO Comments: PATIENT WAS FASTINGPERFORMED BY: BioArray[address] [id number] BY: [employer] Xzwpsn8965 [facility] [id number] (91357) Microscopic Examination See below: (Normal) Comments: Microscopic was indicated and was performed. Nitrite, Urine Negative (Normal) Urobilinogen,Semi-Qn 0.2 mg/dL (Normal) Range: 0.2-1.0 Bilirubin Negative (Normal) Occult Blood Negative (Normal) Ketones Negative (Normal) Glucose Negative (Normal) Protein Negative (Normal) WBC Esterase 3+ (Abnormal) Appearance Clear (Normal) Urine-Color Yellow (Normal) pH 7.5 (Normal) Range: 5.0-7.5 Specific [place] 1.015 (Normal) Range: 1.005-1.030 :51 MICROALBUMIN: CREATININE Comments: PATIENT WAS FASTINGPERFORMED BY: BioArray[address] [id number] BY: SmartProcureKessler Institute for RehabilitationHwxlzn2470 [facility] [id number] RATIO (51179) AND (82276) Alb/Creat Ratio 7.7 {mg/g_creat} (Normal) Range: 0.0-30.0 Albumin, Urine 6.0 ug/mL (Normal) Creatinine, Urine 77.6 mg/dL (Normal) 3-Lob-070182:51 METABOLIC PANEL, Comments: PATIENT WAS FASTINGPERFORMED BY: BN [facility] Dlmovzglse3367 [facility] [id number] BY: [facility] Wjwclb[address] [facility] [id number] [facility] (50514) ALT (SGPT) 9 [iU]/L (Normal) Range: 0-32 [...] 8-27 Glucose 102 mg/dL (Abnormal) Range: 65-99 8-Ptn-577695:51 LIPOPROTEIN, BLD, BY NMR Comments: PATIENT WAS FASTINGPERFORMED BY: Bookeenrp Zlwsjvdbhm8409 [facility] [id number] BY: CB [facility] Cbquoe3[address] [facility] [id number] (76871) LP-IR Score 79 (Abnormal) Comments: INSULIN RESISTANCE MARKER <--Insulin Sensitive Insulin Resistant--> Percentile in Reference PopulationInsulin Resistance ScoreLP-IR Score Low 25th 50th 75th High <27 27 45 63 >63LP-IR Score is inaccurate if patient is non-fasting. .The LP-IR score is a laboratory developed i [facility] that has beenassociated with insulin [...] 1600 - 2000 Very High > 2000 4-Dfr-512357:51 CBC W/AUTO DIFF WBC Comments: PATIENT WAS FASTINGPERFORMED BY: BN [facility] [address] [id number] BY: CB [facility] Kpcdkg6768 [facility] [id number] (82712) Immature Grans (Abs) 0.0 {x10E3/uL} (Normal) Range: [...] (Normal) Range: 3.4-10.8 :02 HgA1C , Office (18467) HgA1C , Office 6.0 % (Normal) Range: 4.6 - 7.1 :02 Blood Glucose , Office (00721) Blood Glucose , Office 141 (Normal) :48 HgA1C , Office (70487) HgA1C , Office 6.0 % (Normal) Range: 4.6 - 7.1 :48 Blood Glucose , Office (06216) Blood Glucose , Office 94 (Normal) :26 TSH (20392) Comments: PATIENT WAS FASTINGPERFORMED BY: LabCoKessler Institute for RehabilitationTencgv1252 [facility] [id number] TSH 2.090 {uIU/mL} (Normal) Range: 0.450-4.500 :26 METABOLIC PANEL, COMPREHENSIVE Comments: PATIENT WAS FASTINGPERFORMED BY: LabCoKessler Institute for RehabilitationZjkqnj0820 [facility] [id number] (87211) ALT (SGPT) 11 [iU]/L (Normal) Range: 0-32 [...] Glucose, Serum 100 mg/dL (Abnormal) Range: 65-99 10-Duh-496765:26 CBC W/AUTO DIFF WBC (08583) Comments: PATIENT WAS FASTINGPERFORMED BY: LabCoKessler Institute for RehabilitationBrwnpg5406 [facility] [id number] Immature Grans (Abs) 0.0 {x10E3/uL} (Normal) Range: [...] B-12 (CYANOCOBALAMIN) Comments: PATIENT WAS FASTINGPERFORMED BY: [employer] Ffiitc6536 [facility] [id number] (61656) Vitamin B12 519 pg/mL (Normal) Range: 211-946 :26 CALCIFEDIOL (59913) Comments: PATIENT WAS FASTINGPERFORMED BY: [employer] Cfjzbu0124 [facility] [id number] Vitamin D, 25-Hydroxy 37.1 ng/mL (Normal) Range: 30.0-100.0 Comments: Vitamin D deficiency has been defined by the [place] of[facility] and an Endocrine Society practice guideline as alevel of serum 25-OH vitamin D less than 20 ng/mL (1,2).The Endocrine Society went on to further define vitamin Dinsufficiency as a level between 21 and 29 ng/mL (2).1. IOM ([place]). 2010. Dietary reference intakes for calcium and D. [place]: The National Academies Press.2. Gael MF, Tiffany [place], Sandee MADRID, et al. Evaluation, treatment, and prevention of vitamin D deficiency: an Endocrine Society clinical practice guideline. JCEM. 2010; 96(7):1911-30. 94-Oyx-335010:26 LIPID PANEL (12706) Comments: PATIENT WAS FASTINGPERFORMED BY: BioArrayApex Medical Center6370 [facility] [id number] LDL/HDL Ratio 3.0 {ratio_units} (Normal) Range: 0.0-3.2 [...] (Abnormal) Range: 100-199 :18 HgA1C , Office (24711) HgA1C , Office 6.0 % (Normal) Range: 4.6 - 7.1 :18 Blood Glucose , Office (71642) Blood Glucose , Office 120 (Normal) :50 HgA1C , Office (98881) HgA1C , Office 6.2 % (Normal) Range: 4.6 - 7.1 :50 Blood Glucose , Office (02234) Blood Glucose , Office 104 (Normal) :10 CBC W/Diff, Automated Comments: [facility] [address] [place], [place], [id number] Absolute Lymph 2.49 {X10_3/ul} (Normal) Range: 0.83-4.51 [...] Range: 4.4-11.0 :10 Comprehensive Metabolic Profil Comments: [facility] [address] [place], [address] GAP 6 (Normal) Range: 5-15 CO2 29.0 [...] 7-18 GLU 96 mg/dL (Normal) Range: 70-110 49-Bnj-702168:10 Lipid Profile Comments: [facility] [address] [place], [place], [address] VLDL 31 mg/dL (Normal) Range: 5-40 LDL [...] 200-240 mg/dL Borderline >240 mg/dL High Risk 22-Ldu-578547:10 Microalb:Creat Ratio,Random UR Comments: [facility] [address] [place], [place], [id number] MALB:CREAT 12.5 {mg/g_CRE} (Normal) MICROALBUMIN,UR 15.4 mg/L (Normal) UR CREAT 123.00 mg/dL (Normal) 79-Qxu-182517:10 Thyroid Stim Hormone (TSH) Comments: [facility] [address] [place], [place], [address] TSH 2.34 {uIU/mL} (Normal) Range: 0.358-3.74 03-Svz-614659:10 Urinalysis, Complete Comments: How was Urine Obtained? [facility] [address]ucj[address] [place], [place], [id number] MUCUS, URINE 1+ {/hpf} (Normal) BACTERIA 1+ [...] CLARITY Sl. Cloudy (Normal) COLOR Yellow (Normal) 75-Qgs-535387:10 Vitamin B12 563 pg/mL (Normal) Comments: [facility] [address] [place], [place], [address] Range: 211-911 59-Bbi-744399:10 Vitamin D,25 Hydroxy Comments: [facility] [address] [place], [place], [address] Vitamin D 25-OH 31.1 ng/mL (Normal) Comments: Vitamin D 25(OH) Status Range Deficiency <20 ng/mL (50nmol/L) Insuffciency 20 - 30 ng/mL (50 - 75 nmol/L) Sufficiency 30 - 100 ng/mL (75 - 250 nmol/L) Toxicity >100 ng/mL (>250 nmol/L) 63-Nmb-002556:21 HgA1C , Office (48515) HgA1C , Office 6.1 % (Normal) Range: 4.6 - 7.1 36-Sja-235292:21 Blood Glucose , Office (26532) Blood Glucose , Office 100 (Normal) 73-Dua-912832:56 Microscopic Examination Comments: PATIENT WAS FASTINGPERFORMED BY: [employer] [place] [id number] Bacteria Few (Normal) Mucus Threads Present (Normal) Epithelial Cells (non renal) 0-10 {/hpf} (Normal) Range: 0 - 10 RBC 0-2 {/hpf} (Normal) Range: 0 - 2 WBC 11-30 {/hpf} (Abnormal) Range: 0 - 5 28-Obs-338116:56 LIPID PANEL (63366) Comments: PATIENT WAS FASTINGPERFORMED BY: [employer] [place] [id number] LDL/HDL Ratio 2.6 {ratio_units} (Normal) Range: 0.0-3.2 [...] Cholesterol, Total 201 mg/dL (Abnormal) Range: 100-199 12-Ojv-321400:56 URINALYSIS, W/ MICRO (11388) Comments: PATIENT WAS FASTINGPERFORMED BY: [employer] [facility] [id number] Microscopic Examination See below: (Normal) Comments: Microscopic was indicated and was performed. Nitrite, Urine Positive (Abnormal) Urobilinogen,Semi-Qn 0.2 mg/dL (Normal) Range: 0.2-1.0 Bilirubin Negative (Normal) Occult Blood Negative (Normal) Ketones Negative (Normal) Glucose Negative (Normal) Protein Negative (Normal) WBC Esterase 2+ (Abnormal) Appearance Clear (Normal) Urine-Color Yellow (Normal) pH 6.0 (Normal) Range: 5.0-7.5 Specific [place] 1.020 (Normal) Range: 1.005-1.030 76-Qad-006336:56 MICROALBUMIN: CREATININE RATIO Comments: PATIENT WAS FASTINGPERFORMED BY: [employer] Xypfrk3813 [facility] [id number] (05839) AND (69413) Microalb/Creat Ratio 5.1 {mg/g_creat} (Normal) Range: 0.0-30.0 Microalbumin, Urine 4.2 ug/mL (Normal) Creatinine, Urine 82.7 mg/dL (Normal) 74-Xfi-412950:56 METABOLIC PANEL, COMPREHENSIVE Comments: PATIENT WAS FASTINGPERFORMED BY: [facility]6370 [facility] [id number] (07642) ALT (SGPT) 11 [iU]/L (Normal) Range: 0-32 [...] Glucose, Serum 111 mg/dL (Abnormal) Range: 65-99 88-Vmk-695278:56 CBC W/AUTO DIFF WBC (85812) Comments: PATIENT WAS FASTINGPERFORMED BY: LabCoKessler Institute for RehabilitationSeplyz1408 [facility] [id number] Immature Grans (Abs) 0.0 {x10E3/uL} (Normal) Range: [...] B-12 (CYANOCOBALAMIN) Comments: PATIENT WAS FASTINGPERFORMED BY: LabCoKessler Institute for RehabilitationHsyfil6265 [facility] [id number] (27986) Vitamin B12 533 pg/mL (Normal) Range: 211-946 07-Qkc-532497:33 HgA1C , Office (57501) HgA1C , Office 5.9 % (Normal) Range: 4.6 - 7.1 56-Rzg-624906:33 Blood Glucose , Office (54565) Blood Glucose , Office 118 (Normal) :17 Hemoglobin A1c Comments: [facility] [address] [place], [id number] HGB A1C 6.1 % (Normal) Range: 4.2-6.3 :17 Thyroid Stim Hormone (TSH) Comments: [facility] [address] [place], [address] TSH 2.57 {uIU/mL} (Normal) Range: 0.358-3.74 :17 Vitamin D,25 Hydroxy Comments: [facility] [address] [place], [address] Vitamin D 25-OH 28.0 ng/mL (Normal) Comments: Vitamin D 25(OH) Status Range Deficiency <20 ng/mL (50nmol/L) Insuffciency 20 - 30 ng/mL (50 - 75 nmol/L) Sufficiency 30 - 100 ng/mL (75 - 250 nmol/L) Toxicity >100 ng/mL (>250 nmol/L) 41-Ihm-110315:16 Comprehensive Metabolic Profil Comments: Test performed at:[facility] [address] [place] [address] GAP 10 (Normal) Range: 5-15 CO2 [...] 7-18 GLU 101 mg/dL (Normal) Range: 70-110 77-Vsf-406951:16 Hemoglobin A1c Comments: Test performed at:[facility] [address] [place] [address] HGB A1C 6.1 % (Normal) Range: 4.2-6.3 59-Zdb-553739:16 Lipid Profile Comments: Test performed at:[facility] [address] [place] [address] ; non-emergent till apt VLDL 27 [...] 200-240 mg/dL Borderline >240 mg/dL High Risk 48-Psf-161757:16 Microalb:Creat Ratio,Random UR Comments: Test performed at:[facility] [address] [place] [address] MALB:CREAT 5.2 {mg/g_CRE} (Normal) MICROALBUMIN,UR 10.0 mg/L (Normal) UR CREAT 189.2 mg/dL (Normal) 49-Vdp-986196:16 Vitamin B12 438 pg/mL (Normal) Comments: Test performed at:[facility] [address] [address] Range: 211-911 0-Wch-243651:11 HgA1C , Office (80823) HgA1C , Office 6.5 % (Normal) Range: 4.6 - 7.1 :07 CBC W/Diff, Automated Comments: Test performed at:[facility] [address] [place] [address] Absolute Lymph 2.36 {X10_3/ul} (Normal) Range: 0.83-4.51 [...] 4.2-5.4 WBC 7.5 K/mm3 (Normal) Range: 4.4-11.0 5-Ipu-681147:07 Comprehensive Metabolic Profil Comments: Test performed at:[facility] [address] [place] [address] GAP 5 (Normal) Range: 5-15 [...] 70-110 :07 Lipid Profile Comments: Test performed at:[facility] [address] [place], [place] [address] VLDL 52 mg/dL (Abnormal) Range: 5-40 LDL [...] 200-240 mg/dL Borderline >240 mg/dL High Risk 6-Wey-257489:07 Vitamin B12 740 pg/mL (Normal) Comments: Test performed at:[facility] [address] [place] [address] Range: 211-911 :26 Rapid Flu (29464 x 2) Influenza A Ag negative (Normal) :31 HgA1C , Office (93122) HgA1C , Office 6.2 % (Normal) Range: [...] CHOL 204 mg/dL (Abnormal) Comments: <200 mg/dL Dtlzizakb018-408 mg/dL Borderline>240 mg/dL High Risk :43 CMP [...] CHOL 174 mg/dL (Normal) Comments: <200 mg/dL Lqeezbsai258-409 mg/dL Borderline>240 mg/dL High Risk HDL 50 mg/dL (Normal) Comments: Reference RangeHDL <40 mg/dL Low HDL CholesterolHDL >or= 60 mg/dL High HDL Cholesterol LDL 105 mg/dL (Normal) Range: 0-130 TRIG 96 mg/dL (Normal) Range: 0-199 Comments: Serum Triglycerides Reference IntervalNormal <150 mg/dLBorderline high 150 - 199 mg/dLHigh 200 - 499 mg/ dLVery High > or = 500 mg/dL 15-Zgc-373485:54 B12 419 pg/mL (Normal) Range: 211-911 :54 [...] electrophoresis scan will follow via computer,mail, or pulp mill supervisor delivery. tPROELAG 1.2 (Normal) Range: 0.7-2.0 tPROELGL 3.2 g/dL (Normal) Range: 2.0-4.5 tPROELMS (Normal) Comments: Not Observed tPROELGA 0.8 g/dL (Normal) Range: 0.5-1.6 tPROELBE 1.1 g/dL (Normal) Range: 0.6-1.3 tPROELAL2 1.0 g/dL (Normal) Range: 0.4-1.2 tPROELAL1 0.2 g/dL (Normal) Range: 0.1-0.4 tPROELALB 3.8 g/dL (Normal) Range: 3.2-5.6 $tPROELTP 7.0 g/dL (Normal) Range: 6.0-8.5 :54 PROELU [id number] Comment (Normal) Comments: Protein electrophoresis scan will follow via computer,mail, or pulp mill supervisor delivery.Performed at: [address] [id number] Director: Marvin Cárdenas MD, Phone: [phone] tPROELUMS (Normal) Comments: Not Observed tPROELUGA 21.8 % (Normal) tPROELUBE 23.8 % (Normal) tPROELUAL2 15.7 % (Normal) tPROELUAL1 3.9 % (Normal) tPROELUALB 34.7 % (Normal) tPROELUTP 13.1 mg/dL (Normal) Range: 0.0-15.0 43-Pnb-128082:54 SED tSEDRATE 36 mm/h (Abnormal) Range: 0-30 56-Ell-619262:33 Rapid Strep Test, Office (14176) Rapid Strep Test, Office Negative (Normal) 24-Otg-04373:43 DEE DEE CULTURE-OTHER (60223) Comments: PATIENT NOT FASTINGPERFORMED BY: NIK [facility] Nrvxgm[address] [place] [id number] Information: SRC:THRT [id number] Result 1 RRF (Normal) Comments: Routine respiratory clayton Upper Respiratory Culture Final report (Normal) 31-Pya-001493:25 HgA1C , Office (12561) HgA1C , Office 6.0 % (Normal) Range: [...] CHOL 219 mg/dL (Abnormal) Comments: <200 mg/dL Gqthgvctf948-982 mg/dL Borderline>240 mg/dL High Risk :45 MISC (Normal) Comments: Test(s) Ordered: INTRINSIC FACTOR BLOCKING AB [id number] SERUM REFR Comments: TEST RESULT LIMITSIntrinsic Factor Abs, Serum Negative Negative TESTING PERFORMED AT [facility]. ORIGINAL REP ORT ONFILE IN LAB CONTAINS ADDITIONAL TEST SITE INFORMATION. 00-Ioh-84173:45 SED tSEDRATE 37 mm/h (Abnormal) Range: 0-30 65-Bhy-041789:36 Nuclear Stress Test Radiology Report See Note [...] The patient was injected with 44.5 mCi ztOa80p Cardiolite and subsequently stress SPECT Card iolite [...] 01/08/13 1327 Sign by: Jacques Begum MD 50-Ihh-22239:06 BILAT SCRN DIGITAL & CAD Radiology Report [...] Forde M.D.January 13, 2013 at 12:46:14 PM [id number] Signed GP/GP If you are the referring physician and wou ld like to consult with theradiologist who provided this interpretation, please contact Brittanie Khalil at [phone]. If this radiologist is unavailable, youwill be directed to another radiol ogist to assist. If you are a patient with a question regarding this report, pleasecontactyour referring physician directly. Professional Interpretation Provided By: [employer], Phone ,Fa x [phone] These documents contain legally protected and confidential [...] CHOL 181 mg/dL (Normal) Comments: <200 mg/dL Ltvqknhez896-126 mg/dL Borderline>240 mg/dL High Risk HDL 40 [...] Indication: Impaired Fasting Glucose Planned Observations CALCIFIDIOL (42151) VIT D 25Indication: Vitamin D deficiency On: :40 Request TSH (66696)Indication: Diabetes mellitus type II, controlled, with no complications On: :40 Request URINALYSIS, W/ MICRO (64813)Indication: Diabetes mellitus type II, controlled, with no complications On: :40 Request MICROALBUMIN: CREATININE RATIO (81356) AND (66286)Indication: Diabetes mellitus type II, controlled, with no complications On: :40 Request METABOLIC PANEL, COMPREHENSIVE (86877)Indication: Diabetes mellitus type II, controlled, with no complications On: :40 Request LIPOPROTEIN, BLD, BY NMR (60285)Indication: Hypercholesteremia (Renamed from Hypercholesterolemia) On: :40 Request CBC W/AUTO DIFF WBC (41390)Indication: Diabetes mellitus type II, controlled, with no complications On: :40 Request LIPID PANEL (09638)Indication: Diabetes mellitus type II, controlled, with no complications On: 31-Exb-969816:25 Request URINALYSIS, W/ MICRO ([id number])Indication: Diabetes mellitus type II, controlled, with no complications On: 04-Xai-471469:56 Request URINALYSIS, W/ MICRO (66891)Indication: Diabetes mellitus type II, controlled, with no complications On: 81-Ajk-217691:56 Request MICROALBUMIN: CREATININE RATIO (21716) AND (47647)Indication: Diabetes mellitus type II, controlled, with no complications On: 90-Rnu-438749:56 Request VITAMIN B-12 (CYANOCOBALAMIN) (30958)Indication: B12 deficiency On: 20-Zbc-959385:49 Request TSH (70871)Indication: Diabetes mellitus type II, controlled, with no complications On: 35-Ofl-341573:47 Request URINALYSIS, W/ MICRO (78575)Indication: Diabetes mellitus type II, controlled, with no complications On: 66-Tuh-696046:47 Request MICROALBUMIN: CREATININE RATIO (51501) AND (16815)Indication: Diabetes mellitus type II, controlled, with no complications On: 50-Pgs-924493:47 Request METABOLIC PANEL, COMPREHENSIVE (94816)Indication: Diabetes mellitus type II, controlled, with no complications On: :47 Request CBC W/AUTO DIFF WBC (37919)Indication: Diabetes mellitus type II, controlled, with no complications On: :47 Request CALCIFIDIOL (33666) VIT D 25Indication: Vitamin D deficiency On: :47 Request LIPID PANEL (47150)Indication: Hypercholesteremia (Renamed from Hypercholesterolemia) On: :47 Request HGB A1C (82347)Indication: Common cold virus On: 95-Cmn-941555:46 Request CALCIFEDIOL (32472)Indication: Hair loss On: 22-Qjv-853564:39 Request TSH (THYROID STIMULATING HORMONE) (88351)Indication: Hair loss On: 51-Mek-250160:35 Request VITAMIN B-12 (CYANOCOBALAMIN) (27453)Indication: B12 deficiency On: 6-Anv-931924:02 Request LIPID PANEL (44293)Indication: Hyperlipidemia On: 6-Cbd-516013:01 Request MICROALBUMIN: CREATININE RATIO (74158) AND (52026)Indication: Diabetes mellitus type II, controlled, with no complications On: 2-Cha-481955:56 Request METABOLIC PANEL, COMPREHENSIVE (37380)Indication: Diabetes mellitus type II, controlled, with no complications On: 4-Bow-957907:56 Request Hemoglobin Glyclated (HGB A1C) (54656)Indication: Diabetes mellitus type II, controlled, with no complications On: 4-Xwa-049043:56 Request VITAMIN B-12 (CYANOCOBALAMIN) (93976)Indication: B12 deficiency On: 22-Gzb-626301:07 Request CBC W/AUTO DIFF WBC (18280)Indication: B12 deficiency On: 79-Lsu-176448:06 Request METABOLIC PANEL, COMPREHENSIVE (15581)Indication: Elevated blood-pressure reading without diagnosis of hypertension On: 16-Uys-218319:06 Request LIPID PANEL (97507)Indication: Hyperlipidemia On: 07-Stn-839000:06 Request CBC WITH MANUAL DIFF (83530)Indication: Impaired Fasting Glucose On: 07-Mnl-139234:40 Request METABOLIC PANEL, COMPREHENSIVE (66383)Indication: Impaired Fasting Glucose On: 09-Ers-890750:40 Request LIPID PANEL (59873)Indication: Hyperlipidemia On: 17-Wqy-599764:40 Request VITAMIN B-12 (CYANOCOBALAMIN) (10016)Indication: B12 deficiency On: 18-Wpa-632451:39 Request HgA1C , Office (27646)Indication: Impaired Fasting Glucose On: 34-Rlw-937208:13 Request METABOLIC PANEL, COMPREHENSIVE (17429)Indication: Impaired Fasting Glucose On: 6-Yns-472216:40 Request LIPID PANEL (66346)Indication: Hyperlipidemia On: 7-Tsg-418019:40 Request SED RATE ERYTHROCYTE (77357)Indication: Abnormal blood chemistry On: 30-Nkb-282120:37 Request C-REACTIVE PROTEIN (35410)Indication: Abnormal blood chemistry On: 36-Vtc-029192:37 Request VITAMIN B-12 (CYANOCOBALAMIN) (73571)Indication: B12 deficiency On: 13-Vts-704615:37 Request UPEP (66710)Indication: Abnormal blood chemistry On: 55-Ulj-692220:37 Request Protein Electrophoresis, Serum (SPEP) (75526)Indication: Abnormal blood chemistry On: 79-Szd-620420:37 Request LIPID PANEL (06635)Indication: Hyperlipidemia On: 9-Vfw-033904:04 Request CBC WITH MANUAL DIFF (78777)Indication: Impaired Fasting Glucose On: 0-Mgk-412624:04 Request METABOLIC PANEL, COMPREHENSIVE (62357)Indication: Impaired Fasting Glucose On: 4-Ejc-422449:04 Request SED RATE ERYTHROCYTE (92206)Indication: Pain in unspecified joint On: 53-Lah-321366:57 Request C-REACTIVE PROTEIN (34812)Indication: Pain in unspecified joint On: 93-Jzu-983926:57 Request INTRINSIC FACTOR ANTBDY (14059)Indication: B12 deficiency On: 01-Gsf-878676:36 Request VITAMIN B-12 (CYANOCOBALAMIN) (91076)Indication: B12 deficiency On: 87-Onz-508945:35 Request HgA1C , Office (28580)Indication: Impaired Fasting Glucose On: 49-Uig-486357:15 Request VITAMIN B-12 (CYANOCOBALAMIN) (70047)Indication: Paresthesia On: 1-Msu-801049:17 Request SED RATE ERYTHROCYTE (06637)Indication: Pain in unspecified joint On: :16 Request C-REACTIVE PROTEIN (88420)Indication: Pain in unspecified joint On: :16 Request TSH (62257)Indication: Pain in unspecified joint On: :16 Request RHEUMATOID FACTOR-QUANT (46980)Indication: Pain in unspecified joint On: :16 Request ROSHNI (ANTINUCLEAR ANTIBODY) (02181)Indication: Pain in unspecified joint On: :16 Request CBC WITH MANUAL DIFF (41131)Indication: Pain in unspecified joint On: :16 Request METABOLIC PANEL, COMPREHENSIVE (56814)Indication: Pain in unspecified joint On: :16 Request LIPID PANEL (09402)Indication: SHORTNESS OF BREATH On: :16 Request CBC WITH MANUAL DIFF (11786)Indication: SHORTNESS OF BREATH On: :16 Request METABOLIC PANEL, COMPREHENSIVE (92188)Indication: SHORTNESS OF BREATH On: :16 Request Planned Encounters Medical; 3 Month FU - On: 16-Jun-2018 13:15 [facility] Korin Glass DO, DO, Kathleen Planned Procedures SCREENING DIGITAL TOMOSYNTHESIS OF On: 10-Mar-2018 Intent BREAST (52576)By: Korin Glass DO, DO, Kathleen Flu Vaccine (Quadrivalent) 71589Mn: On: 10-Mar-2018 Intent Korin Glass DO, DO, Comments: Lot #[id number] Exp-11/23/18Site-L dltd, IMDose prefilled syringegiven by: Lyudmila JCVIS reviewed and ABN signed Korin B 12 Injection, 1000 mcg (J3420)By: On: 10-Mar-2018 Intent Korin Glass DO, DO, Comments: 1 ml given rt dltd [id number] 07/2018 Korin B 12 Injection, 1000 mcg (J3420)By: On: 04-Nov-2017 Intent Korin Glass DO, DO Korin B 12 Injection, 1000 mcg (J3420)By: On: 08-Jul-2017 Intent Maria Luisa DO, Korin Maria Luisa DO, Comments: lot: [id number]: 8/18site/route: L del/IMamt: 1mLVIS signed when 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, [employer] Korin ELECTROCARDIOGRAM, COMPLETE (ECG) On: 08-Jul-2017 Intent (27092)By: Korin Glass DO Comments: nsr no acute chg Maria Luisa DO, Korin Aerosol Treatment (57957)By: Ti On: 05-Jun-2017 Intent Glenys BARBOSA ELECTROCARDIOGRAM, COMPLETE (ECG) On: 06-May-2017 Intent (09589)By: Maria LuisaKorin sarabia DO Comments: nsr mary cute chg Maria Luisa DO, Korin B 12 Injection, 1000 mcg (J3420)By: On: 06-May-2017 Intent Maria Luisa DO, Korin Maria Luisa DO, Comments: lot: [id number]: 07/15site/route: L del/IMamt: 1mLVIS signed when 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, [facility] Korin Flu Vaccine (Quadrivalent) 10717Qk: On: 06-May-2017 Intent Maria Luisa DO, Korin Maria Luisa DO, Comments: lot: [id number]: 11/11/18site/route: R linda, IMamt: 0.5mlVIS and ABN signed when 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, [employer] Korin B 12 Injection, 1000 mcg (J3420)By: On: 24-Dec-2016 Intent Maria Luisa DO, Korin Maria Luisa DO, Comments: lot: [id number]: 818site/route: L del/IMamt: 1mLVIS signed when 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, [employer] Korin B 12 Injection, 1000 mcg (J3420)By: [...] DOKorin ELECTROCARDIOGRAM, COMPLETE (ECG) On: 06-Mar-2016 Intent (11741)By: Korin Glass DO Comments: nsr no acute cgh Korin Glass DO Flu Vaccine (Quadrivalent) 15337Dr: On: 17-Feb-2016 Intent Trini Murphy DO ADMINISTRATION OF INFLUENZA VIRUS On: 17-Feb-2016 Intent VACCINE (G0008)By: Trini Murphy DO Comments: Lot #:[id number] date:4-76-14Tifyad given:0.5mlRoute: IMSite given:L DltdGiven by: Greta and ALEXSANDER signed Fluarix Aerosol Treatment (26285)By: Maria Luisa On: 03-Jun-2015 Intent , Korin Glass DO Korin Comments: STILL NOISEY BUT MUCH BETTER Inhaler Demo (61709)By: Maria Luisa DASH, On: 03-Jun-2015 Intent Korin Maria Luisa DASHKorin Radiology - Chest- PA and LatBy: On: 03-Jun-2015 Intent Maria Luisa DASH, Korin Glass DOKorin Flu Vaccine (Quadrivalent) 80181Ox: On: 12-Apr-2015 Intent Glenys Luke CNP Comments: lot: [id number]:5*2015site:Lt deltoidroute:IMdose:.5mlDEMICK, SMA Radiology - ChestBy: Trini Murphy DO On: 09-Aug-2014 Intent A Comments: PA & LAT- Do in 1 month Spirometry (03413)By: Jeffrey DASH, On: 02-Aug-2014 Intent Trini Benavidez Comments: good effort small but good curve- mod restrciton Radiology - Chest- PA and LatBy: On: 02-Aug-2014 Intent Trini Murphy DO Pulse Oximetry (02205)By: Jeffrey DASH On: 02-Aug-2014 Intent Trini Benavidez Comments: 96% Radiology - ChestBy: Trini Murpyh DO On: 12-Jul-2014 Intent A Comments: PA and LAT Radiology - Chest- PA and LatBy: On: 12-Jul-2014 Intent Trini Murphy DO Comments: stat Aerosol Treatment (23387)By: Jeffrey On: 12-Jul-2014 Intent Trini DASH Pulse Oximetry (37830)By: Jeffrey DASH, On: 12-Jul-2014 Intent Trini Benavidez Comments: 93% Prevnar 13 (21897)By: Moris MOSQUEDA, On: 26-Mar-2014 Intent Geraldine Comments: [id number] arm, IMAS Flu Vaccine (Quadrivalent) 63723Me: On: 26-Mar-2014 Intent Geraldine Subramanian LPN ADMINISTRATION OF INFLUENZA VIRUS On: 26-Mar-2014 Intent VACCINE (G0008)By: Geraldine Subramanian LPN Comments: [id number] syringeL Dltd, IMAS, LPNABN and VIS signed MAMMOGRAM, SCREENING, BOTH BREAST On: 15-Feb-2014 Intent (39253)By: Trini Murphy DO B 12 Injection, 1000 mcg (J3420)By: On: 29-Dec-2013 Intent Trini Murphy DO Comments: lot: [id number]: 02/07site/route: L del/IMamt: 1mLVIS signed when 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, [facility] B 12 Injection, 1000 mcg (J3420)By: On: 20-Nov-2013 Intent Trini Murphy DO Comments: Lot:[id number]:Dose:1mlRoute:IMSite:rafita Herrven By:ERICA signed B 12 Injection, 1000 mcg (J3420)By: On: 16-Nov-2013 Intent Trini Murphy DO Comments: Lot:[id number]:07/2015Dose:1mlRoute:IMSite:rafita Herrven By:ERICA signed B 12 Injection, 1000 mcg (J3420)By: On: 12-Oct-2013 Intent Trini Murphy DO Comments: Lot:[id number]:07/12Dose:1mlRoute:IMSite:rafita Hart By:ERICA signed Eprescribed prescriptions (G8553)By: On: 12-Oct-2013 Intent Fast DO, Trini A B 12 Injection, 1000 mcg (J3420)By: On: 08-Apr-2013 Intent Antonia Villeda Comments: Lot:[id number]:01/08Dose:1mlRoute:IMSite:l Carmenzaven By:ERICA signed B 12 Injection, 1000 mcg (J3420)By: On: 01-Apr-2013 Intent Fast DO, Trini A Comments: Lot:[id number]:01/08Dose:1mlRoute:IMSite:r farazGiven By:Lawrence signed B 12 Injection, 1000 mcg (J3420)By: On: 25-Mar-2013 Intent Fast DO, Trini A Comments: lot: [id number]: 01/08site/route: L deltoid/IMamt: 1mLVIS signed when 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, [employer] B 12 Injection, 1000 mcg (J3420)By: On: 17-Mar-2013 Intent Fast DO, Trini A Comments: Lot:[id number]:08/2014Dose:1mlRoute:IMSite:rafita Hart By:ERICA signed Nuclear Stress Test/Stress On: 29-Dec-2012 Intent SPECT/TreadmillBy: Jeffrey DO, Trini A EKG (13156)By: Radha Ca On: 29-Dec-2012 Intent Comments: ekg showed normal sinus rhythym, normal axis, no acute st/t wave changes Spirometry (83874)By: Roby, On: 29-Dec-2012 Intent Radha Comments: good effort and curve no obst MAMMOGRAM, SCREENING, BOTH BREASTS On: 29-Dec-2012 Intent (84708)By: Trini Murphy DO A TDAP VACCINE >7 IM (43973)By: On: 29-Dec-2012 Intent Radha Ca Planned Medications [...] face products, soaps, makeup, laundry soap, eye artificial glass eye maker.Encounter Diagnosis: Non-smoker, BMI 40.0-44.9, adult, Itch of [...] Onset was 2 w End: 24-Mar-2015 14:52 levelock(s) ago. There is no known event that [...] to listen to her lungs. 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
--- OUTSIDE RECORDS SUMMARY | 2018-06-21 18:27 | XMS RPT_ITS ---
:1945 Author Organization OHIP Care Team Providers Name Role Phone Korin Glass Attending Unavailable Korin Glass Referring Unavailable Korin Glass Primary Care Unavailable PROBLEMS PROBLEMS No Problem Records FoundPROCEDURES PROCEDURES No Procedure Records FoundRESULTS RESULTS SCREENING MAMM (CAD), Observed: 04/28/2018 Status: F Source: [place] 12:17 PM [facility] Imaging Services [address] [place] [id number] SCREENING MAMM (CAD), BILAT MR#: [id number] Acct: [id number] Name: GAMA DURAN Rep #: [id number] : 1945 F 72 From: Melchor Forde MD PCP: Korin Glass DO Status: REG CLI Study: SCREENING MAMM (CAD), BILAT Date of Exam: 04/28/18 Exam# [id number] Ordering Dr: Korin Glass DO MAMMOGRAPHY - BILATERAL SCREENING REASON FOR EXAM: Female, 72 years old. Routine annual screening examination. PERTINENT HISTORY: Non-contributory. TECHNIQUE: Digital bilateral breast herberth (3D mammographic acquisition) in the CC and MLO projections. 2-D mediolateral oblique (MLO) and craniocaudad (CC) views of both breasts were obtained. CAD: Full Field Digital Mammography with Computer Added Detection was performed. COMPARISON: Comparison is made with prior study dated March 26, 2014 and January 08, 2013. FINDINGS: Breast Composition: There are scattered areas of fibroglandular density. There are no dominant masses or suspicious calcifications. Stable appearance of the small bilateral axillary lymph nodes. No other significant abnormalities are identified. There has been no significant change since the prior study. BI/SCREENING MAMM (CAD), BILAT IMPRESSION: Stable bilateral screening mammogram. Yearly follow-up mammogram recommended. (A) ASSESSMENT CATEGORY: BIRADS Category 2: Benign. A letter regarding these results will be sent to the patient by the facility within 30 days. Approximately 10% of breast cancers are not detected by mammography. A normal mammogram should not delay biopsy of a clinically suspicious abnormality. [id number] Electronically Signed: Melchor Forde MD at 14:58 EST Tel [phone], Service support , CC: Korin Glass DO Partition Notcher: Signed ALLERGIES ALLERGIES No Allergies Records FoundENCOUNTERS ENCOUNTERS ADMIT/DISCHARGE ACCOUNT ADMITTING ENCOUNTER LOCATION SOURCE NUMBER CLASS 04/28/2018 [id number] Ambulatory Masha Penn [address] [place] [address] ing:OPBI Repository PAYERS PAYERS ENCOUNTER GUARANTOR PAYER SUBSCRIBER SOURCE 04/28/2018 GAMA Carter Primary GAMA Flanagan [id number] Insurance:[employer]: [place] MED[id number]: Repository [address]Ykj: (711) [id number] [phone] () Date:[id number] [address] [place] [address]LZ: 04/28/2018 Secondary NOT GIVENUNK Penn Insurance:SELF PAY [facility] Number: Effective Repository Date:2018-03-11
--- OUTSIDE RECORDS SUMMARY | 2018-06-21 18:27 | XMS RPT_ITS | Continuity of Care Document ---
:1945 Author Organization [facility] Address [facility] [address] [place] [address] Phone Care Team Providers Name Role Phone Korin Glass DO Unavailable Dr. Mike Cole Unavailable Dr. Ousmane Morgan Unavailable Jeffrey Trini DASH Unavailable Gravius, Larisa Unavailable Unavailable PANDA Matias Unavailable Unavailable Ciesa LOCKSTITCH TUNNEL ELASTIC OPERATOR, Chiquita Unavailable Unavailable Unavailable Problems Name [...] Status: Resolved as of 28-Jul-2014 Vaccine for eaiftobxve-suvuyvu-epfkwwkav with poliomyelitis (Z23, V06.3) Status: Inactive as [...] orthoscopic Completed Date Value Details 03-Jun-2015 Spirometry (39243) Comments: OBSTRUCTION PRESNET Result: 24-Nov-2014 Spirometry (66654) Comments: good effor tand curve normal Result: 20-Sep-2014 Chest PA and Lateral Result: Comments: See Note; NOTES: [facility] Imaging Services [address] [place] [address] Radiology Report MR#: [id number] Acct: [id number] Name: HAYDEE BOSS Rep #: [id number] : 1945 F 69 From: Jorge Mckeon DO PCP: Trini Murphy DO Status: REG CLI Study: Chest PA and Lateral Date of Exam: 09/20/14 Exam# [id number] Ordering Dr: Trini Murphy DO STUDY: X-RAY [...] Signed: Jorge Mckeon at 20:56 EDT Tel [phone], Service support [phone], RAD/Ch est PA and Lateral IMPRESSION: No acute cardiopulmonary disease. Electronically Signed: Jorge Mckeon at 20:56 EDT Tel [phone], Service support [phone], CC: Trini Murphy DO Vp: Signed 09-Aug-2014 Chest PA and Lateral Result: Comments: See Note; NOTES: [facility] Imaging Services [address] [place] [place] [address] Radiology Report MR#: [id number] Acct: [id number] Name: HAYDEE BOSS Rep #: [id number] : 1945 F 68 From: Zander Cornelius MD PCP: Trini Murphy DO Status: REG CLI Study: Chest PA and Lateral Date of Exam: 08/09/14 Exam# [id number] Ordering Dr: Trini Murphy DO STUDY: X-RAY [...] at 12:56 EDT Tel , Service support [phone], RAD/Chest PA and Lat eral IMPRESSION: Near complete resolution of previously described right middle and right lower lobe infiltrate. Followup recommended to assure complete resolution. Electronically Signed: Juan Cornelius MD at 12:56 EDT Tel , Service support [phone], CC: Trini Murphy DO Vp: Signed 12-Jul-2014 Chest PA and Lateral Result: Comments: See Note; NOTES: [facility] Imaging Services [address] [place] [address] Radiology Report MR#: [id number] Acct: [id number] Name: HAYDEE BOSS Rep #: [id number] : 1945 F 68 From: Oracio Mccollum MD PCP: Trini Murphy DO Status: REG CLI Study: Chest PA and Lateral Date of Exam: 07/12/14 Exam# [id number] Ordering Dr: Trini Murphy DO STUDY: X-RAY [...] at 15:46 EST Tel , Service support [phone], CC: Trini Murphy DO Vp: Signed 26-Mar-2014 Bilat Scrn Digital & CAD Result: Comments: See Note; NOTES: [facility] Imaging Services [address] [place] [address] Breast Imaging Report MR#: [id number] Acct: [id number] Name: HAYDEE BOSS Rep #: [id number] : 1945 F 68 From: Melchor Forde MD PCP: Trini Murphy DO Status: REG CLI Exam# [id number] Ordering Dr: Trini Murphy DO MAMMOGRAPHY - [...] Forde MD at 12: 54 EDT Tel [phone], Service support [phone], CC: Trini Murphy DO Vp: Signed Family History Unknown Family Member Name [...] Most Recent Primary Occupation Comments: works at [email or web address]- at [employer] on- with 3 children - has 11 [...] ANTIBODY) Comments: PATIENT NOT FASTINGPERFORMED BY: [facility] Vmevts7163 [facility] [id number] (03516) ROSHNI Direct Positive (Abnormal) :53 C-Reactive Protein (28342) Comments: PATIENT NOT FASTINGPERFORMED BY: [facility]6370 [facility] [id number] C-Reactive Protein, Quant 27.3 mg/L (Abnormal) Range: 0.0-4.9 :53 SED RATE ERYTHROCYTE (70842) Comments: PATIENT NOT FASTINGPERFORMED BY: [facility]6370 [facility] [id number] Sedimentation Rate-Westergren 34 mm/h (Normal) Range: 0-40 :48 HgA1C , Office (46261) HgA1C , Office 5.7 % (Normal) Range: 4.6 - 7.1 :48 Blood Glucose , Office (21737) Blood Glucose , Office 78 (Normal) :42 POTASSIUM SERUM (09152) Comments: PATIENT NOT FASTINGPERFORMED BY: [facility]6370 [facility] [id number] Potassium 4.7 mmol/L (Normal) Range: 3.5-5.2 :16 Pathology Report Comments: PERFORMED BY: [facility] Vcrf2968 [facility] [id number] BY: [facility] Dermatopathology [address] [place] [address] [id number] Information: [id number] See MATER Comments: Material submitted: .LEFT SIDE [...] FUNGAL HYPHAE.Pathologist provided ICD- 10:D48.5, L98.499, L08.9CPT .159549, 450202 33-Hbt-484672:59 POTASSIUM SERUM (00432) Comments: PATIENT NOT FASTINGPERFORMED BY: LabCoHunterdon Medical CenterOipemo5045 [facility] [id number] Potassium 5.3 mmol/L (Abnormal) Range: 3.5-5.2 12-Crx-260874:04 POTASSIUM SERUM (40915) Comments: PATIENT NOT FASTINGPERFORMED BY: [facility] Bvpnvs1541 [facility] [id number] Potassium 5.4 mmol/L (Abnormal) Range: 3.5-5.2 :01 HgA1C , Office (08851) HgA1C , Office 6.1 % (Normal) Range: 4.6 - 7.1 :01 Blood Glucose , Office (37933) Blood Glucose , Office 89 (Normal) 6-Ehd-729775:51 Microscopic Examination Comments: PATIENT WAS FASTINGPERFORMED BY: [employer] [facility] Pnkadttcpi[address] [id number] BY: LabMirametrixHunterdon Medical CenterUauufz2818 [facility] [id number] Bacteria Few (Normal) Mucus Threads Present (Normal) Epithelial Cells (non renal) 0-10 {/hpf} (Normal) Range: 0 - 10 RBC 0-2 {/hpf} (Normal) Range: 0 - 2 WBC 11-30 {/hpf} (Abnormal) Range: 0 - 5 Comments: Clumps of leukocytes present. :51 CALCIFEDIOL (16556) Comments: PATIENT WAS FASTINGPERFORMED BY: [facility] Eyxdbpfmut9[address] [id number] BY: [employer] Ukqafl8427 [facility] [id number] Vitamin D, 25-Hydroxy 31.8 ng/mL (Normal) Range: 30.0-100.0 Comments: Vitamin D deficiency has been defined by the [place] ofMedicine and an Endocrine Society practice guideline as alevel of serum 25-OH vitamin D less than 20 ng/mL (1,2).The Endocrine Society went on to further define vitamin Dinsufficiency as a level between 21 and 29 ng/mL (2).1. IOM ([place] of Medicine). 2010. Dietary reference intakes for calcium and D. [place]: The National Academies Press.2. Gael MF, Tiffany NC, Sonia-Francisco MADRID, et al. Evaluation, treatment, and prevention of vitamin D deficiency: an Endocrine Society clinical practice guideline. JCEM. 2010; 96(7):1911-30. :51 VITAMIN B-12 (CYANOCOBALAMIN) Comments: PATIENT WAS FASTINGPERFORMED BY: [employer] [address]yh[address]cejh[address] [id number] BY: The NewsMarketHunterdon Medical CenterUjzwtc1392 [facility] [id number] (17321) Vitamin B12 566 pg/mL (Normal) Range: 232-1245 9-Dwo-775235:51 TSH (45713) Comments: PATIENT WAS FASTINGPERFORMED BY: [employer] [id number] BY: [facility] NewsMarketAmanda [place] 3798470 [facility] [id number] TSH 1.520 {uIU/mL} (Normal) Range: 0.450-4.500 8-Kay-561029:51 URINALYSIS, W/ MICRO Comments: PATIENT WAS FASTINGPERFORMED BY: [employer] [id number] BY: [employer] Jmiqql6933 [facility] [id number] (09776) Microscopic Examination See below: (Normal) Comments: Microscopic was indicated and was performed. Nitrite, Urine Negative (Normal) Urobilinogen,Semi-Qn 0.2 mg/dL (Normal) Range: 0.2-1.0 Bilirubin Negative (Normal) Occult Blood Negative (Normal) Ketones Negative (Normal) Glucose Negative (Normal) Protein Negative (Normal) WBC Esterase 3+ (Abnormal) Appearance Clear (Normal) Urine-Color Yellow (Normal) pH 7.5 (Normal) Range: 5.0-7.5 Specific [place] 1.015 (Normal) Range: 1.005-1.030 0-Clz-878802:51 MICROALBUMIN: CREATININE Comments: PATIENT WAS FASTINGPERFORMED BY: [employer] [id number] BY: [place] NewsMarketAmand[place] 3798470 [facility] [id number] RATIO (79880) AND (44157) Alb/Creat Ratio 7.7 {mg/g_creat} (Normal) Range: 0.0-30.0 Albumin, Urine 6.0 ug/mL (Normal) Creatinine, Urine 77.6 mg/dL (Normal) 3-Uto-685902:51 METABOLIC PANEL, Comments: PATIENT WAS FASTINGPERFORMED BY: Blurtt Iowowrcomf4029 [facility] [id number] BY: [facility] Jarsoq2671 [facility] [id number] [facility] (60275) ALT (SGPT) 9 [iU]/L (Normal) Range: 0-32 [...] 8-27 Glucose 102 mg/dL (Abnormal) Range: 65-99 8-Kpk-734431:51 LIPOPROTEIN, BLD, BY NMR Comments: PATIENT WAS FASTINGPERFORMED BY: [place] NewsMarketJames [place] 820137 [facility] [id number] BY: NIK LabCoHunterdon Medical CenterZpimtc3051 [facility] [id number] (13435) LP-IR Score 79 (Abnormal) Comments: INSULIN RESISTANCE MARKER <--Insulin Sensitive Insulin Resistant--> Percentile in Reference PopulationInsulin Resistance ScoreLP-IR Score Low 25th 50th 75th High <27 27 45 63 >63LP-IR Score is inaccurate if patient is non-fasting. .The LP-IR score is a laboratory developed i [facility] that has beenassociated with insulin [...] were developed and their performance characteristicsdetermined by [facility]. These assays have not been cleared by [...] 1600 - 2000 Very High > 2000 3-Naf-754945:51 CBC W/AUTO DIFF WBC Comments: PATIENT WAS FASTINGPERFORMED BY: BN [facility] [address] [id number] BY: CB [facility] Fxtgln2435 [facility] [id number] (89540) Immature Grans (Abs) 0.0 {x10E3/uL} (Normal) Range: [...] (Normal) Range: 3.4-10.8 :02 HgA1C , Office (68464) HgA1C , Office 6.0 % (Normal) Range: 4.6 - 7.1 :02 Blood Glucose , Office (81225) Blood Glucose , Office 141 (Normal) :48 HgA1C , Office (84786) HgA1C , Office 6.0 % (Normal) Range: 4.6 - 7.1 :48 Blood Glucose , Office (60112) Blood Glucose , Office 94 (Normal) :26 TSH (25885) Comments: PATIENT WAS FASTINGPERFORMED BY: The NewsMarketHunterdon Medical CenterQeotpn8819 [facility] [id number] TSH 2.090 {uIU/mL} (Normal) Range: 0.450-4.500 :26 METABOLIC PANEL, COMPREHENSIVE Comments: PATIENT WAS FASTINGPERFORMED BY: ZEBHunterdon Medical CenterVqisjb7001 [facility] [id number] (90460) ALT (SGPT) 11 [iU]/L (Normal) Range: 0-32 [...] Glucose, Serum 100 mg/dL (Abnormal) Range: 65-99 84-Odv-576794:26 CBC W/AUTO DIFF WBC (37374) Comments: PATIENT WAS FASTINGPERFORMED BY: LabCoHunterdon Medical CenterLfbgpg7476 [facility] [id number] Immature Grans (Abs) 0.0 {x10E3/uL} (Normal) Range: [...] B-12 (CYANOCOBALAMIN) Comments: PATIENT WAS FASTINGPERFORMED BY: [employer] Pkgxqg3069 [facility] [id number] (27920) Vitamin B12 519 pg/mL (Normal) Range: 211-946 :26 CALCIFEDIOL (45988) Comments: PATIENT WAS FASTINGPERFORMED BY: [employer] Zoieet0656 [facility] [place] [id number] Vitamin D, 25-Hydroxy 37.1 ng/mL (Normal) Range: 30.0-100.0 Comments: Vitamin D deficiency has been defined by the [place] ofShel[facility] Hospitalcine and an Endocrine Society practice guideline as alevel of serum 25-OH vitamin D less than 20 ng/mL (1,2).The Endocrine Society went on to further define vitamin Dinsufficiency as a level between 21 and 29 ng/mL (2).1. IOM ([place] of Medicine). 2010. Dietary reference intakes for calcium and D. [place]: The National Academies Press.2. Gael MF, Tiffany HEART, Sandee MADRID, et al. Evaluation, treatment, and prevention of vitamin D deficiency: an Endocrine Society clinical practice guideline. JCEM. 2010; 96(7):1911-30. :26 LIPID PANEL (52125) Comments: PATIENT WAS FASTINGPERFORMED BY: [facility] Dirlgv8706 [facility] [place] [id number] LDL/HDL Ratio 3.0 {ratio_units} (Normal) Range: 0.0-3.2 [...] (Abnormal) Range: 100-199 :18 HgA1C , Office (31766) HgA1C , Office 6.0 % (Normal) Range: 4.6 - 7.1 :18 Blood Glucose , Office (21073) Blood Glucose , Office 120 (Normal) :50 HgA1C , Office (82636) HgA1C , Office 6.2 % (Normal) Range: 4.6 - 7.1 :50 Blood Glucose , Office (85453) Blood Glucose , Office 104 (Normal) :10 CBC W/Diff, Automated Comments: [facility] [address] [place], [place], [id number] Absolute Lymph 2.49 {X10_3/ul} (Normal) Range: 0.83-4.51 [...] 4.2-5.4 WBC 7.2 K/mm3 (Normal) Range: 4.4-11.0 31-Acm-727138:10 Comprehensive Metabolic Profil Comments: [facility] [address]weqh[address] [place], [place], [address] GAP 6 (Normal) Range: 5-15 CO2 29.0 [...] 7-18 GLU 96 mg/dL (Normal) Range: 70-110 75-Qxq-047170:10 Lipid Profile Comments: [facility] Lcbcsietai37[address] [place], [place], [address] VLDL 31 mg/dL (Normal) Range: 5-40 LDL [...] 200-240 mg/dL Borderline >240 mg/dL High Risk 83-Czi-485728:10 Microalb:Creat Ratio,Random UR Comments: [facility] [address] [place], [place], [address] MALB:CREAT 12.5 {mg/g_CRE} (Normal) MICROALBUMIN,UR 15.4 mg/L (Normal) UR CREAT 123.00 mg/dL (Normal) 36-Wqp-161116:10 Thyroid Stim Hormone (TSH) Comments: [facility] [address]atsnd[address] [place], [place], [address] TSH 2.34 {uIU/mL} (Normal) Range: 0.358-3.74 31-Bif-850941:10 Urinalysis, Complete Comments: How was Urine Obtained? CLEAN [facility] Ledhkdbluf[address] [place], [place], [address] MUCUS, URINE 1+ {/hpf} (Normal) BACTERIA 1+ [...] CLARITY Sl. Cloudy (Normal) COLOR Yellow (Normal) 54-Xdg-829022:10 Vitamin B12 563 pg/mL (Normal) Comments: [facility] Vdiyvjbeum74[address] [facility] [address] [place], [address] Range: 211-911 77-Umz-055030:10 Vitamin D,25 Hydroxy Comments: [facility] Tequlsenzb[address] [facility] [address] [place], [place], [address] Vitamin D 25-OH 31.1 ng/mL (Normal) Comments: Vitamin D 25(OH) Status Range Deficiency <20 ng/mL (50nmol/L) Insuffciency 20 - 30 ng/mL (50 - 75 nmol/L) Sufficiency 30 - 100 ng/mL (75 - 250 nmol/L) Toxicity >100 ng/mL (>250 nmol/L) 45-Mqt-812167:21 HgA1C , Office (44281) HgA1C , Office 6.1 % (Normal) Range: 4.6 - 7.1 65-Yxs-590781:21 Blood Glucose , Office (71433) Blood Glucose , Office 100 (Normal) 75-Ydg-324253:56 Microscopic Examination Comments: PATIENT WAS FASTINGPERFORMED BY: N30 PharmaceuticalsAt[facility] [id number] Bacteria Few (Normal) Mucus Threads Present (Normal) Epithelial Cells (non renal) 0-10 {/hpf} (Normal) Range: 0 - 10 RBC 0-2 {/hpf} (Normal) Range: 0 - 2 WBC 11-30 {/hpf} (Abnormal) Range: 0 - 5 47-Kpe-403023:56 LIPID PANEL (31702) Comments: PATIENT WAS FASTINGPERFORMED BY: ViralNinjas MD [id number] LDL/HDL Ratio 2.6 {ratio_units} (Normal) Range: 0.0-3.2 [...] Cholesterol, Total 201 mg/dL (Abnormal) Range: 100-199 91-Whh-199037:56 URINALYSIS, W/ MICRO (86969) Comments: PATIENT WAS FASTINGPERFORMED BY: N30 PharmaceuticalsAt[facility] [id number] Microscopic Examination See below: (Normal) Comments: Microscopic was indicated and was performed. Nitrite, Urine Positive (Abnormal) Urobilinogen,Semi-Qn 0.2 mg/dL (Normal) Range: 0.2-1.0 Bilirubin Negative (Normal) Occult Blood Negative (Normal) Ketones Negative (Normal) Glucose Negative (Normal) Protein Negative (Normal) WBC Esterase 2+ (Abnormal) Appearance Clear (Normal) Urine-Color Yellow (Normal) pH 6.0 (Normal) Range: 5.0-7.5 Specific [place] 1.020 (Normal) Range: 1.005-1.030 79-Haq-752444:56 MICROALBUMIN: CREATININE RATIO Comments: PATIENT WAS FASTINGPERFORMED BY: [facility] PharmaceuticalsAt[facility] [id number] (24140) AND (28681) Microalb/Creat Ratio 5.1 {mg/g_creat} (Normal) Range: 0.0-30.0 Microalbumin, Urine 4.2 ug/mL (Normal) Creatinine, Urine 82.7 mg/dL (Normal) 73-Cxd-721527:56 METABOLIC PANEL, COMPREHENSIVE Comments: PATIENT WAS FASTINGPERFORMED BY: N30 PharmaceuticalsAt[facility] [id number] (54135) ALT (SGPT) 11 [iU]/L (Normal) Range: 0-32 [...] Glucose, Serum 111 mg/dL (Abnormal) Range: 65-99 58-Gko-564782:56 CBC W/AUTO DIFF WBC (86406) Comments: PATIENT WAS FASTINGPERFORMED BY: [facility] Mqbypo1285 [facility] [id number] Immature Grans (Abs) 0.0 {x10E3/uL} (Normal) Range: [...] 3.77-5.28 WBC 7.0 {x10E3/uL} (Normal) Range: 3.4-10.8 96-Knh-190757:56 VITAMIN B-12 (CYANOCOBALAMIN) Comments: PATIENT WAS FASTINGPERFORMED BY: LabCoHunterdon Medical CenterFvonhd0403 [facility] [id number] (51393) Vitamin B12 533 pg/mL (Normal) Range: 211-946 97-Lkr-900686:33 HgA1C , Office (42831) HgA1C , Office 5.9 % (Normal) Range: 4.6 - 7.1 42-Mur-130382:33 Blood Glucose , Office (93373) Blood Glucose , Office 118 (Normal) 67-Eig-051783:17 Hemoglobin A1c Comments: [facility] Riodkkfamo[address] [place], [address] HGB A1C 6.1 % (Normal) Range: 4.2-6.3 10-Sxp-982037:17 Thyroid Stim Hormone (TSH) Comments: [facility] [address]piqxhy[address] [place], [address] TSH 2.57 {uIU/mL} (Normal) Range: 0.358-3.74 :17 Vitamin D,25 Hydroxy Comments: [facility] Gyevxszwms4874 [address] Flan[address] [place], [address] Vitamin D 25-OH 28.0 ng/mL (Normal) Comments: Vitamin D 25(OH) Status Range Deficiency <20 ng/mL (50nmol/L) Insuffciency 20 - 30 ng/mL (50 - 75 nmol/L) Sufficiency 30 - 100 ng/mL (75 - 250 nmol/L) Toxicity >100 ng/mL (>250 nmol/L) 87-Ume-715500:16 Comprehensive Metabolic Profil Comments: Test performed at:[facility] Fwxaqjdyet[address] [place] [address] GAP 10 (Normal) Range: 5-15 CO2 [...] 7-18 GLU 101 mg/dL (Normal) Range: 70-110 48-Mot-622324:16 Hemoglobin A1c Comments: Test performed at:[facility] [address] [place] [address] HGB A1C 6.1 % (Normal) Range: 4.2-6.3 :16 Lipid Profile Comments: Test performed at:[facility] [address] [place] [address] ; non-emergent till apt VLDL 27 [...] 200-240 mg/dL Borderline >240 mg/dL High Risk 72-Gvm-625016:16 Microalb:Creat Ratio,Random UR Comments: Test performed at:[facility] [address] [place] [address] MALB:CREAT 5.2 {mg/g_CRE} (Normal) MICROALBUMIN,UR 10.0 mg/L (Normal) UR CREAT 189.2 mg/dL (Normal) 67-Rdj-100239:16 Vitamin B12 438 pg/mL (Normal) Comments: Test performed at:[facility] Orcviixpxr[address] [place] [address] Range: 211-911 1-Tlu-635537:11 HgA1C , Office (07358) HgA1C , Office 6.5 % (Normal) Range: 4.6 - 7.1 :07 CBC W/Diff, Automated Comments: Test performed at:[facility] Jmvxgrpsft5975 [facility] [place] [address] Absolute Lymph 2.36 {X10_3/ul} (Normal) Range: 0.83-4.51 [...] 4.2-5.4 WBC 7.5 K/mm3 (Normal) Range: 4.4-11.0 8-Ldq-291693:07 Comprehensive Metabolic Profil Comments: Test performed at:[facility] Pjmafdcbbc0506 [place] [address] GAP 5 (Normal) Range: 5-15 [...] 7-18 GLU 100 mg/dL (Normal) Range: 70-110 2-Nkw-883497:07 Lipid Profile Comments: Test performed at:[facility] Nlurqywnea6417 [facility] [place], [place] [address] VLDL 52 mg/dL (Abnormal) Range: 5-40 LDL [...] B12 740 pg/mL (Normal) Comments: Test performed at:[facility] [address]yrkexodax[address] [place], [place] [address] Range: 211-911 13-Iht-170924:26 Rapid Flu (73719 x 2) Influenza A Ag negative (Normal) :31 HgA1C , Office (11421) HgA1C , Office 6.2 % (Normal) Range: [...] 7-18 GLU 103 mg/dL (Normal) Range: 70-110 88-Nsr-550776:48 LIPID VLDL 29 mg/dL (Normal) Range: 5-40 [...] CHOL 204 mg/dL (Abnormal) Comments: <200 mg/dL Ueowceohb070-833 mg/dL Borderline>240 mg/dL High Risk :43 CMP [...] CHOL 174 mg/dL (Normal) Comments: <200 mg/dL Hoahkqqyt747-878 mg/dL Borderline>240 mg/dL High Risk HDL 50 [...] electrophoresis scan will follow via computer,mail, or traffic superintendent delivery. tPROELAG 1.2 (Normal) Range: 0.7-2.0 tPROELGL 3.2 g/dL (Normal) Range: 2.0-4.5 tPROELMS (Normal) Comments: Not Observed tPROELGA 0.8 g/dL (Normal) Range: 0.5-1.6 tPROELBE 1.1 g/dL (Normal) Range: 0.6-1.3 tPROELAL2 1.0 g/dL (Normal) Range: 0.4-1.2 tPROELAL1 0.2 g/dL (Normal) Range: 0.1-0.4 tPROELALB 3.8 g/dL (Normal) Range: 3.2-5.6 $tPROELTP 7.0 g/dL (Normal) Range: 6.0-8.5 :54 PROELU [id number] Comment (Normal) Comments: Protein electrophoresis scan will follow via computer,mail, or traffic superintendent delivery.Performed at: [address] [id number] Director: Marvin Cárdenas MD, Phone: [phone] tPROELUMS (Normal) Comments: Not Observed tPROELUGA 21.8 % (Normal) tPROELUBE 23.8 % (Normal) tPROELUAL2 15.7 % (Normal) tPROELUAL1 3.9 % (Normal) tPROELUALB 34.7 % (Normal) tPROELUTP 13.1 mg/dL (Normal) Range: 0.0-15.0 :54 SED tSEDRATE 36 mm/h (Abnormal) Range: 0-30 01-Jve-669698:33 Rapid Strep Test, Office (96996) Rapid Strep Test, Office Negative (Normal) 83-Brm-74777:43 DEE DEE CULTURE-OTHER (29943) Comments: PATIENT NOT FASTINGPERFORMED BY: NIK [facility] Ogujzc6044 Grace Gregory [place] [id number] Information: SRC:THRT [id number] Result 1 RRF (Normal) Comments: Routine respiratory clayton Upper Respiratory Culture Final report (Normal) 86-Iuj-312425:25 HgA1C , Office (62094) HgA1C , Office 6.0 % (Normal) Range: [...] CHOL 219 mg/dL (Abnormal) Comments: <200 mg/dL Bcmidtlli739-738 mg/dL Borderline>240 mg/dL High Risk :45 MISC (Normal) Comments: Test(s) Ordered: INTRINSIC FACTOR BLOCKING AB [id number] SERUM REFR Comments: TEST RESULT LIMITSIntrinsic Factor Abs, Serum Negative Negative TESTING PERFORMED AT [facility]. ORIGINAL REP ORT ONFILE IN LAB CONTAINS ADDITIONAL TEST SITE INFORMATION. 80-Rbx-27820:45 SED tSEDRATE 37 mm/h (Abnormal) Range: 0-30 87-Gab-054122:36 Nuclear Stress Test Radiology Report See Note [...] The patient was injected with 44.5 mCi hxLr72b Cardiolite and subsequently stress SPECT Card iolite [...] 01/08/13 1327 Sign by: Jacques Begum MD 35-Udx-78417:06 BILAT SCRN DIGITAL & CAD Radiology Report [...] Forde M.D.January 13, 2013 at 12:46:14 PM [id number] Signed GP/GP If you are the referring physician and wou ld like to consult with theradiologist who provided this interpretation, please contact Brittanie Khaill at [phone]. If this radiologist is unavailable, youwill be directed to another radiol ogist to assist. If you are a patient with a question regarding this report, pleasecontactyour referring physician directly. Professional Interpretation Provided By: [employer], Phone ,Fa x [phone] These documents contain legally protected and confidential [...] CHOL 181 mg/dL (Normal) Comments: <200 mg/dL Xblaegppi405-657 mg/dL Borderline>240 mg/dL High Risk HDL 40 [...] Fasting Glucose Planned Observations Systemic Lupus Profile (16241)Indication: Positive ROSHNI (antinuclear antibody) On: Request RHEUMATOID FACTOR-QUANT (49253) test code 742457Myidypqsyw: Positive ROSHNI (antinuclear antibody) On: Request EXTRCTBL NUCLR ANTGEN EA (07460) test code 370920Tfmfohdtmf: Positive ROSHNI (antinuclear antibody) On: Request ANTI-Sm (ANTI CHU ANTIBODY) (97755) test code 272599Lgqettjgdb: Positive ROSHNI (antinuclear antibody) On: Request ANTI-SHEET ROCK TAPER (ANTI RIBONUCLEAR PROTEIN ANTIBODY) (32192) test code 810445Oqrltqinrv: Positive ROSHNI (antinuclear antibody) On: Request DNA ANTIBODY-NATV/DBL ST (31177) test code 872910Yirvuqbcih: Positive ROSHNI (antinuclear antibody) On: Request CALCIFIDIOL (79799) VIT D 25Indication: Vitamin D deficiency On: Request TSH (22415)Indication: Diabetes mellitus type II, controlled, with no complications On: Request URINALYSIS, W/ MICRO (98793)Indication: Diabetes mellitus type II, controlled, with no complications On: Request MICROALBUMIN: CREATININE RATIO (12618) AND (76116)Indication: Diabetes mellitus type II, controlled, with no complications On: Request METABOLIC PANEL, COMPREHENSIVE (28446)Indication: Diabetes mellitus type II, controlled, with no complications On: Request LIPOPROTEIN, BLD, BY NMR (22789)Indication: Hypercholesteremia (Renamed from Hypercholesterolemia) On: Request CBC W/AUTO DIFF WBC ([id number])Indication: Diabetes mellitus type II, controlled, with no complications On: :40 Request LIPID PANEL ([id number])Indication: Diabetes mellitus type II, controlled, with no complications On: : Request URINALYSIS, W/ MICRO (36141)Indication: Diabetes mellitus type II, controlled, with no complications On: 74-Mra-933147:56 Request URINALYSIS, W/ MICRO (04247)Indication: Diabetes mellitus type II, controlled, with no complications On: 58-Zvr-732487:56 Request MICROALBUMIN: CREATININE RATIO (28745) AND (93821)Indication: Diabetes mellitus type II, controlled, with no complications On: 16-Lxg-265964:56 Request VITAMIN B-12 (CYANOCOBALAMIN) (06164)Indication: B12 deficiency On: 99-Gjk-577963:49 Request TSH (21362)Indication: Diabetes mellitus type II, controlled, with no complications On: :47 Request URINALYSIS, W/ MICRO (99456)Indication: Diabetes mellitus type II, controlled, with no complications On: 22-Awm-275836:47 Request MICROALBUMIN: CREATININE RATIO (09970) AND (52805)Indication: Diabetes mellitus type II, controlled, with no complications On: 32-Vuv-552076:47 Request METABOLIC PANEL, COMPREHENSIVE (94326)Indication: Diabetes mellitus type II, controlled, with no complications On: :47 Request CBC W/AUTO DIFF WBC (12438)Indication: Diabetes mellitus type II, controlled, with no complications On: 86-Cxj-477660:47 Request CALCIFIDIOL (75463) VIT D 25Indication: Vitamin D deficiency On: 10-Uia-539674:47 Request LIPID PANEL (54506)Indication: Hypercholesteremia (Renamed from Hypercholesterolemia) On: 17-Jzf-837220:47 Request HGB A1C (64708)Indication: Common cold virus On: 55-Vcx-859604:46 Request CALCIFEDIOL (87196)Indication: Hair loss On: 80-Nin-499372:39 Request TSH (THYROID STIMULATING HORMONE) (49335)Indication: Hair loss On: 07-Jkx-559796:35 Request VITAMIN B-12 (CYANOCOBALAMIN) (75658)Indication: B12 deficiency On: 7-Jzc-524880:02 Request LIPID PANEL (40817)Indication: Hyperlipidemia On: 5-Lmq-535227:01 Request MICROALBUMIN: CREATININE RATIO (80280) AND (80845)Indication: Diabetes mellitus type II, controlled, with no complications On: 2-Hhy-792004:56 Request METABOLIC PANEL, COMPREHENSIVE (88723)Indication: Diabetes mellitus type II, controlled, with no complications On: 5-Qqd-429569:56 Request Hemoglobin Glyclated (HGB A1C) (64863)Indication: Diabetes mellitus type II, controlled, with no complications On: 5-Tgs-691239:56 Request VITAMIN B-12 (CYANOCOBALAMIN) (23840)Indication: B12 deficiency On: 25-Ceq-604630:07 Request CBC W/AUTO DIFF WBC (89046)Indication: B12 deficiency On: 62-Uoj-538594:06 Request METABOLIC PANEL, COMPREHENSIVE (82785)Indication: Elevated blood-pressure reading without diagnosis of hypertension On: :06 Request LIPID PANEL (93000)Indication: Hyperlipidemia On: :06 Request CBC WITH MANUAL DIFF (40945)Indication: Impaired Fasting Glucose On: 17-Zyp-709905:40 Request METABOLIC PANEL, COMPREHENSIVE (01696)Indication: Impaired Fasting Glucose On: 68-Ubt-897853:40 Request LIPID PANEL (61434)Indication: Hyperlipidemia On: 36-Ebk-653744:40 Request VITAMIN B-12 (CYANOCOBALAMIN) (61673)Indication: B12 deficiency On: 61-Aqf-755405:39 Request HgA1C , Office (21810)Indication: Impaired Fasting Glucose On: 01-Ldp-263072:13 Request METABOLIC PANEL, COMPREHENSIVE (13823)Indication: Impaired Fasting Glucose On: 0-Kbi-643561:40 Request LIPID PANEL (32087)Indication: Hyperlipidemia On: 5-Fnd-091907:40 Request SED RATE ERYTHROCYTE (27718)Indication: Abnormal blood chemistry On: 29-Num-300459:37 Request C-REACTIVE PROTEIN (69646)Indication: Abnormal blood chemistry On: 80-Mut-367449:37 Request VITAMIN B-12 (CYANOCOBALAMIN) (22002)Indication: B12 deficiency On: 92-Fvs-786437:37 Request UPEP (25919)Indication: Abnormal blood chemistry On: 97-Bxk-632316:37 Request Protein Electrophoresis, Serum (SPEP) (15785)Indication: Abnormal blood chemistry On: 23-Lmu-718106:37 Request LIPID PANEL (63430)Indication: Hyperlipidemia On: 5-Euy-837124:04 Request CBC WITH MANUAL DIFF (59148)Indication: Impaired Fasting Glucose On: 3-Zgp-430621:04 Request METABOLIC PANEL, COMPREHENSIVE (10406)Indication: Impaired Fasting Glucose On: 3-Gtg-609715:04 Request SED RATE ERYTHROCYTE (15451)Indication: Pain in unspecified joint On: 94-Scd-721292:57 Request C-REACTIVE PROTEIN (25917)Indication: Pain in unspecified joint On: 51-Mdj-283720:57 Request INTRINSIC FACTOR ANTBDY (44490)Indication: B12 deficiency On: 37-Grt-420259:36 Request VITAMIN B-12 (CYANOCOBALAMIN) (17808)Indication: B12 deficiency On: 26-Ugd-005277:35 Request HgA1C , Office (97652)Indication: Impaired Fasting Glucose On: 36-Ktm-937266:15 Request VITAMIN B-12 (CYANOCOBALAMIN) (76413)Indication: Paresthesia On: :17 Request SED RATE ERYTHROCYTE (89161)Indication: Pain in unspecified joint On: 4-Xfq-112455:16 Request C-REACTIVE PROTEIN (77211)Indication: Pain in unspecified joint On: 9-Wnf-952740:16 Request TSH (21557)Indication: Pain in unspecified joint On: 3-Naf-512967:16 Request RHEUMATOID FACTOR-QUANT (75804)Indication: Pain in unspecified joint On: 3-Wjp-850262:16 Request ROSHNI (ANTINUCLEAR ANTIBODY) (95825)Indication: Pain in unspecified joint On: 7-Gij-275271:16 Request CBC WITH MANUAL DIFF (10794)Indication: Pain in unspecified joint On: 3-Kxc-206267:16 Request METABOLIC PANEL, COMPREHENSIVE (79841)Indication: Pain in unspecified joint On: 6-Ejg-863634:16 Request LIPID PANEL (98164)Indication: SHORTNESS OF BREATH On: 9-Yor-202930:16 Request CBC WITH MANUAL DIFF (21211)Indication: SHORTNESS OF BREATH On: 4-Qll-290991:16 Request METABOLIC PANEL, COMPREHENSIVE (85751)Indication: SHORTNESS OF BREATH On: 2-Lmk-604464:16 Request Planned Encounters Medical; 3 Month FU - On: 16-Jun-2018 13:15 [facility] Korin Glass DO, DO, Kathleen Planned Procedures SCREENING DIGITAL TOMOSYNTHESIS OF On: 10-Mar-2018 Intent BREAST (69708)By: Korin Glass DO Maria Luisa DOKorin Flu Vaccine (Quadrivalent) 56869Qd: On: 10-Mar-2018 Intent Maria Luisa DO, Korin Maria Luisa DO, Comments: Lot #[id number] Exp-11/23/18Site-L dltd, IMDose prefilled syringegiven by: Lyudmila JCVIS reviewed and ABN signed Korin B 12 Injection, 1000 mcg (J3420)By: On: 10-Mar-2018 Intent Maria Luisa DO, Korin Maria Luisa DO, Comments: 1 ml given rt dltd [id number] 07/2018 Korin B 12 Injection, 1000 mcg (J3420)By: On: 04-Nov-2017 Intent Maria Luisa DO, Korin Maria Luisa DO, Korin B 12 Injection, 1000 mcg (J3420)By: On: 08-Jul-2017 Intent Maria Luisa DO, Korin Maria Luisa DO, Comments: lot: [id number]: ite/route: L del/IMamt: 1mLVIS signed when applicableCheAMBER atkinson ELECTROCARDIOGRAM, COMPLETE (ECG) On: 08-Jul-2017 Intent (20521)By: Korin Glass DO Comments: nsr no acute chg Maria Luisa DOKorin Aerosol Treatment (05171)By: Ti On: 05-Jun-2017 Intent LOCKSTITCH TUNNEL ELASTIC OPERATORGlenys ELECTROCARDIOGRAM, COMPLETE (ECG) On: 06-May-2017 Intent (55214)By: Korin Glass DO Comments: nsr mary cute chg Maria Luisa DO, Korin B 12 Injection, 1000 mcg (J3420)By: On: 06-May-2017 Intent Maria Luisa DORachanaKorin Maria Luisa DO, Comments: lot: [id number]: 07/15site/route: L del/IMamt: 1mLVIS signed when applicableAMBER Canela Flu Vaccine (Quadrivalent) 84150Sb: On: 06-May-2017 Intent Maria Luisa DOKorin Maria Luisa DO, Comments: lot: [id number]: 11/11/18site/route: R linda, IMamt: 0.5mlVIS and ABN signed when 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, AREA LOSS PREVENTION MANAGER Korin B 12 Injection, 1000 mcg (J3420)By: On: 24-Dec-2016 Intent Maria Luisa DO, Korin Maria Luisa DO, Comments: lot: [id number]: 8/18site/route: L del/IMamt: 1mLVIS signed when 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, AREA LOSS PREVENTION MANAGER Korin B 12 Injection, 1000 mcg [...] ite/route: L del/IMamt: 1mLVIS signed when 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, AREA LOSS PREVENTION MANAGER Korin EMGBy: Maria Luisa DO, Korin Maria Luisa On: 18-Jun-2016 Intent Korin DASH Nerve ConductionBy: Maria Luisa DO, On: 18-Jun-2016 Intent Korin Maria Luisa DO Korin ELECTROCARDIOGRAM, COMPLETE (ECG) On: 06-Mar-2016 Intent (13093)By: Korin Glass DO Comments: nsr no acute cgh Korin Glass DO Flu Vaccine (Quadrivalent) [id number]: On: 17-Feb-2016 Intent Trini Murphy DO ADMINISTRATION OF INFLUENZA VIRUS On: 17-Feb-2016 Intent VACCINE (G0008)By: Trini Murphy DO A Comments: Lot #:[id number] date:7-45-73Metkqn given:0.5mlRoute: IMSite given:L DltdGiven by: Greta and ABN signed Fluarix Aerosol Treatment (14954)By: Maria Luisa On: 03-Jun-2015 Intent DOKorin Maria Luisa Korin DASH Comments: STILL NOISEY BUT MUCH BETTER Inhaler Demo (97868)By: Maria Luisa DO, On: 03-Jun-2015 Intent Korin Maria Luisa DO Korin Radiology - Chest- PA and LatBy: On: 03-Jun-2015 Intent Maria Luisa DO, Korin Glass DO, Korin Flu Vaccine (Quadrivalent) 49437Vq: On: 12-Apr-2015 Intent Ti BARBOSA Glenys Granado Comments: lot: [id number]*2016site:Lt deltoidroute:IMdose:.5mlDEMICK, SMA Radiology - ChestBy: Trini Murphy DO On: 09-Aug-2014 Intent A Comments: PA & LAT- Do in 1 month Spirometry (93464)By: Jeffrey DASH, On: 02-Aug-2014 Intent Trini Benavidez Comments: good effort small but good curve- mod restrciton Radiology - Chest- PA and LatBy: On: 02-Aug-2014 Intent Trini Murphy DO Pulse Oximetry (41254)By: Jeffrey DASH, On: 02-Aug-2014 Intent Trini Benavidez Comments: 96% Radiology - ChestBy: Trini Murphy DO On: 12-Jul-2014 Intent A Comments: PA and LAT Radiology - Chest- PA and LatBy: On: 12-Jul-2014 Intent Trini Murphy DO Comments: stat Aerosol Treatment (82319)By: Jeffrey On: 12-Jul-2014 Trini Carrington DO Pulse Oximetry (73190)By: Jeffrey DASH, On: 12-Jul-2014 Intent Trini Benavidez Comments: 93% Prevnar 13 (84182)By: Moris MOSQUEDA, On: 26-Mar-2014 Intent Geraldine Comments: [id number] arm, IMAS Flu Vaccine (Quadrivalent) [id number]: On: 26-Mar-2014 Intent Geraldine Subramanian LPN ADMINISTRATION OF INFLUENZA VIRUS On: 26-Mar-2014 Intent VACCINE (G0008)By: Geraldine Subramanian LPN Comments: [id number] syringeL Dltd, IMAS, LPNABN and VIS signed MAMMOGRAM, SCREENING, BOTH BREAST On: 15-Feb-2014 Intent (15197)By: Trini Murphy DO B 12 Injection, 1000 mcg (J3420)By: On: 29-Dec-2013 Intent Fast DO, Trini A Comments: lot: [id number]: 02/07site/route: L del/IMamt: 1mLVIS signed when 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, AREA LOSS PREVENTION MANAGER B 12 Injection, 1000 mcg (J3420)By: On: 20-Nov-2013 Intent Fast DO, Trini A Comments: Lot:[id number]:Dose:1mlRoute:IMSite:rafita ruthGiven By:ERICA signed B 12 Injection, 1000 mcg (J3420)By: On: 16-Nov-2013 Intent Fast DO, Trini A Comments: Lot:[id number]:07/2015Dose:1mlRoute:IMSite:rafita Hart By:ERICA signed B 12 Injection, 1000 mcg (J3420)By: On: 12-Oct-2013 Intent Fast DO, Trini A Comments: Lot:[id number]:07/12Dose:1mlRoute:IMSite:rafita Hart By:ERICA signed Eprescribed prescriptions (G8553)By: On: 12-Oct-2013 Intent Fast DO, Trini A B 12 Injection, 1000 mcg (J3420)By: On: 08-Apr-2013 Intent Antonia Villeda Comments: Lot:[id number]:01/08Dose:1mlRoute:IMSite:rafita Hart By:ERICA signed B 12 Injection, 1000 mcg (J3420)By: On: 01-Apr-2013 Intent Fast DO, Trini A Comments: Lot:[id number]:01/08Dose:1mlRoute:IMSite:r armGiven By:Lawrence signed B 12 Injection, 1000 mcg (J3420)By: On: 25-Mar-2013 Intent Fast DO, Trini A Comments: lot: [id number]: 01/08site/route: L deltoid/IMamt: 1mLVIS signed when 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, AREA LOSS PREVENTION MANAGER B 12 Injection, 1000 mcg (J3420)By: On: 17-Mar-2013 Intent Fast DO, Trini A Comments: Lot:[id number]:08/2014Dose:1mlRoute:IMSite:rafita Herrven By:ERICA signed Nuclear Stress Test/Stress On: 29-Dec-2012 Intent SPECT/TreadmillBy: Fast DO, Trini A EKG (28556)By: Radha Ca On: 29-Dec-2012 Intent Comments: ekg showed normal sinus rhythym, normal axis, no acute st/t wave changes Spirometry (12735)By: Roby, On: 29-Dec-2012 Intent Radha Comments: good effort and curve no obst MAMMOGRAM, SCREENING, BOTH BREASTS On: 29-Dec-2012 Intent (27844)By: Fast DO, Trini A TDAP VACCINE >7 IM (06789)By: On: 29-Dec-2012 Intent Radha Ca Planned Medications [...] products, soaps, makeup, laundry soap, eye glass sagger.Encounter Diagnosis: Non-smoker, BMI 40.0-44.9, adult, Itch of [...] Onset was 2 w End: 24-Mar-2015 14:52 flandreau(s) ago. There is no known event that [...] to listen to her lungs. Pt didnt brain picker the End: 02-Aug-2014 12:25 prednisone, wanted [...] for chronic medical is sues[facility] she retired today - [...]
== END ==
PROVIDERS: Family Provider Internal Medicine; PCP Internal Medicine; Referring Provider Internal Medicine; Visit Provider Internal Medicine
DX: Z12.31 Encounter for screening mammogram for malignant neoplasm of breast (principal)
CPT/HCPCS: 77063; 77067

== ENCOUNTER → 2019-05-05 12:29 | Outpatient (CLI) | payer MEDICARE, SELFPAY ==
--- NOTE | 2019-05-05 12:32 | BI_ITS ---
MAMMOGRAPHY - BILATERAL SCREENING REASON FOR EXAM: Female, 73 years old. Routine annual screening examination. PERTINENT HISTORY: Non-contributory. TECHNIQUE: Digital bilateral breast efren (3D mammographic acquisition) in the CC and MLO projections. 2-D mediolateral oblique (MLO) and craniocaudad (CC) views of both breasts were obtained. CAD: Full Field Digital Mammography with Computer Added Detection was performed. COMPARISON: Comparison is made with prior study dated April 28, 2018 and March 26, 2014. FINDINGS: Breast Composition: There are scattered areas of fibroglandular density. There are no dominant masses or suspicious calcifications. Stable appearance of the small bilateral axillary lymph nodes. No other significant abnormalities are identified. There has been no significant change since the prior study. BI/SCREEN MAMM (CAD) W/EFREN BILAT IMPRESSION: Stable bilateral screening mammogram. Yearly follow-up mammogram recommended. (A) ASSESSMENT CATEGORY: BIRADS Category 2: Benign. A letter regarding these results will be sent to the patient by the facility within 30 days. Approximately 10% of breast cancers are not detected by mammography. A normal mammogram should not delay biopsy of a clinically suspicious abnormality. [id number] Electronically Signed: Melchor Forde, at 13:53 EST , Service support ,
--- NOTE | 2019-05-05 12:36 | BD_ITS ---
STUDY: DUAL ENERGY X-RAY ABSORPTIOMETRY / DXA REASON FOR EXAM: Female, 73 years old. Early menopause. Loss of height. TECHNIQUE: Bone Mineral Density (BMD) measurements of lumbar spine and bilateral hips were obtained. COMPARISON: None. FINDINGS: Lumbar Spine (L1-L4): g/cm2 (0.966) / T-score (-1.7) / Z-score (0.1) Findings are suggestive of osteopenia with a moderate fracture risk. Left Femur Total: g/cm2 (0.894) / T-score (-0.9) / Z-score (0.8) Left Femoral Neck: g/cm2 (0.800) / T-score (-1.7) / Z-score (0.1) Right Femur Total: g/cm2 (0.879) / T-score (-1.0) / Z-score (0.6) Right Femoral Neck: g/cm2 (0.856) / T-score (-1.3) / Z-score (0.5) BD/Dexa Bone Density Study IMPRESSION: The patient is considered osteopenic as outlined below according to World Prashant Organization (WHO) criteria with a moderate fracture risk. Reference Information: The T-score is the number of standard deviations above or below the standard which is normal for young adults at their peak bone mineral density. The World Health Organization (WHO) interprets the T-scores as follows: Above -1 Normal bone density Between -1 and -2.5 Osteopenia Equal to / or below -2.5 Osteoporosis As a practical clinical guideline, osteopenia may be graded as follows: Mild -1 through -1.5 Moderate -1.6 through -2.0 Severe -2.1 through -2.4 The Z-score is the number of standard deviations above or below age-matched controls. A Z-score of less than -1.5 would be considered abnormal. References: 1. NIH Osteoporosis and Related Bone Diseases http://www.osteo.org 2. International Society for Clinical Densitometry http://www.iscd.org 3. National Osteoporosis Foundation http://www.nof.org Electronically Signed: Melchor Forde, at 9:37 EST , Service support ,
== END ==
PROVIDERS: Family Provider Internal Medicine; PCP Internal Medicine; Referring Provider Internal Medicine; Visit Provider Internal Medicine
DX: Z12.31 Encounter for screening mammogram for malignant neoplasm of breast (principal); Z78.0 Asymptomatic menopausal state; M85.80 Other specified disorders of bone density and structure, unspecified site
CPT/HCPCS: 77063; 77067; 77080

== ENCOUNTER → 2020-09-06 13:10 | Outpatient (CLI) | payer MEDICARE, SELFPAY ==
--- NOTE | 2020-09-06 13:13 | BI_ITS ---
MAMMOGRAPHY - BILATERAL SCREENING REASON FOR EXAM: Female, 75 years old. Routine annual screening examination. PERTINENT HISTORY: Non-contributory. TECHNIQUE: Digital bilateral breast efren (3D mammographic acquisition) in the CC and MLO projections. 2-D mediolateral oblique (MLO) and craniocaudad (CC) views of both breasts were obtained. CAD: Full Field Digital Mammography with Computer Added Detection was performed. COMPARISON: Comparison is made with prior study dated 05/05/2019 and 04/28/2018 FINDINGS: Breast Composition: There are scattered areas of fibroglandular density. There are no dominant masses or suspicious calcifications. Stable benign-appearing small bilateral axillary nodes. No other significant abnormalities are identified. There has been no significant change since the prior study. BI/SCRN MAMM (CAD)W/EFREN BILAT IMPRESSION: Stable bilateral screening mammogram. Yearly follow-up mammogram recommended. (A) ASSESSMENT CATEGORY: BIRADS Category 2: Benign. A letter regarding these results will be sent to the patient by the facility within 30 days. Approximately 10% of breast cancers are not detected by mammography. A normal mammogram should not delay biopsy of a clinically suspicious abnormality. [id number] Electronically Signed: Melchor Forde MD at 14:51 EDT , Service support ,
== END ==
PROVIDERS: PCP Internal Medicine; Referring Provider Internal Medicine; Visit Provider Internal Medicine
DX: Z12.31 Encounter for screening mammogram for malignant neoplasm of breast (principal)
CPT/HCPCS: 77063; 77067

== ENCOUNTER → 2021-05-08 12:35 | Outpatient (CLI) | payer MEDICARE, SELFPAY ==
--- NOTE | 2021-05-08 12:38 | US_ITS ---
ACR Level 3 findings have been noted. An addendum which confirms receipt of the report will follow. INDICATION: THYROID MASS EXAMINATION: US Thyroid (eg thyroid, parathyroid, parotid) TECHNIQUE: Glaser scale and color doppler imaging was performed of the thyroid gland. COMPARISON: None. FINDINGS: RIGHT THYROID LOBE: measures 4.8 x 1.7 x 1.5 cm. Homogeneous echotexture with normal vascularity. In the lower pole there is a 1 x 0.8 cm well-circumscribed mostly solid hyperechoic nodule. LEFT THYROID LOBE: Measures 6.5 x 3 x 2.7 cm. Homogeneous echotexture with normal vascularity. [In the lower pole there is a 3.3 cm complex solid and cystic mass which is well-circumscribed, wider than tall, with heterogeneous echogenicity and well-defined borders. In the mid pole there is a well-circumscribed 1.9 x 1.6 cm mixed echogenicity nodule that is wider than tall and mostly solid. ISTHMUS: Measures 2 mm. No thyroid nodules are present. US/Thyroid IMPRESSION: Multinodular thyroid: -1 cm TR 3 nodule in the right lower pole is mildly suspicious. Recommend follow-up ultrasound in one year. - 3.3 cm TR 3 nodule in the left lower pole is moderately suspicious and meets criteria for biopsy. -1.9 cm TR 4 nodule in the left mid pole is moderately suspicious and meets criteria for biopsy. Electronically Signed: Eddi Malhotra MD at 0:06 EST Tel , Service support ,
== END ==
PROVIDERS: PCP Internal Medicine; Referring Provider Internal Medicine; Visit Provider Internal Medicine
DX: E07.9 Disorder of thyroid, unspecified (principal)
CPT/HCPCS: 76536

== ENCOUNTER 2021-05-30 08:13 | Outpatient (CLI) | payer MEDICARE, SELFPAY ==
[2021-06-02 15:30] LABS: Anti-Parietal Cell AB, QN < 1.0 Units (0.0-20.0)
== END 2021-05-30 23:59 | disposition short-term general hospital (02) ==
LOC: LAB 08:14
PROVIDERS: Nurse Practitioner Adult Health; PCP Internal Medicine; Visit Provider Internal Medicine Gastroenterology
DX: E53.8 Deficiency of other specified B group vitamins (principal); R20.2 Paresthesia of skin
CPT/HCPCS: 36415; 83516; 86340

== ENCOUNTER 2021-06-15 16:46 | Outpatient (CLI) | payer MEDICARE, SELFPAY ==
--- NOTE | 2021-06-15 | FLU_PTH ---
PATIENT: GAMA DURAN [facility] U#:[id number] AGE/SX: 75/F ROOM: RE06/15/[address]: Dr. Praneeth Montgomery MD : 1945 BED: DIS: 06/15/2021 SPEC #: [id number] RECD: 06/15/21 16:46 STATUS: BENJI REQ #: [id number] DENNIS: 06/15/21 00:[address]: Praneeth Montgomery DEPT: CYTOLOGY RECD BY: Shannan Chen ENTERED: 06/16/21 11:17 SP TYPE: Fluid OTHR DR: Dr. Korin Glass, DO Tissues: A - Thyroid gland, NOS B - Thyroid gland, NOS C - Thyroid gland, NOS D - Thyroid gland, NOS Procedures: Special Stain Group II Surgery Specimen Level IV Cytospin Fluid Cytology Other HEADER OPERATION: Left mid, left lower pole, fine needle aspiration PRE-OP DIAGNOSIS: Multinodular goiter TISSUE SUBMITTED: A - Left mid pole thyroid nodule fluid, B - Left mid pole thyroid nodule x12 slides, C - Left lower pole thyroid nodule fluid, D - Left lower pole thyroid nodule x12 slides DIAGNOSIS CYTOLOGY A. Left mid pole thyroid nodule fluid, FNA (cytospin and cell block): Numerous macrophages and rare benign follicular cells noted. B. Left mid pole thyroid nodule, FNA (smears): Consistent with benign follicular/colloid nodule with extensive cystic changes. Adequate for evaluation. C. Left lower pole thyroid nodule fluid, FNA (cytospin and cell block): Consistent with benign follicular nodule. D. Left lower pole thyroid nodule, FNA (smears): Consistent with benign follicular/colloid nodule with extensive cystic changes. Adequate for evaluation. SJ:zack 06/19/2021 COMMENT Correlation with clinical, radiologic findings and appropriate follow up are necessary. CYTOLOGY STUDY Slides are reviewed. CYTOLOGY GROSS A - Received is 30 ml of brown cloudy fluid labeled with the patient's name and and designated per the requisition as left mid pole thyroid. Submitted for cytology preparation including cell block. B - Received are 12 smears labeled with the patient's name and designated per the requisition as left mid pole thyroid. Submitted for staining. C - Received is 30 ml of brown cloudy fluid labeled with the patient's name and and designated per the requisition as left lower pole thyroid. Submitted for cytology preparation including cell block. D - Received are 12 smears labeled with the patient's name and designated per the requisition as left lower pole thyroid. Submitted for staining. / zack 06/16/2021 TC:5 CPT: 51599 x2, 56696 x4
== END 2021-06-15 23:59 | disposition short-term general hospital (02) ==
LOC: LABSPEC 06-16 07:51
PROVIDERS: PCP Internal Medicine; Referring Provider Surgery; Visit Provider Surgery
DX: E04.2 Nontoxic multinodular goiter (principal)
CPT/HCPCS: 88108; 88161; 88305; 88313

== ENCOUNTER 2021-07-04 12:26 | Day surgery (SDC) | payer MEDICARE, SELFPAY ==
[2021-07-04 12:51] VITALS: BP 158/51; PULSE 71; RESP 16; TEMP 36.9; O2SAT 93; BMI 40.8
[2021-07-04] MEDS: Lactated Ringers 1,000 ML 15 ML IV (12:55)
[2021-07-04 13:06] LABS: Bedside Glucose 97 mg/dL (70-110)
--- NOTE | 2021-07-04 13:30 | COLBX_PTH ---
PATIENT: GAMA DURAN LOC: [facility] U#:[id number] AGE/SX: 75/F ROOM: RE07/04/[address]: Dr. Everton Merritt DO : 1945 BED: DIS: 07/04/2021 SPEC #: [id number] RECD: 07/04/21 16:49 STATUS: BENJI REBrandy #: [id number] DENNIS: 07/04/21 13:[address]: Everton Merritt DEPT: SURGICAL PATHOLOGY RECD BY: Shannan Chen ENTERED: 07/05/21 08:47 SP TYPE: COLON BX OTHR DR: Dr. Korin Glass DO Tissues: A - Esophagus, NOS B - COLON BIOPSY Procedures: Special Stain Group II Surgery Specimen Level IV Alcian Blue/PAS (control) HEADER OPERATION: Colonoscopy with polypectomy, EGD, dilation with biopsies PRE-OP DIAGNOSIS: Dysphagia TISSUE SUBMITTED: A ? Distal esophagus biopsy, B ? Hepatic flexure polyp MICROSCOPIC DIAGNOSIS A. Distal esophagus, biopsy: Fragments of gastroesophageal mucosa with acute and chronic inflammation and changes consistent with gastroesophageal reflux disease. Intestinal metaplasia (goblet cell metaplasia) is not identified. See comment. B. Hepatic flexure polyp, biopsy: Fragments of hyperplastic polyp. CASE:zack 07/06/2021 COMMENT A. Alcian blue/PAS stain with matched control is used in the evaluation of the specimen. The specimen predominantly consists of squamous mucosa. MICROSCOPIC DESCRIPTION Slides are reviewed. GROSS DESCRIPTION A - Received in fixative is one container labeled with the patient's name and designated distal esophagus. The specimen consists of multiple irregular fragments of light uriarte soft tissue that in aggregate measure 1.5 x 0.5 x 0.1 cm. The specimen is totally submitted in one cassette. B - Received in fixative is one container labeled with the patient's name and designated polyp hepatic flexure. The specimen consists of multiple irregular fragments of light uriarte soft tissue that in aggregate measure 0.5 x 0.5 x 0.1 cm. The specimen is totally submitted in one cassette. / CASE:zack 07/05/2021 TC:5 CPT: 02341 x2, 08347
--- NOTE | 2021-07-04 13:49 | PCM.HP.BLA ---
History and Physical Date of Admission: 07/04/21 75 F who presents to the office today for Reports that she had an EGD done 04/15/21 by [facility] in [place]. Over Thanksgiving she had to present to an ED in [place] due to food impaction and choking. Prior to presentation she had difficulty with swallowing foods, everything required to be regurgitated. She had been having difficulty with this, to a lesser extent, for a couple years. During this visit imaging was performed and a mass in her thyroid and gastroesophageal junction was seen. EGD performed 04/15/21 found food bolus obstruction, removed. Schatzkis ring, not dilated. Biopsies to r/o EOE and H.Pylori (call received 04/24/21 reporting normal results). Instructed to start omeprazole 20mg QD. Additional history ROSHNI positive, paresthesia, dysphagia, lower esophageal ring, HTN, obstructive sleep apnea, hyperlipidemia, vitamin D and B12 deficiencies, DMII. US thyroid 05/08/21 found 1cm TR 3 nodule in right lower pole, mildly suspicious recommend monitoring. 3.3cm TR 3nodule in left lower pole, moderately suspicious recommend biopsy. 1.9cm TR 4 nodule in left mid pole, moderately suspicious recommend biopsy. ROS ENT ENT: Positive for difficulty swallowing Gastro GI: Positive for difficulty swallowing Exam Const General: cooperative and comfortable Nutritional Appearance: average body habitus and well nourished HENMT Head: normal to inspection Ears: hearing grossly normal bilaterally Nose: external nose normal Face and sinus: normal facial exam Mouth: oral mucosae normal Throat: posterior oropharynx normal Eyes General: appearance normal, both eyes and all related structures Neck Neck: normal visual inspection Chest Chest palpation & inspection: normal inspection of the chest and normal palpation of entire chest wall Resp Effort & Inspection: normal respiratory effort Auscultation: Bilateral: Clear to Auscultation Cardio Palpation: normal PMI Rate: regular rate Rhythm: regular rhythm GI Inspection: normal to inspection Auscultation: normal bowel sounds Percussion: normal to percussion Palpation: no hepatosplenomegaly Skin General: no rashes or lesions noted Neuro General: patient alert Extrem General: normal to inspection Psych Affect: normal affect Assessment and Plan Assessment and Plan (1) Encounter for screening colonoscopy: Status: Acute Orders: Orders: Colonoscopy Today Dr. Everton Merritt, DO EGD Today Dr. Everton Merritt DO Plan - Dr. Everton Merritt DO: He will undergo a screening colonoscopy. She has never had a colonoscopy in the past. She was explained alternatives, risk, benefits including not withstanding bleeding, infection, sepsis, perforation, need for emergent surgery . She will have ASA of 3. (2) Dysphagia: Status: Acute Orders: Orders: Colonoscopy Today Dr. Everton Merritt DO EGD Today Dr. Everton Merritt DO Plan - Dr. Everton Merritt DO: Differential diagnosis for esophageal dysphagia does include Schatzki's ring which she was seen to have. She also seemed to have a small hiatal hernia associated with that which would lead to laxative of the lower esophageal sphincter. She is on PPI therapy which she should continue. She should also have evaluation for atrophic gastritis associated with pernicious anemia due to the fact that on her previous imaging she had very flattened mucosa of the stomach. She was okay with this plan. Plan Details Other Medications: New: bisacodyl take as directed for bowel prep 5 mg PO ONCE [address] Everton Merritt DO polyethylene glycol 3350 (Miralax) take as directed for bowel prep 17 grams PO DAILY [address] Everton Merritt DO I have re-examined the patient. There are no clinical changes since date of exam.
--- NOTE | 2021-07-04 14:12 | OP.EGD_ITS ---
Patient Name: Haydee Boss Procedure Date: 07/04/2021 1:45 PM Date of : 1945 Age: 75 Procedure: Upper GI endoscopy Indications: Dysphagia Providers: Everton Merritt DO Referring MD: Everton Merritt DO Medicines: See the Anesthesia note for documentation of the administered medications Patient Profile: This is a 75 year old female. Refer to note in patient chart for documentation of history and physical. Patient has symptoms. Complications: No immediate complications. Procedure: Pre-Anesthesia Assessment: - Prior to the procedure, a History and Physical was performed, and patient medications and allergies were reviewed. The patient is competent. The risks and benefits of the procedure and the sedation options and risks were discussed with the patient. All questions were answered and informed consent was obtained. Patient identification and proposed procedure were verified by the physician in the pre-procedure area. Mental Status Examination: alert and oriented. Airway Examination: normal oropharyngeal airway and neck mobility. Respiratory Examination: clear to auscultation. CV Examination: normal. Prophylactic Antibiotics: The patient does not require prophylactic antibiotics. Prior Anticoagulants: The patient has taken no previous anticoagulant or antiplatelet agents. After reviewing the risks and benefits, the patient was deemed in satisfactory condition to undergo the procedure. The anesthesia plan was to use moderate sedation / analgesia (conscious sedation). Immediately prior to administration of medications, the patient was re-assessed for adequacy to receive sedatives. The heart rate, respiratory rate, oxygen saturations, blood pressure, adequacy of pulmonary ventilation, and response to care were monitored throughout the procedure. The physical status of the patient was re-assessed after the procedure. After obtaining informed consent, the endoscope was passed under direct vision. Throughout the procedure, the patient's blood pressure, pulse, and oxygen saturations were monitored continuously. The gastroscope was introduced through the mouth, and advanced to the second part of duodenum. The upper GI endoscopy was accomplished without difficulty. The patient tolerated the procedure well. Moderate Sedation: Moderate (conscious) sedation was administered by the endoscopy nurse and supervised by the endoscopist. The following parameters were monitored: oxygen saturation, heart rate, blood pressure, and response to care. Total physician intraservice time was 15 minutes. Scope In: 1:58:01 PM Scope Out: 2:06:24 PM Total Procedure Duration Time 0 hours 8 minutes 23 seconds Findings: Mucosal changes including small-caliber esophagus, circumferential folds, congestion (edema) and tight circumferential folds were found in the entire esophagus. Esophageal findings were graded using the Eosinophilic Esophagitis Endoscopic Reference Score (EoE-EREFS) as: Edema Grade 1 Present (decreased clarity or absence of vascular markings), Rings Grade 2 Moderate (distinct rings that do not occlude passage of diagnostic 8-10 mm endoscope), Exudates Grade 0 None (no white lesions seen), Furrows Grade 1 Present (vertical lines with or without visible depth) and Stricture none (no stricture found). Biopsies were obtained from the proximal and distal esophagus with cold forceps for histology of suspected eosinophilic esophagitis. Verification of patient identification for the specimen was done. Estimated blood loss was minimal. A moderate Schatzki ring was found in the middle third of the esophagus. A guidewire was placed and the scope was withdrawn. Dilation was performed with a Savary dilator with no resistance at 54 Fr. The dilation site was examined following endoscope reinsertion and showed moderate improvement in luminal narrowing. Estimated blood loss was minimal. The entire examined stomach was normal. The second portion of the duodenum was normal. Impression: - Esophageal mucosal changes consistent with eosinophilic esophagitis. Biopsied. - Moderate Schatzki ring. Dilated. - Normal stomach. - Normal second portion of the duodenum. Recommendation: - Discharge patient to home. - Advance diet as tolerated today. - Use Protonix (pantoprazole) 40 mg PO BID for 8 weeks. - Continue present medications. Procedure Code(s): --- Professional --- 93541, Esophagogastroduodenoscopy, flexible, transoral; with insertion of guide wire followed by passage of dilator(s) through esophagus over guide wire 52576, 59, Esophagogastroduodenoscopy, flexible, transoral; with biopsy, single or multiple 13942, 59, Moderate sedation services provided by the same physician or other qualified health career technical education teacher performing the diagnostic or therapeutic service that the sedation supports, requiring the presence of an independent trained observer to assist in the monitoring of the patient's level of consciousness and physiological status; initial 15 minutes of intraservice time, patient age 5 years or older CPT copyright 2017 [employer]. All rights reserved. The codes documented in this report are preliminary and upon electrical controls technician review may be revised to meet current compliance requirements. Everton Merritt DO 07/04/2021 2:11:28 PM This report has been signed electronically. Number of Addenda: 1 Note Initiated On: 07/04/2021 1:45 PM Addendum Number: 1 Addendum Date: 02/12/2022 6:52:49 AM MAC was used for sedation during this procedure. Everton Merritt DO 02/12/2022 6:52:53 AM This report has been signed electronically.
--- NOTE | 2021-07-04 14:13 | OP.CCLET_ITS ---
02/12/2022 Korin Glass [address] [place] [address] Re : Upper GI endoscopy procedure for Haydee Boss Dear Dr. Glass This procedure was performed on Sunday, July 04, 2021. My impressions and recommendations are as follows: Impressions : - Esophageal mucosal changes consistent with eosinophilic esophagitis. Biopsied. - Moderate Schatzki ring. Dilated. - Normal stomach. - Normal second portion of the duodenum. Recommendations : - Discharge patient to home. - Advance diet as tolerated today. - Use Protonix (pantoprazole) 40 mg PO BID for 8 weeks. - Continue present medications. My findings are described in the full procedure note, which is enclosed. If I can be of further assistance, please feel free to contact me at . Sincerely, Everton Merritt, 07/04/2021 2:11:28 PM This report has been signed electronically.
[2021-07-04 14:40] VITALS: BP 112/49; BP 158/51; PULSE 69; RESP 16; TEMP 36.9; O2SAT 94
--- NOTE | 2021-07-04 14:41 | OP.COLON_ITS ---
Patient Name: Haydee Boss Procedure Date: 07/04/2021 2:08 PM Date of : 1945 Age: 75 Procedure: Colonoscopy Indications: Screening for colorectal malignant neoplasm Providers: Everton Merritt DO Referring MD: Everton Merritt DO Medicines: See the Anesthesia note for documentation of the administered medications Patient Profile: This is a 75 year old female. Refer to note in patient chart for documentation of history and physical. Patient has symptoms. Last Colonoscopy: none. The patient's first colonoscopy is today. Complications: No immediate complications. Procedure: Pre-Anesthesia Assessment: - Prior to the procedure, a History and Physical was performed, and patient medications and allergies were reviewed. The patient is competent. The risks and benefits of the procedure and the sedation options and risks were discussed with the patient. All questions were answered and informed consent was obtained. Patient identification and proposed procedure were verified by the physician in the pre-procedure area. Mental Status Examination: alert and oriented. Airway Examination: normal oropharyngeal airway and neck mobility. Respiratory Examination: clear to auscultation. CV Examination: normal. Prophylactic Antibiotics: The patient does not require prophylactic antibiotics. Prior Anticoagulants: The patient has taken no previous anticoagulant or antiplatelet agents. After reviewing the risks and benefits, the patient was deemed in satisfactory condition to undergo the procedure. The anesthesia plan was to use moderate sedation / analgesia (conscious sedation). Immediately prior to administration of medications, the patient was re-assessed for adequacy to receive sedatives. The heart rate, respiratory rate, oxygen saturations, blood pressure, adequacy of pulmonary ventilation, and response to care were monitored throughout the procedure. The physical status of the patient was re-assessed after the procedure. After I obtained informed consent, the scope was passed under direct vision. Throughout the procedure, the patient's blood pressure, pulse, and oxygen saturations were monitored continuously. The Colonoscope was introduced through the anus and advanced to the cecum, identified by appendiceal orifice and ileocecal valve. The colonoscopy was performed without difficulty. The patient tolerated the procedure well. The quality of the bowel preparation was fair. Moderate Sedation: Moderate (conscious) sedation was administered by the endoscopy nurse and supervised by the endoscopist. The following parameters were monitored: oxygen saturation, heart rate, blood pressure, and response to care. Total physician intraservice time was 15 minutes. Scope In: 2:14:00 PM Scope Withdrawal Time 0 hours 13 minutes 8 seconds Scope Out: 2:35:16 PM Total Procedure Duration Time 0 hours 21 minutes 16 seconds Findings: The perianal and digital rectal examinations were normal. Multiple small and large-mouthed diverticula were found in the recto-sigmoid colon, sigmoid colon, splenic flexure and hepatic flexure. There was no evidence of diverticular bleeding. A 8 mm polyp was found in the hepatic flexure. The polyp was sessile. The polyp was removed with a hot snare. Resection and retrieval were complete. Verification of patient identification for the specimen was done. Estimated blood loss was minimal. There was a medium-sized lipoma, 5 mm in diameter, in the ascending colon. Impression: - Preparation of the colon was fair. - Moderate diverticulosis in the recto-sigmoid colon, in the sigmoid colon, at the splenic flexure and at the hepatic flexure. There was no evidence of diverticular bleeding. - One 8 mm polyp at the hepatic flexure, removed with a hot snare. Resected and retrieved. - Medium-sized lipoma in the ascending colon. Recommendation: - Discharge patient to home. - Resume previous diet. - Continue present medications. - Await pathology results. - Repeat colonoscopy in 5 years for surveillance. - Return to GI office. Procedure Code(s): --- Professional --- 93122, Colonoscopy, flexible; with removal of tumor(s), polyp(s), or other lesion(s) by snare technique 09628, 59, Moderate sedation services provided by the same physician or other qualified health child care center administrator performing the diagnostic or therapeutic service that the sedation supports, requiring the presence of an independent trained observer to assist in the monitoring of the patient's level of consciousness and physiological status; initial 15 minutes of intraservice time, patient age 5 years or older CPT copyright 2017 [employer]. All rights reserved. The codes documented in this report are preliminary and upon tug master review may be revised to meet current compliance requirements. Everton Merritt DO 07/04/2021 2:41:25 PM This report has been signed electronically. Number of Addenda: 1 Note Initiated On: 07/04/2021 2:08 PM Addendum Number: 1 Addendum Date: 02/12/2022 6:53:02 AM MAC was used for sedation during this procedure. Everton Merritt DO 02/12/2022 6:53:06 AM This report has been signed electronically.
--- NOTE | 2021-07-04 14:42 | OP.CCLET_ITS ---
02/12/2022 Korin Glass [address] [place] [address] Re : Colonoscopy procedure for Haydee Boss Dear Dr. Glass This procedure was performed on Sunday, July 04, 2021. My impressions and recommendations are as follows: Impressions : - Preparation of the colon was fair. - Moderate diverticulosis in the recto-sigmoid colon, in the sigmoid colon, at the splenic flexure and at the hepatic flexure. There was no evidence of diverticular bleeding. - One 8 mm polyp at the hepatic flexure, removed with a hot snare. Resected and retrieved. - Medium-sized lipoma in the ascending colon. Recommendations : - Discharge patient to home. - Resume previous diet. - Continue present medications. - Await pathology results. - Repeat colonoscopy in 5 years for surveillance. - Return to GI office. My findings are described in the full procedure note, which is enclosed. If I can be of further assistance, please feel free to contact me at . Sincerely, Everton Merritt, 07/04/2021 2:41:25 PM This report has been signed electronically.
[2021-07-04 14:45] VITALS: BP 106/58; BP 158/51; PULSE 69; RESP 16; O2SAT 91
[2021-07-04 14:52] VITALS: BP 130/55; BP 158/51; PULSE 67; RESP 16; O2SAT 95
[2021-07-04 14:57] VITALS: BP 125/59; BP 158/51; PULSE 68; RESP 16; TEMP 36.8; O2SAT 95
[2021-07-04 15:08] VITALS: BP 158/51
== END 2021-07-04 23:59 | disposition home or self-care (01) ==
LOC: EN 12:27 → AC 12:27
PROVIDERS: PCP Internal Medicine; Referring Provider Internal Medicine Gastroenterology; Visit Provider Internal Medicine Gastroenterology
PROC: 0DJD8ZZ Inspection of Lower Intestinal Tract, Via Natural or Artificial Opening Endoscopic (ICD-10-PCS; CPT 45378; principal; 2021-07-04 13:25)
DX: Z12.11 Encounter for screening for malignant neoplasm of colon (principal); K22.2 Esophageal obstruction; E11.9 Type 2 diabetes mellitus without complications; K63.5 Polyp of colon; K44.9 Diaphragmatic hernia without obstruction or gangrene; R13.10 Dysphagia, unspecified; K57.30 Diverticulosis of large intestine without perforation or abscess without bleeding; I10 Essential (primary) hypertension; E78.5 Hyperlipidemia, unspecified; E53.8 Deficiency of other specified B group vitamins; G47.33 Obstructive sleep apnea (adult) (pediatric); Z79.899 Other long term (current) drug therapy
CPT/HCPCS: 45385; 43239; 43248; 82962; 87426; 88305; 88313; C9803; J7120; C1769; J2405

== ENCOUNTER 2021-09-04 11:56 | Outpatient (CLI) | payer MEDICARE, SELFPAY ==
--- NOTE | 2021-09-04 13:22 | NEURO_ITS ---
NCS and/or EMG Patient Report Ordering Doctor: Korin Glass DATE OF SERVICE: 09/04/21 Indication: Several years of pain, numbness, tingling and weakness in the left hand. Symptoms are most bothersome at night while attempting to sleep. Evaluate for entrapment neuropathy. Findings: Nerve conduction studies were performed in the left upper extremity. The left median motor study recording the abductor pollicis brevis showed a normal amplitude, prolonged distal latency and slowed conduction velocity. The left ulnar motor study recording the abductor digiti minimi showed a normal amplitude, normal distal latency and normal conduction velocity. No conduction block or focal slowing was present across the elbow. The left median sensory response recording digit two showed a borderline amplitude, prolonged latency and markedly slowed conduction velocity. The left ulnar sensory response recording digit five showed a borderline amplitude, normal latency and normal conduction velocity. The left radial sensory response recording over the extensor snuff box showed a normal amplitude, latency and conduction velocity. Left median-ulnar lumbrical / interosseous motor latencies showed a prolonged median latency compared to the ulnar. Needle EMG of the left upper extremity muscles was performed. No denervation was seen in any muscle. Motor units in the abductor pollicis brevis were large amplitude, long duration with slightly reduced recruitment. All other motor unit morphology, activation and recruitment patterns were normal. Impression: This is an abnormal study. 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 The pathophysiology is predominantly d emyelinating though there is evidence of secondary axonal loss and subsequent reinnervation. The borderline ulnar sensory response is of unclear significance. There are no other findings suggestive of an ulnar neuropathy (e.g. ulnar CMAP is normal, needle EMG of abductor digiti minimi is normal). If an ulnar neuropathy is clinically suspected, further evaluation with neuromuscular ultrasound can be considered. Eddi Juan D.O. Multi Select Codes Neurology Neurology Interp Codes: 42192-09 Musc test done w/n test comp (interp) and 12976-07 Nrv cndj test 7-8 studies (interp)
== END 2021-09-04 23:59 | disposition home or self-care (01) ==
LOC: PSN 11:56
PROVIDERS: PCP Internal Medicine; Referring Provider Internal Medicine; Visit Provider Internal Medicine
DX: G56.02 Carpal tunnel syndrome, left upper limb (principal)
CPT/HCPCS: 95886; 95910

== ENCOUNTER → 2021-10-13 | Outpatient (CLI) | payer MEDICARE, SELFPAY ==
--- NOTE | 2021-10-13 12:02 | BI_ITS ---
MAMMOGRAPHY - BILATERAL SCREENING REASON FOR EXAM: Female, 76 years old. Routine annual screening examination. PERTINENT HISTORY: Non-contributory. TECHNIQUE: Digital bilateral breast efren (3D mammographic acquisition) in the CC and MLO projections. 2-D mediolateral oblique (MLO) and craniocaudad (CC) views of both breasts were obtained. CAD: Full Field Digital Mammography with Computer Added Detection was performed. COMPARISON: Comparison is made with prior study dated 09/06/2020 and 05/05/2019. FINDINGS: Breast Composition: There are scattered areas of fibroglandular density. There are no dominant masses or suspicious calcifications. Stable small benign-appearing bilateral axillary lymph nodes. No other significant abnormalities are identified. There has been no significant change since the prior study. BI/SCRN MAMM (CAD)W/EFREN BILAT IMPRESSION: Stable bilateral screening mammogram. Yearly follow-up mammogram recommended. (A) ASSESSMENT CATEGORY: BIRADS Category 2: Benign. A letter regarding these results will be sent to the patient by the facility within 30 days. Approximately 10% of breast cancers are not detected by mammography. A normal mammogram should not delay biopsy of a clinically suspicious abnormality. [id number] Electronically Signed: Melchor Forde MD at 13:27 EDT ,
== END | disposition home or self-care (01) ==
LOC: OPBI 12:01
PROVIDERS: PCP Internal Medicine; Visit Provider Internal Medicine
DX: Z12.31 Encounter for screening mammogram for malignant neoplasm of breast (principal)
CPT/HCPCS: 77063; 77067

== ENCOUNTER → 2021-12-27 | Outpatient (CLI) | payer MEDICARE, SELFPAY ==
--- NOTE | 2021-12-27 11:38 | BD_ITS ---
STUDY: DUAL ENERGY X-RAY ABSORPTIOMETRY / DXA REASON FOR EXAM: Female, 76 years old. Z780. Patient is postmenopausal. TECHNIQUE: Bone Mineral Density (BMD) measurements of lumbar spine and bilateral hips were obtained. COMPARISON: Comparison is made with prior study dated 05/05/2019. FINDINGS: Lumbar Spine (L1-L4): g/cm2 (0.897) / T-score (-1.1) / Z-score (1.3) Findings are suggestive of osteopenia with a low fracture risk. Left Femur Total: g/cm2 (0.889) / T-score (-0.4) / Z-score (1.4) Left Femoral Neck: g/cm2 (0.614) / T-score (-2.1) / Z-score (0.0) Right Femur Total: g/cm2 (0.842) / T-score (-0.8) / Z-score (1.0) Right Femoral Neck: g/cm2 (0.671) / T-score (-1.6) / Z-score (0.5) The T-Scores on the most recent prior examination were: Lumbar Spine (L1-L4): There has been worsening of bone density since the previous examination. Left Femur Total: which represents an improvement of 6.9%. Right Femur Total: which represents an improvement of 3.1%. BD/Dexa Bone Density Study IMPRESSION: The patient is considered osteopenic as outlined below according to World Prashant Organization (WHO) criteria with a moderate fracture risk. There has been improvement of bone density since the previous examination. Reference Information: The T-score is the number of standard deviations above or below the standard which is normal for young adults at their peak bone mineral density. The World Health Organization (WHO) interprets the T-scores as follows: Above -1 Normal bone density Between -1 and -2.5 Osteopenia Equal to / or below -2.5 Osteoporosis As a practical clinical guideline, osteopenia may be graded as follows: Mild -1 through -1.5 Moderate -1.6 through -2.0 Severe -2.1 through -2.4 The Z-score is the number of standard deviations above or below age-matched controls. A Z-score of less than -1.5 would be considered abnormal. References: 1. NIH Osteoporosis and Related Bone Diseases www osteo.org 2. International Society for Clinical Densitometry www iscd.org 3. National Osteoporosis Foundation www nof.org Electronically Signed: Melchor Forde MD at 13:41 EDT ,
== END | disposition home or self-care (01) ==
LOC: OPBD 11:34
PROVIDERS: PCP Internal Medicine; Visit Provider Internal Medicine
DX: Z78.0 Asymptomatic menopausal state (principal)
CPT/HCPCS: 77080

== ENCOUNTER → 2023-01-09 | Outpatient (CLI) | payer MEDICARE, SELFPAY ==
--- NOTE | 2023-01-09 13:04 | BI_ITS ---
MAMMOGRAPHY - BILATERAL SCREENING REASON FOR EXAM: Female, 77 years old. Routine annual screening examination. PERTINENT HISTORY: Non-contributory. TECHNIQUE: Digital bilateral breast efren (3D mammographic acquisition) in the CC and MLO projections. 2-D mediolateral oblique (MLO) and craniocaudad (CC) views of both breasts were obtained. CAD: Full Field Digital Mammography with Computer Added Detection was performed. COMPARISON: Comparison is made with prior study of October 13, 2021 and September 06, 2020. FINDINGS: Breast Composition: There are scattered areas of fibroglandular density. There are no dominant masses or suspicious calcifications. Stable small benign-appearing bilateral axillary lymph nodes. No other significant abnormalities are identified. There has been no significant change since the prior study. BI/SCRN MAMM (CAD)W/EFREN BILAT IMPRESSION: Stable bilateral screening mammogram. Yearly follow-up mammogram recommended. (A) ASSESSMENT CATEGORY: BIRADS Category 2: Benign. A letter regarding these results will be sent to the patient by the facility within 30 days. Approximately 10% of breast cancers are not detected by mammography. A normal mammogram should not delay biopsy of a clinically suspicious abnormality. [id number] Electronically Signed: Melchor Forde MD at 14:41 EDT ,
== END | disposition home or self-care (01) ==
LOC: OPBD 13:03
PROVIDERS: PCP Internal Medicine; Referring Provider Internal Medicine; Visit Provider Internal Medicine
DX: Z12.31 Encounter for screening mammogram for malignant neoplasm of breast (principal)
CPT/HCPCS: 77063; 77067

== ENCOUNTER → 2024-11-19 | Outpatient (CLI) | payer MEDICARE, SELFPAY ==
--- NOTE | 2024-11-19 15:55 | BD_ITS ---
PROCEDURE: DEXA BONE DENSITY STUDY 11/19/2024 REASON FOR EXAM: F, age 79 y/o . Postmenopausal. TECHNIQUE: DEXA BONE DENSITY STUDY COMPARISON: Prior study dated December 27, 2021. FINDINGS: BMD and T-SCORES Lumbar spine: 0.903 g/cm2, T-score -1.4 Levels: L1 through L4 Change from prior: Improvement of 0.7%. Left femoral neck: 0.603 g/cm2, T-score -2.2 Femoral neck comparison data not recommended for monitoring change. Left total hip: 0.822 g/cm2, T-score -1.0 Change from prior: Loss of 7.5%. Right femoral neck: 0.629 g/cm2, T-score -2.0 Femoral neck comparison data not recommended for monitoring change. Right total hip: 0.801 g/cm2, T-score -1.2 Change from prior: Loss of 4.9%. The World Health Organization has defined the following categories based on bone density: Normal bone density: T-score equal to or greater than -1.0 Osteopenia: T-score between -1.0 and -2.5 Osteoporosis: T-score equal to or less than -2.5 The patient does meet the pharmacological treatment recommendations for prevention of osteoporosis. BD/Dexa Bone Density Study IMPRESSION: OSTEOPENIA. Recommend follow-up as clinically warranted. Reading Location: [id number]
--- NOTE | 2024-11-19 16:30 | BI_ITS ---
EXAM: SCRN MAMM (CAD)W/EFREN BILAT DATE: 11/19/2024 CLINICAL HISTORY: F, Age 79 y/o , BREAST CANCER SCREENING TECHNIQUE: SCRN MAMM (CAD)W/EFREN BILAT COMPARISON: Prior exam(s) were compared FINDINGS: TISSUE DENSITY: The breasts are heterogeneously dense, which may obscure small masses. Bilateral Breast Mammographic Findings: No suspicious masses, areas of developing architectural distortion, or suspicious calcifications. There has been no significant interval change. BI/SCRN MAMM (CAD)W/EFREN BILAT IMPRESSION: No mammographic evidence of malignancy in either breast OVERALL FINAL ASSESSMENT BI-RADS 1: NEGATIVE. RECOMMEND ANNUAL MAMMOGRAPHIC SCREENING. RECOMMENDATION: Routine annual follow-up in 1 Year A letter with findings and recommendations will be mailed to the patient. Reading Location: [id number]
== END | disposition home or self-care (01) ==
PROVIDERS: PCP Internal Medicine; Referring Provider Internal Medicine; Visit Provider Internal Medicine
DX: Z12.31 Encounter for screening mammogram for malignant neoplasm of breast (principal); Z78.0 Asymptomatic menopausal state; M85.80 Other specified disorders of bone density and structure, unspecified site
CPT/HCPCS: 77063; 77067; 77080